=== PATIENT | female | born 1965 | race Caucasian/White ===

== ENCOUNTER 2023-09-15 13:25 | Emergency (ER) | payer OTHER, SELFPAY ==
--- NOTE | ~2023-09-15 | CT_ITS ---
EXAMINATION: CT cervical spine wo con DATE: 09/15/2023 14:00 INDICATION: Fall. Neck injury. Posterior neck pain. TECHNIQUE: Computed tomography (CT) of the cervical spine was performed without intravenous contrast. Automated exposure control and iterative reconstruction technique were employed. Exam dose: 477.81 mGy-cm total exam DLP. COMPARISON: None FINDINGS: There is straightening of the cervical spine which may be due to positioning and/or muscle spasm. C1 and C2 are normally aligned and the odontoid process is intact. No fracture or dislocation or lock ed facet of the cervical spine. There is mild degenerative disc disease at C5-C6 and moderately severe degenerative disc disease at C 6-7.. Incidentally noted is prominent opacification of the maxillary sinuses and mild mucoperiosteal thicke maribell of the sphenoid sinuses. IMPRESSION: Straightening of the cervical spine which may be due to muscle spasm No fracture or dislocation or locked facet Degenerative disc disease in the lower cervical spine, most prominent at C6-7 Reviewed, dictated and finalized at [facility] Reviewed, dictated and finalized at [facility]. 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
--- NOTE | ~2023-09-15 | CT_ITS ---
EXAMINATION: CT brain wo con DATE: 09/15/2023 14:00 INDICATION: Head injury from fall today. Dizziness, headache, nausea. TECHNIQUE: Computed tomography (CT) of the head was performed without intravenous contrast. The mA wa s adjusted according to patient size. Iterative reconstruction technique was employed. Exam dose: 60 5.33 mGy-cm total exam DLP. COMPARISON: None FINDINGS: No intracranial mass lesion or hemorrhage or cerebrovascular accident is detected. No midli ne shift or mass effect. Bilateral carotid siphon internal carotid artery calcifications. No subdural or epidural hematoma. There is extensive soft tissue opacification of both maxillary sinuses and mild echograms thickening of the sphenoid sinuses and left frontal sinus. The mastoid air cells are normally developed and aerated. No skull fracture or bone destruction. IMPRESSION: Cerebral atherosclerosis No acute intracranial finding Paranasal sinus disease, involving particularly the maxillary sinuses Reviewed, dictated and finalized at [facility] Reviewed, dictated and finalized at [facility]. 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
[2023-09-15 14:00] VITALS: BP 122/82; PULSE 86; RESP 18; TEMP 36.8; O2SAT 98
[2023-09-15] MEDS: ONDANSETRON HCL ODT 4 MG TABLET PO (15:08)
[2023-09-15] MEDS: MORPHINE SULFATE (*CRX) 2 MG/ML INJ (15:09)
--- NOTE | 2023-09-15 15:13 | ED.FALL ---
HPI - Fall General Chief Complaint: Fall Stated Complaint: Fall/head injury Time Seen by Provider: 09/15/23 13:27 Source: patient and EMS Mode of arrival: EMS History of Present Illness HPI Narrative: This is 58-year-old female with history of diabetes had a and head having headache some nausea patient denied any dizziness prior no chest pain shortness no lacerations noted the posterior scalp patient is neurologically intact with no numbness or tingling in her arms or legs no weakness. complaint: fall Onset (ago): hour(s) Fall from: standing Place fall occurred: home Related Data Allergies Allergy/AdvReac Type Severity Reaction Status Date / Time adhesive Allergy Unknown Verified 09/15/23 14:22 ibuprofen [From Motrin] Allergy Unknown Verified 09/15/23 14:22 latex Allergy Unknown Verified 09/15/23 14:22 Penicillins Allergy Unknown Verified 09/15/23 14:22 Sulfa (Sulfonamide Allergy Unknown Verified 09/15/23 14:22 Antibiotics) tramadol Allergy Unknown Verified 09/15/23 14:22 IVP DYE Allergy Unknown Uncoded 09/15/23 14:22 Review of Systems Review of Systems: All systems reviewed & are unremarkable except as noted in HPI and below PMFSH Past Medical History Medical History Diabetes mellitus Exam Const: General: healthy appearing, no acute distress and alert Nutritional Appearance: well nourished Orientation/consciousness: patient oriented x3 Limitations: no limitations HENMT: Head: normal to inspection Ears: external ears normal Face and sinus: normal facial exam Eyes: Conjunctivae: conjunctivae normal Pupils: Equal, round and reactive pupils present EOM: EOMs intact bilaterally Chest: Chest palpation & inspection: normal inspection of the chest Resp: Effort & Inspection: normal respiratory effort Auscultation: clear to auscultation bilaterally Cardio: Rate: regular rate Rhythm: regular rhythm Skin: General skin exam: normal color Wounds: wounds noted Other: contusion the back of the occipital area of her scalp with no lacerations Neuro: General: patient oriented x3, moves all extremities, no meningeal signs and no focal motor deficits Extrem: General: normal to inspection and no clubbing, cyanosis or edema Course Course Emergency Course: patient was brought in by EMS with a cervical collar, had scans of her cervical spine and CT scan of brain which showed no acute abnormalities, patient received 2mg IM morphine and Zofran for nausea Critical Care Time Critical Care Time Critical Care Time: No Discharge Plan Discharge Clinical Impression: Neck strain Qualifiers: Encounter type: initial encounter Qualified Code(s): S16.1XXA - Strain of muscle, fascia and tendon at neck level, initial encounter Patient Disposition: Home, Self-Care Condition: Stable Instructions: Antibiotic Form, Muscle Strain (ED), Contusion in Adults (ED) Additional Instructions: advised to take medicine as prescribed and follow-up primary care physician if symptoms persist or worsen. Prescriptions: New oxycodone-acetaminophen [Percocet] 5-325 mg tablet 1 tablet PO Q6H PRN (Reason: pain) Qty: 14 0RF cyclobenzaprine 5 mg tablet 5 mg PO TID PRN (Reason: muscle spasm) Qty: 20 0RF Follow-up/Referrals: UNKNOWN,DOCTOR [Primary Care Provider] - Time of Disposition: 15:19
[2023-09-15 16:08] VITALS: BP 127/75; PULSE 82; RESP 20; TEMP 36.7; O2SAT 97
== END 2023-09-15 15:52 | disposition home or self-care (01) ==
PROVIDERS: Emergency Provider Emergency Medicine
DX: S16.1XXA Strain of muscle, fascia and tendon at neck level, initial encounter (principal); E11.9 Type 2 diabetes mellitus without complications; W19.XXXA Unspecified fall, initial encounter
CPT/HCPCS: 70450; 72125; 96372; 99284; A9270; J2270

== ENCOUNTER 2025-08-22 21:20 | Emergency (ER) | payer MEDICAID, SELFPAY ==
[2025-08-22] VITALS (17 sets, daily range): BP systolic 68–116; BP diastolic 48–93; PULSE 75–91; RESP 13–20; TEMP 35.9; O2SAT 93–100
--- NOTE | ~2025-08-22 | CT_ITS ---
CT HEAD NON-CONTRAST Clinical History: LETHARGIC Comparison: 09/15/2023 Technique: Unenhanced axial images skull base to vertex Coronal, sagittal reformats CT images acquired with automatic exposure control for dose reduction DLP: 605 mGy-cm Findings: Mild white matter changes, typically chronic microvascular ischemic disease. Sulci, ventricles: Unremarkable. No intracerebral hemorrhage. No evidence acute territorial infarct. No mass effect, midline shift. Partially empty sella. Bony calvarium intact. Visualized paranasal sinuses: Clear. Mastoid air cells: Clear. IMPRESSION: 1. No acute intracranial findings. Reviewed, dictated and finalized at location R. YSIS ENGINEER
--- NOTE | ~2025-08-22 | XR_ITS ---
Examination: XR chest 1V portable Clinical History: LETHARGIC Comparison: None Technique: Portable AP Findings: Heart size normal. Lungs clear. No acute bony abnormality. IMPRESSION: 1. No acute cardiopulmonary findings given portable technique. Reviewed, dictated and finalized at location R. ATIONS ADMINISTRATIVE ASSISTANT
--- NOTE | 2025-08-22 21:29 | ED.GENADULT ---
HPI - General Adult General Chief complaint: Altered Mental Status Stated complaint: NOT WELL Time Seen by Provider: 08/22/25 21:28 Source: patient and EMS Mode of arrival: EMS History of Present Illness HPI narrative: 60 years old white female came to the ED by ambulance from home because of less responsive of unknown duration. Patient usually get a phone call from her son every night, tonight patient did not answer, he call 911 for wellness check. Patient found to be lethargic, less responsive and sleepy. Patient usually takes Ambien and marijuana every night to help her to sleep. Patient currently responsive to painful stimulation, awake, alert and oriented x3. Denying any symptoms. Her daughter armando telling me that she had redness/possible cat scratch on the right knee few days ago, was seen at [facility] in hospital 3 days ago and was started on Z-Eduard. History of diabetes, hypertension, hyperlipidemia, supposed to be on CPAP could not tolerated, sleep apnea, she vapes and uses marijuana daily. Patient lives alone. Related Data Allergies Allergy/AdvReac Type Severity Reaction Status Date / Time adhesive Allergy Mild Unknown Verified 08/22/25 21:37 ibuprofen (From Motrin) Allergy Unknown Verified 08/22/25 21:37 latex Allergy Unknown Verified 08/22/25 21:37 Penicillins Allergy Unknown Verified 08/22/25 21:37 Sulfa (Sulfonamide Allergy Unknown Verified 08/22/25 21:37 Antibiotics) tramadol Allergy Unknown Verified 08/22/25 21:37 IVP DYE Allergy Unknown Uncoded 09/15/23 14:22 Review of Systems Review of Systems: All systems reviewed & are unremarkable except as noted in HPI and below PMFSH Past Medical History Medical History Diabetes mellitus Exam Narrative: General appearance: Well-developed, well-nourished, lethargic, responsive to painful stimulation Skin: Normal color, erythematous changes, warm to touch, tender at the right knee anteriorly Head: Normocephalic, nontraumatic Eyes: Clear conjunctiva ENT: Oropharynx normal, ears normal, nose normal Neck: Supple, nontender Chest and respiratory: Airway patent, no respiratory distress, no accessory muscle use Heart: Regular rate/rhythm Abdomen: Soft, nontender, no organomegaly, quiet bowel sounds Vascular: Normal peripheral pulses, normal capillary refill. Musculoskeletal: Normal range of motion, nontender back Neurologic: Lethargic, less responsive and oriented ?3, Course Consultations Consultation #1: DR SERRANO [facility] AT [facility] ACCEPTED PATIENT TRANSFER Date: 08/23/25 Vital Signs Vital signs: Vital Signs Temperature 35.9 C L 08/22/25 21:20 Pulse Rate 81 08/22/25 21:20 Respiratory Rate 18 08/22/25 21:20 Blood Pressure 94/58 L 08/22/25 21:20 Pulse Oximetry 94 08/22/25 21:20 Oxygen Delivery Room Air 08/22/25 21:20 Temperature 35.9 C L 08/22/25 21:20 Pulse Rate 85 08/23/25 01:33 Respiratory Rate 14 08/23/25 01:31 Blood Pressure 143/73 H 08/23/25 01:33 Pulse Oximetry 96 08/23/25 01:31 Oxygen Delivery Room Air 08/23/25 01:31 Procedures Central Line Placement Right Femoral: Central Line Date: 08/22/25 Central Line Time: 23:45 Discussed w/ the patient/family/POA,the placement of a central venous catheter, including its clinical necessity/indication & associated potential risks, benifits and alternatives.: Yes The patient/family/POA understand(s) and acknowledge(s) the need to proceed with central venous catheter insertion as an important element of the patient's clinical management.: Yes Time Out Performed: Yes (20) Patient Placed on Monitor/Pulse Ox: Yes Max. Sterile Barrier Technique: large sterile sheet and hand hygiene Central Line Prep: sterile drapes applied Local Anesthetic: none Ultrasound Used for Placement: No Central Line Lumen Inserted: triple Post Procedure: sutured in place, good blood return, all ports aspirated, flushed, capped and sterile dressing applied Patient Tolerated Procedure: well and no complications Complications: none Medical Decision Making MDM Narrative Medical decision making narrative: Patient came to the ED you with less responsiveness for unknown duration Vital sign showing blood pressure 94/58 otherwise within normal limit Physical examination showing lethargic, sleepy, less responsive patient, responsive to painful stimulation but oriented to her name and age and name of the present and the year. Differential diagnosis less responsive probably secondary to marijuana and Ambien intake which she does take daily prior to sleep, sepsis, electrolyte imbalance, dehydration, intracranial pathology, urinary tract infection, cellulitis Blood workup today includes CBC, CMP, blood culture, coags, magnesium level, lactic acid, troponin, CRP showed 12.5 hemoglobin 9.3 sodium 132, creatinine 2.6, BUN 25, lactic acid 4.6, calcium 7.5, magnesium 1.3, C-reactive protein more than 9 lipase 690 Vital Signs Vital Signs: Vital Signs Temperature 35.9 C L 08/22/25 21:20 Pulse Rate 81 08/22/25 21:20 Respiratory Rate 18 08/22/25 21:20 Blood Pressure 94/58 L 08/22/25 21:20 Pulse Oximetry 94 08/22/25 21:20 Oxygen Delivery Room Air 08/22/25 21:20 Temperature 35.9 C L 08/22/25 21:20 Pulse Rate 85 08/23/25 01:33 Respiratory Rate 14 08/23/25 01:31 Blood Pressure 143/73 H 08/23/25 01:33 Pulse Oximetry 96 08/23/25 01:31 Oxygen Delivery Room Air 08/23/25 01:31 Lab Data 08/22/25 22:45 08/22/25 22:45 Labs: Lab Results 08/22/25 08/22/25 08/22/25 Range/Units 21:31 21:55 22:45 WBC 12.5 H (4.8-10.8) K/mm3 RBC 3.02 L (4.20-5.40) M/mm3 Hgb 9.3 L (12.0-15.0) g/dL Hct 27.8 L (35.0-49.0) % MCV 92.1 (78.0-102.0) fL MCH 30.8 (27.0-31.0) pg MCHC 33.5 (32-36) g/dL RDW 13.4 (11.6-14.4) % Plt Count 142 L (150-420) K/mm3 MPV 10.0 (9.2-11.8) fl Immature Gran % (Auto) 0.6 H (0.0-0.0) % Neut % (Auto) 76.1 H (50.0-70.0) % Lymph % (Auto) 12.6 L (18.0-42.0) % [place] % (Auto) 9.5 (2.0-11.0) % Eos % (Auto) 0.9 L (1.0-6.0) % Baso % (Auto) 0.3 (0.0-1.0) % Lymph # (Auto) 1.58 (1.10-4.50) K/mm3 [place] # (Auto) 1.19 H (0.10-0.90) K/mm3 Eos # (Auto) 0.11 (0.02-0.50) K/mm3 Baso # (Auto) 0.04 (0.00-0.10) K/mm3 Abs Immat Gran (auto) 0.08 H (0.00-0.00) K/mm3 Absolute Neuts (auto) 9.50 H (1.70-7.20) K/mm3 Absolute Nucleated RBC 0.00 (0.00-0.00) K/mm3 Nucleated RBC % 0.0 (0-0.0) % % Immature Plt Fraction 3.0 (1.0-7.0) % PT 11.4 (9.50-12.1) Seconds INR 1.0 APTT 25.9 (23.9-30.70) Sec Sodium 132 L (137-145) mmol/L Potassium 3.9 (3.4-5.0) mmol/L Chloride 100 (98-107) mmol/L Carbon Dioxide 18 L (22-30) mmol/L Anion Gap 14 H (4-12) mmol/L BUN 25 H (7-17) mg/dL Creatinine 2.60 H (0.7-1.0) mg/dL Estim Creat Clear Calc 21 ml/min Estimated GFR 19 L (59 - ) Glucose 112 H (65-110) mg/dL POC Capillary Glucose 98 (65-105) mg/dl Calculated Osmolality 279 L (285-295) mOsm/kg Lactic Acid 4.6 H* (0.7-2.0) mmol/L Calcium 7.5 L (8.4-10.2) mg/dL Magnesium 1.3 L (1.6-2.3) mg/dL Total Bilirubin 0.2 (0.2-1.3) mg/dL AST 34 (14-36) U/L ALT 30 (6-35) U/L Alkaline Phosphatase 73 (38-126) U/L Troponin I < 0.012 (0.000-0.034) ng/mL C-Reactive Protein > 9.0 H (<1.0) mg/dL Total Protein 5.7 L (6.3-8.2) g/dL Albumin 3.3 L (3.5-5.1) g/dL Lipase 690 H (23-300) U/L Urine Color Light yellow (Yellow) Urine Appearance Sl cloudy A (Clear) Urine pH 5.5 (5.0-8.0) Ur Specific [place] 1.020 (1.010-1.020) Urine Protein 1+ H (Negative) Urine Glucose (UA) Negative (Negative) Urine Ketones Trace H (Negative) Ur Blood (Man) Negative (Negative) Urine Nitrate Negative (Negative) Urine Bilirubin Negative (Negative) Urine Urobilinogen 0.2 (0.2-1.0) mg/dL Leukocyte Esterase Rfl Negative (Negative) TIMOTEO/UL Amorphous Sediment Heavy H (None) Hyaline Casts 5-9 H (None) /lpf Granular Casts 3-4 H (None) /lpf Urine Mucus Heavy H /lpf Nasal MRSA (PCR) Urine Opiates Screen Positive A (Negative) Urine Methadone Screen Negative (Negative) Ur Barbiturates Screen Negative (Negative) Ur Phencyclidine Scrn Negative (Negative) Ur Amphetamine Screen Negative (Negative) U Benzodiazepines Scrn Negative (Negative) Urine Cocaine Screen Negative (Negative) U Cannabinoids Screen Positive A (Negative) Ethyl Alcohol < 10 (<10) mg/dL 08/23/25 08/23/25 08/23/25 Range/Units 00:18 01:08 01:40 WBC (4.8-10.8) K/mm3 RBC (4.20-5.40) M/mm3 Hgb (12.0-15.0) g/dL Hct (35.0-49.0) % MCV (78.0-102.0) fL MCH (27.0-31.0) pg MCHC (32-36) g/dL RDW (11.6-14.4) % Plt Count (150-420) K/mm3 MPV (9.2-11.8) fl Immature Gran % (Auto) (0.0-0.0) % Neut % (Auto) (50.0-70.0) % Lymph % (Auto) (18.0-42.0) % [place] % (Auto) (2.0-11.0) % Eos % (Auto) (1.0-6.0) % Baso % (Auto) (0.0-1.0) % Lymph # (Auto) (1.10-4.50) K/mm3 [place] # (Auto) (0.10-0.90) K/mm3 Eos # (Auto) (0.02-0.50) K/mm3 Baso # (Auto) (0.00-0.10) K/mm3 Abs Immat Gran (auto) (0.00-0.00) K/mm3 Absolute Neuts (auto) (1.70-7.20) K/mm3 Absolute Nucleated RBC (0.00-0.00) K/mm3 Nucleated RBC % (0-0.0) % % Immature Plt Fraction (1.0-7.0) % PT (9.50-12.1) Seconds INR APTT (23.9-30.70) Sec Sodium (137-145) mmol/L Potassium (3.4-5.0) mmol/L Chloride (98-107) mmol/L Carbon Dioxide (22-30) mmol/L Anion Gap (4-12) mmol/L BUN (7-17) mg/dL Creatinine (0.7-1.0) mg/dL Estim Creat Clear Calc ml/min Estimated GFR (59 - ) Glucose (65-110) mg/dL POC Capillary Glucose (65-105) mg/dl Calculated Osmolality (285-295) mOsm/kg Lactic Acid Pending (0.7-2.0) mmol/L Calcium (8.4-10.2) mg/dL Magnesium 1.1 L (1.6-2.3) mg/dL Total Bilirubin (0.2-1.3) mg/dL AST (14-36) U/L ALT (6-35) U/L Alkaline Phosphatase (38-126) U/L Troponin I (0.000-0.034) ng/mL C-Reactive Protein (<1.0) mg/dL Total Protein (6.3-8.2) g/dL Albumin (3.5-5.1) g/dL Lipase (23-300) U/L Urine Color (Yellow) Urine Appearance (Clear) Urine pH (5.0-8.0) Ur Specific [place] (1.010-1.020) Urine Protein (Negative) Urine Glucose (UA) (Negative) Urine Ketones (Negative) Ur Blood (Man) (Negative) Urine Nitrate (Negative) Urine Bilirubin (Negative) Urine Urobilinogen (0.2-1.0) mg/dL Leukocyte Esterase Rfl (Negative) TIMOTEO/UL Amorphous Sediment (None) Hyaline Casts (None) /lpf Granular Casts (None) /lpf Urine Mucus /lpf Nasal MRSA (PCR) Pending Urine Opiates Screen (Negative) Urine Methadone Screen (Negative) Ur Barbiturates Screen (Negative) Ur Phencyclidine Scrn (Negative) Ur Amphetamine Screen (Negative) U Benzodiazepines Scrn (Negative) Urine Cocaine Screen (Negative) U Cannabinoids Screen (Negative) Ethyl Alcohol (<10) mg/dL Imaging Data My impression: Chest x-ray showed no consolidation no pleural effusion no pneumothorax Radiologist's impression: CT head without contrast showed no acute abnormality Discharge Plan Discharge Clinical Impression: Sepsis associated hypotension, Cellulitis, History of diabetes mellitus, type II, Hypomagnesemia, Hypocalcemia, Renal failure, Anemia, Cannabis abuse, Opiate use Patient Disposition: Acute Care [facility] Condition: Guarded Prognosis Additional Instructions: Return if symptoms are worsening , call your family physician for appointment, take Tylenol, ibuprofen as as needed for aches and pain, continue home medications. Patient Language: Hungarian Prescriptions: No Action oxycodone-acetaminophen [Percocet] 5-325 mg tablet 1 tablet PO Q6H PRN (Reason: pain) Qty: 14 0RF cyclobenzaprine 5 mg tablet 5 mg PO TID PRN (Reason: muscle spasm) Qty: 20 0RF Follow-up/Referrals: UNKNOWN,DOCTOR [Non-Staff]
--- NOTE | 2025-08-22 21:30 | ECG_ITS ---
Test Date: 2025-08-22 21:37:57 Measurements Intervals [place] Rate: 76 P: -17 IA: 217 QRS: -20 QRSD: 92 T: 15 QT: 392 QTc: 442 Interpretive Statements SINUS RHYTHM WITH FIRST DEGREE AV BLOCK INFERIOR MYOCARDIAL INFARCTION , PROBABLY OLD [40+ ms Q WAVE AND/OR ST/T ABNORMALITY IN II/aVF] ABNORMAL ECG No previous ECG available for comparison Electronically Signed On 08-23-2025 09:21:06 FOUNDRY TECHNICIAN by Eric Silveira M.D.
[2025-08-22] MEDS: SODIUM CHLORIDE 0.9% IV 1,000 ML 999 ML IV CONT ×3 (21:40→22:48)
--- OUTSIDE RECORDS SUMMARY | 2025-08-22 21:42 | XMS_ITS | Continuity of Care Document ---
Author Organization [facility], [facility] [place] ([place]) Address [address] [place] [address] Care Team Providers Care Mold Construction Supervisor Name Role Phone AMY SWANN Primary Care Provider [phone] NORIS WALKER Hall Supervisor Assessment Encounter Date Assessment Date Assessment LastModified by Organization Details LastModified Time 08/04/2025 08/04/2025 SUBJECTIVE: Ms. Charlotte Soto, 60-year-old female, comes in for followup visit. PREVIOUS CARDIAC WORKUP: 1. History of hypertension. She has difficult to control hypertension despite being on 4 antihypertensive medications. Secondary workup for hypertension has been negative. There is issue of poor compliance. 2. Transthoracic, March 03, 2023, showed normal LVEF 65% with left ventricular hypertrophy and mild aortic sclerosis without stenosis. 3. CT coronary angiogram, March 13, 2023. Mild nonobstructive coronary artery disease with minimal plaque in proximal LAD. 4. Cardiac MRI, 11/22/2021, showed diffuse LVH without delayed enhancement or evidence of asymmetrical septal hypertrophy. 5. Carotid Dopplers in the past showed less than 50% bilateral carotid stenosis. IMPRESSION: 60-year-old female, comes in for followup visit. PLAN: 1. Hypertension. Blood pressure is reasonably well controlled with current medications, including chlorthalidone, amlodipine and lisinopril. Her renal artery ultrasound is negative for any renal artery stenosis. She has not been using her CPAP due to issues with claustrophobia. Recommend continuation of current medications, daily exercise, low salt diet and weight loss. She is going to bring her blood pressure cuff for calibration in a month. I will not make any changes to her antihypertensive medications given mild postural dizziness. 2. Shortness of breath, mild. Likely from deconditioning and obesity. Recent echo showed normal LV and RV function. She has mild aortic sclerosis. Previous ischemic evaluation was negative. 3. Chest pain. She denies any recurrence of chest pain. previous ischemic evaluation was negative. No further workup is indicated. She has mild plaque of proximal LAD. Recommend continuation of aspirin and statin. Target LDL is less than 70 4. Recurrent nighttime falls; unclear syncope versus falls from bed - Strongly advised to go to the emergency department for evaluation given frequency and amnestic episodes - Discussed potential contributors including hypoglycemia related to diabetes and effects of sedating/centrally acting medications (clonazepam, gabapentin, escitalopram, trazodone, venlafaxine) - Last events occurred during sleep with no recall; uncertain if true syncope Follow-up visit in a month Not available 08/04/2025 15:47:01 Plan of Treatment Reminders Order Date Submit Date Provider Last Modified By Organization Details Last Modified Time Details Appointments None record ed. Lab None record ed. Referral None record ed. Procedures None record ed. Surgeries None record ed. Imaging None record ed. Medication Orders None record ed. Patient TargetsNo targets recorded. Patient InstructionsNo instructions recorded. Reason for Referral None Reported. Problems Name Problem SNOMED Code Status Onset Date Resolution Date Notes Provider Name and Address Organization Details Recorded Time Essential hypertension 52537072 Active 2024 [facility] 5 11:22:52 Chest pain 40688160 Active 2024 [facility] 5 11:23:31 Hyperlipidemia 96463532 Active 2024 [facility] 5 11:23:36 Syncope 569565598 Active 2024 [facility] 5 11:23:46 Dyspnea 014679899 Active 2024 [facility] 5 10:55:55 Hypertensive disorder 36001292 Active 2024 Kike Powell [facility] 5 19:54:16 Cyst 115778956 Active 2024 Hannah Back PA-C [address] [facility], [place], [address] [place] [address] 5 10:11:31 Problem Notes None recorded. Medical Equipment None Reported. Allergies Allergen ID Allergen Name Allergen Category Reaction Reaction Severity Criticality Documentation Date Start Date Code Code System Note Provider Name and Address Organization Details Recorded Time 520623 Product containin g penicilli n (product) medicatio n Not available Not available Not available 10/22/20232009 70797 8001 SNOMED Not Available [facility] 4 22:52:54 707018 Motrin medicatio n Not available Not available Not available 10/22/20232009 79518 8 RxNorm Not Available [facility] 4 22:52:55 757726 metronida zole medicatio n Not available Not available Not available 10/22/20232009 6922 RxNorm Not Available [facility] 4 22:52:55 420082 latex gloves medicatio n Not available Not available Not available 10/22/20232009 Not Available [facility] 4 22:52:55 110462 Iodinated contrast media (substanc e) medicatio n Not available Not available Not available 10/22/20232009 06554 2004 SNOMED Comme nt: Annot ation s: MARCELLO WEN, RUTHANN CARDONA 2009 3:53P M IVP DYE; ; Not Available [facility] 4 22:52:55 342373 Toradol medicatio n Not available Not available Not available 10/22/20232009 26479 RxNorm Not Available [facility] 4 22:52:55 140277 adhesive tape environme nt,medica tion Not available Not available Not available 10/22/20232014 Comme nt: Adhes elan Tape React ion Date: 07 Oct 2013 ; Not Available [facility] 4 20:42:11 583708 tramadol hydrochlo ride medicatio n Not available Not available Not available 10/22/20232009 22814 RxNorm Not Available [facility] 4 22:52:56 875003 Substance with sulfonami de structure and antibacte rial mechanism of action (substanc e) medicatio n Not available Not available Not available 10/22/20232009 23217 8003 SNOMED Not Available [facility] 4 22:52:56 121745 Keflex medicatio n Not available Not available Not available 10/22/20232009 40937 7 RxNorm Not Available [facility] 4 22:52:56 388075 Tape 1/2X10YD medicatio n Not available Not available Not available 10/22/20232014 Not Available [facility] 4 22:52:56 483802 tea tree oil medicatio n Not available Not available Not available 10/22/20232014 60208 RxNorm Not Available [facility] 4 22:52:56 Medications Name Sig Start Date Stop Date Status Note LastModified by Organization Details LastModified Time ropinirole 1 mg tablet Take 1.25 mg every day by oral route. active Not Available Not Available No t Available venlafaxine 75 mg tablet Take 2 tablets every day by oral route. active Not Available Not Available No t Available meloxicam 15 mg tablet Take 1 tablet every day by oral route. active Not Available Not Available No t Available clonazepam 1 mg tablet Take 1 tablet 3 times a day by oral route. active Not Available Not Available No t Available hydroxyzine HCl 50 mg tablet Take 1 tablet 4 times a day by oral route. active Not Available Not Available No t Available chlorthalido ne 25 mg tablet Take 1 tablet every day by oral route. active Not Available Not Available No t Available pravastatin 80 mg tablet Take 1 tablet every day by oral route. active Not Available Not Available No t Available gabapentin 800 mg tablet Take 1 tablet 3 times a day by oral route. active Not Available Not Available No t Available meclizine 25 mg tablet Take 1 tablet 3 times a day by oral route. active Not Available Not Available No t Available amlodipine 10 mg tablet Take 1 tablet every day by oral route. active Not Available Not Available No t Available trazodone 150 mg tablet Take 1 tablet every day by oral route. active Not Available Not Available No t Available metformin 1,000 mg tablet Take 1 tablet twice a day by oral route. active Not Available Not Available No t Available lisinopril 40 mg tablet Take 1 tablet every day by oral route. active Not Available Not Available No t Available escitalopram 20 mg tablet Take 1 tablet every day by oral route. active Not Available Not Available No t Available insulin lispro 12 units TID active Not Available Not Available No t Available Trulicity 1.5 mg/0.5 mL subcutaneous pen injector Inject 1.5 mg twice a week by subcutaneou s route. active Not Available Not Available No t Available Dexcom G6 Sensor active Not Available Not Available Not Available Vitals Date Recorded Body height Heart rate Oxygen saturation Body mass index (BMI) Body weight Systolic And Diastolic Provider Name and Address Organization Details Last Updated DateTime 5 157.48 cm 71 /min 99 % 34.9 kg/m2 88314.1 4 g 154/94 mm[Hg] [facility] 5 15:26:50 Social History None recorded. Functional Status None recorded. Mental Status None recorded. Family History Nothing Reported. Medical History No medical history recorded. Gynecological HistoryNo gynecological history recorded. Obstetrics History GPAL:G 0 P 0 0 0 0 Past Encounters Encounter ID Performer Location Encounter Start Date Encounter Closed Date Diagnosis/Indication Diagnosis SNOMED-CT Code Diagnosis ICD10 Code Diagnosis IMO Codes Diagnosis Note [id number] Noris Walker MD [facility] Specialty Cardiolog y ([place]) [address] [place] [address] 08/04/2025 15:03:11 08/04/2025 15:50:23 Hypertensive disorder 49672361 I10 56704958 Dyspnea 666216601 R06.02 71024 History of chest pain 16 71292677 4436450 Z87.643 6709397 Health Concerns Section Related Observation LastModified by Organization Detai ls LastModified Time None Recorded Concern Status LastModified by Organization Details LastModified Time None Recorded Payers Encounter Date Sequence Insurance Name Policy Number Policy Lai Covered Member ID Lai Member ID Guarantor Name 08/04/2025 1 [place] [employer] Charlotte Soto [id number] Charlotte Soto Notes Date Note Type Note Provider Name and Address Organization Details Recorded Time 08/04/2025 text/html 60-year-old woman presents for evaluation of recurrent falls. Patient reports falling all the time and initially stated she may be passing out; however, episodes appear to occur primarily during sleep with the patient waking up on the floor and not recalling the event. Most recent event occurred last night; prior event on Sunday. She is unsure if these represent syncope, as she may have slipped or fallen from bed during sleep and is amnestic to the events. She sometimes experiences dizziness upon standing. Home blood pressure has been running high (typically 140-150 systolic) measured with a wrist cuff of uncertain accuracy. Provider noted patient is diabetic and discussed potential for hypoglycemia contributing to events, and that multiple sedating/centrally acting medications (e.g., clonazepam, gabapentin, escitalopram, trazodone, venlafaxine) could also contribute. Pain management advised ED evaluation; patient has been considering going today.Twelve-lead EKG today shows sinus rhythm left axis deviation and poor R wave progression Noris Walker MD [address] [facility], [place], [address], [facility] 08/04/2025 15:47:07 OBGyn Episode No OBEpisode recorded.
--- OUTSIDE RECORDS SUMMARY | 2025-08-22 21:42 | XMS_ITS | Encounter Summary ---
Author Organization [facility] - [facility] Address [address] [place] [address] Care Team Providers Care Hospital Corpsman Name Role Phone Fritz Denis MD Primary Care Provider Encounter Details Date Type Department Care Team (Late st Contact Info) Description 03/01/2019 Abstract SFL CONVERSION [address] [place] [address] , Generic Conversion, Social History Tobacco Use Types Packs/Day Years Used Date Smoking Tobacco: Never Assessed Comments Unknown Sex and Gender Information Value Date Recorded Sex Assigned at Not on file Legal Sex Female 9:16 PM CDT Gender Identity Not on file Sexual Orientation Straight 08/01/2019 8: 18 PM HAND SAMPLE MAKER documented as of this encounter Plan of Treatment Not on file documented as of this encounter Visit Diagnoses Not on filedocumented in this encounter Care Teams Hospital Corpsman Relationship Specialty Start Date End Date Fritz Denis MD [address] [facility] [place] [address] PCP - General FAMILY PRACTICE 02/21/19 documented as of this encounter
--- OUTSIDE RECORDS SUMMARY | 2025-08-22 21:43 | XMS_ITS | Patient Health Record ---
Author Organization [facility] Address [address] [place] [address] Care Team Providers Care Golf Manager Name Role Phone LADARIUS LAUREN Primary Care Provider Unavailtiffany e RUBEN PELLETIER Unavailable [phone] Allergies Allergen (clinical drug ingredient) Drug/Non Drug Allergy documented on EMR Reaction Allergy Type Onset Date Status Information temporarily unavailable contrast dye (uncoded) Unknown Allergy Activ e Information temporarily unavailable toradol (uncoded) Unknown Allergy Active Information temporarily unavailable Latex Unknown Allergy Active Information temporarily unavailable Penicillin Unknown Drug Allergy Active Information temporarily unavailable Sulfa Antibiotics Unknown Drug Allergy Active Reason For Referral No Information Social History Tobacco Use: Social History Observation Description Date Details (start date - stop date) Unknown AUDIT-C (Standard) Question Answer Notes Did you have a drink containing alcohol in the p ast year? No Points 0 Interpretation Negative Tobacco Control (Standard) Question Answer Notes Tobacco use: Uses tobacco in other forms Additional Findings: Tobacco user e-cigarette Problems Problem Type SNOMED Code ICD Code Onset Dates Problem Status W/U Status Risk Notes Problem Information temporarily unavailable Diabetic peripheral neuropathy (E11.42) Active confirmed Vital Signs Heart Rate 97 /min 01/05/2025 Respiratory Rate 16 /min 01/05/2025 Height-cm 157.48 cm 01/05/2025 Blood pressure diastolic 106 mm Hg 01/05/2025 Weight-kg 92.53 kg 01/05/2025 Height 62 in 01/05/2025 Blood pressure systolic 187 mm Hg 01/05/2025 Weight 204 lbs 01/05/2025 BMI 37.31 kg/m2 01/05/2025 Encounters Encounter Location Date Provider Diagnosis [facility] [address] [place] [address] 01/05/2025 RUBEN PELLETIER Right Achilles tendinitis M76.61 ; Calcaneal spur of right foot M77.31 and Diabetic peripheral neuropathy E11.42 [facility] [address] [place] [address] 01/12/2025 RUBEN PELLETIER Assessments Encounter Date Diagnosis (ICD Code) Assessment Notes Treatment Notes Treatment Clinical Notes Section Notes 01/05/2025 Right Achilles tendinitis (ICD-10 - M76.61) We discussed tendinitis and treatment options. We discussed tendon tears and ruptures. We discussed conservative and surgical treatment options. We discussed MRI, SPECT CT and CT scans. We discussed NSAID use and steroid use. Pt seen and evaluated. Discussed condition and treatment options. Ordered X-rays, which showed a large heel spur. Discussed conservative vs surgical treatment options, including perioperative and recovery time for surgery. Discussed conservative treatment options. Recommended she use a heel lift, and slowly remove part of the heel lift for a month. If no improvement, may consider immobilization vs surgery. 01/05/2025 Calcaneal spur of right foot (ICD-10 - M77.31) 01/05/2025 Diabetic peripheral neuropathy (ICD-10 - E11.42) We discussed preventative foot care. We discussed preventative foot hygiene. We instructed the patient on how to care for their feet, and to contact the office if any wounds develop, or signs of infection arise. Peripheral neuropathy covered: Examination of the patient's sensation shows that there is advanced neuropathy to the extent that care by a non-professional person would put the patient at risk for ulceration, infection and/or amputation. The patient was educated on the importance of daily foot checks. The patient was instructed to call the office if any signs of infection arise. Plan Of Treatment No Information Insurance Providers Payer Name Payer Address Payer Phone Subscriber Number Group Number Insured Name Patient Relationship to Insured Coverage Start Date Coverage End Date [place] [employer] [place] [employer] [address] [address] [place] [address] [phone] [id number] RUSSELL GAYTAN Self - patient is the insured Medical (General) History Medical History History ICD Code Hypertension Diabetes Anxiety / Depression
--- OUTSIDE RECORDS SUMMARY | 2025-08-22 21:43 | XMS_ITS | Data Portability ---
Author Organization [facility], [address] Neurology (MD) Address [address] 4th [place] [address] Care Team Providers Care Advertising Consultant Name Role Phone AMY SWANN Primary Care Provider APRIL WALKER Brake Press Operator Assessment Encounter Date Assessment Date Assessment LastModified by Organization Details LastModified Time 02/03/2025 02/03/2025 SUBJECTIVE: Ms. Charlotte Soto, 59-year-old female, comes in to establish cardiovascular care. She is a patient of [facility] Cardiology who wants to switch care due to personal reasons. She has history of diabetes mellitus, hypertension, sleep apnea, obesity, schizoaffective disorder, anxiety and depression. She is active, but does not do regular exercise. She has mild dyspnea with daily activities, which is stable. She has been having intermittent episodes of chest pain for the past 2 or 3 months. The pain usually occurs while at rest. It is located over her left breast and lasts for a few seconds. She denies any exertional, musculoskeletal or pleuritic component to it. She denies orthopnea or PND. She has intermittent lower extremity edema. She denies dizziness or lightheadedness. Previously she had an episode of passing out in 2020 when her cardiac workup was negative. She has longstanding history of hypertension. She is taking multiple antihypertensive medications, including chlorthalidone, amlodipine, lisinopril and metoprolol tartrate. Her cardiac workup includes an echo on March 03, 2023, which showed normal LVEF of 65% with left ventricular hypertrophy and mild aortic sclerosis without stenosis. CT coronary angiogram, March 13, 2023, showed minimal nonobstructive coronary artery disease with minimal plaque in proximal LAD. Carotid Dopplers showed less than 50% bilaterally. She also had a cardiac MRI on 11/22/2021, which showed diffuse LVH without any delayed myocardial enhancement or evidence of asymmetric septal hypertrophy. There was stenosis of noncoronary cusp of the aortic valve. Her stress test previously was negative on January 31, 2022. She is an active smoker. She does not use her CPAP as she is claustrophobic. Recent blood work shows normal hemoglobin and hematocrit. Last lipid panel was near favorable. Last renal function and electrolytes were normal. Her 12 lead EKG today shows sinus rhythm with left ventricular hypertrophy and poor R wave progression. IMPRESSION: 59-year-old female, comes in to establish cardiovascular care. PLAN: 1. Hypertension. Blood pressure is near normal in clinic today. I suggested her to check her blood pressure at home and keep a log and bring it in during the next visit. Recommend continuation of current cardiac medications. Stressed the importance of lifestyle modification, especially daily exercise, weight loss, low salt diet and compliance with CPAP. She is claustrophobic and asked if there is any other way to treat sleep apnea. We discussed about Inspire. I told her to talk to her primary care physician to make an ENT referral to see if she is a good candidate for Inspire implantation. I do not see any workup for secondary causes for hypertension. We will recommend at least getting renal artery ultrasound given her risk factors for atherosclerosis. 2. Shortness of breath. Likely from deconditioning and obesity. Probably has underlying lung disease due to longstanding history of smoking. She is euvolemic on exam. We will recommend getting an echo to reevaluate her aortic valve given murmur on exam and history of mild aortic sclerosis. 3. Chest pain. Description of chest pain is atypical for ischemic pain. She has mild nonobstructive CAD on her CT coronary angiogram. Last stress test was negative. Given that she does not have ischemic symptoms, I will not repeat a stress test at this point. Recommend continuation of aspirin and pravastatin. Patient was counseled regarding lifestyle modification healthy diet, daily exercise and weight loss. Patient understood the care plan and voiced no concerns. Followup visit in a month after above-mentioned testing. [email or web address] Not available 02/04/2025 21:29:41 03/18/2025 03/18/2025 SUBJECTIVE: Ms. Charlotte Soto, 59-year-old female, comes in for followup visit. She has history of hypertension, diabetes, sleep apnea, obesity, anxiety, depression and schizoaffective disorder. She is active and has been able to perform her daily activities. She denies any chest pain, chest tightness or chest pressure now. Previously she had some episodes of atypical chest pain, which has not recurred. She has mild dyspnea with moderate exertion, which is stable. She denies orthopnea, PND or resting shortness of breath. She has mild intermittent lower extremity edema, which is unchanged from before. She denies dizziness, lightheadedness or palpitations. She has been compliant with her medications and denies any issues. She recently had further cardiac workup with renal artery ultrasound on 03/12/2025. It did not show any evidence of renal artery stenosis. She had a transthoracic echo on 03/12/2025. It showed normal LV and RV function with mild tricuspid regurgitation. Last 12 lead EKG from 02/03/2025, showed sinus rhythm with left ventricular hypertrophy and poor R wave progression. PREVIOUS CARDIAC WORKUP: 1. History of hypertension. [...] less than 50% bilateral carotid stenosis. IMPRESSION: 59-year-old female, comes in for followup visit. PLAN: 1. Hypertension. Blood pressure is reasonably well controlled with current medications, including chlorthalidone, amlodipine and lisinopril. Her renal artery ultrasound is negative for any renal artery stenosis. She has not been using her CPAP due to issues with claustrophobia. Recommend continuation of current medications, daily exercise, low salt diet and weight loss. We will also recommend her to see ENT to see if she is a good candidate for Inspire implantation. 2. Shortness of breath, mild. Likely from deconditioning and obesity. Recent echo showed normal LV and RV function. She has mild aortic sclerosis. Previous ischemic evaluation was negative. 3. Chest pain. She denies any recurrence of chest pain. previous ischemic evaluation was negative. No further workup is indicated. She has mild plaque of proximal LAD. Recommend continuation of aspirin and statin. The patient was counseled regarding lifestyle modifications of healthy diet, daily exercise, and weight loss. The patient understood the care plan and voiced no concerns. Followup visit in a year. [email or web address] Not available 03/22/2025 15:03:57 06/19/2025 06/19/2025 1. 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 - Symptomatic measures as needed: ice when it enlarges; consider use of a knee brace if helpful. - No MRI indicated currently; lesion not visualized on X-ray (likely non-calcified). - Return visit in 1 month to reassess size, symptoms, and any changes. - Monitor for signs of infection (redness, warmth, drainage, fever); call if these occur. - Discussed that surgical excision could be considered in the future if it becomes problematic; pathology evaluation if removed. 2. Mild knee osteoarthritis (radiographic), currently asymptomatic - No treatment needed today. - If knee pain develops in the future, can consider steroid injection as discussed. Additional notes: Patient uses Tylenol occasionally for discomfort; no NSAIDs used currently. Patient intermittently uses a crutch as needed; otherwise independent with ADLs. Total time spent: 10 minutes (Tracked by [employer]) [email or web address] Not available 06/19/2025 10:07:14 08/04/2025 08/04/2025 SUBJECTIVE: Ms. Charlotte Soto, 60-year-old [...] true syncope Follow-up visit in a month [email or web address] Not available 08/04/2025 15:47:01 Plan of Treatment Reminders Order Date Submit Date Provider Last Modified By Organization Details Last Modified Time Details Appointments None recorded. Lab None recorded. Referral None recorded. Procedures None recorded. Surgeries None recorded. Imaging US, echocardiog galo 2024 025 [facility] (Radiology), [address] [place], [address], 00:27:55 US, renal artery - renal artery us 2024 025 [email or web address] [facility] (Radiology), [address] [place], [address], 09:46:35 Medication Orders None recorded. Patient TargetsNo targets recorded. Patient InstructionsNo instructions recorded. Reason for Referral None Reported. Results Created Date Observation Date Name Description Value Unit Range Abnormal Flag Note LastModifiedBy Organization Detail LastModifiedTime 01/20/20 25 12/09/2021 imagi ng/di agnos tic resul t No observ ation record ed. [email or web address] Not Available 02:08:01 01/20/20 25 01/31/2022 imagi ng/di agnos tic resul t No observ ation record ed. [email or web address] Not Available 02:08:09 01/20/20 25 07/13/2022 imagi ng/di agnos tic resul t No observ ation record ed. [email or web address] Not Available 02:08:23 01/20/20 25 08/07/2021 imagi ng/di agnos tic resul t No observ ation record ed. [email or web address] Not Available 02:08:29 01/20/20 25 08/24/2022 imagi ng/di agnos tic resul t No observ ation record ed. [email or web address] Not Available 02:08:31 03/15/20 25 03/12/2025 , echoc ardio gram [facility] [address] [facility] [address] Adult Echoca rdiogr am Report Name: Charlotte SNEED Study Date: 2024 : 1964 [id number] Gender : Female Age: 59 yrs Height : 62 in Weight : 200 lb BSA: 1.9 m2 Orderi ng Physic mylene: Henny Walker MD Perfor med By: PC Reason For Study: Chest Pain R07.9 Patien t Locati on: [facility] BP: 167/93 mmHg Interp retati on Summar y There is no compar agus study availa ble. There is mild-t o-mode rate valvul ar aortic stenos is. Left Ventri cular Ejecti on Fracti on by Simpso n's Biplan e method is = 70-75 %. Left ventri cular systol ic functi on is normal . The right ventri heron is normal in size and functi on. There is mild tricus pid regurg itatio n. PROCED URE DETAIL S: A comple te transt horaci c echoca rdiogr am was perfor med (2D; M-mode ; spectr al and color flow Dopple r). LEFT VENTRI HERON: The left ventri heron size and wall thickn ess are normal . Left Ventri cular Ejecti on Fracti on by Simpso n's Biplan e method is = 70-75 %. Left ventri cular systol ic functi on is normal . The left ventri cular diasto lic fillin g patter n is normal . No region al wall motion abnorm alitie s noted. LEFT ATRIUM /ATRIA L SEPTUM : The left atrial volume index is normal by BSA and gender . RIGHT ATRIUM : The right atrial volume index is normal when correc fred for BSA and gender . RIGHT VENTRI HERON: The right ventri heron is normal size. TAPSE is normal at 2.7cm (> or =1.7cm is normal ). The right ventri heron is normal in size and functi on. AORTIC VALVE: The aortic valve is trilea flet. There is mild-t o- modera te valvul ar aortic stenos is. There is trace aortic regurg itatio n. MITRAL VALVE: The mitral valve leafle ts appear normal . There is trace mitral regurg itatio n. TRICUS PID VALVE: The tricus pid valve appear s normal with no obviou s struct ural abnorm alitie s. There is mild tricus pid regurg itatio n. PULMON IC VALVE: The pulmon ic valve is not well visual ized. There is trace pulmon ic valvul ar regurg itatio n. ARTERI ES: The ascend ing aorta measur es normal at 3.2 cm. VENOUS : The inferi or vena cava is normal in size, with normal respir atory variat ion. MMode/ 2D Measur ements IVSd: 1.0 cm LVIDd: 4.7 cm LVIDs: 2.5 cm LVPWd: 1.1 cm LV mass(C )d: 179.0 grams LV mass Index: 93.6 grams/ m2 Ao sinus of Valsal va diam: 3.1 cm LA dimens ion: 4.9 cm Asc Ao: 3.2 cm LVOT diam: 1.8 cm LVOT area: 2.5 cm2 LVAd ap4: 24.9 cm2 LVLd ap4: 7.3 cm EDV(MO D-sp4) : 67.6 ml LVAs ap4: 8.8 cm2 LVLs ap4: 6.0 cm ESV(MO D-sp4) : 11.0 ml EF(MOD -sp4): 83.7 % LVAd ap2: 20.4 cm2 LVLd ap2: 6.6 cm EDV(MO D-sp2) : 52.5 ml LVAs ap2: 13.6 cm2 LVLs ap2: 6.1 cm ESV(MO D-sp2) : 25.9 ml EF(MOD -sp2): 50.7 % LAV(MO D-sp2) : 40.0 ml LAV(MO D-sp4) : 51.9 ml TAPSE_ phl: 2.8 cm EF (MOD-b p): 73.4 % LA ESV (MOD-b p): 46.0 ml LA vol: 44.0 ml LA vol index: 23.0 ml/m2 Time Measur ements MM R-R int: 0.90 sec Dopple r Measur ements MV E max sergio: 99.9 cm/sec MV A max sergio: 119.3 cm/sec MV E/A: 0.84 MV dec time: 0.24 sec MV V2 max: 133.9 cm/sec MV max P.0 mmHg MV V2 mean: 68.6 cm/sec MV mean P.5 mmHg MV V2 VTI: 39.4 cm MVA(VT I): 1.6 cm2 MV P1/2t max sergio: 124.3 cm/sec MV P1/2t: 70.7 msec MVA(P1 /2t): 3.1 cm2 MV dec slope: 514.6 cm/sec 2 AV max: 245.5 cm/sec Ao max P.0 mmHg AV mean v: 155.5 cm/sec Ao mean P.8 mmHg AV VTI: 51.5 cm ANTONIO(I, D): 1.2 cm2 ANTONIO(V, D): 1.2 cm2 LVOT max P.0 mmHg LVOT mean P.3 mmHg LVOT max: 120.5 cm/sec LVOT mean: 66.9 cm/sec LVOT VTI: 25.2 cm SV(LVO T): 62.1 ml TV E max sergio: 66.9 cm/sec TV A max sergio: 33.5 cm/sec TV E/A: 2.0 PV max: 96.0 cm/sec PV max P.0 mmHg PI end-d sergio: 80.1 cm/sec PI max P.0 mmHg TR max sergio: 212.4 cm/sec TR max P.0 mmHg RVSP(T R): 23.0 mmHg RAP systol e: 5.0 mmHg Pulm Vein Sys Sergio: 55.2 cm/sec Pulm Vein [place] Sergio: 47.6 cm/sec Pulm Vein A Revs Sergio: 25.7 cm/sec Pulm Vein S/D: 1.2 AV Dimens ionles s Index: 0.49 AV VTI Ratio: 0.49 ANTONIO (I,D) index (cm 2/m 2): 0.63 MV E' avg (septa l MV E/E' avg ratio: 14.3 SV(LVO T) Index: 32.5 Electr onical ly signed by:Blane Walker MD 2024 11:26 PM cc: Charlotte Sneed 2024 US CARDIO ECHO INTERFACE [facility] [address] [place] [address], [address], 03/15/2025 00:27:55 03/28/20 25 08/24/2020 imagi ng/di agnos tic resul t No observ ation record ed. [email or web address] Not Available 0 03/28/2025 08:15:57 06/19/2006/16/2025 XR, knee, 4 or more view No observ ation record ed. [facility] (Radiology) [address] [place], [address], 06/19/2025 10:34:40 Result Notes Documentation Provider Name and Address Organization Details Recorded Time Xr, Knee, 4 Or More View : This document (1 of 1) was received from [email or web address] on 06/19/2025 through Direct Message along with the following message body content: You have received a 2 page fax at 06/19/2025 1:55:16 PM. * The Caller-ID for this fax is [phone]. If you have any questions regarding this message or your service contact [employer] Support: [place] Email: [email or web address] Phone: or Email: Phones: [phone] Thank you for using the Pay[employer]ir[employer] service! Not Available [facility] 06/21/2025 02:41:56 Problems Name Problem SNOMED Code Status Onset Date Resolution Date Notes Provider Name and Address Organization Details Recorded Time Essential hypertension 42911069 Active 2024 [facility] 11:22:52 Chest pain 10531616 Active [address] [place] [address] [facility] 5 11:23:31 Hyperlipidemia 61282137 Active [address] [place] [address] [facility] 11:23:36 Syncope 273942326 Active [address] [place] [address] [facility] 5 11:23:46 Dyspnea 668591365 Active 2024 [place] [facility] 10:55:55 Hypertensive disorder 78306380 Active [address] [facility] 5 19:54:16 Cyst 395171376 Active 2024 Hannah Back PA-C [address] [place] [address], [address] 5 10:11:31 Problem Notes None recorded. Medical Equipment None Reported. Allergies Allergen ID Allergen Name Allergen Category Reaction Reaction Severity Criticality Documentation Date Start Date Code Code System Note Provider Name and Address Organization Details Recorded Time 431679 Product containin g penicilli n (product) medicatio n Not available Not available Not available 10/22/20232009 24131 8001 SNOMED Not Available [facility] 4 22:52:54 942746 Motrin medicatio n Not available Not available Not available 10/22/2023200948 8 RxNorm Not Available [facility] 4 22:52:55 819363 metronida zole medicatio n Not available Not available Not available 10/22/20232009 6922 RxNorm Not Available [facility] 4 22:52:55 595649 latex gloves medicatio n Not available Not available Not available 10/22/20232009 Not Available [facility] 4 22:52:55 779608 Iodinated contrast media (substanc e) medicatio n Not available Not available Not available 10/22/20232009 58059 2004 SNOMED Comme nt: Annot ation s: MARCELLO SH, RUTHANN CARDONA 2009 3:53P M IVP DYE; ; Not Available [facility] 4 22:52:55 588601 Toradol medicatio n Not available Not available Not available 10/22/20232009 65561 RxNorm Not Available [facility] 4 22:52:55 953017 adhesive tape environme nt,medica tion Not available Not available Not available 10/22/20232014 Comme nt: Adhes elan Tape React ion Date: 07 Oct 2013 ; Not Available [facility] 4 20:42:11 592455 tramadol hydrochlo ride medicatio n Not available Not available Not available 10/22/20232009 15498 RxNorm Not Available [facility] 4 22:52:56 324330 Substance with sulfonami de structure and antibacte rial mechanism of action (substanc e) medicatio n Not available Not available Not available 10/22/20232009 24606 8003 SNOMED Not Available [facility] 4 22:52:56 308823 Keflex medicatio n Not available Not available Not available 10/22/20232009 02659 7 RxNorm Not Available [facility] 4 22:52:56 573279 Tape 1/2X10YD medicatio n Not available Not available Not available 10/22/20232014 Not Available [facility] 4 22:52:56 050276 tea tree oil medicatio n Not available Not available Not available 10/22/20232014 36697 RxNorm Not Available [facility] 4 22:52:56 Medications Name Sig Start Date [...] Details Last Updated DateTime 5 157.48 cm 97 /min 98 % 37.1 kg/m2 12734.2 5 g 136/84 mm[Hg] [facility] 5 15:10:28 Date Recorded Body height Heart rate Oxygen saturation Body mass index (BMI) Body weight Systolic And Diastolic Provider Name and Address Organization Details Last Updated DateTime 5 157.48 cm 96 /min 99 % 36.6 kg/m2 66691.4 7 g 124/92 mm[Hg] [facility] 5 15:26:34 Date Recorded Body height Body mass index (BMI) Body weight Heart rate Oxygen saturation Systolic And Diastolic Provider Name and Address Organization Details Last Updated DateTime 5 157.48 cm 34.8 kg/m2 30481.5 5 g 75 /min 99 % 144/82 mm[Hg] Yoselin [facility] 5 09:57:43 Date Recorded Body height Heart rate Oxygen saturation Body mass index (BMI) Body weight Systolic And Diastolic Provider Name and Address Organization Details Last Updated DateTime 5 157.48 cm 71 /min 99 % 34.9 kg/m2 54015.1 4 g 154/94 mm[Hg] [facility] 5 15:26:50 Social History None recorded. Functional Status None recorded. Mental Status None recorded. Family History Nothing Reported. Medical History No medical history recorded. Gynecological HistoryNo gynecological history recorded. Obstetrics History GPAL:G 0 P 0 0 0 0 Past Encounters Encounter ID Performer Location Encounter Start Date Encounter Closed Date Diagnosis/Indication Diagnosis SNOMED-CT Code Diagnosis ICD10 Code Diagnosis IMO Codes Diagnosis Note [id number] April Walker MD [facility] Specialty Cardiolog y (MD) [place] [address] 02/03/2025 14:46:36 02/05/2025 08:07:20 Chest pain 92094367 R07.9 24152486 Essential hypertension 43038390 I10 42104 Dyspnea 580980129 R06.02 75580 [id number] April Walker MD [facility] Specialty Cardiolog y (MD) [place] [address] 03/18/2025 15:14:30 03/18/2025 16:21:20 Hypertensive disorder 82358305 I10 89914012 Dyspnea 589827820 R06.02 29758 History of chest pain 16 51155035 4419369 Z87.509 [id number] Hannah Back PA-C [facility] (MD) [place] [address] 06/19/2025 09:32:42 06/20/2025 07:14:13 Cyst 685084735 M79.89 45536462 [id number] April Walker MD [facility] Specialty Cardiolog y (MD) [place] [address] 08/04/2025 15:03:11 08/04/2025 15:50:23 Hypertensive disorder 15944477 I10 80884265 Dyspnea 688510250 R06.02 52402 History of chest pain 16 73255963 0073067 Z87.181 9675430 Health Concerns Section Related Observation LastModified by Organization Detai ls LastModified Time None Recorded Concern Status LastModified by Organization Details LastModified Time None Recorded Advance Directives Directive None Recorded Payers Insurance Date Sequence Insurance Name Policy Number Policy Lai Covered Member ID Lai Member ID Guarantor Name 02/03/2025 1 [facility] - DOS ON OR AFTER 21 (MEDICAID REPLACEMENT - HMO) Charlotte Soto [id number] Charlotte Soto 07/30/2025 1 [place] [employer] Charlotte Soto [id number] Charlotte Soto Notes Date Note Type Note Provider Name and Address Organization Details Recorded Time 06/19/2025 text/html Charlotte Soto is a 60-year-old woman presenting for evaluation of a focal knee pain and a palpable bump near the medial aspect of the patella. She reports a cyst-like area that was aspirated by pain management approximately 1-2 months ago, yielding mostly clear fluid with some blood; it reaccumulated shortly after. She denies prior knee pain before the bump appeared. The area intermittently enlarges and has at times made her leg feel swollen. She denies redness, warmth, drainage, fevers, or chills. She uses a crutch as needed but is otherwise independent with activities of daily living; she has supervision during showers due to dizziness. No current use of NSAIDs; takes Tylenol occasionally for discomfort. Hannah Back PA-C [facility], [address], [facility] 06/19/2025 10:13:24 08/04/2025 text/html 60-year-old woman presents for evaluation [...] axis deviation and poor R wave progression April Walker MD [address] [facility], [place], [address], [facility] 08/04/2025 15:47:07 OBGyn Episode No OBEpisode recorded.
--- OUTSIDE RECORDS SUMMARY | 2025-08-22 21:43 | XMS_ITS ---
Author Organization Unknown Address [address] [place] [phone] Phone Care Team Providers Care Lead Web Developer Name Role Phone LADARIUS LAUREN Attending Unavailable PHOENIX MCCLAIN Primary Unavailable Immunization Immunization Date Status Additional Notes Code Code System influenza, unspecified formulation 07/04/2019 Completed 88 CVX Tdap 08/05/2021 Completed 115 CVX Influenza, MDCK, trivalent, PF 05/14/2024 Completed 153 CVX Pneumococcal conjugate PCV20 , polysaccharide WON499 conjugate, adjuvant, PF 05/14/2024 Completed 216 CVX Results CBC W/ DIFF - Collect Date/T reid: 11/19/2024 13:57 [facility] [id number] [place] [address], [phone] LOINC: 92437-2 Test Value Unit Reference Range Code Code System Flag WBC 6.1 10^3uL L=4.8 H=10.8 RBC 4.44 10^6uL L=4.20 H=5.40 HEMOGLOBIN 12.8 g/dL L=12.0 H=16.0 718-7 LOINC HEMATOCRIT 38.3 VOL% L=37.0 H=47.0 4544-3 LOINC MCV 86.3 fL L=81.0 H=99.0 MCH 28.8 pg L=27.0 H=32.0 MCHC 33.4 g/dL L=32.0 H=36.0 PLATELETS 202 10^3uL L=100 H=400 34165-9 LOINC RDW 14.3 % L=11.7 H=15.5 %GRAN 61.6 % L=40.0 H=70.0 99919-2 LOINC %LYMPH 27.3 % L=20.0 H=45.0 736-9 LOINC %MONO 8.9 % L=2.0 H=10.0 42303-6 LOINC %EOS 1.0 % L=0.0 H=6.0 713-8 LOINC %BASO 0.7 % L=0.0 H=3.0 706-2 LOINC #NEUT 3.8 10^3uL L=1.9 H=7.6 22943-7 LOINC #LYMPH 1.7 10^3uL L=0.9 H=4.9 27557-6 LOINC #MONO 0.5 10^3uL L=0.1 H=0.9 01534-9 LOINC #EOS 0.1 10^3uL L=0.0 H=0.6 712-0 LOINC #BASO 0.04 10^3uL L=0.00 H=0.10 78430-5 LOINC #IM GRANS 0.0 10^3uL L=0.0 H=7.0 25446-3 LOINC %IM GRANS 0.5 % L=0.0 H=5.0 61533-7 LOINC %NRB 0.0 L=0.0 H=0.2 45174-3 LOINC #NRB 0.000 L=0.000 H=0.012 23257-6 LOINC MANUAL DIFF NOT INDICATED RBC MORPH NOT INDICATED COMPREHENSIVE METABOLIC PANE L - Collect Date/Time: 11/19/2024 13:57 [facility] [id number] [place], [place], [phone] LOINC: 95716-3 Test Value Unit Reference Range Code Code System Flag FASTING NO BUN 14 mg/dL L=7 H=20 3094-0 LOINC CREATININE 1.00 mg/dL L=0.52 H=1.04 2160-0 LOINC GLUCOSE 195 mg/dL L=74 H=106 2345-7 LOINC H SODIUM 131 mmol/L L=132 H=144 2951-2 LOINC L POTASSIUM 4.3 mmol/L L=3.5 H=5.1 2823-3 LOINC CHLORIDE 93 mmol/L L=98 H=107 2075-0 LOINC L CO2 25.0 mmol/L L=22.0 H=30.0 2027-9 LOINC ANION GAP 17 L=10 H=20 82761-0 LOINC OSMOLALITY 278 mOs/kG L=280 H=296 18494-0 LOINC L BUN/CREAT 14.0 3097-3 LOINC CALCIUM 9.4 mg/dL L=8.3 H=10.5 81941-7 LOINC AST 42 U/L L=15 H=46 1920-8 LOINC ALT 33 U/L L=9 H=72 1742-6 LOINC ALKALINE PHOS 111 U/L L=38 H=126 6768-6 LOINC TOTAL BILI 0.2 mg/dL L=0.2 H=1.3 1975-2 LOINC ALBUMIN 4.4 G/dL L=3.5 H=5.0 1751-7 LOINC TOTAL PROTEIN 7.3 g/L L=6.3 H=8.2 2885-2 LOINC A/G RATIO 1.5 06273-7 LOINC AGE 59 68609-3 LOINC eGFR NON-AFR 60 ml/min eGFR AFR AMER 73 ml/min LIPID PANEL - Collect Date/T reid: 11/19/2024 13:57 [facility] [id number] [place], [place], [id number] LOINC: 63547-2 Test Value Unit Reference Range Code Code System Flag FASTING NO CHOLESTEROL 174 mg/dL L=0 H=200 2092-3 LOINC TRIGLYCERIDE 198 mg/dL L=0 H=150 2570-8 LOINC H HDL 54 mg/dL L=40 H=60 9 LOINC LDL 82 mg/dL 2088-09 LOINC TSH / REFLEX FT4 - Collect D ate/Time: 11/19/2024 13:57 [facility] [id number] [place], [place], [phone] LOINC: Test Value Unit Reference Range Code Code System Flag TSH 1.720 uIU/L L=0.470 H=4.680 81131-6 LOINC Social History Type Status Start Date End Date Code Code Syst em Smoking History Current every day smoker 916285446 SNOMED CT Sex Female Medications Medication Start Date End Date Route Frequency Dose Code Code System Medication Instructions Home Meds Cyclobenzaprine HCl 10MG Oral Tablet 08/11/2024 03/11/2025 BY MOUTH 1 TABLET 748567 RxNorm TAKE 1 TABLET BY MOUTH FOR FOR MUSCLE SPASM. Chlorthalidone 25MG Oral Tablet 09/22/2024 Unknown ORAL ONCE A DAY 25 MILLIGRAMS 070162 RxNorm TAKE 25 MILLIGRAM S ORAL ONCE A DAY Escitalopram 20MG Oral Tablet 09/22/2024 Unknown ORAL ONCE A DAY 20 MILLIGRAMS 548790 RxNorm TAKE 20 MILLIGRAM S ORAL ONCE A DAY Gabapentin 800MG Oral Tablet 09/22/2024 Unknown ORAL THRE E TIME S A DAY 800 MILLIGRAMS 471774 RxNorm TAKE 800 MILLIGRAM S ORAL THREE TIMES A DAY HumaLOG Mix 75/25 KwikPen 75U/1ML-25U/1ML Subcutaneous Suspension 09/22/2024 03/11/2025 SUBCUTANE OUS DIRE CTED 1 unit(s) 334599 RxNorm INJECT INTO 1 EACH SUBCUTANE OUS DIRECTED Lantus SoloStar 100U/1ML Subcutaneous Solution 09/22/2024 03/11/2025 SUBCUTANE OUS AT BEDT REID 1 unit(s) 742736 RxNorm INJECT INTO 1 EACH SUBCUTANE OUS AT BEDTIME Levothyroxine Sodium 88MCG Oral Tablet 09/22/2024 Unknown ORAL ONCE A DAY 88 MCG 428675 RxNorm TAKE 88 MCG ORAL ONCE A DAY Lisinopril 40MG Oral Tablet 09/22/2024 Unknown ORAL ONCE A DAY 40 MILLIGRAMS 886488 RxNorm TAKE 40 MILLIGRAM S ORAL ONCE A DAY Metoprolol Tartrate 100MG Oral Tablet 09/22/2024 Unknown ORAL TWIC E A DAY 100 MILLIGRAMS 904124 RxNorm TAKE 100 MILLIGRAM S ORAL TWICE A DAY Nortriptyline 50MG Oral Capsule 09/22/2024 Unknown ORAL AT BEDT REID 50 MILLIGRAMS RxNorm TAKE 50 MILLIGRAM S ORAL AT BEDTIME Pravastatin Sodium 80MG Oral Tablet 09/22/2024 Unknown ORAL AT BEDT REID 80 MILLIGRAMS 353944 RxNorm TAKE 80 MILLIGRAM S ORAL AT BEDTIME QUEtiapine 100MG Oral Tablet 09/22/2024 Unknown ORAL AT BEDT ERID 100 MILLIGRAMS 675450 RxNorm TAKE 100 MILLIGRAM S ORAL AT BEDTIME Trulicity 0.75MG/0.5ML Subcutaneous Solution 09/22/2024 03/11/2025 SUBCUTANE OUS ONCE A WEEK 1 unit(s) 9121490 RxNorm INJECT INTO 1 EACH SUBCUTANE OUS ONCE A WEEK Venlafaxine HCl 75MG Oral Tablet 09/22/2024 Unknown ORAL ONCE A DAY 150 MILLIGRAMS 091027 RxNorm TAKE 150 MILLIGRAM S ORAL ONCE A DAY Vitamin D3 10 MCG Oral Tablet 09/22/2024 12/29/2024 ORAL ONCE A DAY 10 MCG 500802 RxNorm TAKE 10 MCG ORAL ONCE A DAY amLODIPine Besylate 10MG Oral Tablet 09/22/2024 Unknown ORAL ONCE A DAY 10 MILLIGRAMS 385753 RxNorm TAKE 10 MILLIGRAM S ORAL ONCE A DAY carBAMazepine 200MG Oral Capsule, Extended Release 09/22/2024 Unknown ORAL TWIC E A DAY 200 MILLIGRAMS 20001124 RxNorm TAKE 200 MILLIGRAM S ORAL TWICE A DAY clonazePAM 1MG Oral Tablet 09/22/2024 03/11/2025 ORAL THRE E TIME S A DAY 1 MILLIGRAMS 19741101 RxNorm TAKE 1 MILLIGRAM S ORAL THREE TIMES A DAY metFORMIN HCl 1000MG Oral Tablet 09/22/2024 Unknown ORAL TWIC E A DAY 1000 MILLIGRAMS 046632 RxNorm TAKE 1000 MILLIGRAM S ORAL TWICE A DAY rOPINIRole HCl 0.25MG Oral Tablet 09/22/2024 Unknown ORAL AT BEDT REID 0.25 MILLIGRAMS 201403 RxNorm TAKE 0.25 MILLIGRAM S ORAL AT BEDTIME traZODone hydrochloride 150MG Oral Tablet 09/22/2024 Unknown ORAL AT BEDT REID 150 MILLIGRAMS 616261 RxNorm TAKE 150 MILLIGRAM S ORAL AT BEDTIME hydrOXYzine HCl 50MG Oral Tablet 09/22/2024 Unknown ORAL ONCE A DAY 50 MILLIGRAMS 181074 RxNorm TAKE 50 MILLIGRAM S ORAL ONCE A DAY Multivitamin Oral Tablet 10/13/2024 Unknown ORAL ONCE A DAY 1 unit(s) RxNorm TAKE 1 EACH ORAL ONCE A DAY Meloxicam 15MG Oral Tablet 10/24/2024 01/26/2025 BY MOUTH ONCE A DAY 1 TABLET 513537 RxNorm TAKE 1 TABLET BY MOUTH ONCE A DAY Methocarbamol 500MG Oral Tablet 11/27/2024 12/22/2024 BY MOUTH NEED ED 3 TIME S A DAY 1 TABLET 19781225 RxNorm TAKE 1 TABLET BY MOUTH NEEDED 3 TIMES A DAY Diclofenac Sodium 75MG Oral Tablet, Enteric Coated 11/27/2024 07/02/2025 BY MOUTH NEED ED 3 TIME S A DAY 1 TABLET 089622 RxNorm TAKE 1 TABLET BY MOUTH NEEDED 3 TIMES A DAY Methocarbamol 500MG Oral Tablet 12/22/2024 01/26/2025 BY MOUTH NEED ED 3 TIME S A DAY 1 TABLET 516449 RxNorm TAKE 1 TABLET BY MOUTH THREE TIMES DAILY NEEDED oxyCODONE HCl-acetaminophe n 5MG-325MG Oral Tablet 01/26/2025 03/11/2025 BY MOUTH NEED ED TWIC E A DAY 1 TABLET 6155888 RxNorm TAKE 1 TABLET BY MOUTH NEEDED TWICE A DAY Meloxicam 15MG Oral Tablet 01/26/2025 02/23/2025 BY MOUTH ONCE A DAY 1 TABLET 192415 RxNorm TAKE 1 TABLET BY MOUTH DAILY Methocarbamol 500MG Oral Tablet 01/26/2025 02/23/2025 BY MOUTH NEED ED 3 TIME S A DAY 1 TABLET 410284 RxNorm TAKE 1 TABLET BY MOUTH THREE TIMES DAILY NEEDED Meloxicam 15MG Oral Tablet 02/23/2025 03/11/2025 BY MOUTH ONCE A DAY 1 TABLET 481324 RxNorm TAKE 1 TABLET BY MOUTH DAILY Methocarbamol 500MG Oral Tablet 02/23/2025 03/26/2025 BY MOUTH NEED ED 3 TIME S A DAY 1 TABLET 998861 RxNorm TAKE 1 TABLET BY MOUTH NEEDED 3 TIMES A DAY HumaLOG Mix 75/25 KwikPen 75U/1ML-25U/1ML Subcutaneous Suspension 03/16/2025 Unknown SUBCUTANE OUS THRE E TIME S A DAY 1 unit(s) 025443 RxNorm INJECT INTO 1 EACH SUBCUTANE OUS THREE TIMES A DAY Trulicity 1.5MG/0.5ML Subcutaneous Solution 03/16/2025 Unknown SUBCUTANE OUS ONCE A WEEK 1 unit(s) 0179727 RxNorm INJECT INTO 1 EACH SUBCUTANE OUS ONCE A WEEK clonazePAM 1MG Oral Tablet 03/16/2025 Unknown ORAL ONCE A DAY 1 MILLIGRAMS 647918 RxNorm TAKE 1 MILLIGRAM S ORAL ONCE A DAY Meloxicam 15MG Oral Tablet 03/26/2025 06/29/2025 BY MOUTH ONCE A DAY 1 TABLET 570757 RxNorm TAKE 1 TABLET BY MOUTH ONCE A DAY Meloxicam 15MG Oral Tablet 06/29/2025 Unknown BY MOUTH ONCE A DAY 1 TABLET 308074 RxNorm TAKE 1 TABLET BY MOUTH DAILY Assessment You had the following problems:ENCOUNTER FOR SCREENING FOR OTHER VIRAL DISEASESABDOMINAL PAINPAIN IN BACKANXIETY DISORDER, UNSPECIFIEDDEPRESSION, UNSPECIFIEDSCHIZOPHRENIA, UNSPECIFIEDHYPERLIPIDEMIA, UNSPECIFIEDPERSONAL HISTORY OF OTHER MALIGNANT NEOPLASM OF SKINBIPOLAR DISORDER, UNSPECIFIEDENCOUNTER FOR SCREENING EXAMINATION FOR OTHER MENTAL HEALTH AND BEHAVIORAL DISORENCOUNTER FOR SCREENING, UNSPECIFIEDENCOUNTER FOR GENERAL ADULT MEDICAL EXAMINATION WITHOUT ABNORMAL FINDINGSENCOUNTER FOR OTHER SCREENING FOR MALIGNANT NEOPLASM OF BREASTTYPE 2 DIABETES MELLITUS WITHOUT COMPLICATIONSDORSALGIA, UNSPECIFIEDESSENTIAL (PRIMARY) HYPERTENSIONTHYROTOXICOSIS, 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 STORMGASTRO-ESOPHAGEAL REFLUX DISEASE WITHOUT ESOPHAGITISUNSPECIFIED INFLAMMATORY SPONDYLOPATHY, LUMBAR REGIONOTHER INSPECTOR EXHAUST EMISSIONS (CURRENT) DRUG THERAPY Hospital Discharge Instructions Should you have any questions prior to discharge, please contact a member of your healthcare team. If you have left the hospital and have any questions, please contact your primary care physician. Reason For Referral No Data Found Problems Problem Start Date Resolved Date Status Code Code System ENCOUNTER FOR SCREENING FOR OTHER VIRAL DISEASES active 413277221 SNOMED- CT ABDOMINAL PAIN active 74055669 SNOME D-CT PAIN IN BACK active 840438615 SNOMED- CT ANXIETY DISORDER, UNSPECIFIED active 905045490 SNOMED-CT DEPRESSION, UNSPECIFIED active 786622 07 SNOMED-CT SCHIZOPHRENIA, UNSPECIFIED active 582 84317 SNOMED-CT HYPERLIPIDEMIA, UNSPECIFIED active 55 340530 SNOMED-CT PERSONAL HISTORY OF OTHER MALIGNANT NEOPLASM OF SKIN active 239560719 S NOMED-CT BIPOLAR DISORDER, UNSPECIFIED active 06691654 SNOMED-CT ENCOUNTER FOR SCREENING EXAMINATION FOR OTHER MENTAL HEALTH AND BEHAVIORAL DISOR active 821161303 SNOMED-CT ENCOUNTER FOR SCREENING, UNSPECIFIED active 980117443 SNOMED-CT ENCOUNTER FOR GENERAL ADULT MEDICAL EXAMINATION WITHOUT ABNORMAL FINDINGS active 990221247 SNOMED-CT ENCOUNTER FOR OTHER SCREENIN G FOR MALIGNANT NEOPLASM OF BREAST active 507056129 SNOMED-CT TYPE 2 DIABETES MELLITUS WITHOUT COMPLICATIONS active 110619812 SNOMED -CT DORSALGIA, UNSPECIFIED active 8183591 05 SNOMED-CT ESSENTIAL (PRIMARY) HYPERTENSION active 38463479 SNOMED-CT THYROTOXICOSIS, 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 00508511 SNOMED-CT GASTRO-ESOPHAGEAL REFLUX DISEASE WITHOUT ESOPHAGITIS active 637602528 SNOMED-CT UNSPECIFIED INFLAMMATORY SPONDYLOPATHY, LUMBAR REGION active 309237490 SNOMED-CT OTHER DETENTION (CURRENT) DR UG THERAPY active 401900230 SNOMED-CT Allergies and Adverse Reactions Allergy Substance Reaction Severity Start Date Concern Status Code Code System SULFA (sulfonamide) Hives (SNOMED-CT: 756059591) Moderate Active 41796051 SNOMED-CT CEPHALOSPORIN Itching (SNOMED-CT: 825888770) Moderate Active 830161449 SNOMED-CT KETOROLAC NAUSEA (SNOMED-CT: null) Moderate Active 63705 RxNorm IODINE Hives (SNOMED-CT: 469773259) Moderate Active 5933 RxNorm ADHESIVE Rash (SNOMED-CT: 369658028) Moderate Active LATEX BLISTERS (SNOMED-CT: null) Moderate Active 9153622 RxNorm TEA TREE OIL BLISTERS (SNOMED-CT: null) Moderate Active 26280 RxNorm FLAGYL 375 TONGUE SWELLING (SNOMED-CT: null) Moderate Active 730341 RxNorm MOTRIN NAUSEA (SNOMED-CT: null) Moderate Active 401557 RxNorm PENICILLIN Hives (SNOMED-CT: 328632282) Moderate Active Plan of Treatment SI Joint Injection Bilateral 03/16/2025 OR SI Joint Injection 03/16/2025 SI Joint Injection Bilateral 03/16/2025 OR SI Joint Injection 03/16/2025 Diag Medial Branch Block Lumbar #2 04/0 03/2025 OR Diagnostic Medial Branch Block 12/29 Radiofrequency Ablation Lumbar-Bilat 05 /01/2025 OR Radiofrequency Ablation LumbThorCerv 01/26/2025 Radiofrequency Ablation Lumbar-Bilat OR Radiofrequency Ablation LumbThorCerv 01/26/2025 Follow Up 08/24/2025 Follow Up 06/01/2025 Office Injection 06/01/2025 Follow Up 06/01/2025 Office Injection 06/01/2025 Encounters Encounter Diagnosis Start Date Code Code Sys tem Type 2 diabetes mellitus without complications 025 SNOMED-CT Personal Care Team Section Performer Name Performer Role Active Date Inactive Maxi Green PCP - Primary care physician 2024-07-11
--- OUTSIDE RECORDS SUMMARY | 2025-08-22 21:43 | XMS_ITS ---
Author Organization Unknown Address [address] [place] [phone] Phone Care Team Providers Care Pin Machine Tender Name Role Phone GENEVIEVE RADER Attending Unavailable SHREE Haynes Primary Unavailable Immunization Immunization Date Status Additional Notes Code Code System influenza, unspecified formulation 07/04/2019 Completed 88 CVX Tdap 08/05/2021 Completed 115 CVX Influenza, MDCK, trivalent, PF 05/14/2024 Completed 153 CVX Pneumococcal conjugate PCV20 , polysaccharide BQV896 conjugate, adjuvant, PF 05/14/2024 Completed 216 CVX Results CBC W/O DIFF - Collect Date/ Time: 12/08/2023 12:35 [facility] ID: [id number] [place], [id number] LOINC: 91459-7 Test Value Unit Reference Range Code Code System Flag WBC 7.8 10^3uL L=4.8 H=10.8 RBC 4.48 10^6uL L=4.20 H=5.40 HEMOGLOBIN 13.6 g/dL L=12.0 H=16.0 718-7 LOINC HEMATOCRIT 40.6 VOL% L=37.0 H=47.0 4544-3 LOINC MCV 90.6 fL L=81.0 H=99.0 MCH 30.4 pg L=27.0 H=32.0 MCHC 33.5 g/dL L=32.0 H=36.0 PLATELETS 183 10^3uL L=100 H=400 61332-1 LOINC RDW 12.7 % L=11.7 H=15.5 COMPREHENSIVE METABOLIC PANE L - Collect Date/Time: 12/08/2023 12:35 [facility] ID: [id number] [place], [id number] LOINC: 28854-3 Test Value Unit Reference Range Code Code System Flag FASTING NO BUN 17 mg/dL L=7 H=20 3094-0 LOINC CREATININE 0.90 mg/dL L=0.52 H=1.04 2160-0 LOINC GLUCOSE 173 mg/dL L=74 H=106 2345-7 LOINC H SODIUM 133 mmol/L L=132 H=144 2951-2 LOINC POTASSIUM 5.1 mmol/L L=3.5 H=5.1 2823-3 LOINC CHLORIDE 99 mmol/L L=98 H=107 2075-0 LOINC CO2 23.0 mmol/L L=22.0 H=30.0 2028-9 LOINC ANION GAP 16 L=10 H=20 04018-9 LOINC OSMOLALITY 282 mOs/kG L=280 H=296 57889-6 LOINC BUN/CREAT 18.9 3097-3 LOINC CALCIUM 10.2 mg/dL L=8.3 H=10.5 88858-8 LOINC AST 33 U/L L=15 H=46 1920-8 LOINC ALT 33 U/L L=9 H=72 1742-6 LOINC ALKALINE PHOS 94 U/L L=38 H=126 6768-6 LOINC TOTAL BILI 0.4 mg/dL L=0.2 H=1.3 1975-2 LOINC ALBUMIN 4.6 G/dL L=3.5 H=5.0 1751-7 LOINC TOTAL PROTEIN 7.8 g/L L=6.3 H=8.2 2885-2 LOINC A/G RATIO 1.4 77633-1 LOINC AGE 58 21553-4 LOINC eGFR NON-AFR 68 ml/min eGFR AFR AMER 82 ml/min LIPID PANEL - Collect Date/T reid: 12/08/2023 12:35 [facility] ID: [id number] [place], [id number] LOINC: 17069-9 Test Value Unit Reference Range Code Code System Flag FASTING NO CHOLESTEROL 202 mg/dL L=0 H=200 2093-3 LOINC H TRIGLYCERIDE 225 mg/dL L=0 H=150 2571-8 LOINC H HDL 55 mg/dL L=40 H=60 5-9 LOINC LDL 108 mg/dL 9-1 LOINC KNEE 3V RIGHT - Completed: 0 12/08/2023 14:20 LOINC: EXAM DESCRIPTION: KNEE 3V RIGHT REASON FOR STUDY: Right knee pain since fall 1 month ago. TECHNIQUE: 3 radiographic views acquired of the right knee. COMPARISON: No prior imaging of the right knee available at time of interpretation. FINDINGS: BONES/JOINTS: No acute fracture. No subluxation. No suspicious osseous lesions. Joint spaces maintained. SOFT TISSUES: No acute abnormality. IMPRESSION: No acute osseous abnormality. THIS IS AN ELECTRONICALLY VERIFIED FINAL REPORT 12/08/2023 2:46 PM - Electronically signed by Sadiq Corbett M.D. AGAPITO: AGAPITO Report ID: [id number] Reading Location: [place] [address] Social History Type Status Start Date End Date Code Code Syst em Smoking History Current every day smoker 811698112 SNOMED CT Sex Female Medications Medication Start Date End Date Route Frequency Dose Code Code System Medication Instructions Home Meds Meloxicam 15MG Oral Tablet 08/11/2024 10/24/2024 BY MOUTH ONCE A DAY 1 TABLET 424473 RxNorm TAKE 1 TABLET BY MOUTH ONCE A DAY Cyclobenzapri ne HCl 10MG Oral Tablet 08/11/2024 03/11/2025 BY MOUTH 1 TABLET 539579 RxNorm TAKE 1 TABLET BY MOUTH FOR FOR MUSCLE SPASM. Escitalopram 20MG Oral Tablet 09/22/2024 Unknown ORAL ONCE A DAY 20 MILLIGRAM S 651010 RxNorm TAKE 20 MILLIGRAM S ORAL ONCE A DAY Gabapentin 800MG Oral Tablet 09/22/2024 Unknown ORAL THREE TIMES A DAY 800 MILLIGRAM S 633804 RxNorm TAKE 800 MILLIGRAM S ORAL THREE TIMES A DAY HumaLOG Mix 75/25 KwikPen 75U/1ML-25U/1 ML Subcutaneous Suspension 09/22/2024 03/11/2025 SUBCUTANE OUS DIRECTED 1 unit(s) 347893 RxNorm INJECT INTO 1 EACH SUBCUTANE OUS DIRECTED Lantus SoloStar 100U/1ML Subcutaneous Solution 09/22/2024 03/11/2025 SUBCUTANE OUS AT BEDTIME 1 unit(s) 465204 RxNorm INJECT INTO 1 EACH SUBCUTANE OUS AT BEDTIME Levothyroxine Sodium 88MCG Oral Tablet 09/22/2024 Unknown ORAL ONCE A DAY 88 MCG 297623 RxNorm TAKE 88 MCG ORAL ONCE A DAY Lisinopril 40MG Oral Tablet 09/22/2024 Unknown ORAL ONCE A DAY 40 MILLIGRAM S 386881 RxNorm TAKE 40 MILLIGRAM S ORAL ONCE A DAY Metoprolol Tartrate 100MG Oral Tablet 09/22/2024 Unknown ORAL TWICE A DAY 100 MILLIGRAM S 906296 RxNorm TAKE 100 MILLIGRAM S ORAL TWICE A DAY Nortriptyline 50MG Oral Capsule 09/22/2024 Unknown ORAL AT BEDTIME 50 MILLIGRAM S RxNorm TAKE 50 MILLIGRAM S ORAL AT BEDTIME Pravastatin Sodium 80MG Oral Tablet 09/22/2024 Unknown ORAL AT BEDTIME 80 MILLIGRAM S 559429 RxNorm TAKE 80 MILLIGRAM S ORAL AT BEDTIME QUEtiapine 100MG Oral Tablet 09/22/2024 Unknown ORAL AT BEDTIME 100 MILLIGRAM S 482186 RxNorm TAKE 100 MILLIGRAM S ORAL AT BEDTIME Trulicity 0.75MG/0.5ML Subcutaneous Solution 09/22/2024 03/11/2025 SUBCUTANE OUS ONCE A WEEK 1 unit(s) 0214461 RxNorm INJECT INTO 1 EACH SUBCUTANE OUS ONCE A WEEK Venlafaxine HCl 75MG Oral Tablet 09/22/2024 Unknown ORAL ONCE A DAY 150 MILLIGRAM S 588207 RxNorm TAKE 150 MILLIGRAM S ORAL ONCE A DAY Vitamin D3 10 MCG Oral Tablet 09/22/2024 12/29/2024 ORAL ONCE A DAY 10 MCG 247638 RxNorm TAKE 10 MCG ORAL ONCE A DAY amLODIPine Besylate 10MG Oral Tablet 09/22/2024 Unknown ORAL ONCE A DAY 10 MILLIGRAM S 364919 RxNorm TAKE 10 MILLIGRAM S ORAL ONCE A DAY carBAMazepine 200MG Oral Capsule, Extended Release 09/22/2024 Unknown ORAL TWICE A DAY 200 MILLIGRAM S 404593 RxNorm TAKE 200 MILLIGRAM S ORAL TWICE A DAY clonazePAM 1MG Oral Tablet 09/22/2024 03/11/2025 ORAL THREE TIMES A DAY 1 MILLIGRAM S 902976 RxNorm TAKE 1 MILLIGRAM S ORAL THREE TIMES A DAY metFORMIN HCl 1000MG Oral Tablet 09/22/2024 Unknown ORAL TWICE A DAY 1000 MILLIGRAM S 551651 RxNorm TAKE 1000 MILLIGRAM S ORAL TWICE A DAY rOPINIRole HCl 0.25MG Oral Tablet 09/22/2024 Unknown ORAL AT BEDTIME 0.25 MILLIGRAM S 844319 RxNorm TAKE 0.25 MILLIGRAM S ORAL AT BEDTIME traZODone hydrochloride 150MG Oral Tablet 09/22/2024 Unknown ORAL AT BEDTIME 150 MILLIGRAM S 253442 RxNorm TAKE 150 MILLIGRAM S ORAL AT BEDTIME hydrOXYzine HCl 50MG Oral Tablet 09/22/2024 Unknown ORAL ONCE A DAY 50 MILLIGRAM S 598639 RxNorm TAKE 50 MILLIGRAM S ORAL ONCE A DAY Chlorthalidon e 25MG Oral Tablet 09/22/2024 Unknown ORAL ONCE A DAY 25 MILLIGRAM S 756990 RxNorm TAKE 25 MILLIGRAM S ORAL ONCE A DAY Multivitamin Oral Tablet 10/13/2024 Unknown ORAL ONCE A DAY 1 unit(s) RxNorm TAKE 1 EACH ORAL ONCE A DAY Meloxicam 15MG Oral Tablet 10/24/2024 01/26/2025 BY MOUTH ONCE A DAY 1 TABLET 096675 RxNorm TAKE 1 TABLET BY MOUTH ONCE A DAY Methocarbamol 500MG Oral Tablet 11/27/2024 12/22/2024 BY MOUTH NEEDED 3 TIMES A DAY 1 TABLET 371978 RxNorm TAKE 1 TABLET BY MOUTH NEEDED 3 TIMES A DAY Diclofenac Sodium 75MG Oral Tablet, Enteric Coated 11/27/2024 07/02/2025 BY MOUTH NEEDED 3 TIMES A DAY 1 TABLET 938817 RxNorm TAKE 1 TABLET BY MOUTH NEEDED 3 TIMES A DAY Methocarbamol 500MG Oral Tablet 12/22/2024 01/26/2025 BY MOUTH NEEDED 3 TIMES A DAY 1 TABLET 492705 RxNorm TAKE 1 TABLET BY MOUTH THREE TIMES DAILY NEEDED oxyCODONE HCl-acetamino phen 5MG-325MG Oral Tablet 01/26/2025 03/11/2025 BY MOUTH NEEDED TWICE A DAY 1 TABLET 3162226 RxNorm TAKE 1 TABLET BY MOUTH NEEDED TWICE A DAY Meloxicam 15MG Oral Tablet 01/26/2025 02/23/2025 BY MOUTH ONCE A DAY 1 TABLET 556661 RxNorm TAKE 1 TABLET BY MOUTH DAILY Methocarbamol 500MG Oral Tablet 01/26/2025 02/23/2025 BY MOUTH NEEDED 3 TIMES A DAY 1 TABLET 891692 RxNorm TAKE 1 TABLET BY MOUTH THREE TIMES DAILY NEEDED Meloxicam 15MG Oral Tablet 02/23/2025 03/11/2025 BY MOUTH ONCE A DAY 1 TABLET 397616 RxNorm TAKE 1 TABLET BY MOUTH DAILY Methocarbamol 500MG Oral Tablet 02/23/2025 03/26/2025 BY MOUTH NEEDED 3 TIMES A DAY 1 TABLET 775234 RxNorm TAKE 1 TABLET BY MOUTH NEEDED 3 TIMES A DAY HumaLOG Mix 75/25 KwikPen 75U/1ML-25U/1 ML Subcutaneous Suspension 03/16/2025 Unknown SUBCUTANE OUS THREE TIMES A DAY 1 unit(s) 117886 RxNorm INJECT INTO 1 EACH SUBCUTANE OUS THREE TIMES A DAY Trulicity 1.5MG/0.5ML Subcutaneous Solution 03/16/2025 Unknown SUBCUTANE OUS ONCE A WEEK 1 unit(s) 7498432 RxNorm INJECT INTO 1 EACH SUBCUTANE OUS ONCE A WEEK clonazePAM 1MG Oral Tablet 03/16/2025 Unknown ORAL ONCE A DAY 1 MILLIGRAM S 387370 RxNorm TAKE 1 MILLIGRAM S ORAL ONCE A DAY Meloxicam 15MG Oral Tablet 03/26/2025 06/29/2025 BY MOUTH ONCE A DAY 1 TABLET 138969 RxNorm TAKE 1 TABLET BY MOUTH ONCE A DAY Meloxicam 15MG Oral Tablet 06/29/2025 Unknown BY MOUTH ONCE A DAY 1 TABLET 213852 RxNorm TAKE 1 TABLET BY MOUTH DAILY [...] DISEASE WITHOUT ESOPHAGITISUNSPECIFIED INFLAMMATORY SPONDYLOPATHY, LUMBAR REGIONOTHER HR MANAGER (CURRENT) DRUG THERAPY Hospital Discharge Instructions Should you have any questions prior to discharge, please contact a member of your healthcare team. If you have left the hospital and have any questions, please contact your primary care physician. Reason For Referral No Data Found Problems Problem Start Date Resolved Date Status Code Code System ENCOUNTER FOR SCREENING FOR OTHER VIRAL DISEASES active 463336044 SNOMED- CT ABDOMINAL PAIN active 76220151 SNOME D-CT PAIN IN BACK active 636664169 SNOMED- CT ANXIETY DISORDER, UNSPECIFIED active 534789188 SNOMED-CT DEPRESSION, UNSPECIFIED active 406788 07 SNOMED-CT SCHIZOPHRENIA, UNSPECIFIED active 582 48078 SNOMED-CT HYPERLIPIDEMIA, UNSPECIFIED active 55 000108 SNOMED-CT PERSONAL HISTORY OF OTHER MALIGNANT NEOPLASM OF SKIN active 267175744 S NOMED-CT BIPOLAR DISORDER, UNSPECIFIED active 39719653 SNOMED-CT ENCOUNTER FOR SCREENING EXAMINATION FOR OTHER MENTAL HEALTH AND BEHAVIORAL DISOR active 601748023 SNOMED-CT ENCOUNTER FOR SCREENING, UNSPECIFIED active 567041041 SNOMED-CT ENCOUNTER FOR GENERAL ADULT MEDICAL EXAMINATION WITHOUT ABNORMAL FINDINGS active 734473940 SNOMED-CT ENCOUNTER FOR OTHER SCREENIN G FOR MALIGNANT NEOPLASM OF BREAST active 293574936 SNOMED-CT TYPE 2 DIABETES MELLITUS WITHOUT COMPLICATIONS active 249613817 SNOMED -CT DORSALGIA, UNSPECIFIED active 3680711 05 SNOMED-CT ESSENTIAL (PRIMARY) HYPERTENSION active 90400546 SNOMED-CT THYROTOXICOSIS, 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 39421451 SNOMED-CT GASTRO-ESOPHAGEAL REFLUX DISEASE WITHOUT ESOPHAGITIS active 716573276 SNOMED-CT UNSPECIFIED INFLAMMATORY SPONDYLOPATHY, LUMBAR REGION active 083600455 SNOMED-CT 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 active 249203902 SNOMED-CT Allergies and Adverse Reactions Allergy Substance Reaction Severity Start Date Concern Status Code Code System SULFA (sulfonamide) Hives (SNOMED-CT: 237078353) Moderate Active 33957476 SNOMED-CT CEPHALOSPORIN Itching (SNOMED-CT: 061566871) Moderate Active 219087557 SNOMED-CT KETOROLAC NAUSEA (SNOMED-CT: null) Moderate Active 66953 RxNorm IODINE Hives (SNOMED-CT: 334464238) Moderate Active 5933 RxNorm ADHESIVE Rash (SNOMED-CT: 846913401) Moderate Active LATEX BLISTERS (SNOMED-CT: null) Moderate Active 3592932 RxNorm TEA TREE OIL BLISTERS (SNOMED-CT: null) Moderate Active 12351 RxNorm FLAGYL 375 TONGUE SWELLING (SNOMED-CT: null) Moderate Active 20280228 RxNorm MOTRIN NAUSEA (SNOMED-CT: null) Moderate Active 20240501 RxNorm PENICILLIN Hives (SNOMED-CT: 368282749) Moderate Active Plan of Treatment SI Joint Injection Bilateral 03/16/2025 OR SI Joint Injection 03/16/2025 SI Joint Injection Bilateral 03/16/2025 OR SI Joint Injection 03/16/2025 Diag Medial Branch Block Lumbar #2 04/0 03/2025 OR Diagnostic Medial Branch Block 12/29 Radiofrequency Ablation Lumbar-Bilat OR Radiofrequency Ablation LumbThorCerv 01/26/2025 Radiofrequency Ablation Lumbar-Bilat OR Radiofrequency Ablation LumbThorCerv 01/26/2025 Follow Up 08/24/2025 Follow Up 06/01/2025 Office Injection 06/01/2025 Follow Up 06/01/2025 Office Injection 06/01/2025 Encounters Encounter Diagnosis Start Date Code Code Sys tem Strain of unspecified muscle (s) and tendon(s) at lower leg level, right leg, initial encounter 12/08/2023 SNOMED-CT Personal Care Team Section Performer Name Performer Role Active Date Inactive Maxi Green PCP - Primary care physician 2024-07-11 Imaging Narrative Notes
--- OUTSIDE RECORDS SUMMARY | 2025-08-22 21:43 | XMS_ITS | Continuity of Care Document ---
Author Organization [facility], [facility] ([place]) Address [address] [place] [address] Care Team Providers Care Press Operator Heavy Duty Name Role Phone AMY SWANN Primary Care Provider [phone] NORIS [place] Blood Bank Worker Assessment Encounter Date Assessment Date Assessment LastModified by Organization Details LastModified Time 06/19/2025 06/19/2025 1. 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 [facility] (Radiology) [address] [facility], [place], [address], 06/19/2025 10:34:40 Result Notes Documentation Provider Name and Address Organization Details Recorded Time Xr, Knee, 4 Or More View : This document (1 of 1) was received from [email or web address] on 06/19/2025 through Direct Message along with the following message body content: You have received a 2 page fax at 06/19/2025 1:55:16 PM. * The Caller-ID for this fax is [phone]. If you have any questions regarding this message or your service contact [employer] Support: [place] Email: Similar [email or web address] Phone: or Email: Similar [email or web address] Phones: [phone] Thank you for using the [employer] service! Not Available [facility] 06/21/2025 02:41:56 Problems Name Problem SNOMED Code Status Onset Date Resolution Date Notes Provider Name and Address Organization Details Recorded Time Essential hypertension 90895162 Active 2024 [facility] 5 11:22:52 Chest pain 83943248 Active 2024 [facility] 11:23:31 Hyperlipidemia 39890892 [facility] 11:23:36 Syncope 425165681 Active 2024 [place] [facility] 5 11:23:46 Dyspnea 194171749 Active 2024 Dai Reyna [facility] 5 10:55:55 Hypertensive disorder 36244950 Active 2024 Kike Powell [facility] 5 19:54:16 Cyst 187312426 Active 2024 Hannah Back PA-C [address] , [place], [address] 5 10:11:31 Problem Notes None recorded. Medical Equipment None Reported. Allergies Allergen ID Allergen Name Allergen Category Reaction Reaction Severity Criticality Documentation Date Start Date Code Code System Note Provider Name and Address Organization Details Recorded Time 032619 Product containin g penicilli n (product) medicatio n Not available Not available Not available 10/22/20232009 70934 8001 SNOMED Not Available [facility] 4 22:52:54 754615 Motrin medicatio n Not available Not available Not available 10/22/20232009 95763 8 RxNorm Not Available [facility] 4 22:52:55 033165 metronida zole medicatio n Not available Not available Not available 10/22/20232009 6922 RxNorm Not Available [facility] 4 22:52:55 822303 latex gloves medicatio n Not available Not available Not available 10/22/20232009 Not Available [facility] 4 22:52:55 573630 Iodinated contrast media (substanc e) medicatio n Not available Not available Not available 10/22/20232009 82002 2003 SNOMED Comme nt: Annot ation s: MARCELLO SH, RUTHANN CARDONA 2009 3:53P M IVP DYE; ; Not Available [facility] 4 22:52:55 947239 Toradol medicatio n Not available Not available Not available 10/22/20232009 29826 RxNorm Not Available [facility] 4 22:52:55 411675 adhesive tape environme nt,medica tion Not available Not available Not available 10/22/20232014 Comme nt: Adhes elan Tape React ion Date: 07 Oct 2013 ; Not Available [facility] 4 20:42:11 600572 tramadol hydrochlo ride medicatio n Not available Not available Not available 10/22/20232009 83375 RxNorm Not Available [facility] 4 22:52:56 969253 Substance with sulfonami de structure and antibacte rial mechanism of action (substanc e) medicatio n Not available Not available Not available 10/22/20232009 28933 8003 SNOMED Not Available [facility] 4 22:52:56 524290 Keflex medicatio n Not available Not available Not available 10/22/20232009 30317 7 RxNorm Not Available [facility] 4 22:52:56 909822 Tape 1/2X10YD medicatio n Not available Not available Not available 10/22/20232014 Not Available [facility] 4 22:52:56 453751 tea tree oil medicatio n Not available Not available Not available 10/22/20232014 33159 RxNorm Not Available [facility] 4 22:52:56 Medications Name Sig Start Date [...] Not Available Vitals Date Recorded Body height Body mass index (BMI) Body weight Heart rate Oxygen saturation Systolic And Diastolic Provider Name and Address Organization Details Last Updated DateTime 5 157.48 cm 34.8 kg/m2 46003.5 5 g 75 /min 99 % 144/82 mm[Hg] [facility] 5 09:57:43 Social History None recorded. Functional Status None recorded. Mental Status None recorded. Family History Nothing Reported. Medical History No medical history recorded. Gynecological HistoryNo gynecological history recorded. Obstetrics History GPAL:G 0 P 0 0 0 0 Past Encounters Encounter ID Performer Location Encounter Start Date Encounter Closed Date Diagnosis/Indication Diagnosis SNOMED-CT Code Diagnosis ICD10 Code Diagnosis IMO Codes Diagnosis Note [id number] [facility] [address] [facility] [place] [address] 06/19/2025 09:32:42 06/20/2025 07:14:13 Cyst 618416108 M79.89 [id number] Health Concerns Section Related Observation LastModified by Organization Detai ls LastModified Time None Recorded Concern Status LastModified by Organization Details LastModified Time None Recorded Payers Encounter Date Sequence Insurance Name Policy Number Policy Lai Covered Member ID Lai Member ID Guarantor Name 06/19/2025 1 [place] [employer] Charlotte Soto [id number] Charlotte Soto Notes Date Note Type Note [...] Tylenol occasionally for discomfort. Hannah Back PA-C [address] [facility], [place], [address], [facility] 06/19/2025 10:13:24 OBGyn Episode No OBEpisode recorded.
--- OUTSIDE RECORDS SUMMARY | 2025-08-22 21:43 | XMS_ITS ---
Author Organization Unknown Address [address] [place] [phone] Phone Care Team Providers Care Clinical Research Scientist Name Role Phone LADARIUS AGUILAR Attending Unavailable SHREE Haynes Primary Unavailable Immunization Immunization Date Status Additional Notes Code Code System influenza, unspecified formulation 07/04/2019 Completed 88 CVX Tdap 08/05/2021 Completed 115 CVX Influenza, MDCK, trivalent, PF 05/14/2024 Completed 153 CVX Pneumococcal conjugate PCV20 , polysaccharide [id number] conjugate, adjuvant, PF 05/14/2024 Completed 216 CVX Results COMPREHENSIVE METABOLIC PANE L - Collect Date/Time: 2024 12:19 [facility] ID: [id number] [place] [address], [phone] LOINC: 84702-3 Test Value Unit Reference Range Code Code System Flag FASTING NO BUN 12 mg/dL L=7 H=20 3094-0 LOINC CREATININE 0.80 mg/dL L=0.52 H=1.04 2160-0 LOINC GLUCOSE 108 mg/dL L=74 H=106 2345-7 LOINC H SODIUM 131 mmol/L L=132 H=144 2951-2 LOINC L POTASSIUM 4.5 mmol/L L=3.5 H=5.1 2823-3 LOINC CHLORIDE 93 mmol/L L=98 H=107 2075-0 LOINC L CO2 25.0 mmol/L L=22.0 H=30.0 2028-9 LOINC ANION GAP 18 L=10 H=20 63927-4 LOINC OSMOLALITY 272 mOs/kG L=280 H=296 94822-3 LOINC L BUN/CREAT 15.0 3097-3 LOINC CALCIUM 9.2 mg/dL L=8.3 H=10.5 03122-2 LOINC AST 33 U/L L=15 H=46 1920-8 LOINC ALT 33 U/L L=9 H=72 1742-6 LOINC ALKALINE PHOS 115 U/L L=38 H=126 6768-6 LOINC TOTAL BILI 0.3 mg/dL L=0.2 H=1.3 1975-2 LOINC ALBUMIN 4.3 G/dL L=3.5 H=5.0 1751-7 LOINC TOTAL PROTEIN 6.9 g/L L=6.3 H=8.2 2885-2 LOINC A/G RATIO 1.7 81592-6 LOINC AGE 59 72985-3 LOINC eGFR NON-AFR 78 ml/min eGFR AFR AMER 94 ml/min CBC W/ DIFF - Collect Date/T reid: 2024 12:19 [facility] ID: [id number] [address] [place], [place], [phone] LOINC: 43220-0 Test Value Unit Reference Range Code Code System Flag WBC 6.2 10^3uL L=4.8 H=10.8 RBC 3.95 10^6uL L=4.20 H=5.40 L HEMOGLOBIN 11.8 g/dL L=12.0 H=16.0 718-7 LOINC L HEMATOCRIT 34.7 VOL% L=37.0 H=47.0 4544-3 LOINC L MCV 87.8 fL L=81.0 H=99.0 MCH 29.9 pg L=27.0 H=32.0 MCHC 34.0 g/dL L=32.0 H=36.0 PLATELETS 177 10^3uL L=100 H=400 62814-5 LOINC RDW 13.0 % L=11.7 H=15.5 %GRAN 61.4 % L=40.0 H=70.0 12039-6 LOINC %LYMPH 26.1 % L=20.0 H=45.0 736-9 LOINC %MONO 9.3 % L=2.0 H=10.0 82214-0 LOINC %EOS 2.1 % L=0.0 H=6.0 713-8 LOINC %BASO 0.8 % L=0.0 H=3.0 706-2 LOINC #NEUT 3.8 10^3uL L=1.9 H=7.6 26058-1 LOINC #LYMPH 1.6 10^3uL L=0.9 H=4.9 37365-7 LOINC #MONO 0.6 10^3uL L=0.1 H=0.9 33568-0 LOINC #EOS 0.1 10^3uL L=0.0 H=0.6 712-0 LOINC #BASO 0.05 10^3uL L=0.00 H=0.10 27405-0 LOINC #IM GRANS 0.0 10^3uL L=0.0 H=7.0 87202-7 LOINC %IM GRANS 0.3 % L=0.0 H=5.0 98228-9 LOINC %NRB 0.0 L=0.0 H=0.2 30618-4 LOINC #NRB 0.000 L=0.000 H=0.012 46983-6 LOINC MANUAL DIFF NOT INDICATED RBC MORPH NOT INDICATED TSH / REFLEX FT4 - Collect D ate/Time: 2024 12:19 [facility] ID: [id number] [address] [place] [address], [phone] LOINC: Test Value Unit Reference Range Code Code System Flag TSH 1.580 uIU/L L=0.470 H=4.680 19107-5 LOINC HEMOGLOBIN A1C WITH eAG - Co llect Date/Time: 2024 12:19 [facility] ID: [id number] [address] [place] [address], [id number] LOINC: 4548-4 Test Value Unit Reference Range Code Code System Flag HGBA1C 6.5 % 4548-4 LOINC eAG 139.9 mg/dL 4548-4 LOINC Social History Type Status Start Date End Date Code Code Syst em Smoking History Current every day smoker 178139207 SNOMED CT Sex Female Medications Medication Start Date End Date Route Frequency Dose Code Code System Medication Instructions Home Meds Meloxicam 15MG Oral Tablet 08/11/2024 10/24/2024 BY MOUTH ONCE A DAY 1 TABLET 227375 RxNorm TAKE 1 TABLET BY MOUTH ONCE A DAY Cyclobenzapri ne HCl 10MG Oral Tablet 08/11/2024 03/11/2025 BY MOUTH 1 TABLET 537536 RxNorm TAKE 1 TABLET BY MOUTH FOR FOR MUSCLE SPASM. Escitalopram 20MG Oral Tablet 09/22/2024 Unknown ORAL ONCE A DAY 20 MILLIGRAM S 581961 RxNorm TAKE 20 MILLIGRAM S ORAL ONCE A DAY Gabapentin 800MG Oral Tablet 09/22/2024 Unknown ORAL THREE TIMES A DAY 800 MILLIGRAM S 793869 RxNorm TAKE 800 MILLIGRAM S ORAL THREE TIMES A DAY HumaLOG Mix 75/25 KwikPen 75U/1ML-25U/1 ML Subcutaneous Suspension 09/22/2024 03/11/2025 SUBCUTANE OUS DIRECTED 1 unit(s) 884127 RxNorm INJECT INTO 1 EACH SUBCUTANE OUS DIRECTED Lantus SoloStar 100U/1ML Subcutaneous Solution 09/22/2024 03/11/2025 SUBCUTANE OUS AT BEDTIME 1 unit(s) 419116 RxNorm INJECT INTO 1 EACH SUBCUTANE OUS AT BEDTIME Levothyroxine Sodium 88MCG Oral Tablet 09/22/2024 Unknown ORAL ONCE A DAY 88 MCG 661756 RxNorm TAKE 88 MCG ORAL ONCE A DAY Lisinopril 40MG Oral Tablet 09/22/2024 Unknown ORAL ONCE A DAY 40 MILLIGRAM S 918973 RxNorm TAKE 40 MILLIGRAM S ORAL ONCE A DAY Metoprolol Tartrate 100MG Oral Tablet 09/22/2024 Unknown ORAL TWICE A DAY 100 MILLIGRAM S 135365 RxNorm TAKE 100 MILLIGRAM S ORAL TWICE A DAY Nortriptyline 50MG Oral Capsule 09/22/2024 Unknown ORAL AT BEDTIME 50 MILLIGRAM S RxNorm TAKE 50 MILLIGRAM S ORAL AT BEDTIME Pravastatin Sodium 80MG Oral Tablet 09/22/2024 Unknown ORAL AT BEDTIME 80 MILLIGRAM S 234666 RxNorm TAKE 80 MILLIGRAM S ORAL AT BEDTIME QUEtiapine 100MG Oral Tablet 09/22/2024 Unknown ORAL AT BEDTIME 100 MILLIGRAM S 834304 RxNorm TAKE 100 MILLIGRAM S ORAL AT BEDTIME Trulicity 0.75MG/0.5ML Subcutaneous Solution 09/22/2024 03/11/2025 SUBCUTANE OUS ONCE A WEEK 1 unit(s) 6274376 RxNorm INJECT INTO 1 EACH SUBCUTANE OUS ONCE A WEEK Venlafaxine HCl 75MG Oral Tablet 09/22/2024 Unknown ORAL ONCE A DAY 150 MILLIGRAM S 092332 RxNorm TAKE 150 MILLIGRAM S ORAL ONCE A DAY Vitamin D3 10 MCG Oral Tablet 09/22/2024 12/29/2024 ORAL ONCE A DAY 10 MCG 794514 RxNorm TAKE 10 MCG ORAL ONCE A DAY amLODIPine Besylate 10MG Oral Tablet 09/22/2024 Unknown ORAL ONCE A DAY 10 MILLIGRAM S 661814 RxNorm TAKE 10 MILLIGRAM S ORAL ONCE A DAY carBAMazepine 200MG Oral Capsule, Extended Release 09/22/2024 Unknown ORAL TWICE A DAY 200 MILLIGRAM S 767255 RxNorm TAKE 200 MILLIGRAM S ORAL TWICE A DAY clonazePAM 1MG Oral Tablet 09/22/2024 03/11/2025 ORAL THREE TIMES A DAY 1 MILLIGRAM S 434585 RxNorm TAKE 1 MILLIGRAM S ORAL THREE TIMES A DAY metFORMIN HCl 1000MG Oral Tablet 09/22/2024 Unknown ORAL TWICE A DAY 1000 MILLIGRAM S 270034 RxNorm TAKE 1000 MILLIGRAM S ORAL TWICE A DAY rOPINIRole HCl 0.25MG Oral Tablet 09/22/2024 Unknown ORAL AT BEDTIME 0.25 MILLIGRAM S 585552 RxNorm TAKE 0.25 MILLIGRAM S ORAL AT BEDTIME traZODone hydrochloride 150MG Oral Tablet 09/22/2024 Unknown ORAL AT BEDTIME 150 MILLIGRAM S 842739 RxNorm TAKE 150 MILLIGRAM S ORAL AT BEDTIME hydrOXYzine HCl 50MG Oral Tablet 09/22/2024 Unknown ORAL ONCE A DAY 50 MILLIGRAM S 923006 RxNorm TAKE 50 MILLIGRAM S ORAL ONCE A DAY Chlorthalidon e 25MG Oral Tablet 09/22/2024 Unknown ORAL ONCE A DAY 25 MILLIGRAM S 750937 RxNorm TAKE 25 MILLIGRAM S ORAL ONCE A DAY Multivitamin Oral Tablet 10/13/2024 Unknown ORAL ONCE A DAY 1 unit(s) RxNorm TAKE 1 EACH ORAL ONCE A DAY Meloxicam 15MG Oral Tablet 10/24/2024 01/26/2025 BY MOUTH ONCE A DAY 1 TABLET 917831 RxNorm TAKE 1 TABLET BY MOUTH ONCE A DAY Methocarbamol 500MG Oral Tablet 11/27/2024 12/22/2024 BY MOUTH NEEDED 3 TIMES A DAY 1 TABLET 659073 RxNorm TAKE 1 TABLET BY MOUTH NEEDED 3 TIMES A DAY Diclofenac Sodium 75MG Oral Tablet, Enteric Coated 11/27/2024 07/02/2025 BY MOUTH NEEDED 3 TIMES A DAY 1 TABLET 063894 RxNorm TAKE 1 TABLET BY MOUTH NEEDED 3 TIMES A DAY Methocarbamol 500MG Oral Tablet 12/22/2024 01/26/2025 BY MOUTH NEEDED 3 TIMES A DAY 1 TABLET 044341 RxNorm TAKE 1 TABLET BY MOUTH THREE TIMES DAILY NEEDED oxyCODONE HCl-acetamino phen 5MG-325MG Oral Tablet 01/26/2025 03/11/2025 BY MOUTH NEEDED TWICE A DAY 1 TABLET 7953808 RxNorm TAKE 1 TABLET BY MOUTH NEEDED TWICE A DAY Meloxicam 15MG Oral Tablet 01/26/2025 02/23/2025 BY MOUTH ONCE A DAY 1 TABLET 402245 RxNorm TAKE 1 TABLET BY MOUTH DAILY Methocarbamol 500MG Oral Tablet 01/26/2025 02/23/2025 BY MOUTH NEEDED 3 TIMES A DAY 1 TABLET 567640 RxNorm TAKE 1 TABLET BY MOUTH THREE TIMES DAILY NEEDED Meloxicam 15MG Oral Tablet 02/23/2025 03/11/2025 BY MOUTH ONCE A DAY 1 TABLET 382268 RxNorm TAKE 1 TABLET BY MOUTH DAILY Methocarbamol 500MG Oral Tablet 02/23/2025 03/26/2025 BY MOUTH NEEDED 3 TIMES A DAY 1 TABLET 346353 RxNorm TAKE 1 TABLET BY MOUTH NEEDED 3 TIMES A DAY HumaLOG Mix 75/25 KwikPen 75U/1ML-25U/1 ML Subcutaneous Suspension 03/16/2025 Unknown SUBCUTANE OUS THREE TIMES A DAY 1 unit(s) 880164 RxNorm INJECT INTO 1 EACH SUBCUTANE OUS THREE TIMES A DAY Trulicity 1.5MG/0.5ML Subcutaneous Solution 03/16/2025 Unknown SUBCUTANE OUS ONCE A WEEK 1 unit(s) 2563628 RxNorm INJECT INTO 1 EACH SUBCUTANE OUS ONCE A WEEK clonazePAM 1MG Oral Tablet 03/16/2025 Unknown ORAL ONCE A DAY 1 MILLIGRAM S 538641 RxNorm TAKE 1 MILLIGRAM S ORAL ONCE A DAY Meloxicam 15MG Oral Tablet 03/26/2025 06/29/2025 BY MOUTH ONCE A DAY 1 TABLET 134950 RxNorm TAKE 1 TABLET BY MOUTH ONCE A DAY Meloxicam 15MG Oral Tablet 06/29/2025 Unknown BY MOUTH ONCE A DAY 1 TABLET 144291 RxNorm TAKE 1 TABLET BY MOUTH DAILY [...] DISEASE WITHOUT ESOPHAGITISUNSPECIFIED INFLAMMATORY SPONDYLOPATHY, LUMBAR REGIONOTHER PHOTO LAB MANAGER (CURRENT) DRUG THERAPY Hospital Discharge Instructions Should you have any questions prior to discharge, please contact a member of your healthcare team. If you have left the hospital and have any questions, please contact your primary care physician. Reason For Referral No Data Found Problems Problem Start Date Resolved Date Status Code Code System ENCOUNTER FOR SCREENING FOR OTHER VIRAL DISEASES active 548603608 SNOMED- CT ABDOMINAL PAIN active 32084666 SNOME D-CT PAIN IN BACK active 569909187 SNOMED- CT ANXIETY DISORDER, UNSPECIFIED active 949071338 SNOMED-CT DEPRESSION, UNSPECIFIED active 922524 07 SNOMED-CT SCHIZOPHRENIA, UNSPECIFIED active 584 57255 SNOMED-CT HYPERLIPIDEMIA, UNSPECIFIED active 55 843502 SNOMED-CT PERSONAL HISTORY OF OTHER MALIGNANT NEOPLASM OF SKIN active 663989247 S NOMED-CT BIPOLAR DISORDER, UNSPECIFIED active 30323530 SNOMED-CT ENCOUNTER FOR SCREENING EXAMINATION FOR OTHER MENTAL HEALTH AND BEHAVIORAL DISOR active 551063460 SNOMED-CT ENCOUNTER FOR SCREENING, UNSPECIFIED active 743865925 SNOMED-CT ENCOUNTER FOR GENERAL ADULT MEDICAL EXAMINATION WITHOUT ABNORMAL FINDINGS active 693035357 SNOMED-CT ENCOUNTER FOR OTHER SCREENIN G FOR MALIGNANT NEOPLASM OF BREAST active 359904705 SNOMED-CT TYPE 2 DIABETES MELLITUS WITHOUT COMPLICATIONS active 163590862 SNOMED -CT DORSALGIA, UNSPECIFIED active 0306472 05 SNOMED-CT ESSENTIAL (PRIMARY) HYPERTENSION active 00214738 SNOMED-CT THYROTOXICOSIS, 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 66808870 SNOMED-CT GASTRO-ESOPHAGEAL REFLUX DISEASE WITHOUT ESOPHAGITIS active 384223842 SNOMED-CT UNSPECIFIED INFLAMMATORY SPONDYLOPATHY, LUMBAR REGION active 163858916 SNOMED-CT 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 PHOTO LAB MANAGER (CURRENT) DR UG THERAPY active 818558128 SNOMED-CT Allergies and Adverse Reactions Allergy Substance Reaction Severity Start Date Concern Status Code Code System SULFA (sulfonamide) Hives (SNOMED-CT: 899890488) Moderate Active 83853599 SNOMED-CT CEPHALOSPORIN Itching (SNOMED-CT: 654617911) Moderate Active 430120225 SNOMED-CT KETOROLAC NAUSEA (SNOMED-CT: null) Moderate Active 08606 RxNorm IODINE Hives (SNOMED-CT: 547047317) Moderate Active 5933 RxNorm ADHESIVE Rash (SNOMED-CT: 284540553) Moderate Active LATEX BLISTERS (SNOMED-CT: null) Moderate Active 7909084 RxNorm TEA TREE OIL BLISTERS (SNOMED-CT: null) Moderate Active 05154 RxNorm FLAGYL 375 TONGUE SWELLING (SNOMED-CT: null) Moderate Active 834468 RxNorm MOTRIN NAUSEA (SNOMED-CT: null) Moderate Active 843748 RxNorm PENICILLIN Hives (SNOMED-CT: 526294870) Moderate Active Plan of Treatment SI Joint [...] tem Type 2 diabetes mellitus without complications 024 SNOMED-CT Personal Care Team Section Performer Name Performer Role Active Date Inactive Maxi Green PCP - Primary care physician 2024-07-11
--- OUTSIDE RECORDS SUMMARY | 2025-08-22 21:44 | XMS_ITS ---
Author Organization Unknown Address [address] [place] [phone] Phone Care Team Providers Care Retail Equipment Associate Name Role Phone LADARIUS AGUILAR Attending Unavailable PHOENIX MCCLAIN Primary Unavailable Immunization Immunization Date Status Additional Notes Code Code System influenza, unspecified formulation 07/04/2019 Completed 88 CVX Tdap 08/05/2021 Completed 115 CVX Influenza, MDCK, trivalent, PF 05/14/2024 Completed 153 CVX Pneumococcal conjugate PCV20 , polysaccharide [id number] conjugate, adjuvant, PF 05/14/2024 Completed 216 CVX Results DIG 3D JACOBO DIAG R UNILATERA - Completed: 12/24/2024 17:43 LOINC: \TM00\\12PI\\DRAo\\BM09\ \MRHo\ [address] [address] ---------NAME--------- NUMBER SEX AGE ADMIT DISC. XRAY# F/C TYPE LUCILA GONSALEZ [id number] F 59 12/24/24 12/24/24 28200 XB1 O/P DATE OF : 1965 M/R# [id number] PH#: [phone] RM \MRHx\ LOCATION: TRANSCRIBED: 12/24/24 14:56 DIG 3D JACOBO DIAG R UNILATERA 04955 COMPLETED: [id number] (REASONS-DIG 3D JACOBO DIAG R UNILATERAL: ABNORMAL JACOBO PHYSICIAN: LADARIUS DOWNING R A D I O L O G Y R E P O R T PROCEDURE: DIG 3D JACOBO DIAG R UNILATERA, US BREAST RIGHT LTD REASON FOR EXAM: ABNORMAL JACOBO COMPARISON: 12/03/2027 TECHNIQUE:ML, spot compression craniocaudal and modified mediolateral oblique views of the RIGHT breast are obtained utilizing digital mammographic images obtained using a mammographic system. 3-D imaging with tomosynthesis combined with 2-D imaging were acquired. Targeted right breast ultrasound was performed. FINDINGS: BREAST COMPOSITION: B - There are scattered areas of fibroglandular density. Spot compression views demonstrate No asymmetrical parenchymal pattern, architectural distortion, pleomorphic microcalcifications or masses. Targeted ultrasound images of the breast demonstrate no suspicious abnormality. There are benign-appearing lymph nodes in the axilla. IMPRESSION: No findings of malignancy. RECOMMENDATION: Recommend annual mammogram. ASSESSMENT: BIRADS: 1 - Negative LY PROTECTION SPECIALIST \ITLo\ \UNDo\ \UNDx\ \ITLx\ Reviewed and Electronically Signed by: CASTILLO RADCRED Signed Date: SIGNDATE 12/24/24.1458.MG .ranulfo WHITMOJGAN ORANTES via modem US BREAST RIGHT LTD - Comple fred: 12/24/2024 14:35 LOINC: \TM00\\12PI\\DRAo\\BM09\ \MRHo\ [address] [address] ---------NAME--------- NUMBER SEX AGE ADMIT DISC. XRAY# F/C TYPE LUCILA GONSALEZ [id number] F 59 12/24/24 12/24/24 73413 XB1 O/P DATE OF : 1965 M/R# [id number] #: [phone] RM \MRHx\ LOCATION: TRANSCRIBED: 12/24/24 14:56 US BREAST RIGHT [facility] [id number] COMPLETED:12/24/24 14:35 [facility] [address] (REASON-US BREAST RIGHT LTD: ABNORMAL [facility] PHYSICIAN: LADARIUS DOWNING R A D I O L O G Y R E P O R T PROCEDURE: DIG 3D JACOBO DIAG R UNILATER, BREAST RIGHT [facility] REASON FOR EXAM: ABNORMAL [facility] COMPARISON: 12/03/2027 TECHNIQUE:ML, spot compression craniocaudal and modified mediolateral oblique views of the RIGHT breast are obtained utilizing digital mammographic images obtained using a mammographic system. 3-D imaging with tomosynthesis combined with 2-D imaging were acquired. Targeted right breast ultrasound was performed. FINDINGS: BREAST COMPOSITION: B - There are scattered areas of fibroglandular density. Spot compression views demonstrate No asymmetrical parenchymal pattern, architectural distortion, pleomorphic microcalcifications or masses. Targeted ultrasound images of the breast demonstrate no suspicious abnormality. There are benign-appearing lymph nodes in the axilla. IMPRESSION: No findings of malignancy. RECOMMENDATION: Recommend annual mammogram. ASSESSMENT: BIRADS: 1 - Negative LY PROTECTION SPECIALIST \ITLo\ \UNDo\ \UNDx\ \ITLx\ Reviewed and Electronically Signed by: CASTILLO ELISE Signed Date: SIGNDATE 12/24/24.1458.AJH.ranulfo ORANTES via modem Social History Type Status Start Date End Date Code Code Syst em Smoking History Current every day smoker [id number] SNOMED CT Sex Female Medications Medication Start Date End Date Route Frequency Dose Code Code System Medication Instructions Home Meds Cyclobenzaprine HCl 10MG Oral Tablet 08/11/2024 03/11/2025 BY MOUTH 1 TABLET 302439 RxNorm TAKE 1 TABLET BY MOUTH FOR FOR MUSCLE SPASM. Chlorthalidone 25MG Oral Tablet 09/22/2024 Unknown ORAL ONCE A DAY 25 MILLIGRAMS 430586 RxNorm TAKE 25 MILLIGRAM S ORAL ONCE A DAY Escitalopram 20MG Oral Tablet 09/22/2024 Unknown ORAL ONCE A DAY 20 MILLIGRAMS 530515 RxNorm TAKE 20 MILLIGRAM S ORAL ONCE A DAY Gabapentin 800MG Oral Tablet 09/22/2024 Unknown ORAL THRE E TIME S A DAY 800 MILLIGRAMS 514913 RxNorm TAKE 800 MILLIGRAM S ORAL THREE TIMES A DAY HumaLOG Mix 75/25 KwikPen 75U/1ML-25U/1ML Subcutaneous Suspension 09/22/2024 03/11/2025 SUBCUTANE OUS DIRE CTED 1 unit(s) 842059 RxNorm INJECT INTO 1 EACH SUBCUTANE OUS DIRECTED Lantus SoloStar 100U/1ML Subcutaneous Solution 09/22/2024 03/11/2025 SUBCUTANE OUS AT BEDT CARO 1 unit(s) 801140 RxNorm INJECT INTO 1 EACH SUBCUTANE OUS AT BEDTIME Levothyroxine Sodium 88MCG Oral Tablet 09/22/2024 Unknown ORAL ONCE A DAY 88 MCG 128274 RxNorm TAKE 88 MCG ORAL ONCE A DAY Lisinopril 40MG Oral Tablet 09/22/2024 Unknown ORAL ONCE A DAY 40 MILLIGRAMS 291801 RxNorm TAKE 40 MILLIGRAM S ORAL ONCE A DAY Metoprolol Tartrate 100MG Oral Tablet 09/22/2024 Unknown ORAL TWIC E A DAY 100 MILLIGRAMS 279494 RxNorm TAKE 100 MILLIGRAM S ORAL TWICE A DAY Nortriptyline 50MG Oral Capsule 09/22/2024 Unknown ORAL AT BEDT CARO 50 MILLIGRAMS RxNorm TAKE 50 MILLIGRAM S ORAL AT BEDTIME Pravastatin Sodium 80MG Oral Tablet 09/22/2024 Unknown ORAL AT BEDT CARO 80 MILLIGRAMS 731517 RxNorm TAKE 80 MILLIGRAM S ORAL AT BEDTIME QUEtiapine 100MG Oral Tablet 09/22/2024 Unknown ORAL AT BEDT CARO 100 MILLIGRAMS 640283 RxNorm TAKE 100 MILLIGRAM S ORAL AT BEDTIME Trulicity 0.75MG/0.5ML Subcutaneous Solution 09/22/2024 03/11/2025 SUBCUTANE OUS ONCE A WEEK 1 unit(s) 8707427 RxNorm INJECT INTO 1 EACH SUBCUTANE OUS ONCE A WEEK Venlafaxine HCl 75MG Oral Tablet 09/22/2024 Unknown ORAL ONCE A DAY 150 MILLIGRAMS 713953 RxNorm TAKE 150 MILLIGRAM S ORAL ONCE A DAY Vitamin D3 10 MCG Oral Tablet 09/22/2024 12/29/2024 ORAL ONCE A DAY 10 MCG 016792 RxNorm TAKE 10 MCG ORAL ONCE A DAY amLODIPine Besylate 10MG Oral Tablet 09/22/2024 Unknown ORAL ONCE A DAY 10 MILLIGRAMS 831446 RxNorm TAKE 10 MILLIGRAM S ORAL ONCE [...] ORAL TWIC E A DAY 1000 MILLIGRAMS 597376 RxNorm TAKE 1000 MILLIGRAM S ORAL TWICE A DAY rOPINIRole HCl 0.25MG Oral Tablet 09/22/2024 Unknown ORAL AT BEDT CARO 0.25 MILLIGRAMS 960051 RxNorm TAKE 0.25 MILLIGRAM S ORAL AT BEDTIME traZODone hydrochloride 150MG Oral Tablet 09/22/2024 Unknown ORAL AT BEDT CARO 150 MILLIGRAMS 348244 RxNorm TAKE 150 MILLIGRAM S ORAL AT BEDTIME hydrOXYzine HCl 50MG Oral Tablet 09/22/2024 Unknown ORAL ONCE A DAY 50 MILLIGRAMS 621936 RxNorm TAKE 50 MILLIGRAM S ORAL ONCE A DAY Multivitamin Oral Tablet 10/13/2024 Unknown ORAL ONCE A DAY 1 unit(s) RxNorm TAKE 1 EACH ORAL ONCE A DAY Meloxicam 15MG Oral Tablet 10/24/2024 01/26/2025 BY MOUTH ONCE A DAY 1 TABLET 932423 RxNorm TAKE 1 TABLET BY MOUTH ONCE A DAY Diclofenac Sodium 75MG Oral Tablet, Enteric Coated 11/27/2024 07/02/2025 BY MOUTH NEED ED 3 TIME S A DAY 1 TABLET 444111 RxNorm TAKE 1 TABLET BY MOUTH NEEDED 3 TIMES A DAY Methocarbamol 500MG Oral Tablet 12/22/2024 01/26/2025 BY MOUTH NEED ED 3 TIME S A DAY 1 TABLET 068050 RxNorm TAKE 1 TABLET BY MOUTH THREE TIMES DAILY NEEDED Meloxicam 15MG Oral Tablet 01/26/2025 02/23/2025 BY MOUTH ONCE A DAY 1 TABLET 995987 RxNorm TAKE 1 TABLET BY MOUTH DAILY Methocarbamol 500MG Oral Tablet 01/26/2025 02/23/2025 BY MOUTH NEED ED 3 TIME S A DAY 1 TABLET 587434 RxNorm TAKE 1 TABLET BY MOUTH THREE TIMES DAILY NEEDED oxyCODONE HCl-acetaminophe n 5MG-325MG Oral Tablet 01/26/2025 03/11/2025 BY MOUTH NEED ED TWIC E A DAY 1 TABLET 4348452 RxNorm TAKE 1 TABLET BY MOUTH NEEDED TWICE A DAY Meloxicam 15MG Oral Tablet 02/23/2025 03/11/2025 BY MOUTH ONCE A DAY 1 TABLET 011141 RxNorm TAKE 1 TABLET BY MOUTH DAILY Methocarbamol 500MG Oral Tablet 02/23/2025 03/26/2025 BY MOUTH NEED ED 3 TIME S A DAY 1 TABLET 716234 RxNorm TAKE 1 TABLET BY MOUTH NEEDED 3 TIMES A DAY HumaLOG Mix 75/25 KwikPen 75U/1ML-25U/1ML Subcutaneous Suspension 03/16/2025 Unknown SUBCUTANE OUS THRE E TIME S A DAY 1 unit(s) 826890 RxNorm INJECT INTO 1 EACH SUBCUTANE OUS THREE TIMES A DAY Trulicity 1.5MG/0.5ML Subcutaneous Solution 03/16/2025 Unknown SUBCUTANE OUS ONCE A WEEK 1 unit(s) 2787641 RxNorm INJECT INTO 1 EACH SUBCUTANE OUS ONCE A WEEK clonazePAM 1MG Oral Tablet 03/16/2025 Unknown ORAL ONCE A DAY 1 MILLIGRAMS 178874 RxNorm TAKE 1 MILLIGRAM S ORAL ONCE A DAY Meloxicam 15MG Oral Tablet 03/26/2025 06/29/2025 BY MOUTH ONCE A DAY 1 TABLET 449381 RxNorm TAKE 1 TABLET BY MOUTH ONCE A DAY Meloxicam 15MG Oral Tablet 06/29/2025 Unknown BY MOUTH ONCE A DAY 1 TABLET 197371 RxNorm TAKE 1 TABLET BY MOUTH DAILY [...] DISEASE WITHOUT ESOPHAGITISUNSPECIFIED INFLAMMATORY SPONDYLOPATHY, LUMBAR REGIONOTHER ALF (CURRENT) DRUG THERAPY Hospital Discharge Instructions Should you have any questions prior to discharge, please contact a member of your healthcare team. If you have left the hospital and have any questions, please contact your primary care physician. Reason For Referral No Data Found Problems Problem Start Date Resolved Date Status Code Code System ENCOUNTER FOR SCREENING FOR OTHER VIRAL DISEASES active 054425190 SNOMED- CT ABDOMINAL PAIN active 02855533 SNOME D-CT PAIN IN BACK active 555237028 SNOMED- CT ANXIETY DISORDER, UNSPECIFIED active 898206123 SNOMED-CT DEPRESSION, UNSPECIFIED active 262564 07 SNOMED-CT SCHIZOPHRENIA, UNSPECIFIED active 582 53350 SNOMED-CT HYPERLIPIDEMIA, UNSPECIFIED active 55 497040 SNOMED-CT PERSONAL HISTORY OF OTHER MALIGNANT NEOPLASM OF SKIN active 591244671 S NOMED-CT BIPOLAR DISORDER, UNSPECIFIED active 85242736 SNOMED-CT ENCOUNTER FOR SCREENING EXAMINATION FOR OTHER MENTAL HEALTH AND BEHAVIORAL DISOR active 277431809 SNOMED-CT ENCOUNTER FOR SCREENING, UNSPECIFIED active 110629152 SNOMED-CT ENCOUNTER FOR GENERAL ADULT MEDICAL EXAMINATION WITHOUT ABNORMAL FINDINGS active 149982050 SNOMED-CT ENCOUNTER FOR OTHER SCREENIN G FOR MALIGNANT NEOPLASM OF BREAST active 577885923 SNOMED-CT TYPE 2 DIABETES MELLITUS WITHOUT COMPLICATIONS active 527487667 SNOMED -CT DORSALGIA, UNSPECIFIED active 1713574 05 SNOMED-CT ESSENTIAL (PRIMARY) HYPERTENSION active 69228667 SNOMED-CT THYROTOXICOSIS, 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 52088707 SNOMED-CT GASTRO-ESOPHAGEAL REFLUX DISEASE WITHOUT ESOPHAGITIS active 675065888 SNOMED-CT UNSPECIFIED INFLAMMATORY SPONDYLOPATHY, LUMBAR REGION active 114840990 SNOMED-CT OTHER ALF (CURRENT) DR UG THERAPY active 354394967 SNOMED-CT Allergies and Adverse Reactions Allergy Substance Reaction Severity Start Date Concern Status Code Code System SULFA (sulfonamide) Hives (SNOMED-CT: 325752689) Moderate Active 77511764 SNOMED-CT CEPHALOSPORIN Itching (SNOMED-CT: 956360959) Moderate Active 177705026 SNOMED-CT KETOROLAC NAUSEA (SNOMED-CT: null) Moderate Active 33958 RxNorm IODINE Hives (SNOMED-CT: 339052643) Moderate Active 5933 RxNorm ADHESIVE Rash (SNOMED-CT: 421619395) Moderate Active LATEX BLISTERS (SNOMED-CT: null) Moderate Active 4780289 RxNorm TEA TREE OIL BLISTERS (SNOMED-CT: null) Moderate Active 90105 RxNorm FLAGYL 375 TONGUE SWELLING (SNOMED-CT: null) Moderate Active 880821 RxNorm MOTRIN NAUSEA (SNOMED-CT: null) Moderate Active 20240501 RxNorm PENICILLIN Hives (SNOMED-CT: 683489140) Moderate Active Plan of Treatment SI Joint [...] Diagnosis Start Date Code Code Sys tem Other abnormal and inconclus elan findings on diagnostic imaging of breast 12/24/2024 SNOMED-CT Personal Care Team Section Performer Name Performer Role Active Date Inactive Maxi Green PCP - Primary care physician 2024-07-11 Imaging Narrative Notes [facility] 12/24/2024 14:[address] [address] ---------NAME--------- NUMBER SEX AGE ADMIT DISC. XRAY# F/C TYPE LUCILA GONSALEZ [id number] F 59 12/24/24 12/24/24 24573 XB1 O/P DATE OF : 1965 M/R# [id number] #: [id number] LOCATION: TRANSCRIBED: 12/24/24 14:56 US BREAST RIGHT LTD [id number] COMPLETED:12/24/24 14:35 [facility] [address] (REASON-US BREAST RIGHT LTD: ABNORMAL JACOBO PHYSICIAN: LADARIUS DOWNING RADIOLOGY REPORT PROCEDURE: DIG 3D JACOBO DIAG R UNILATERA, US BREAST RIGHT LTD REASON FOR EXAM: ABNORMAL JACOBO COMPARISON: 12/03/2027 TECHNIQUE:ML, spot compression craniocaudal and modified mediolateral oblique views of the RIGHT breast are obtained utilizing digital mammographic images obtained using a mammographic system. 3-D imaging with tomosynthesis combined with 2-D imaging were acquired. Targeted right breast ultrasound was performed. FINDINGS: BREAST COMPOSITION: B - There are scattered areas of fibroglandular density. Spot compression views demonstrate No asymmetrical parenchymal pattern, architectural distortion, pleomorphic microcalcifications or masses. Targeted ultrasound images of the breast demonstrate no suspicious abnormality. There are benign-appearing lymph nodes in the axilla. IMPRESSION: No findings of malignancy. RECOMMENDATION: Recommend annual mammogram. ASSESSMENT: BIRADS: 1 - Negative LY PROTECTION SPECIALIST Reviewed and Electronically Signed by: CASTILLO ELISE Signed Date: SIGNDATE 12/24/24.1458.AJH.to [facility]ENIX LAMBERTO via [facility] 12/24/2024 14:[address] [address] ---------NAME--------- NUMBER SEX AGE ADMIT DISC. XRAY# F/C TYPE LUCILA GONSALEZ [id number] F 59 12/24/24 12/24/24 46308 XB1 O/P DATE OF : 1965 M/R# [id number] #: [id number] LOCATION: TRANSCRIBED: 12/24/24 14:56 DIG 3D JACOBO DIAG R UNILATERA 87737 COMPLETED: [id number] (REASONS-DIG 3D JACOBO DIAG R UNILATERAL: ABNORMAL JACOBO PHYSICIAN: LADARIUS CHANG RADIOLOGY REPORT PROCEDURE: DIG 3D JACOBO DIAG R UNILATERA, US BREAST RIGHT LTD REASON FOR EXAM: ABNORMAL JACOBO COMPARISON: 12/03/2027 TECHNIQUE:ML, spot compression craniocaudal and modified mediolateral oblique views of the RIGHT breast are obtained utilizing digital mammographic images obtained using a mammographic system. 3-D imaging with tomosynthesis combined with 2-D imaging were acquired. Targeted right breast ultrasound was performed. FINDINGS: BREAST COMPOSITION: B - There are scattered areas of fibroglandular density. Spot compression views demonstrate No asymmetrical parenchymal pattern, architectural distortion, pleomorphic microcalcifications or masses. Targeted ultrasound images of the breast demonstrate no suspicious abnormality. There are benign-appearing lymph nodes in the axilla. IMPRESSION: No findings of malignancy. RECOMMENDATION: Recommend annual mammogram. ASSESSMENT: BIRADS: 1 - Negative LY PROTECTION SPECIALIST Reviewed and Electronically Signed by: CASTILLO ELISE Signed Date: SIGNDATE 12/24/24.1458.MG .to [facility]OENIX ORANTES via modem
--- OUTSIDE RECORDS SUMMARY | 2025-08-22 21:44 | XMS_ITS ---
Author Organization Unknown Address [address] [place] [address] [phone] Phone Care Team Providers Care Merchandise Pickup/Receiving Associate Name Role Phone LADARIUS AGUILAR Attending Unavailable PHOENIX MCCLAIN Primary Unavailable Immunization Immunization Date Status Additional Notes Code Code System influenza, unspecified formulation 07/04/2019 Completed 88 CVX Tdap 08/05/2021 Completed 115 CVX Influenza, MDCK, trivalent, PF 05/14/2024 Completed 153 CVX Pneumococcal conjugate PCV20 , polysaccharide PUL709 conjugate, adjuvant, PF 05/14/2024 Completed 216 CVX Results CERVICAL SPINE 2 OR 3 VIEWS - Completed: 07/11/2024 11:02 LOINC: EXAM DESCRIPTION: ? ? LUMBAR SPINE; ? ? THORACIC SPINE three-view; ? ? CERVICAL SPINE 2 OR 3 VIEWS REASON FOR STUDY: Fall twice in the last week, pain in the entire spine. Duration: 1 week FINDINGS: Three views lumbar spine, three views thoracic spine and three views cervical spine submitted with comparison 02/05/2024. Cervical spine: There are no fractures. There is no prevertebral soft tissue swelling. There is mild C5-C6 and moderate C6-C7 degenerative disc disease. The lateral masses of C1 properly articulate on C2. Carotid atherosclerosis is present. Thoracic spine: No acute fractures are identified. There is minimal levocurvature of the upper thoracic spine and dextrocurvature of the midthoracic spine. There is mild multilevel thoracic degenerative disc disease. Lumbar spine: No acute fractures are identified. There is mild L1-L3, moderate L3-L4 and mild L4-L5 degenerative disc disease with inferior lumbar facet osteoarthritis. Arterial atherosclerosis is present. IMPRESSION: ? ? No acute fracture. If persistent clinical concern for an occult fracture, further evaluation with cross-sectional imaging may be considered. ? ? Mild C5-C6 and moderate C6-C7 degenerative disc disease. ? ? Mild multilevel thoracic degenerative disc disease. ? ? Mild L1-L3, moderate L3-L4 and mild L4-L5 degenerative disc disease with inferior lumbar facet osteoarthritis. THIS IS AN ELECTRONICALLY VERIFIED FINAL REPORT 07/12/2024 3:03 PM - Electronically signed by Eric Combs M.D. MF: ALEX Report ID: [id number] Reading Location: [id number] LUMBAR SPINE - Completed: 11:02 LOINC: EXAM DESCRIPTION: ? ? LUMBAR SPINE; ? ? THORACIC SPINE three-view; ? ? CERVICAL SPINE 2 OR 3 VIEWS REASON FOR STUDY: Fall twice in the last week, pain in the entire spine. Duration: 1 week FINDINGS: Three views lumbar spine, three views thoracic spine and three views cervical spine submitted with comparison 02/05/2024. Cervical spine: There are no fractures. There is no prevertebral soft tissue swelling. There is mild C5-C6 and moderate C6-C7 degenerative disc disease. The lateral masses of C1 properly articulate on C2. Carotid atherosclerosis is present. Thoracic spine: No acute fractures are identified. There is minimal levocurvature of the upper thoracic spine and dextrocurvature of the midthoracic spine. There is mild multilevel thoracic degenerative disc disease. Lumbar spine: No acute fractures are identified. There is mild L1-L3, moderate L3-L4 and mild L4-L5 degenerative disc disease with inferior lumbar facet osteoarthritis. Arterial atherosclerosis is present. IMPRESSION: ? ? No acute fracture. If persistent clinical concern for an occult fracture, further evaluation with cross-sectional imaging may be considered. ? ? Mild C5-C6 and moderate C6-C7 degenerative disc disease. ? ? Mild multilevel thoracic degenerative disc disease. ? ? Mild L1-L3, moderate L3-L4 and mild L4-L5 degenerative disc disease with inferior lumbar facet osteoarthritis. THIS IS AN ELECTRONICALLY VERIFIED FINAL REPORT 07/12/2024 3:03 PM - Electronically signed by Eric Combs M.D. MF: ALEX Report ID: [id number] Reading Location: [id number] THORACIC SPINE 2V - Complete d: 07/11/2024 11:02 LOINC: EXAM DESCRIPTION: ? ? LUMBAR SPINE; ? ? THORACIC SPINE three-view; ? ? CERVICAL SPINE 2 OR 3 VIEWS REASON FOR STUDY: Fall twice in the last week, pain in the entire spine. Duration: 1 week FINDINGS: Three views lumbar spine, three views thoracic spine and three views cervical spine submitted with comparison 02/05/2024. Cervical spine: There are no fractures. There is no prevertebral soft tissue swelling. There is mild C5-C6 and moderate C6-C7 degenerative disc disease. The lateral masses of C1 properly articulate on C2. Carotid atherosclerosis is present. Thoracic spine: No acute fractures are identified. There is minimal levocurvature of the upper thoracic spine and dextrocurvature of the midthoracic spine. There is mild multilevel thoracic degenerative disc disease. Lumbar spine: No acute fractures are identified. There is mild L1-L3, moderate L3-L4 and mild L4-L5 degenerative disc disease with inferior lumbar facet osteoarthritis. Arterial atherosclerosis is present. IMPRESSION: ? ? No acute fracture. If persistent clinical concern for an occult fracture, further evaluation with cross-sectional imaging may be considered. ? ? Mild C5-C6 and moderate C6-C7 degenerative disc disease. ? ? Mild multilevel thoracic degenerative disc disease. ? ? Mild L1-L3, moderate L3-L4 and mild L4-L5 degenerative disc disease with inferior lumbar facet osteoarthritis. THIS IS AN ELECTRONICALLY VERIFIED FINAL REPORT 07/12/2024 3:03 PM - Electronically signed by Eric Combs M.D. MF: ALEX Report ID: [id number] Reading Location: [id number] Social History Type Status Start Date End Date Code Code Syst em Smoking History Current every day smoker [id number] SNOMED CT Sex Female Medications Medication Start Date End Date Route Frequency Dose Code Code System Medication Instructions Home Meds Meloxicam 15MG Oral Tablet 08/11/2024 10/24/2024 BY MOUTH ONCE A DAY 1 TABLET 290912 RxNorm TAKE 1 TABLET BY MOUTH ONCE A DAY Cyclobenzapri ne HCl 10MG Oral Tablet 08/11/2024 03/11/2025 BY MOUTH 1 TABLET 720910 RxNorm TAKE 1 TABLET BY MOUTH FOR FOR MUSCLE SPASM. Escitalopram 20MG Oral Tablet 09/22/2024 Unknown ORAL ONCE A DAY 20 MILLIGRAM S 156214 RxNorm TAKE 20 MILLIGRAM S ORAL ONCE A DAY Gabapentin 800MG Oral Tablet 09/22/2024 Unknown ORAL THREE TIMES A DAY 800 MILLIGRAM S 774932 RxNorm TAKE 800 MILLIGRAM S ORAL THREE TIMES A DAY HumaLOG Mix 75/25 KwikPen 75U/1ML-25U/1 ML Subcutaneous Suspension 09/22/2024 03/11/2025 SUBCUTANE OUS DIRECTED 1 unit(s) 928895 RxNorm INJECT INTO 1 EACH SUBCUTANE OUS DIRECTED Lantus SoloStar 100U/1ML Subcutaneous Solution 09/22/2024 03/11/2025 SUBCUTANE OUS AT BEDTIME 1 unit(s) 729533 RxNorm INJECT INTO 1 EACH SUBCUTANE OUS AT BEDTIME Levothyroxine Sodium 88MCG Oral Tablet 09/22/2024 Unknown ORAL ONCE A DAY 88 MCG 821456 RxNorm TAKE 88 MCG ORAL ONCE A DAY Lisinopril 40MG Oral Tablet 09/22/2024 Unknown ORAL ONCE A DAY 40 MILLIGRAM S 371435 RxNorm TAKE 40 MILLIGRAM S ORAL ONCE A DAY Metoprolol Tartrate 100MG Oral Tablet 09/22/2024 Unknown ORAL TWICE A DAY 100 MILLIGRAM S 874802 RxNorm TAKE 100 MILLIGRAM S ORAL TWICE A DAY Nortriptyline 50MG Oral Capsule 09/22/2024 Unknown ORAL AT BEDTIME 50 MILLIGRAM S RxNorm TAKE 50 MILLIGRAM S ORAL AT BEDTIME Pravastatin Sodium 80MG Oral Tablet 09/22/2024 Unknown ORAL AT BEDTIME 80 MILLIGRAM S 081670 RxNorm TAKE 80 MILLIGRAM S ORAL AT BEDTIME QUEtiapine 100MG Oral Tablet 09/22/2024 Unknown ORAL AT BEDTIME 100 MILLIGRAM S 558364 RxNorm TAKE 100 MILLIGRAM S ORAL AT BEDTIME Trulicity 0.75MG/0.5ML Subcutaneous Solution 09/22/2024 03/11/2025 SUBCUTANE OUS ONCE A WEEK 1 unit(s) 2167015 RxNorm INJECT INTO 1 EACH SUBCUTANE OUS ONCE A WEEK Venlafaxine HCl 75MG Oral Tablet 09/22/2024 Unknown ORAL ONCE A DAY 150 MILLIGRAM S 189339 RxNorm TAKE 150 MILLIGRAM S ORAL ONCE A DAY Vitamin D3 10 MCG Oral Tablet 09/22/2024 12/29/2024 ORAL ONCE A DAY 10 MCG 794037 RxNorm TAKE 10 MCG ORAL ONCE A DAY amLODIPine Besylate 10MG Oral Tablet 09/22/2024 Unknown ORAL ONCE A DAY 10 MILLIGRAM S 996828 RxNorm TAKE 10 MILLIGRAM S ORAL ONCE A DAY carBAMazepine 200MG Oral Capsule, Extended Release 09/22/2024 Unknown ORAL TWICE A DAY 200 MILLIGRAM S 196737 RxNorm TAKE 200 MILLIGRAM S ORAL TWICE A DAY clonazePAM 1MG Oral Tablet 09/22/2024 03/11/2025 ORAL THREE TIMES A DAY 1 MILLIGRAM S 001067 RxNorm TAKE 1 MILLIGRAM S ORAL THREE TIMES A DAY metFORMIN HCl 1000MG Oral Tablet 09/22/2024 Unknown ORAL TWICE A DAY 1000 MILLIGRAM S 761888 RxNorm TAKE 1000 MILLIGRAM S ORAL TWICE A DAY rOPINIRole HCl 0.25MG Oral Tablet 09/22/2024 Unknown ORAL AT BEDTIME 0.25 MILLIGRAM S 523924 RxNorm TAKE 0.25 MILLIGRAM S ORAL AT BEDTIME traZODone hydrochloride 150MG Oral Tablet 09/22/2024 Unknown ORAL AT BEDTIME 150 MILLIGRAM S 336326 RxNorm TAKE 150 MILLIGRAM S ORAL AT BEDTIME hydrOXYzine HCl 50MG Oral Tablet 09/22/2024 Unknown ORAL ONCE A DAY 50 MILLIGRAM S 581360 RxNorm TAKE 50 MILLIGRAM S ORAL ONCE A DAY Chlorthalidon e 25MG Oral Tablet 09/22/2024 Unknown ORAL ONCE A DAY 25 MILLIGRAM S 636441 RxNorm TAKE 25 MILLIGRAM S ORAL ONCE A DAY Multivitamin Oral Tablet 10/13/2024 Unknown ORAL ONCE A DAY 1 unit(s) RxNorm TAKE 1 EACH ORAL ONCE A DAY Meloxicam 15MG Oral Tablet 10/24/2024 01/26/2025 BY MOUTH ONCE A DAY 1 TABLET 036609 RxNorm TAKE 1 TABLET BY MOUTH ONCE A DAY Methocarbamol 500MG Oral Tablet 11/27/2024 12/22/2024 BY MOUTH NEEDED 3 TIMES A DAY 1 TABLET 456338 RxNorm TAKE 1 TABLET BY MOUTH NEEDED 3 TIMES A DAY Diclofenac Sodium 75MG Oral Tablet, Enteric Coated 11/27/2024 07/02/2025 BY MOUTH NEEDED 3 TIMES A DAY 1 TABLET 777606 RxNorm TAKE 1 TABLET BY MOUTH NEEDED 3 TIMES A DAY Methocarbamol 500MG Oral Tablet 12/22/2024 01/26/2025 BY MOUTH NEEDED 3 TIMES A DAY 1 TABLET 119895 RxNorm TAKE 1 TABLET BY MOUTH THREE TIMES DAILY NEEDED oxyCODONE HCl-acetamino phen 5MG-325MG Oral Tablet 01/26/2025 03/11/2025 BY MOUTH NEEDED TWICE A DAY 1 TABLET 4143539 RxNorm TAKE 1 TABLET BY MOUTH NEEDED TWICE A DAY Meloxicam 15MG Oral Tablet 01/26/2025 02/23/2025 BY MOUTH ONCE A DAY 1 TABLET 986364 RxNorm TAKE 1 TABLET BY MOUTH DAILY Methocarbamol 500MG Oral Tablet 01/26/2025 02/23/2025 BY MOUTH NEEDED 3 TIMES A DAY 1 TABLET 127933 RxNorm TAKE 1 TABLET BY MOUTH THREE TIMES DAILY NEEDED Meloxicam 15MG Oral Tablet 02/23/2025 03/11/2025 BY MOUTH ONCE A DAY 1 TABLET 253890 RxNorm TAKE 1 TABLET BY MOUTH DAILY Methocarbamol 500MG Oral Tablet 02/23/2025 03/26/2025 BY MOUTH NEEDED 3 TIMES A DAY 1 TABLET 657572 RxNorm TAKE 1 TABLET BY MOUTH NEEDED 3 TIMES A DAY HumaLOG Mix 75/25 KwikPen 75U/1ML-25U/1 ML Subcutaneous Suspension 03/16/2025 Unknown SUBCUTANE OUS THREE TIMES A DAY 1 unit(s) 523216 RxNorm INJECT INTO 1 EACH SUBCUTANE OUS THREE TIMES A DAY Trulicity 1.5MG/0.5ML Subcutaneous Solution 03/16/2025 Unknown SUBCUTANE OUS ONCE A WEEK 1 unit(s) 7596480 RxNorm INJECT INTO 1 EACH SUBCUTANE OUS ONCE A WEEK clonazePAM 1MG Oral Tablet 03/16/2025 Unknown ORAL ONCE A DAY 1 MILLIGRAM S 961700 RxNorm TAKE 1 MILLIGRAM S ORAL ONCE A DAY Meloxicam 15MG Oral Tablet 03/26/2025 06/29/2025 BY MOUTH ONCE A DAY 1 TABLET 548448 RxNorm TAKE 1 TABLET BY MOUTH ONCE A DAY Meloxicam 15MG Oral Tablet 06/29/2025 Unknown BY MOUTH ONCE A DAY 1 TABLET 344232 RxNorm TAKE 1 TABLET BY MOUTH DAILY [...] DISEASE WITHOUT ESOPHAGITISUNSPECIFIED INFLAMMATORY SPONDYLOPATHY, LUMBAR REGIONOTHER INSTRUCTOR BUSINESS EDUCATION (CURRENT) DRUG THERAPY Hospital Discharge Instructions Should you have any questions prior to discharge, please contact a member of your healthcare team. If you have left the hospital and have any questions, please contact your primary care physician. Reason For Referral No Data Found Problems Problem Start Date Resolved Date Status Code Code System ENCOUNTER FOR SCREENING FOR OTHER VIRAL DISEASES active [id number] SNOMED- CT ABDOMINAL PAIN active 27633180 SNOME D-CT PAIN IN BACK active 704565343 SNOMED- CT ANXIETY DISORDER, UNSPECIFIED active 100159765 SNOMED-CT DEPRESSION, UNSPECIFIED active 424208 07 SNOMED-CT SCHIZOPHRENIA, UNSPECIFIED active 582 96733 SNOMED-CT HYPERLIPIDEMIA, UNSPECIFIED active 55 901566 SNOMED-CT PERSONAL HISTORY OF OTHER MALIGNANT NEOPLASM OF SKIN active 224478181 S NOMED-CT BIPOLAR DISORDER, UNSPECIFIED active 79980915 SNOMED-CT ENCOUNTER FOR SCREENING EXAMINATION FOR OTHER MENTAL HEALTH AND BEHAVIORAL DISOR active 584191972 SNOMED-CT ENCOUNTER FOR SCREENING, UNSPECIFIED active 273339516 SNOMED-CT ENCOUNTER FOR GENERAL ADULT MEDICAL EXAMINATION WITHOUT ABNORMAL FINDINGS active 879559995 SNOMED-CT ENCOUNTER FOR OTHER SCREENIN G FOR MALIGNANT NEOPLASM OF BREAST active 554236941 SNOMED-CT TYPE 2 DIABETES MELLITUS WITHOUT COMPLICATIONS active 149544974 SNOMED -CT DORSALGIA, UNSPECIFIED active 2762282 05 SNOMED-CT ESSENTIAL (PRIMARY) HYPERTENSION active 50669275 SNOMED-CT THYROTOXICOSIS, 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 32497372 SNOMED-CT GASTRO-ESOPHAGEAL REFLUX DISEASE WITHOUT ESOPHAGITIS active 140528656 SNOMED-CT UNSPECIFIED INFLAMMATORY SPONDYLOPATHY, LUMBAR REGION active 300704169 SNOMED-CT OTHER [facility] (CURRENT) [facility] THERAPY active 175822711 SNOMED-CT Allergies and Adverse Reactions Allergy Substance Reaction Severity Start Date Concern Status Code Code System SULFA (sulfonamide) Hives (SNOMED-CT: 455868999) Moderate Active 07610863 SNOMED-CT CEPHALOSPORIN Itching (SNOMED-CT: 806051184) Moderate Active 671281625 SNOMED-CT KETOROLAC NAUSEA (SNOMED-CT: null) Moderate Active 15651 RxNorm IODINE Hives (SNOMED-CT: 366294929) Moderate Active 5933 RxNorm ADHESIVE Rash (SNOMED-CT: 967306761) Moderate Active LATEX BLISTERS (SNOMED-CT: null) Moderate Active 3925398 RxNorm TEA TREE OIL BLISTERS (SNOMED-CT: null) Moderate Active 56270 RxNorm FLAGYL 375 TONGUE SWELLING (SNOMED-CT: null) Moderate Active 438135 RxNorm MOTRIN NAUSEA (SNOMED-CT: null) Moderate Active 788859 RxNorm PENICILLIN Hives (SNOMED-CT: 428567756) Moderate Active Plan of Treatment SI Joint [...] Start Date Code Code Sys tem Other cervical disc degeneration at C5-C6 level 2023 SNOMED-CT Personal Care Team Section Performer Name Performer Role Active Date Inactive Maxi Green PCP - Primary care physician 2024-07-11 Imaging Narrative Notes
--- OUTSIDE RECORDS SUMMARY | 2025-08-22 21:44 | XMS_ITS ---
Author Organization Unknown Address [address] [place] [phone] Phone Care Team Providers Care [facility] Supervisor Name Role Phone LADARIUS AGUILAR Attending Unavailable PHOENIX MCCLAIN Primary Unavailable Immunization Immunization Date Status Additional Notes Code Code System influenza, unspecified formulation 07/04/2019 Completed 88 CVX Tdap 08/05/2021 Completed 115 CVX Influenza, MDCK, trivalent, PF 05/14/2024 Completed 153 CVX Pneumococcal conjugate PCV20 , polysaccharide JCG197 conjugate, adjuvant, PF 05/14/2024 Completed 216 CVX Results DIG 3D JACOBO SCREENING BILATER AL - Completed: 12/02/2024 14:01 LOINC: \TM00\\12PI\\DRAo\\BM09\ \MRHo\ [address] [address] ---------NAME--------- NUMBER SEX AGE ADMIT DISC. XRAY# F/C TYPE LUCILA GONSALEZ [id number] F 59 12/02/24 12/02/24 33534 XB1 O/P DATE OF : 1965 M/R# [id number] PH#: [id number] RM \MRHx\ LOCATION: TRANSCRIBED: 12/02/24 14:25 DIG 3D JACOBO SCREENING [id number] COMPLETED:12/02/24 14:01 [id number] (REASONS-DIG 3D JACOBO SCREENING BILATERAL: SCREENING MAMMOGRAM PHYSICIAN: LADARIUS DOWNING R A D I O L O G Y R E P O R T PROCEDURE: SCREENING MAMMOGRAM WITH TOMOSYNTHESIS REASON FOR EXAM: SCREENING MAMMOGRAM COMPARISON: MG DIAG W COY LT DIGI on DOS: 03/03/20, MG DIAG W COY BILAT DIGI on DOS: 09/02/19, MG DIAG W COY LT DIGI on DOS: 03/12/19, MG SCREENING MAMMOGRAM BI+ on DOS: 09/03/18 TECHNIQUE: Bilateral CC and MLO views obtained. Images were obtained using a Digital Tomosynthesis Unit. Standard 2D and 3D Tomosynthesis images were reviewed. This examination was analyzed using [facility] DBT/MMG in addition to a radiologist review, an AI software developed to enhance the effectiveness of breast cancer screening with mammography. FINDINGS: BREAST COMPOSITION: B - There are scattered areas of fibroglandular density. In the right breast, there is an asymmetry in the right retroareolar breast possible architectural distortion seen on MLO view only. In the left breast, no asymmetrical parenchymal pattern, architectural distortion, pleomorphic microcalcifications or masses. IMPRESSION: An asymmetry in the right retroareolar breast possible architectural distortion seen on MLO view only requires additional imaging evaluation. RECOMMENDATION: Recommend right breast diagnostic mammogram ( right spot compression MLO, right ML) and right breast ultrasound. ASSESSMENT: BIRADS: 0 - Incomplete - Need additional imaging evaluation ER ELEMENT WINDER MACHINE \ITLo\ \UNDo\ \UNDx\ \ITLx\ Reviewed and Electronically Signed by: DCTCARL ELISE Signed Date: SIGNDATE 12/02/24.1425.CH .to [place] ORANTES via modem Social History Type Status Start Date End Date Code Code Syst em Smoking History Current every day smoker [id number] SNOMED CT Sex Female Medications Medication Start Date End Date Route Frequency Dose Code Code System Medication Instructions Home Meds Cyclobenzaprine HCl 10MG Oral Tablet 08/11/2024 03/11/2025 BY MOUTH 1 TABLET [id number] RxNorm TAKE 1 TABLET BY MOUTH FOR FOR MUSCLE SPASM. Chlorthalidone 25MG Oral Tablet 09/22/2024 Unknown ORAL ONCE A DAY 25 MILLIGRAMS 252301 RxNorm TAKE 25 MILLIGRAM S ORAL ONCE A DAY Escitalopram 20MG Oral Tablet 09/22/2024 Unknown ORAL ONCE A DAY 20 MILLIGRAMS 302187 RxNorm TAKE 20 MILLIGRAM S ORAL ONCE A DAY Gabapentin 800MG Oral Tablet 09/22/2024 Unknown ORAL THRE E TIME S A DAY 800 MILLIGRAMS 700992 RxNorm TAKE 800 MILLIGRAM S ORAL THREE TIMES A DAY HumaLOG Mix 75/25 KwikPen 75U/1ML-25U/1ML Subcutaneous Suspension 09/22/2024 03/11/2025 SUBCUTANE OUS DIRE CTED 1 unit(s) 422713 RxNorm INJECT INTO 1 EACH SUBCUTANE OUS DIRECTED Lantus SoloStar 100U/1ML Subcutaneous Solution 09/22/2024 03/11/2025 SUBCUTANE OUS AT BEDT CARO 1 unit(s) 481945 RxNorm INJECT INTO 1 EACH SUBCUTANE OUS AT BEDTIME Levothyroxine Sodium 88MCG Oral Tablet 09/22/2024 Unknown ORAL ONCE A DAY 88 MCG 278112 RxNorm TAKE 88 MCG ORAL ONCE A DAY Lisinopril 40MG Oral Tablet 09/22/2024 Unknown ORAL ONCE A DAY 40 MILLIGRAMS 698688 RxNorm TAKE 40 MILLIGRAM S ORAL ONCE A DAY Metoprolol Tartrate 100MG Oral Tablet 09/22/2024 Unknown ORAL TWIC E A DAY 100 MILLIGRAMS 519228 RxNorm TAKE 100 MILLIGRAM S ORAL TWICE A DAY Nortriptyline 50MG Oral Capsule 09/22/2024 Unknown ORAL AT BEDT CARO 50 MILLIGRAMS RxNorm TAKE 50 MILLIGRAM S ORAL AT BEDTIME Pravastatin Sodium 80MG Oral Tablet 09/22/2024 Unknown ORAL AT BEDT CARO 80 MILLIGRAMS 107006 RxNorm TAKE 80 MILLIGRAM S ORAL AT BEDTIME QUEtiapine 100MG Oral Tablet 09/22/2024 Unknown ORAL AT BEDT CARO 100 MILLIGRAMS 809548 RxNorm TAKE 100 MILLIGRAM S ORAL AT BEDTIME Trulicity 0.75MG/0.5ML Subcutaneous Solution 09/22/2024 03/11/2025 SUBCUTANE OUS ONCE A WEEK 1 unit(s) 8979267 RxNorm INJECT INTO 1 EACH SUBCUTANE OUS ONCE A WEEK Venlafaxine HCl 75MG Oral Tablet 09/22/2024 Unknown ORAL ONCE A DAY 150 MILLIGRAMS 253006 RxNorm TAKE 150 MILLIGRAM S ORAL ONCE A DAY Vitamin D3 10 MCG Oral Tablet 09/22/2024 12/29/2024 ORAL ONCE A DAY 10 MCG 913763 RxNorm TAKE 10 MCG ORAL ONCE A DAY amLODIPine Besylate 10MG Oral Tablet 09/22/2024 Unknown ORAL ONCE A DAY 10 MILLIGRAMS 802059 RxNorm TAKE 10 MILLIGRAM S ORAL ONCE [...] ORAL TWIC E A DAY 1000 MILLIGRAMS 985249 RxNorm TAKE 1000 MILLIGRAM S ORAL TWICE A DAY rOPINIRole HCl 0.25MG Oral Tablet 09/22/2024 Unknown ORAL AT BEDT CARO 0.25 MILLIGRAMS 950370 RxNorm TAKE 0.25 MILLIGRAM S ORAL AT BEDTIME traZODone hydrochloride 150MG Oral Tablet 09/22/2024 Unknown ORAL AT BEDT CARO 150 MILLIGRAMS 147840 RxNorm TAKE 150 MILLIGRAM S ORAL AT BEDTIME hydrOXYzine HCl 50MG Oral Tablet 09/22/2024 Unknown ORAL ONCE A DAY 50 MILLIGRAMS 405366 RxNorm TAKE 50 MILLIGRAM S ORAL ONCE A DAY Multivitamin Oral Tablet 10/13/2024 Unknown ORAL ONCE A DAY 1 unit(s) RxNorm TAKE 1 EACH ORAL ONCE A DAY Meloxicam 15MG Oral Tablet 10/24/2024 01/26/2025 BY MOUTH ONCE A DAY 1 TABLET 882995 RxNorm TAKE 1 TABLET BY MOUTH ONCE A DAY Methocarbamol 500MG Oral Tablet 11/27/2024 12/22/2024 BY MOUTH NEED ED 3 TIME S A DAY 1 TABLET 539660 RxNorm TAKE 1 TABLET BY MOUTH NEEDED 3 TIMES A DAY Diclofenac Sodium 75MG Oral Tablet, Enteric Coated 11/27/2024 07/02/2025 BY MOUTH NEED ED 3 TIME S A DAY 1 TABLET 850717 RxNorm TAKE 1 TABLET BY MOUTH NEEDED 3 TIMES A DAY Methocarbamol 500MG Oral Tablet 12/22/2024 01/26/2025 BY MOUTH NEED ED 3 TIME S A DAY 1 TABLET 092479 RxNorm TAKE 1 TABLET BY MOUTH THREE TIMES DAILY NEEDED oxyCODONE HCl-acetaminophe n 5MG-325MG Oral Tablet 01/26/2025 03/11/2025 BY MOUTH NEED ED TWIC E A DAY 1 TABLET 1766660 RxNorm TAKE 1 TABLET BY MOUTH NEEDED TWICE A DAY Meloxicam 15MG Oral Tablet 01/26/2025 02/23/2025 BY MOUTH ONCE A DAY 1 TABLET 486400 RxNorm TAKE 1 TABLET BY MOUTH DAILY Methocarbamol 500MG Oral Tablet 01/26/2025 02/23/2025 BY MOUTH NEED ED 3 TIME S A DAY 1 TABLET 005773 RxNorm TAKE 1 TABLET BY MOUTH THREE TIMES DAILY NEEDED Meloxicam 15MG Oral Tablet 02/23/2025 03/11/2025 BY MOUTH ONCE A DAY 1 TABLET 846949 RxNorm TAKE 1 TABLET BY MOUTH DAILY Methocarbamol 500MG Oral Tablet 02/23/2025 03/26/2025 BY MOUTH NEED ED 3 TIME S A DAY 1 TABLET 220874 RxNorm TAKE 1 TABLET BY MOUTH NEEDED 3 TIMES A DAY HumaLOG Mix 75/25 KwikPen 75U/1ML-25U/1ML Subcutaneous Suspension 03/16/2025 Unknown SUBCUTANE OUS THRE E TIME S A DAY 1 unit(s) 428475 RxNorm INJECT INTO 1 EACH SUBCUTANE OUS THREE TIMES A DAY Trulicity 1.5MG/0.5ML Subcutaneous Solution 03/16/2025 Unknown SUBCUTANE OUS ONCE A WEEK 1 unit(s) 0536236 RxNorm INJECT INTO 1 EACH SUBCUTANE OUS ONCE A WEEK clonazePAM 1MG Oral Tablet 03/16/2025 Unknown ORAL ONCE A DAY 1 MILLIGRAMS 095103 RxNorm TAKE 1 MILLIGRAM S ORAL ONCE A DAY Meloxicam 15MG Oral Tablet 03/26/2025 06/29/2025 BY MOUTH ONCE A DAY 1 TABLET 849204 RxNorm TAKE 1 TABLET BY MOUTH ONCE A DAY Meloxicam 15MG Oral Tablet 06/29/2025 Unknown BY MOUTH ONCE A DAY 1 TABLET 547343 RxNorm TAKE 1 TABLET BY MOUTH DAILY [...] DISEASE WITHOUT ESOPHAGITISUNSPECIFIED INFLAMMATORY SPONDYLOPATHY, LUMBAR REGIONOTHER FPC (CURRENT) DRUG THERAPY Hospital Discharge Instructions Should you have any questions prior to discharge, please contact a member of your healthcare team. If you have left the hospital and have any questions, please contact your primary care physician. Reason For Referral No Data Found Problems Problem Start Date Resolved Date Status Code Code System ENCOUNTER FOR SCREENING FOR OTHER VIRAL DISEASES active 906483059 SNOMED- CT ABDOMINAL PAIN active 19613832 SNOME D-CT PAIN IN BACK active 516899752 SNOMED- CT ANXIETY DISORDER, UNSPECIFIED active 200089578 SNOMED-CT DEPRESSION, UNSPECIFIED active 271246 07 SNOMED-CT SCHIZOPHRENIA, UNSPECIFIED active 587 14853 SNOMED-CT HYPERLIPIDEMIA, UNSPECIFIED active 55 765257 SNOMED-CT PERSONAL HISTORY OF OTHER MALIGNANT NEOPLASM OF SKIN active 191103677 S NOMED-CT BIPOLAR DISORDER, UNSPECIFIED active 52669700 SNOMED-CT ENCOUNTER FOR SCREENING EXAMINATION FOR OTHER MENTAL HEALTH AND BEHAVIORAL DISOR active 026341487 SNOMED-CT ENCOUNTER FOR SCREENING, UNSPECIFIED active 692990826 SNOMED-CT ENCOUNTER FOR GENERAL ADULT MEDICAL EXAMINATION WITHOUT ABNORMAL FINDINGS active 716079338 SNOMED-CT ENCOUNTER FOR OTHER SCREENIN G FOR MALIGNANT NEOPLASM OF BREAST active 618039520 SNOMED-CT TYPE 2 DIABETES MELLITUS WITHOUT COMPLICATIONS active 601346880 SNOMED -CT DORSALGIA, UNSPECIFIED active 4939746 05 SNOMED-CT ESSENTIAL (PRIMARY) HYPERTENSION active 82584926 SNOMED-CT THYROTOXICOSIS, 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 12643920 SNOMED-CT GASTRO-ESOPHAGEAL REFLUX DISEASE WITHOUT ESOPHAGITIS active 497476228 SNOMED-CT UNSPECIFIED INFLAMMATORY SPONDYLOPATHY, LUMBAR REGION active 826141944 SNOMED-CT 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 [employer] 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 UG THERAPY active 051426325 SNOMED-CT Allergies and Adverse Reactions Allergy Substance Reaction Severity Start Date Concern Status Code Code System SULFA (sulfonamide) Hives (SNOMED-CT: 255740538) Moderate Active 93302944 SNOMED-CT CEPHALOSPORIN Itching (SNOMED-CT: 982008577) Moderate Active 986500314 SNOMED-CT KETOROLAC NAUSEA (SNOMED-CT: null) Moderate Active 72269 RxNorm IODINE Hives (SNOMED-CT: 455643199) Moderate Active 5933 RxNorm ADHESIVE Rash (SNOMED-CT: 486177616) Moderate Active LATEX BLISTERS (SNOMED-CT: null) Moderate Active 2595870 RxNorm TEA TREE OIL BLISTERS (SNOMED-CT: null) Moderate Active 67557 RxNorm FLAGYL 375 TONGUE SWELLING (SNOMED-CT: null) Moderate Active 188269 RxNorm MOTRIN NAUSEA (SNOMED-CT: null) Moderate Active 995436 RxNorm PENICILLIN Hives (SNOMED-CT: 727458280) Moderate Active Plan of Treatment SI Joint Injection Bilateral 03/16/2025 OR SI Joint Injection 03/16/2025 SI Joint Injection Bilateral 03/16/2025 OR SI Joint Injection 03/16/2025 Diag Medial Branch Block Lumbar #2 03/2025 OR Diagnostic Medial Branch Block 12/29 Radiofrequency Ablation Lumbar-Bilat OR Radiofrequency Ablation LumbThorCerv 01/26/2025 Radiofrequency Ablation Lumbar-Bilat OR Radiofrequency Ablation LumbThorCerv 01/26/2025 Follow Up 08/24/2025 Follow Up 06/01/2025 Office Injection 06/01/2025 Follow Up 06/01/2025 Office Injection 06/01/2025 Encounters Encounter Diagnosis Start Date Code Code Sys tem Encounter for screening mamm ogram for malignant neoplasm of breast 12/02/2024 SNOMED-CT Personal Care Team Section Performer Name Performer Role Active Date Inactive Maxi Green PCP - Primary care physician 2024-07-11 Imaging Narrative Notes [facility] 12/02/2024 14:[address] [address] ---------NAME--------- NUMBER SEX AGE ADMIT DISC. XRAY# F/C TYPE LUCILA GONSALEZ [id number] F 59 12/02/24 12/02/24 39250 XB1 O/P DATE OF : 1965 M/R# [id number] #: [phone] LOCATION: TRANSCRIBED: 12/02/24 14:25 DIG 3D JACOBO SCREENING [id number] COMPLETED:12/02/24 14:01 [id number] (REASONS-DIG 3D JACOBO SCREENING BILATERAL: SCREENING MAMMOGRAM PHYSICIAN: LADARIUS DOWNING RADIOLOGY REPORT PROCEDURE: SCREENING MAMMOGRAM WITH TOMOSYNTHESIS REASON FOR EXAM: SCREENING MAMMOGRAM COMPARISON: MG DIAG W COY LT DIGI on DOS: 03/03/20, MG DIAG W COY BILAT DIGI on DOS: 09/02/19, MG DIAG W COY LT DIGI on DOS: 03/12/19, MG SCREENING MAMMOGRAM BI+ on DOS: 09/03/18 TECHNIQUE: Bilateral CC and MLO views obtained. Images were obtained using a Digital Tomosynthesis Unit. Standard 2D and 3D Tomosynthesis images were reviewed. This examination was analyzed using [facility] DBT/MMG in addition to a radiologist review, an AI software developed to enhance the effectiveness of breast cancer screening with mammography. FINDINGS: BREAST COMPOSITION: B - There are scattered areas of fibroglandular density. In the right breast, there is an asymmetry in the right retroareolar breast possible architectural distortion seen on MLO view only. In the left breast, no asymmetrical parenchymal pattern, architectural distortion, pleomorphic microcalcifications or masses. IMPRESSION: An asymmetry in the right retroareolar breast possible architectural distortion seen on MLO view only requires additional imaging evaluation. RECOMMENDATION: Recommend right breast diagnostic mammogram ( right spot compression MLO, right ML) and right breast ultrasound. ASSESSMENT: BIRADS: 0 - Incomplete - Need additional imaging evaluation ER ELEMENT WINDER MACHINE Reviewed and Electronically Signed by: CASTILLO ELISE Signed Date: SIGNDATE 12/02/24.1425. .ranulfo ORANTES via modem
--- OUTSIDE RECORDS SUMMARY | 2025-08-22 21:44 | XMS_ITS ---
Author Organization Unknown Address [address] [place] [address] [phone] Phone Care Team Providers Care Disability Representative Name Role Phone MILES DAVIS Attending Unavailable PHOENIX MCCLAIN Primary Unavailable Immunization Immunization Date Status Additional Notes Code Code System influenza, unspecified formulation 07/04/2019 Completed 88 CVX Tdap 08/05/2021 Completed 115 CVX Influenza, MDCK, trivalent, PF 05/14/2024 Completed 153 CVX Pneumococcal conjugate PCV20 , polysaccharide LFF502 conjugate, adjuvant, PF 05/14/2024 Completed 216 CVX Social History Type Status Start Date End Date Code Code Syst em Smoking History Current every day smoker 008960680 SNOMED CT Sex Female Vital Signs Vital Sign Value Unit [place] Value [place] Unit Date/Time Recent/Initial? Code Code System Body Mass Index 36.58 kg/m2 10/13/2024 11:59 Most Recent 88545 -5 LOINC Body Mass Index 37.31 kg/m2 09/23/2024 13:30 Initial 23651 -5 LOINC Systolic Blood Pressure 165 mm[Hg] 10/13/2024 11:59 Initial 8480- 6 LOINC Diastolic Blood Pressure 76 mm[Hg] 10/13/2024 11:59 Initial 8462- 4 LOINC Body Surface Area 1.99 m2 10/13/2024 11:59 Most Recent 3140- 1 LOINC Body Surface Area 2.01 m2 09/23/2024 13:30 Initial 3140- 1 LOINC Height 157.480 0 cm 62.00 in 10/13/2024 11:59 Most Recent 8302- 2 LOINC Height 157.480 0 cm 62.00 in 09/23/2024 13:30 Initial 8302- 2 LOINC O2 Saturation 99 % 2024 11:59 Initial 09392 -5 LOINC Pulse 79.0 /min 10/13/2024 11:59 Initial 8867- 4 LOINC Respiration 16 /min 10/13/19 11:59 Initial 9279- 1 INC Temperature 36.2 Gloria 97.1 F 10/13/19 11:59 Initial 8310- 5 INC Weight 90.72 kg 200.00 lbs 10/13/2024 11:59 Most Recent 60817 -7 LOINC Weight 92.53 kg 204.00 lbs 09/23/2024 13:30 Initial 45086 -7 [facility] Medications Medication Start Date End Date Route Frequency Dose Code Code System Medication Instructions Home Meds Meloxicam 15MG Oral Tablet 08/11/2024 10/24/2024 BY MOUTH ONCE A DAY 1 TABLET 912862 RxNorm TAKE 1 TABLET BY MOUTH ONCE A DAY Cyclobenzapri ne HCl 10MG Oral Tablet 08/11/2024 03/11/2025 BY MOUTH 1 TABLET 085219 RxNorm TAKE 1 TABLET BY MOUTH FOR FOR MUSCLE SPASM. Escitalopram 20MG Oral Tablet 09/22/2024 Unknown ORAL ONCE A DAY 20 MILLIGRAM S 704788 RxNorm TAKE 20 MILLIGRAM S ORAL ONCE A DAY Gabapentin 800MG Oral Tablet 09/22/2024 Unknown ORAL THREE TIMES A DAY 800 MILLIGRAM S 343025 RxNorm TAKE 800 MILLIGRAM S ORAL THREE TIMES A DAY HumaLOG Mix 75/25 KwikPen 75U/1ML-25U/1 ML Subcutaneous Suspension 09/22/2024 03/11/2025 SUBCUTANE OUS DIRECTED 1 unit(s) 888571 RxNorm INJECT INTO 1 EACH SUBCUTANE OUS DIRECTED Lantus SoloStar 100U/1ML Subcutaneous Solution 09/22/2024 03/11/2025 SUBCUTANE OUS AT BEDTIME 1 unit(s) 271713 RxNorm INJECT INTO 1 EACH SUBCUTANE OUS AT BEDTIME Levothyroxine Sodium 88MCG Oral Tablet 09/22/2024 Unknown ORAL ONCE A DAY 88 MCG 401172 RxNorm TAKE 88 MCG ORAL ONCE A DAY Lisinopril 40MG Oral Tablet 09/22/2024 Unknown ORAL ONCE A DAY 40 MILLIGRAM S 266460 RxNorm TAKE 40 MILLIGRAM S ORAL ONCE A DAY Metoprolol Tartrate 100MG Oral Tablet 09/22/2024 Unknown ORAL TWICE A DAY 100 MILLIGRAM S 119184 RxNorm TAKE 100 MILLIGRAM S ORAL TWICE A DAY Nortriptyline 50MG Oral Capsule 09/22/2024 Unknown ORAL AT BEDTIME 50 MILLIGRAM S RxNorm TAKE 50 MILLIGRAM S ORAL AT BEDTIME Pravastatin Sodium 80MG Oral Tablet 09/22/2024 Unknown ORAL AT BEDTIME 80 MILLIGRAM S 395811 RxNorm TAKE 80 MILLIGRAM S ORAL AT BEDTIME QUEtiapine 100MG Oral Tablet 09/22/2024 Unknown ORAL AT BEDTIME 100 MILLIGRAM S 898482 RxNorm TAKE 100 MILLIGRAM S ORAL AT BEDTIME Trulicity 0.75MG/0.5ML Subcutaneous Solution 09/22/2024 03/11/2025 SUBCUTANE OUS ONCE A WEEK 1 unit(s) 1833819 RxNorm INJECT INTO 1 EACH SUBCUTANE OUS ONCE A WEEK Venlafaxine HCl 75MG Oral Tablet 09/22/2024 Unknown ORAL ONCE A DAY 150 MILLIGRAM S 875431 RxNorm TAKE 150 MILLIGRAM S ORAL ONCE A DAY Vitamin D3 10 MCG Oral Tablet 09/22/2024 12/29/2024 ORAL ONCE A DAY 10 MCG 410146 RxNorm TAKE 10 MCG ORAL ONCE A DAY amLODIPine Besylate 10MG Oral Tablet 09/22/2024 Unknown ORAL ONCE A DAY 10 MILLIGRAM S 174832 RxNorm TAKE 10 MILLIGRAM S ORAL ONCE A DAY carBAMazepine 200MG Oral Capsule, Extended Release 09/22/2024 Unknown ORAL TWICE A DAY 200 MILLIGRAM S 526166 RxNorm TAKE 200 MILLIGRAM S ORAL TWICE A DAY clonazePAM 1MG Oral Tablet 09/22/2024 03/11/2025 ORAL THREE TIMES A DAY 1 MILLIGRAM S 538289 RxNorm TAKE 1 MILLIGRAM S ORAL THREE TIMES A DAY metFORMIN HCl 1000MG Oral Tablet 09/22/2024 Unknown ORAL TWICE A DAY 1000 MILLIGRAM S 084342 RxNorm TAKE 1000 MILLIGRAM S ORAL TWICE A DAY rOPINIRole HCl 0.25MG Oral Tablet 09/22/2024 Unknown ORAL AT BEDTIME 0.25 MILLIGRAM S 623197 RxNorm TAKE 0.25 MILLIGRAM S ORAL AT BEDTIME traZODone hydrochloride 150MG Oral Tablet 09/22/2024 Unknown ORAL AT BEDTIME 150 MILLIGRAM S 158098 RxNorm TAKE 150 MILLIGRAM S ORAL AT BEDTIME hydrOXYzine HCl 50MG Oral Tablet 09/22/2024 Unknown ORAL ONCE A DAY 50 MILLIGRAM S 814339 RxNorm TAKE 50 MILLIGRAM S ORAL ONCE A DAY Chlorthalidon e 25MG Oral Tablet 09/22/2024 Unknown ORAL ONCE A DAY 25 MILLIGRAM S 633879 RxNorm TAKE 25 MILLIGRAM S ORAL ONCE A DAY Multivitamin Oral Tablet 10/13/2024 Unknown ORAL ONCE A DAY 1 unit(s) RxNorm TAKE 1 EACH ORAL ONCE A DAY Meloxicam 15MG Oral Tablet 10/24/2024 01/26/2025 BY MOUTH ONCE A DAY 1 TABLET 745624 RxNorm TAKE 1 TABLET BY MOUTH ONCE A DAY Methocarbamol 500MG Oral Tablet 11/27/2024 12/22/2024 BY MOUTH NEEDED 3 TIMES A DAY 1 TABLET 532365 RxNorm TAKE 1 TABLET BY MOUTH NEEDED 3 TIMES A DAY Diclofenac Sodium 75MG Oral Tablet, Enteric Coated 11/27/2024 07/02/2025 BY MOUTH NEEDED 3 TIMES A DAY 1 TABLET 090502 RxNorm TAKE 1 TABLET BY MOUTH NEEDED 3 TIMES A DAY Methocarbamol 500MG Oral Tablet 12/22/2024 01/26/2025 BY MOUTH NEEDED 3 TIMES A DAY 1 TABLET 245517 RxNorm TAKE 1 TABLET BY MOUTH THREE TIMES DAILY NEEDED oxyCODONE HCl-acetamino phen 5MG-325MG Oral Tablet 01/26/2025 03/11/2025 BY MOUTH NEEDED TWICE A DAY 1 TABLET 7897858 RxNorm TAKE 1 TABLET BY MOUTH NEEDED TWICE A DAY Meloxicam 15MG Oral Tablet 01/26/2025 02/23/2025 BY MOUTH ONCE A DAY 1 TABLET 512463 RxNorm TAKE 1 TABLET BY MOUTH DAILY Methocarbamol 500MG Oral Tablet 01/26/2025 02/23/2025 BY MOUTH NEEDED 3 TIMES A DAY 1 TABLET 899632 RxNorm TAKE 1 TABLET BY MOUTH THREE TIMES DAILY NEEDED Meloxicam 15MG Oral Tablet 02/23/2025 03/11/2025 BY MOUTH ONCE A DAY 1 TABLET 056704 RxNorm TAKE 1 TABLET BY MOUTH DAILY Methocarbamol 500MG Oral Tablet 02/23/2025 03/26/2025 BY MOUTH NEEDED 3 TIMES A DAY 1 TABLET 397926 RxNorm TAKE 1 TABLET BY MOUTH NEEDED 3 TIMES A DAY HumaLOG Mix 75/25 KwikPen 75U/1ML-25U/1 ML Subcutaneous Suspension 03/16/2025 Unknown SUBCUTANE OUS THREE TIMES A DAY 1 unit(s) 903275 RxNorm INJECT INTO 1 EACH SUBCUTANE OUS THREE TIMES A DAY Trulicity 1.5MG/0.5ML Subcutaneous Solution 03/16/2025 Unknown SUBCUTANE OUS ONCE A WEEK 1 unit(s) 7575930 RxNorm INJECT INTO 1 EACH SUBCUTANE OUS ONCE A WEEK clonazePAM 1MG Oral Tablet 03/16/2025 Unknown ORAL ONCE A DAY 1 MILLIGRAM S 19741101 RxNorm TAKE 1 MILLIGRAM S ORAL ONCE A DAY Meloxicam 15MG Oral Tablet 03/26/2025 06/29/2025 BY MOUTH ONCE A DAY 1 TABLET 197508 RxNorm TAKE 1 TABLET BY MOUTH ONCE A DAY Meloxicam 15MG Oral Tablet 06/29/2025 Unknown BY MOUTH ONCE A DAY 1 TABLET 093638 RxNorm TAKE 1 TABLET BY MOUTH DAILY [...] DISEASE WITHOUT ESOPHAGITISUNSPECIFIED INFLAMMATORY SPONDYLOPATHY, LUMBAR REGIONOTHER [facility] (CURRENT) DRUG THERAPY Hospital Discharge Instructions Should you have any questions prior to discharge, please contact a member of your healthcare team. If you have left the hospital and have any questions, please contact your primary care physician. Reason For Referral No Data Found Procedures Procedure Name Date Status Code Code Syste m INJECT SI JOINT ARTHRGRPHY&/ ANES/STEROID W/ALIYAH; (-LT Left side of body) 10/13/2024 completed 33952 C PT INJECT SI JOINT ARTHRGRPHY&/ ANES/STEROID W/ALIYAH; (-RT Right side of body) 10/13/2024 completed 62795 CPT Problems Problem Start Date Resolved Date Status Code Code System ENCOUNTER FOR SCREENING FOR OTHER VIRAL DISEASES active 049746156 SNOMED- CT ABDOMINAL PAIN active 99572714 SNOME D-CT PAIN IN BACK active 712493481 SNOMED- CT ANXIETY DISORDER, UNSPECIFIED active 276902260 SNOMED-CT DEPRESSION, UNSPECIFIED active 296073 07 SNOMED-CT SCHIZOPHRENIA, UNSPECIFIED active 582 83222 SNOMED-CT HYPERLIPIDEMIA, UNSPECIFIED active 26 552095 SNOMED-CT PERSONAL HISTORY OF OTHER MALIGNANT NEOPLASM OF SKIN active 558454395 S NOMED-CT BIPOLAR DISORDER, UNSPECIFIED active 72170338 SNOMED-CT ENCOUNTER FOR SCREENING EXAMINATION FOR OTHER MENTAL HEALTH AND BEHAVIORAL DISOR active 719060720 SNOMED-CT ENCOUNTER FOR SCREENING, UNSPECIFIED active 370740469 SNOMED-CT ENCOUNTER FOR GENERAL ADULT MEDICAL EXAMINATION WITHOUT ABNORMAL FINDINGS active 170521235 SNOMED-CT ENCOUNTER FOR OTHER SCREENIN G FOR MALIGNANT NEOPLASM OF BREAST active 061625779 SNOMED-CT TYPE 2 DIABETES MELLITUS WITHOUT COMPLICATIONS active 568261687 SNOMED -CT DORSALGIA, UNSPECIFIED active 7630084 05 SNOMED-CT ESSENTIAL (PRIMARY) HYPERTENSION active 60975402 SNOMED-CT THYROTOXICOSIS, 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 27411810 SNOMED-CT GASTRO-ESOPHAGEAL REFLUX DISEASE WITHOUT ESOPHAGITIS active 306765612 SNOMED-CT UNSPECIFIED INFLAMMATORY SPONDYLOPATHY, LUMBAR REGION active 355573945 SNOMED-CT 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) DR [facility] THERAPY active 749340997 SNOMED-CT Allergies and Adverse Reactions Allergy Substance Reaction Severity Start Date Concern Status Code Code System SULFA (sulfonamide) Hives (SNOMED-CT: 978600979) Moderate Active 17468457 SNOMED-CT CEPHALOSPORIN Itching (SNOMED-CT: 931663295) Moderate Active 266960706 SNOMED-CT KETOROLAC NAUSEA (SNOMED-CT: null) Moderate Active 86125 RxNorm IODINE Hives (SNOMED-CT: 696761781) Moderate Active 5933 RxNorm ADHESIVE Rash (SNOMED-CT: 739509226) Moderate Active LATEX BLISTERS (SNOMED-CT: null) Moderate Active 9821180 RxNorm TEA TREE OIL BLISTERS (SNOMED-CT: null) Moderate Active 54732 RxNorm FLAGYL 375 TONGUE SWELLING (SNOMED-CT: null) Moderate Active 20280228 RxNorm MOTRIN NAUSEA (SNOMED-CT: null) Moderate Active 20240501 RxNorm PENICILLIN Hives (SNOMED-CT: 523472325) Moderate Active Plan of Treatment SI Joint [...] Diagnosis Start Date Code Code Sys tem Sacrococcygeal disorders, not elsewhere classified SNOMED-CT Personal Care Team Section Performer Name Performer Role Active Date Inactive Maxi Green PCP - Primary care physician 2024-07-11 Procedures Notes [facility] 11/27/2024 21:21 DOS 10/13/24 Sacroiliac Joint Steroid Injection Pre-procedure Diagnosis: Bilateral SIJ Dysfunction Post- procedure Diagnosis: same The patient presents for Bilateral sacroiliac joint steroid injection. Risk, benefits, side effects, and alternatives to this procedure were discussed and consent was obtained. The patient was placed in the prone position. The skin was prepped in the usual sterile fashion with chlorhexidine and maximum barrier technique. A 27-gauge needle was used to anesthetize the skin with 2ml 2% Lidocaine. A 22-gauge 3.5-inch spinal needle was advanced into the posteroinferior aspect of the right SI joint under direct fluoroscopic visualization. After confirmation of the intra-articular position of the needle tip with injection pf 0.5ml of Omnipaque 240 contrast medium, a mixture of 0.5ml of Kenalog (40mg/ml) and 2.5ml of Naropin (0.5%) was injected. The same steps were repeated on the left side. The patient tolerated the procedure well. Follow-up will be within 2 weeks. EBL: minimal Complications: none
--- OUTSIDE RECORDS SUMMARY | 2025-08-22 21:44 | XMS_ITS ---
Author Organization Unknown Address [address] [place] [address] [phone] Phone Care Team Providers Care Hat Ironer Name Role Phone MILES DAVIS Attending Unavailable PHOENIX MCCLAIN Primary Unavailable Immunization Immunization Date Status Additional Notes Code Code System influenza, unspecified formulation 07/04/2019 Completed 88 CVX Tdap 08/05/2021 Completed 115 CVX Influenza, MDCK, trivalent, PF 05/14/2024 Completed 153 CVX Pneumococcal conjugate PCV20 , polysaccharide [id number] conjugate, adjuvant, PF 05/14/2024 Completed 216 CVX Social History Type Status Start Date End Date Code Code Syst em Smoking History Current every day smoker [id number] SNOMED CT Sex Female Vital Signs Vital Sign Value Unit Clayhole Value Clayhole Unit Date/Time Recent/Initial? Code Code System Body Mass Index 36.40 kg/m2 01/12/2025 08:44 Initial 04250 -5 [facility] Systolic Blood Pressure 144 mm[Hg] 01/12/2025 08:44 Initial 8480- 6 [facility] Diastolic Blood Pressure 80 mm[Hg] 01/12/2025 08:44 Initial 8462- 4 [facility] Body Surface Area 1.99 m2 01/12/2025 08:44 Initial 3140- 1 [facility] Height 157.480 0 cm 62.00 in 01/12/2025 08:44 Initial 8302- 2 [facility] O2 Saturation 999 % 2024 08:44 Initial 13855 -5 [facility] Pulse 75.0 /min 01/12/2025 08:44 Initial 8867- 4 [facility] Temperature 36.1 Gloria 96.9 F 01/13/20 08:44 Initial 8310- 5 [facility] Weight 90.26 kg 199.00 lbs 01/12/2025 08:44 Initial 96095 -7 [facility] Medications Medication Start Date End Date Route Frequency Dose Code Code System Medication Instructions Home Meds Cyclobenzaprine HCl 10MG Oral Tablet 08/11/2024 03/11/2025 BY MOUTH 1 TABLET 477096 RxNorm TAKE 1 TABLET BY MOUTH FOR FOR MUSCLE SPASM. Chlorthalidone 25MG Oral Tablet 09/22/2024 Unknown ORAL ONCE A DAY 25 MILLIGRAMS [id number] RxNorm TAKE 25 MILLIGRAM S ORAL ONCE A DAY Escitalopram 20MG Oral Tablet 09/22/2024 Unknown ORAL ONCE A DAY 20 MILLIGRAMS 488663 RxNorm TAKE 20 MILLIGRAM S ORAL ONCE A DAY Gabapentin 800MG Oral Tablet 09/22/2024 Unknown ORAL THRE E TIME S A DAY 800 MILLIGRAMS 011185 RxNorm TAKE 800 MILLIGRAM S ORAL THREE TIMES A DAY HumaLOG Mix 75/25 KwikPen 75U/1ML-25U/1ML Subcutaneous Suspension 09/22/2024 03/11/2025 SUBCUTANE OUS DIRE CTED 1 unit(s) 745115 RxNorm INJECT INTO 1 EACH SUBCUTANE OUS DIRECTED Lantus SoloStar 100U/1ML Subcutaneous Solution 09/22/2024 03/11/2025 SUBCUTANE OUS AT BEDT CARO 1 unit(s) 245577 RxNorm INJECT INTO 1 EACH SUBCUTANE OUS AT BEDTIME Levothyroxine Sodium 88MCG Oral Tablet 09/22/2024 Unknown ORAL ONCE A DAY 88 MCG 210210 RxNorm TAKE 88 MCG ORAL ONCE A DAY Lisinopril 40MG Oral Tablet 09/22/2024 Unknown ORAL ONCE A DAY 40 MILLIGRAMS 812250 RxNorm TAKE 40 MILLIGRAM S ORAL ONCE A DAY Metoprolol Tartrate 100MG Oral Tablet 09/22/2024 Unknown ORAL TWIC E A DAY 100 MILLIGRAMS 737261 RxNorm TAKE 100 MILLIGRAM S ORAL TWICE A DAY Nortriptyline 50MG Oral Capsule 09/22/2024 Unknown ORAL AT BEDT CARO 50 MILLIGRAMS RxNorm TAKE 50 MILLIGRAM S ORAL AT BEDTIME Pravastatin Sodium 80MG Oral Tablet 09/22/2024 Unknown ORAL AT BEDT CARO 80 MILLIGRAMS 928931 RxNorm TAKE 80 MILLIGRAM S ORAL AT BEDTIME QUEtiapine 100MG Oral Tablet 09/22/2024 Unknown ORAL AT BEDT CARO 100 MILLIGRAMS 480763 RxNorm TAKE 100 MILLIGRAM S ORAL AT BEDTIME Trulicity 0.75MG/0.5ML Subcutaneous Solution 09/22/2024 03/11/2025 SUBCUTANE OUS ONCE A WEEK 1 unit(s) 8272118 RxNorm INJECT INTO 1 EACH SUBCUTANE OUS ONCE A WEEK Venlafaxine HCl 75MG Oral Tablet 09/22/2024 Unknown ORAL ONCE A DAY 150 MILLIGRAMS 839015 RxNorm TAKE 150 MILLIGRAM S ORAL ONCE A DAY amLODIPine Besylate 10MG Oral Tablet 09/22/2024 Unknown ORAL ONCE A DAY 10 MILLIGRAMS 226783 RxNorm TAKE 10 MILLIGRAM S ORAL ONCE A DAY carBAMazepine 200MG Oral Capsule, Extended Release 09/22/2024 Unknown ORAL TWIC E A DAY 200 MILLIGRAMS 20001124 RxNorm TAKE 200 MILLIGRAM S ORAL TWICE A DAY clonazePAM 1MG Oral Tablet 09/22/2024 03/11/2025 ORAL THRE E TIME S A DAY 1 MILLIGRAMS 676994 RxNorm TAKE 1 MILLIGRAM S ORAL THREE TIMES A DAY metFORMIN HCl 1000MG Oral Tablet 09/22/2024 Unknown ORAL TWIC E A DAY 1000 MILLIGRAMS 930894 RxNorm TAKE 1000 MILLIGRAM S ORAL TWICE A DAY rOPINIRole HCl 0.25MG Oral Tablet 09/22/2024 Unknown ORAL AT BEDT CARO 0.25 MILLIGRAMS 918125 RxNorm TAKE 0.25 MILLIGRAM S ORAL AT BEDTIME traZODone hydrochloride 150MG Oral Tablet 09/22/2024 Unknown ORAL AT BEDT CARO 150 MILLIGRAMS 876112 RxNorm TAKE 150 MILLIGRAM S ORAL AT BEDTIME hydrOXYzine HCl 50MG Oral Tablet 09/22/2024 Unknown ORAL ONCE A DAY 50 MILLIGRAMS 517666 RxNorm TAKE 50 MILLIGRAM S ORAL ONCE A DAY Multivitamin Oral Tablet 10/13/2024 Unknown ORAL ONCE A DAY 1 unit(s) RxNorm TAKE 1 EACH ORAL ONCE A DAY Meloxicam 15MG Oral Tablet 10/24/2024 01/26/2025 BY MOUTH ONCE A DAY 1 TABLET 238509 RxNorm TAKE 1 TABLET BY MOUTH ONCE A DAY Diclofenac Sodium 75MG Oral Tablet, Enteric Coated 11/27/2024 07/02/2025 BY MOUTH NEED ED 3 TIME S A DAY 1 TABLET 350944 RxNorm TAKE 1 TABLET BY MOUTH NEEDED 3 TIMES A DAY Methocarbamol 500MG Oral Tablet 12/22/2024 01/26/2025 BY MOUTH NEED ED 3 TIME S A DAY 1 TABLET [id number] RxNorm TAKE 1 TABLET BY MOUTH THREE TIMES DAILY NEEDED Meloxicam 15MG Oral Tablet 01/26/2025 02/23/2025 BY MOUTH ONCE A DAY 1 TABLET 312773 RxNorm TAKE 1 TABLET BY MOUTH DAILY Methocarbamol 500MG Oral Tablet 01/26/2025 02/23/2025 BY MOUTH NEED ED 3 TIME S A DAY 1 TABLET 771159 RxNorm TAKE 1 TABLET BY MOUTH THREE TIMES DAILY NEEDED oxyCODONE HCl-acetaminophe n 5MG-325MG Oral Tablet 01/26/2025 03/11/2025 BY MOUTH NEED ED TWIC E A DAY 1 TABLET [id number] RxNorm TAKE 1 TABLET BY MOUTH NEEDED TWICE A DAY Meloxicam 15MG Oral Tablet 02/23/2025 03/11/2025 BY MOUTH ONCE A DAY 1 TABLET [id number] RxNorm TAKE 1 TABLET BY MOUTH DAILY Methocarbamol 500MG Oral Tablet 02/23/2025 03/26/2025 BY MOUTH NEED ED 3 TIME S A DAY 1 TABLET 529161 RxNorm TAKE 1 TABLET BY MOUTH NEEDED 3 TIMES A DAY HumaLOG Mix 75/25 KwikPen 75U/1ML-25U/1ML Subcutaneous Suspension 03/16/2025 Unknown SUBCUTANE OUS THRE E TIME S A DAY 1 unit(s) 929468 RxNorm INJECT INTO 1 EACH SUBCUTANE OUS THREE TIMES A DAY Trulicity 1.5MG/0.5ML Subcutaneous Solution 03/16/2025 Unknown SUBCUTANE OUS ONCE A WEEK 1 unit(s) 7177978 RxNorm INJECT INTO 1 EACH SUBCUTANE OUS ONCE A WEEK clonazePAM 1MG Oral Tablet 03/16/2025 Unknown ORAL ONCE A DAY 1 MILLIGRAMS 540864 RxNorm TAKE 1 MILLIGRAM S ORAL ONCE A DAY Meloxicam 15MG Oral Tablet 03/26/2025 06/29/2025 BY MOUTH ONCE A DAY 1 TABLET 895146 RxNorm TAKE 1 TABLET BY MOUTH ONCE A DAY Meloxicam 15MG Oral Tablet 06/29/2025 Unknown BY MOUTH ONCE A DAY 1 TABLET 225823 RxNorm TAKE 1 TABLET BY MOUTH DAILY [...] DISEASE WITHOUT ESOPHAGITISUNSPECIFIED INFLAMMATORY SPONDYLOPATHY, LUMBAR REGIONOTHER DISTRICT GAUGER (CURRENT) DRUG THERAPY Hospital Discharge Instructions Should you have any questions prior to discharge, please contact a member of your healthcare team. If you have left the hospital and have any questions, please contact your primary care physician. Reason For Referral No Data Found Problems Problem Start Date Resolved Date Status Code Code System ENCOUNTER FOR SCREENING FOR OTHER VIRAL DISEASES active 450773692 SNOMED- CT ABDOMINAL PAIN active 75411280 SNOME D-CT PAIN IN BACK active 767700682 SNOMED- CT ANXIETY DISORDER, UNSPECIFIED active 943621801 SNOMED-CT DEPRESSION, UNSPECIFIED active 190543 07 SNOMED-CT SCHIZOPHRENIA, UNSPECIFIED active 582 56332 SNOMED-CT HYPERLIPIDEMIA, UNSPECIFIED active 55 051398 SNOMED-CT PERSONAL HISTORY OF OTHER MALIGNANT NEOPLASM OF SKIN active 550168092 S NOMED-CT BIPOLAR DISORDER, UNSPECIFIED active 69765903 SNOMED-CT ENCOUNTER FOR SCREENING EXAMINATION FOR OTHER MENTAL HEALTH AND BEHAVIORAL DISOR active 271862498 SNOMED-CT ENCOUNTER FOR SCREENING, UNSPECIFIED active 662101265 SNOMED-CT ENCOUNTER FOR GENERAL ADULT MEDICAL EXAMINATION WITHOUT ABNORMAL FINDINGS active 616261105 SNOMED-CT ENCOUNTER FOR OTHER SCREENIN G FOR MALIGNANT NEOPLASM OF BREAST active 813278560 SNOMED-CT TYPE 2 DIABETES MELLITUS WITHOUT COMPLICATIONS active 486546557 SNOMED -CT DORSALGIA, UNSPECIFIED active 4491959 05 SNOMED-CT ESSENTIAL (PRIMARY) HYPERTENSION active 04494007 SNOMED-CT THYROTOXICOSIS, 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 61255911 SNOMED-CT GASTRO-ESOPHAGEAL REFLUX DISEASE WITHOUT ESOPHAGITIS active 200829293 SNOMED-CT UNSPECIFIED INFLAMMATORY SPONDYLOPATHY, LUMBAR REGION active 214240743 SNOMED-CT OTHER CUSTODIAL (CURRENT) DR UG THERAPY active 918504697 SNOMED-CT Allergies and Adverse Reactions Allergy Substance Reaction Severity Start Date Concern Status Code Code System SULFA (sulfonamide) Hives (SNOMED-CT: 208472597) Moderate Active 26859187 SNOMED-CT CEPHALOSPORIN Itching (SNOMED-CT: 005065354) Moderate Active 947745118 SNOMED-CT KETOROLAC NAUSEA (SNOMED-CT: null) Moderate Active 35933 RxNorm IODINE Hives (SNOMED-CT: 818815936) Moderate Active 5933 RxNorm ADHESIVE Rash (SNOMED-CT: 206342027) Moderate Active LATEX BLISTERS (SNOMED-CT: null) Moderate Active 3831566 RxNorm TEA TREE OIL BLISTERS (SNOMED-CT: null) Moderate Active 92658 RxNorm FLAGYL 375 TONGUE SWELLING (SNOMED-CT: null) Moderate Active 770923 RxNorm MOTRIN NAUSEA (SNOMED-CT: null) Moderate Active 007393 RxNorm PENICILLIN Hives (SNOMED-CT: 375638015) Moderate Active Plan of Treatment SI Joint [...] Green PCP - Primary care physician 2024-07-11 Progress Notes [facility] 01/12/2025 09:03 All Demographics Patient Name Age Sex Visit Number Admission Date/Time Attending Physician Date of Service Room and Bed Emergency Contact RUSSELL GAYTAN 1965 59 years Female [id number] 01/12/2025 08:37 Shahab Romano 01/12/2025 03-OP CORRINA GAYTAN - [id number] Pain Management Follow Up Vital Signs: Today Date/Time BP (mm/Hg) BP Position/Site MAP (mm/Hg) Heart Rate Pulse Site Resp Temp (C) Temp (F) SPO2% O2 L/min FiO2 EtCO2 (mm/Hg) O2 Device Blood Sugar Pain Score Height (cm) Height (in) Weight (kg) Weight (lbs/ozs) Scale BMI BSA Head Cir (cm) 01/12/2025 08:44 144/80 Sitting/Left Arm 101 75 Pulse Ox 36.1 Tympanic 96.9 Tympanic 999 % Room Air 21% 10 157.5 cm 62 in 90.26 kg 199.0 Stated 36.4 1.99 Chief Complaint: Unspecified inflammatory spondylopathy, lumbar region History of Present Illness: Patient here today, for pain management follow up for DMBB #2 lumbar procedure gave 50-75% relief. Location: The pain is located in the lower back and bilateral knees. Patient had relief from the procedure, at 60%. The pain does radiate from lower back and into the bilateral knees. Quality: Patient rates the pain today, as 10/10 at this time, and at times the pain may be as severe as a 10+/10. The pain may be described as extreme stabbing and sharp. Duration: Constant Timing: Patient reports this pain has been present for many years. Alleviating Factors: Pain is relieved by THC balm, and medications. Associated Symptoms: Pain is worsened by movement and exertion. Pain History: Patient with a history of chronic pain in lower back. Patient reports that they have had recent falls. She fell out of bed. She states she is sore all over from it and her PCP is aware. PCP lowered on of her medications. PHQ-9 Depression Screening Patient condition has declined since last screening X Patient condition has improved since last screening No previous Screening Patient Declined Screening Score has not changed significantly since last visit PHQ-9 Score Assessment: N/A: PHQ-9 not performed/Patient declined 0-4: Not an indicator of depression 9 5-9: Indicates mild depression 10-14: Indicates moderate depression 15-19: Indicates moderately severe depression 20-27: Indicates severe depression Depression Remission Indicated: X Yes, previous PHQ-9 score >9 in the past 12 months with current score <5 Previous PHQ-9 score or date is unknown Previous PHQ-9 score is 5 or higher SARBJIT-7 Score Assessment: N/A: SARBJIT-7 not performed/Patient declined 0-4: Minimal Anxiety 8 5-9: Mild Anxiety 10-14: Moderate Anxiety 15-21: Severe Anxiety Review of Systems Constitutional: denies changes in speech, night sweats or chills HEENT: denies facial swelling or nasal deformity Cardiovascular: denies chest pain or chest pressure Respiratory: denies cough, sputum or chest congestion Gastrointestinal: denies excessive belching or abdominal mass Endocrine: denies excessive thirst or fruity breath Musculoskeletal: denies muscle atrophy or muscle spasms Neurologic: denies altered mental status or speech - left lower extremity radiculopathy Integumentary: denies blistering or hives Hematologic/Lymphatic: denies abnormal bleeding or lymph node tenderness Psychiatric: denies agitation or delusions Physical Exam Appearance: well groomed, healthy appearance, well nourished, NAD HEENT: PERRLA, neurological systems grossly intact Neck: supple, nontender Chest/Lungs: clear to auscultation, no dyspnea, breath sounds normal, no rales/crackles/rhonchi or wheezing Cardiovascular: regular rate and rhythm S1-S2 present, no carotid bruit, femoral/pedal pulses normal throughout Abdomen: round, soft, nontender, active bowel sounds, no tenderness with palpation Rectal: normal per patient Pelvic: normal per patient Extremities: no signs of significant edema, good pulses Problem Focused Physical Exam: Patient states that her lower back is hurt for multiple years. She states that she has pain that shoots down her left leg causing numbness and tingling and weakness. She states that this gives her pain in her knee as well and that she falls frequently. She states is very hard to get out of bed in the morning. She states that it hurts when she sits. She states that hurts when coughing and sneezing as well as bending forward and rising from a seated position. Patient has been on gabapentin longstanding that she states is no longer helping. Patient also states she has been on hydrocodone for approximately 20 years and that was recently discontinued. Patient has not has extreme difficulty walking and standing and she is unable to do physical therapy due to pain at this time. Patient also complains of a constant pain in her low back that is worse than her radicular symptoms. Lumbar Facet Assessment Patient has pain with extension of the spine and rotation. Patient has referred pain to the anterior and lateral aspects of the thighs as well. The patient has pain in their low back while riding in a car and washing dishes. The patient feels they must bend forward and stretch their back to relieve pain. Patient is positive for facet joint mediated pain for a diagnosis of lumbar facet joint arthropathy. This is confirmed on MRI from 09/08/24 showing lumbar facet arthropathy. We will confirm this with diagnostic medial branch blocks at L4-5, L5-S1 bilaterally. Educated on procedure, benefits, and risks and patient wishes to move forward with RFA following two successful diagnostic blocks. Axial Low Back Pain Assessment Patient ambulates into office with difficulty. Patient has decreased range of motion. Patient's physical exam exhibits axial low back pain with anterior column pain with forward flexion. Pain with prolonged standing as well. Patient states that she has numbness and weakness down her left lower extremity. Patient has a positive straight leg raise. Patient states that hurts when she coughs and sneezes. Patient states that it hurts to rise from a seated position. Patient states that her pain is worse in the morning when she goes to get out of bed. Patient has been on gabapentin for a long time and this has not provided her any relief. She is unable to do physical therapy at this time due to her extreme pain. Patients MRI shows spinal canal stenosis and facet arthropathy at multiple levels. We discussed treatment options for these. Patient verbalizes fear of needles in her spine. We again reviewed her MRI from 09/08/24 showing spinal canal stenosis and lumbar facet arthropathy. We discussed treating her radicular pain after RFA of medial branches as her facet pain is worse at this time. Sacroiliac Joint Assessment Patient is positive for SI joint pain. Patient has pain with femoral sheer test and also gapping tests. FABERS is positive. Positive Aminah Finger test. Patient has pain with prolonged standing and sitting. Pain is worse in the AM when they wake. Pain is significant enough that is causing difficulty with activities of daily living. Recommend trial of SIJ injection. Patient reports pain in this area is about 50% better. Patient reports her lumbar facet pain is her worst pain. Patient states that she has been on hydrocodone for 20+ years. She was recently discontinued off of this medicine. She states that has been approximately 1 month that she has not been able to take this medicine. She is tearful and asking for refill of this medicine. We had a discussion advising that this pain will actually get better over the next few months as her bodies recalibrating from the years and years of chronic opiate use. Patient verbalizes understanding. Patient once again asking for pain medications. We discussed remaining off opiates and trialing injections to try to help control her pain. Patient has been off opiates for at least 3 months at this time (10/23/24). Date of appointment: 01/12/25 Discussion: Patient received >80% relief for >4 hours with second bilateral DMBB. We discussed risks and benefits of proceeding with RFA. Patient wishes to proceed. Patient states he pain is currently worse following a recent fall. We discussed risks benefits and expected outcomes of RFA. We discussed this will treat the pain in her lower back but not radicular symptoms. Patient verbalizes understanding. Radiology imaging reviewed at appointment: yes Radiology: Imaging reviewed with patient Pain Treatment History: Conservative Measures Tried and Failed: Heat/Ice, Home exercises, rest Medications Trialed: gabapentin, hydrocodone, muscle relaxers, anti inflammatories Previous Interventional Pain Procedures: SI - 50% relief (10/13/24) Plan RFA Bilateral L4-5, L5-S1 F/U 4 weeks after Problem List Encounter for screening for other viral diseases Abdominal pain Pain in back Anxiety disorder, unspecified Depression, unspecified Schizophrenia, unspecified Hyperlipidemia, unspecified Personal history of other malignant neoplasm of skin Bipolar disorder, unspecified Encounter for screening examination for other mental health and behavioral disorders Encounter for screening, unspecified Encounter for general adult medical examination without abnormal findings Encounter for other screening for malignant neoplasm of breast Type 2 diabetes mellitus without complications Dorsalgia, unspecified Essential (primary) hypertension Thyrotoxicosis, unspecified without thyrotoxic crisis or storm Gastro-esophageal reflux disease without esophagitis Unspecified inflammatory spondylopathy, lumbar region Surgery List Release of trigger finger, section, Tonsillectomy, Release of trigger finger, Knee surgery, CARPAL TUNNEL SURGERY, Cholecystectomy, Tonsillectomy, Cholecystectomy, section, Smoking Status: Current every day smoker, Cessation Education: Allergy List SULFA (sulfonamide), Medication CEPHALOSPORIN, Medication KETOROLAC, Medication IODINE, Medication ADHESIVE, Environment LATEX, Environment TEA TREE OIL, Medication FLAGYL 375, Medication MOTRIN, Medication PENICILLIN, Medication Home Meds: Dose and Freq Medication Dosage Frequency Venlafaxine HCl 75MG Oral Tablet 150 MILLIGRAMS ONCE A DAY carBAMazepine 200MG Oral Capsule, Extended Release 200 MILLIGRAMS TWICE A DAY clonazePAM 1MG Oral Tablet 1 MILLIGRAMS THREE TIMES A DAY hydrOXYzine HCl 50MG Oral Tablet 50 MILLIGRAMS ONCE A DAY metFORMIN HCl 1000MG Oral Tablet 1000 MILLIGRAMS TWICE A DAY rOPINIRole HCl 0.25MG Oral Tablet 0.25 MILLIGRAMS AT BEDTIME traZODone hydrochloride 150MG Oral Tablet 150 MILLIGRAMS AT BEDTIME Multivitamin Oral Tablet 1 EACH ONCE A DAY Meloxicam 15MG Oral Tablet 1 TABLET ONCE A DAY Diclofenac Sodium 75MG Oral Tablet, Enteric Coated 1 TABLET NEEDED 3 TIMES A DAY Methocarbamol 500MG Oral Tablet 1 TABLET NEEDED 3 TIMES A DAY amLODIPine Besylate 10MG Oral Tablet 10 MILLIGRAMS ONCE A DAY QUEtiapine 100MG Oral Tablet 100 MILLIGRAMS AT BEDTIME Trulicity 0.75MG/0.5ML Subcutaneous Solution 1 EACH ONCE A WEEK Nortriptyline 50MG Oral Capsule 50 MILLIGRAMS AT BEDTIME Pravastatin Sodium 80MG Oral Tablet 80 MILLIGRAMS AT BEDTIME Lisinopril 40MG Oral Tablet 40 MILLIGRAMS ONCE A DAY Metoprolol Tartrate 100MG Oral Tablet 100 MILLIGRAMS TWICE A DAY Lantus SoloStar 100U/1ML Subcutaneous Solution 1 EACH AT BEDTIME Levothyroxine Sodium 88MCG Oral Tablet 88 MCG ONCE A DAY Gabapentin 800MG Oral Tablet 800 MILLIGRAMS THREE TIMES A DAY HumaLOG Mix 75/25 KwikPen 75U/1ML-25U/1ML Subcutaneous Suspension 1 EACH DIRECTED Chlorthalidone 25MG Oral Tablet 25 MILLIGRAMS ONCE A DAY Escitalopram 20MG Oral Tablet 20 MILLIGRAMS ONCE A DAY Cyclobenzaprine HCl 10MG Oral Tablet 1 TABLET
--- OUTSIDE RECORDS SUMMARY | 2025-08-22 21:45 | XMS_ITS ---
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 Name Role Phone MILES DAVIS Attending Unavailable RAGHU MCCLAIN Primary Unavailable Immunization Immunization Date Status Additional Notes Code Code System influenza, unspecified formulation 07/04/2019 Completed 88 CVX Tdap 08/05/2021 Completed 115 CVX Influenza, MDCK, trivalent, PF 05/14/2024 Completed 153 CVX Pneumococcal conjugate PCV20 , polysaccharide SAK808 conjugate, adjuvant, PF 05/14/2024 Completed 216 CVX Social History Type Status Start Date End Date Code Code Syst em Smoking History Current every day smoker 620554396 SNOMED CT Sex Female Vital Signs Vital Sign Value Unit [place] Unit Date/Time Recent/Initial? Code Code System Body Mass Index 36.40 kg/m2 11/27/2024 09:50 Initial 11336 -5 [facility] Systolic Blood Pressure 192 mm[Hg] 11/27/2024 09:50 Initial 8480- 6 [facility] Diastolic Blood Pressure 108 mm[Hg] 11/27/2024 09:50 Initial 8462- 4 [facility] Body Surface Area 1.99 m2 11/27/2024 09:50 Initial 3140- 1 [facility] Height 157.480 0 cm 62.00 in 11/27/2024 09:50 Initial 8302- 2 [facility] O2 Saturation 99 % 2024 09:50 Initial 90278 -5 [facility] Pulse 76.0 /min 11/27/2024 09:50 Initial 8867- 4 [facility] Temperature 36.3 Gloria 97.3 F 11/28/19 09:50 Initial 8310- 5 [facility] Weight 90.26 kg 199.00 lbs 11/27/2024 09:50 Initial 02977 -7 [facility] Medications Medication Start Date End Date Route Frequency Dose Code Code System Medication Instructions Home Meds Cyclobenzaprine HCl 10MG Oral Tablet 08/11/2024 03/11/2025 BY MOUTH 1 TABLET 665536 RxNorm TAKE 1 TABLET BY MOUTH FOR FOR MUSCLE SPASM. Chlorthalidone 25MG Oral Tablet 09/22/2024 Unknown ORAL ONCE A DAY 25 MILLIGRAMS 648304 RxNorm TAKE 25 MILLIGRAM S ORAL ONCE A DAY Escitalopram 20MG Oral Tablet 09/22/2024 Unknown ORAL ONCE A DAY 20 MILLIGRAMS 785463 RxNorm TAKE 20 MILLIGRAM S ORAL ONCE A DAY Gabapentin 800MG Oral Tablet 09/22/2024 Unknown ORAL THRE E TIME S A DAY 800 MILLIGRAMS 906206 RxNorm TAKE 800 MILLIGRAM S ORAL THREE TIMES A DAY HumaLOG Mix 75/25 KwikPen 75U/1ML-25U/1ML Subcutaneous Suspension 09/22/2024 03/11/2025 SUBCUTANE OUS DIRE CTED 1 unit(s) 596287 RxNorm INJECT INTO 1 EACH SUBCUTANE OUS DIRECTED Lantus SoloStar 100U/1ML Subcutaneous Solution 09/22/2024 03/11/2025 SUBCUTANE OUS AT BEDT CARO 1 unit(s) 372501 RxNorm INJECT INTO 1 EACH SUBCUTANE OUS AT BEDTIME Levothyroxine Sodium 88MCG Oral Tablet 09/22/2024 Unknown ORAL ONCE A DAY 88 MCG 440956 RxNorm TAKE 88 MCG ORAL ONCE A DAY Lisinopril 40MG Oral Tablet 09/22/2024 Unknown ORAL ONCE A DAY 40 MILLIGRAMS 815703 RxNorm TAKE 40 MILLIGRAM S ORAL ONCE A DAY Metoprolol Tartrate 100MG Oral Tablet 09/22/2024 Unknown ORAL TWIC E A DAY 100 MILLIGRAMS 527148 RxNorm TAKE 100 MILLIGRAM S ORAL TWICE A DAY Nortriptyline 50MG Oral Capsule 09/22/2024 Unknown ORAL AT BEDT CARO 50 MILLIGRAMS RxNorm TAKE 50 MILLIGRAM S ORAL AT BEDTIME Pravastatin Sodium 80MG Oral Tablet 09/22/2024 Unknown ORAL AT BEDT CARO 80 MILLIGRAMS 528695 RxNorm TAKE 80 MILLIGRAM S ORAL AT BEDTIME QUEtiapine 100MG Oral Tablet 09/22/2024 Unknown ORAL AT BEDT CARO 100 MILLIGRAMS 512161 RxNorm TAKE 100 MILLIGRAM S ORAL AT BEDTIME Trulicity 0.75MG/0.5ML Subcutaneous Solution 09/22/2024 03/11/2025 SUBCUTANE OUS ONCE A WEEK 1 unit(s) 0000548 RxNorm INJECT INTO 1 EACH SUBCUTANE OUS ONCE A WEEK Venlafaxine HCl 75MG Oral Tablet 09/22/2024 Unknown ORAL ONCE A DAY 150 MILLIGRAMS 280315 RxNorm TAKE 150 MILLIGRAM S ORAL ONCE A DAY Vitamin D3 10 MCG Oral Tablet 09/22/2024 12/29/2024 ORAL ONCE A DAY 10 MCG 108738 RxNorm TAKE 10 MCG ORAL ONCE A DAY amLODIPine Besylate 10MG Oral Tablet 09/22/2024 Unknown ORAL ONCE A DAY 10 MILLIGRAMS 330181 RxNorm TAKE 10 MILLIGRAM S ORAL ONCE A DAY carBAMazepine 200MG Oral Capsule, Extended Release 09/22/2024 Unknown ORAL TWIC E A DAY 200 MILLIGRAMS 302968 RxNorm TAKE 200 MILLIGRAM S ORAL TWICE A DAY clonazePAM 1MG Oral Tablet 09/22/2024 03/11/2025 ORAL THRE E TIME S A DAY 1 MILLIGRAMS 132475 RxNorm TAKE 1 MILLIGRAM S ORAL THREE TIMES A DAY metFORMIN HCl 1000MG Oral Tablet 09/22/2024 Unknown ORAL TWIC E A DAY 1000 MILLIGRAMS 057032 RxNorm TAKE 1000 MILLIGRAM S ORAL TWICE A DAY rOPINIRole HCl 0.25MG Oral Tablet 09/22/2024 Unknown ORAL AT BEDT CARO 0.25 MILLIGRAMS 562962 RxNorm TAKE 0.25 MILLIGRAM S ORAL AT BEDTIME traZODone hydrochloride 150MG Oral Tablet 09/22/2024 Unknown ORAL AT BEDT CARO 150 MILLIGRAMS 639328 RxNorm TAKE 150 MILLIGRAM S ORAL AT BEDTIME hydrOXYzine HCl 50MG Oral Tablet 09/22/2024 Unknown ORAL ONCE A DAY 50 MILLIGRAMS 106898 RxNorm TAKE 50 MILLIGRAM S ORAL ONCE A DAY Multivitamin Oral Tablet 10/13/2024 Unknown ORAL ONCE A DAY 1 unit(s) RxNorm TAKE 1 EACH ORAL ONCE A DAY Meloxicam 15MG Oral Tablet 10/24/2024 01/26/2025 BY MOUTH ONCE A DAY 1 TABLET 805936 RxNorm TAKE 1 TABLET BY MOUTH ONCE A DAY Methocarbamol 500MG Oral Tablet 11/27/2024 12/22/2024 BY MOUTH NEED ED 3 TIME S A DAY 1 TABLET 785566 RxNorm TAKE 1 TABLET BY MOUTH NEEDED 3 TIMES A DAY Diclofenac Sodium 75MG Oral Tablet, Enteric Coated 11/27/2024 07/02/2025 BY MOUTH NEED ED 3 TIME S A DAY 1 TABLET 136595 RxNorm TAKE 1 TABLET BY MOUTH NEEDED 3 TIMES A DAY Methocarbamol 500MG Oral Tablet 12/22/2024 01/26/2025 BY MOUTH NEED ED 3 TIME S A DAY 1 TABLET 166075 RxNorm TAKE 1 TABLET BY MOUTH THREE TIMES DAILY NEEDED oxyCODONE HCl-acetaminophe n 5MG-325MG Oral Tablet 01/26/2025 03/11/2025 BY MOUTH NEED ED TWIC E A DAY 1 TABLET 9349595 RxNorm TAKE 1 TABLET BY MOUTH NEEDED TWICE A DAY Meloxicam 15MG Oral Tablet 01/26/2025 02/23/2025 BY MOUTH ONCE A DAY 1 TABLET 028528 RxNorm TAKE 1 TABLET BY MOUTH DAILY Methocarbamol 500MG Oral Tablet 01/26/2025 02/23/2025 BY MOUTH NEED ED 3 TIME S A DAY 1 TABLET 993272 RxNorm TAKE 1 TABLET BY MOUTH THREE TIMES DAILY NEEDED Meloxicam 15MG Oral Tablet 02/23/2025 03/11/2025 BY MOUTH ONCE A DAY 1 TABLET 116323 RxNorm TAKE 1 TABLET BY MOUTH DAILY Methocarbamol 500MG Oral Tablet 02/23/2025 03/26/2025 BY MOUTH NEED ED 3 TIME S A DAY 1 TABLET 010125 RxNorm TAKE 1 TABLET BY MOUTH NEEDED 3 TIMES A DAY HumaLOG Mix 75/25 KwikPen 75U/1ML-25U/1ML Subcutaneous Suspension 03/16/2025 Unknown SUBCUTANE OUS THRE E TIME S A DAY 1 unit(s) 359707 RxNorm INJECT INTO 1 EACH SUBCUTANE OUS THREE TIMES A DAY Trulicity 1.5MG/0.5ML Subcutaneous Solution 03/16/2025 Unknown SUBCUTANE OUS ONCE A WEEK 1 unit(s) 4401617 RxNorm INJECT INTO 1 EACH SUBCUTANE OUS ONCE A WEEK clonazePAM 1MG Oral Tablet 03/16/2025 Unknown ORAL ONCE A DAY 1 MILLIGRAMS 483573 RxNorm TAKE 1 MILLIGRAM S ORAL ONCE A DAY Meloxicam 15MG Oral Tablet 03/26/2025 06/29/2025 BY MOUTH ONCE A DAY 1 TABLET 086274 RxNorm TAKE 1 TABLET BY MOUTH ONCE A DAY Meloxicam 15MG Oral Tablet 06/29/2025 Unknown BY MOUTH ONCE A DAY 1 TABLET 283417 RxNorm TAKE 1 TABLET BY MOUTH DAILY [...] DISEASE WITHOUT ESOPHAGITISUNSPECIFIED INFLAMMATORY SPONDYLOPATHY, LUMBAR REGIONOTHER NURSING HOME (CURRENT) DRUG THERAPY Hospital Discharge Instructions Should you have any questions prior to discharge, please contact a member of your healthcare team. If you have left the hospital and have any questions, please contact your primary care physician. Reason For Referral No Data Found Problems Problem Start Date Resolved Date Status Code Code System ENCOUNTER FOR SCREENING FOR OTHER VIRAL DISEASES active 939264901 SNOMED- CT ABDOMINAL PAIN active 27004267 SNOME D-CT PAIN IN BACK active 163419814 SNOMED- CT ANXIETY DISORDER, UNSPECIFIED active 432122067 SNOMED-CT DEPRESSION, UNSPECIFIED active 391116 07 SNOMED-CT SCHIZOPHRENIA, UNSPECIFIED active 582 66211 SNOMED-CT HYPERLIPIDEMIA, UNSPECIFIED active 55 355039 SNOMED-CT PERSONAL HISTORY OF OTHER MALIGNANT NEOPLASM OF SKIN active 860661189 S NOMED-CT BIPOLAR DISORDER, UNSPECIFIED active 59392659 SNOMED-CT ENCOUNTER FOR SCREENING EXAMINATION FOR OTHER MENTAL HEALTH AND BEHAVIORAL DISOR active 963480108 SNOMED-CT ENCOUNTER FOR SCREENING, UNSPECIFIED active 783428957 SNOMED-CT ENCOUNTER FOR GENERAL ADULT MEDICAL EXAMINATION WITHOUT ABNORMAL FINDINGS active 380374974 SNOMED-CT ENCOUNTER FOR OTHER SCREENIN G FOR MALIGNANT NEOPLASM OF BREAST active 313240261 SNOMED-CT TYPE 2 DIABETES MELLITUS WITHOUT COMPLICATIONS active 851671934 SNOMED -CT DORSALGIA, UNSPECIFIED active 0935391 05 SNOMED-CT ESSENTIAL (PRIMARY) HYPERTENSION active 55897702 SNOMED-CT THYROTOXICOSIS, 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 54473940 SNOMED-CT GASTRO-ESOPHAGEAL REFLUX DISEASE WITHOUT ESOPHAGITIS active 333615586 SNOMED-CT UNSPECIFIED INFLAMMATORY SPONDYLOPATHY, LUMBAR REGION active 328101223 SNOMED-CT 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 active 949290140 SNOMED-CT Allergies and Adverse Reactions Allergy Substance Reaction Severity Start Date Concern Status Code Code System SULFA (sulfonamide) Hives (SNOMED-CT: 726793251) Moderate Active 43968623 SNOMED-CT CEPHALOSPORIN Itching (SNOMED-CT: 854172116) Moderate Active 070993106 SNOMED-CT KETOROLAC NAUSEA (SNOMED-CT: null) Moderate Active 03382 RxNorm IODINE Hives (SNOMED-CT: 680553006) Moderate Active 5933 RxNorm ADHESIVE Rash (SNOMED-CT: 925622564) Moderate Active LATEX BLISTERS (SNOMED-CT: null) Moderate Active 7143790 RxNorm TEA TREE OIL BLISTERS (SNOMED-CT: null) Moderate Active 12583 RxNorm FLAGYL 375 TONGUE SWELLING (SNOMED-CT: null) Moderate Active 056685 RxNorm MOTRIN NAUSEA (SNOMED-CT: null) Moderate Active 873210 RxNorm PENICILLIN Hives (SNOMED-CT: 178642934) Moderate Active Plan of Treatment SI Joint [...] Sys tem Sacrococcygeal disorders, not elsewhere classified 02/2025 SNOMED-CT Personal Care Team Section Performer Name Performer Role Active Date Inactive Maxi Davila Raghu PCP - Primary care physician 2024-07-11 Progress Notes [facility] 11/27/2024 10:21 All Demographics Patient Name Age Sex Visit Number Admission Date/Time Attending Physician Date of Service Room and Bed Emergency Contact RUSSELL GAYTAN 1965 59 years Female [id number] 11/27/2024 09:38 Shahab Romano 11/27/2024 04-OP LUCILA CORRINA PADMA - [id number] Pain Management Follow Up Vital Signs: Today Date/Time BP (mm/Hg) BP Position/Site MAP (mm/Hg) Heart Rate Pulse Site Resp Temp (C) Temp (F) SPO2% O2 L/min FiO2 EtCO2 (mm/Hg) O2 Device Blood Sugar Pain Score Height (cm) Height (in) Weight (kg) Weight (lbs/ozs) Scale BMI BSA Head Cir (cm) 11/27/2024 09:50 192/108 Sitting/Left Arm 136 76 Pulse Ox 36.3 Tympanic 97.3 Tympanic 99 % Room Air 21% 10 157.5 cm 62 in 90.26 kg 199.0 Stated 36.4 1.99 Chief Complaint: Arthropathy of lumbar facet History of Present Illness: Patient here today, for pain management follow up for follow up appointment. Location: The pain is located in the [...] back. Patient reports that they have had no recent falls. PHQ-9 Depression Screening X Patient condition has declined since last screening Patient condition has improved since last screening No previous Screening Patient Declined Screening Score has not changed significantly since last visit PHQ-9 Score Assessment: N/A: PHQ-9 not performed/Patient declined 0-4: Not an indicator of depression 5-9: Indicates mild depression 10-14: Indicates moderate depression 18 15-19: Indicates moderately severe depression 20-27: Indicates severe depression Depression Remission Indicated: Yes, previous PHQ-9 score >9 in the past 12 months with current score <5 Previous PHQ-9 score or date is unknown Previous PHQ-9 score is 5 or higher SARBJIT-7 Score Assessment: N/A: SARBJIT-7 not performed/Patient declined 0-4: Minimal Anxiety 5-9: Mild Anxiety 10 10-14: Moderate Anxiety 15-21: Severe Anxiety Review [...] and patient wishes to move forward with first diagnostic block. Axial Low Back Pain Assessment Patient ambulates [...] at this time (10/23/24). Date of appointment: 11/27/24 Discussion: Patient received >80% relief for >4 hours with first bilateral DMBB. We discussed risks and benefits of proceeding with #2 DMBB. Patient wishes to proceed. Patient's mother recently . She is having a hard time with this. Patient states he pain is currently worse and is requesting pain medication. We will order a 2 week dose of diclofenac. Patient states flexeril makes her sleepy. We will trial methocarbimol. Radiology imaging reviewed at appointment: yes Radiology: Imaging reviewed with patient Pain Treatment History: Conservative Measures Tried and Failed: Heat/Ice, Home exercises, rest Medications Trialed: gabapentin, hydrocodone, muscle relaxers, anti inflammatories Previous Interventional Pain Procedures: SI - 50% relief (10/13/24) Plan DMBB #2 Bilateral L4-5, L5-S1 F/U from [facility] consider ALLYSSA Problem List Encounter for screening for other [...] or storm Gastro-esophageal reflux disease without esophagitis Surgery List Release of trigger finger, section, Tonsillectomy, Release of trigger finger, Knee surgery, CARPAL TUNNEL SURGERY, Cholecystectomy, Tonsillectomy, Cholecystectomy, section, Smoking Status: Current every day smoker, Cessation Education: Allergy List SULFA (sulfonamide), Medication CEPHALOSPORIN, Medication KETOROLAC, Medication IODINE, Medication ADHESIVE, Environment LATEX, Environment TEA TREE OIL, Medication FLAGYL 375, Medication MOTRIN, Medication PENICILLIN, Medication Home Meds: Dose and Freq Medication Dosage Frequency Gabapentin 800MG Oral Tablet 800 MILLIGRAMS THREE TIMES A DAY Lantus SoloStar 100U/1ML Subcutaneous Solution 1 EACH AT BEDTIME Levothyroxine Sodium 88MCG Oral Tablet 88 MCG ONCE A DAY Chlorthalidone 25MG Oral Tablet 25 MILLIGRAMS ONCE A DAY HumaLOG Mix 75/25 KwikPen 75U/1ML-25U/1ML Subcutaneous Suspension 1 EACH DIRECTED Escitalopram 20MG Oral Tablet 20 MILLIGRAMS ONCE A DAY Cyclobenzaprine HCl 10MG Oral Tablet 1 TABLET Meloxicam 15MG Oral Tablet 1 TABLET ONCE A DAY traZODone hydrochloride 150MG Oral Tablet 150 MILLIGRAMS AT BEDTIME Multivitamin Oral Tablet 1 EACH ONCE A DAY metFORMIN HCl 1000MG Oral Tablet 1000 MILLIGRAMS TWICE A DAY rOPINIRole HCl 0.25MG Oral Tablet 0.25 MILLIGRAMS AT BEDTIME clonazePAM 1MG Oral Tablet 1 MILLIGRAMS THREE TIMES A DAY hydrOXYzine HCl 50MG Oral Tablet 50 MILLIGRAMS ONCE A DAY amLODIPine Besylate 10MG Oral Tablet 10 MILLIGRAMS ONCE A DAY carBAMazepine 200MG Oral Capsule, Extended Release 200 MILLIGRAMS TWICE A DAY Venlafaxine HCl 75MG Oral Tablet 150 MILLIGRAMS ONCE A DAY Vitamin D3 10 MCG Oral Tablet 10 MCG ONCE A DAY QUEtiapine 100MG Oral Tablet 100 MILLIGRAMS AT BEDTIME Trulicity 0.75MG/0.5ML Subcutaneous Solution 1 EACH ONCE A WEEK Nortriptyline 50MG Oral Capsule 50 MILLIGRAMS AT BEDTIME Pravastatin Sodium 80MG Oral Tablet 80 MILLIGRAMS AT BEDTIME Lisinopril 40MG Oral Tablet 40 MILLIGRAMS ONCE A DAY Metoprolol Tartrate 100MG Oral Tablet 100 MILLIGRAMS TWICE A DAY
--- OUTSIDE RECORDS SUMMARY | 2025-08-22 21:45 | XMS_ITS ---
Author Organization Unknown Address [address] [place] [phone] Phone Care Team Providers Care Core Assembly Supervisor Name Role Phone PRABHU Voss Attending Unavailable PHOENIX MCCLAIN Primary Unavailable Immunization Immunization Date Status Additional Notes Code Code System influenza, unspecified formulation 07/04/2019 Completed 88 CVX Tdap 08/05/2021 Completed 115 CVX Influenza, MDCK, trivalent, PF 05/14/2024 Completed 153 CVX Pneumococcal conjugate PCV20 , polysaccharide ONO263 conjugate, adjuvant, PF 05/14/2024 Completed 216 CVX Results HEEL RIGHT - Completed: 12/23 14:45 LOINC: \TM00\\12PI\\DRAo\\BM09\ \MRHo\ [address] [address] ---------NAME--------- NUMBER SEX AGE ADMIT DISC. XRAY# F/C TYPE LUCILA GONSALEZ [id number] F 59 01/05/25 01/05/25 60790 XB1 O/P DATE OF : 1965 M/R# [id number] PH#: [phone] RM \MRHx\ LOCATION: TRANSCRIBED: 01/05/25 15:14 HEEL RIGHT [id number] COMPLETED:01/05/25 14:45 KEW 11332 {REASON-FT/TOE/HEEL: HEEL SPUR PHYSICIAN: PRABHU R A D I O L O G Y R E P O R T CLINICAL INDICATION: HEEL SPUR TECHNIQUE: Axial and lateral views of the right calcaneus were performed. HEEL RIGHT Comparison: None FINDINGS/IMPRESSION: : 1. No acute fracture of the right calcaneus. 2. Fragmented Achilles insertion enthesophyte measures up to 20 mm longitudinal. There is also soft tissue thickening of the distal achilles tendon. 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 Consider follow-up noncontrast MRI of the ankle for better characterization if clinically desired. 3. Plantar calcaneal bone spur measures 10 mm length. There is also a prominent os trigonum. [facility] CO[facility] \ITLo\ \UNDo\ \UNDx\ \ITLx\ Reviewed and Electronically Signed by: Dom Pathak MD Signed Date: 01/05/25 15:14 01/05/25.1517.ZEE.to WHITMOJGAN ORANTES via [employer] Social History Type Status Start Date End Date Code Code Syst em Smoking History Current every day smoker [id number] SNOMED CT Sex Female Medications Medication Start Date End Date Route Frequency Dose Code Code System Medication Instructions Home Meds Cyclobenzaprine HCl 10MG Oral Tablet 08/11/2024 03/11/2025 BY MOUTH 1 TABLET [id number] RxNorm TAKE 1 TABLET BY MOUTH FOR FOR MUSCLE SPASM. Chlorthalidone 25MG Oral Tablet 09/22/2024 Unknown ORAL ONCE A DAY 25 MILLIGRAMS 700061 RxNorm TAKE 25 MILLIGRAM S ORAL ONCE A DAY Escitalopram 20MG Oral Tablet 09/22/2024 Unknown ORAL ONCE A DAY 20 MILLIGRAMS 390689 RxNorm TAKE 20 MILLIGRAM S ORAL ONCE A DAY Gabapentin 800MG Oral Tablet 09/22/2024 Unknown ORAL THRE E TIME S A DAY 800 MILLIGRAMS 224426 RxNorm TAKE 800 MILLIGRAM S ORAL THREE TIMES A DAY HumaLOG Mix 75/25 KwikPen 75U/1ML-25U/1ML Subcutaneous Suspension 09/22/2024 03/11/2025 SUBCUTANE OUS DIRE CTED 1 unit(s) 274823 RxNorm INJECT INTO 1 EACH SUBCUTANE OUS DIRECTED Lantus SoloStar 100U/1ML Subcutaneous Solution 09/22/2024 03/11/2025 SUBCUTANE OUS AT BEDT CARO 1 unit(s) 627053 RxNorm INJECT INTO 1 EACH SUBCUTANE OUS AT BEDTIME Levothyroxine Sodium 88MCG Oral Tablet 09/22/2024 Unknown ORAL ONCE A DAY 88 MCG 454885 RxNorm TAKE 88 MCG ORAL ONCE A DAY Lisinopril 40MG Oral Tablet 09/22/2024 Unknown ORAL ONCE A DAY 40 MILLIGRAMS 527433 RxNorm TAKE 40 MILLIGRAM S ORAL ONCE A DAY Metoprolol Tartrate 100MG Oral Tablet 09/22/2024 Unknown ORAL TWIC E A DAY 100 MILLIGRAMS 438545 RxNorm TAKE 100 MILLIGRAM S ORAL TWICE A DAY Nortriptyline 50MG Oral Capsule 09/22/2024 Unknown ORAL AT BEDT CARO 50 MILLIGRAMS RxNorm TAKE 50 MILLIGRAM S ORAL AT BEDTIME Pravastatin Sodium 80MG Oral Tablet 09/22/2024 Unknown ORAL AT BEDT CARO 80 MILLIGRAMS 414057 RxNorm TAKE 80 MILLIGRAM S ORAL AT BEDTIME QUEtiapine 100MG Oral Tablet 09/22/2024 Unknown ORAL AT BEDT CARO 100 MILLIGRAMS 878370 RxNorm TAKE 100 MILLIGRAM S ORAL AT BEDTIME Trulicity 0.75MG/0.5ML Subcutaneous Solution 09/22/2024 03/11/2025 SUBCUTANE OUS ONCE A WEEK 1 unit(s) 1298914 RxNorm INJECT INTO 1 EACH SUBCUTANE OUS ONCE A WEEK Venlafaxine HCl 75MG Oral Tablet 09/22/2024 Unknown ORAL ONCE A DAY 150 MILLIGRAMS 888789 RxNorm TAKE 150 MILLIGRAM S ORAL ONCE A DAY amLODIPine Besylate 10MG Oral Tablet 09/22/2024 Unknown ORAL ONCE A DAY 10 MILLIGRAMS 258075 RxNorm TAKE 10 MILLIGRAM S ORAL ONCE [...] ORAL TWIC E A DAY 1000 MILLIGRAMS 823829 RxNorm TAKE 1000 MILLIGRAM S ORAL TWICE A DAY rOPINIRole HCl 0.25MG Oral Tablet 09/22/2024 Unknown ORAL AT BEDT CARO 0.25 MILLIGRAMS 029226 RxNorm TAKE 0.25 MILLIGRAM S ORAL AT BEDTIME traZODone hydrochloride 150MG Oral Tablet 09/22/2024 Unknown ORAL AT BEDT CARO 150 MILLIGRAMS 192976 RxNorm TAKE 150 MILLIGRAM S ORAL AT BEDTIME hydrOXYzine HCl 50MG Oral Tablet 09/22/2024 Unknown ORAL ONCE A DAY 50 MILLIGRAMS 041114 RxNorm TAKE 50 MILLIGRAM S ORAL ONCE A DAY Multivitamin Oral Tablet 10/13/2024 Unknown ORAL ONCE A DAY 1 unit(s) RxNorm TAKE 1 EACH ORAL ONCE A DAY Meloxicam 15MG Oral Tablet 10/24/2024 01/26/2025 BY MOUTH ONCE A DAY 1 TABLET 454374 RxNorm TAKE 1 TABLET BY MOUTH ONCE A DAY Diclofenac Sodium 75MG Oral Tablet, Enteric Coated 11/27/2024 07/02/2025 BY MOUTH NEED ED 3 TIME S A DAY 1 TABLET 084729 RxNorm TAKE 1 TABLET BY MOUTH NEEDED 3 TIMES A DAY Methocarbamol 500MG Oral Tablet 12/22/2024 01/26/2025 BY MOUTH NEED ED 3 TIME S A DAY 1 TABLET 701472 RxNorm TAKE 1 TABLET BY MOUTH THREE TIMES DAILY NEEDED Meloxicam 15MG Oral Tablet 01/26/2025 02/23/2025 BY MOUTH ONCE A DAY 1 TABLET 519329 RxNorm TAKE 1 TABLET BY MOUTH DAILY Methocarbamol 500MG Oral Tablet 01/26/2025 02/23/2025 BY MOUTH NEED ED 3 TIME S A DAY 1 TABLET 383521 RxNorm TAKE 1 TABLET BY MOUTH THREE TIMES DAILY NEEDED oxyCODONE HCl-acetaminophe n 5MG-325MG Oral Tablet 01/26/2025 03/11/2025 BY MOUTH NEED ED TWIC E A DAY 1 TABLET 6543706 RxNorm TAKE 1 TABLET BY MOUTH NEEDED TWICE A DAY Meloxicam 15MG Oral Tablet 02/23/2025 03/11/2025 BY MOUTH ONCE A DAY 1 TABLET 135271 RxNorm TAKE 1 TABLET BY MOUTH DAILY Methocarbamol 500MG Oral Tablet 02/23/2025 03/26/2025 BY MOUTH NEED ED 3 TIME S A DAY 1 TABLET 778622 RxNorm TAKE 1 TABLET BY MOUTH NEEDED 3 TIMES A DAY HumaLOG Mix 75/25 KwikPen 75U/1ML-25U/1ML Subcutaneous Suspension 03/16/2025 Unknown SUBCUTANE OUS THRE E TIME S A DAY 1 unit(s) 567549 RxNorm INJECT INTO 1 EACH SUBCUTANE OUS THREE TIMES A DAY Trulicity 1.5MG/0.5ML Subcutaneous Solution 03/16/2025 Unknown SUBCUTANE OUS ONCE A WEEK 1 unit(s) 7927549 RxNorm INJECT INTO 1 EACH SUBCUTANE OUS ONCE A WEEK clonazePAM 1MG Oral Tablet 03/16/2025 Unknown ORAL ONCE A DAY 1 MILLIGRAMS 19741101 RxNorm TAKE 1 MILLIGRAM S ORAL ONCE A DAY Meloxicam 15MG Oral Tablet 03/26/2025 06/29/2025 BY MOUTH ONCE A DAY 1 TABLET 844146 RxNorm TAKE 1 TABLET BY MOUTH ONCE A DAY Meloxicam 15MG Oral Tablet 06/29/2025 Unknown BY MOUTH ONCE A DAY 1 TABLET 953589 RxNorm TAKE 1 TABLET BY MOUTH DAILY [...] DISEASE WITHOUT ESOPHAGITISUNSPECIFIED INFLAMMATORY SPONDYLOPATHY, LUMBAR REGIONOTHER STRATEGIC ALLIANCES MANAGER (CURRENT) DRUG THERAPY Hospital Discharge Instructions Should you have any questions prior to discharge, please contact a member of your healthcare team. If you have left the hospital and have any questions, please contact your primary care physician. Reason For Referral No Data Found Problems Problem Start Date Resolved Date Status Code Code System ENCOUNTER FOR SCREENING FOR OTHER VIRAL DISEASES active 764387702 SNOMED- CT ABDOMINAL PAIN active 86092025 SNOME D-CT PAIN IN BACK active 216878778 SNOMED- CT ANXIETY DISORDER, UNSPECIFIED active 112969596 SNOMED-CT DEPRESSION, UNSPECIFIED active 621406 07 SNOMED-CT SCHIZOPHRENIA, UNSPECIFIED active 582 55149 SNOMED-CT HYPERLIPIDEMIA, UNSPECIFIED active 55 074734 SNOMED-CT PERSONAL HISTORY OF OTHER MALIGNANT NEOPLASM OF SKIN active 719646398 S NOMED-CT BIPOLAR DISORDER, UNSPECIFIED active 05888739 SNOMED-CT ENCOUNTER FOR SCREENING EXAMINATION FOR OTHER MENTAL HEALTH AND BEHAVIORAL DISOR active 429769592 SNOMED-CT ENCOUNTER FOR SCREENING, UNSPECIFIED active 839860715 SNOMED-CT ENCOUNTER FOR GENERAL ADULT MEDICAL EXAMINATION WITHOUT ABNORMAL FINDINGS active 135995552 SNOMED-CT ENCOUNTER FOR OTHER SCREENIN G FOR MALIGNANT NEOPLASM OF BREAST active 970559647 SNOMED-CT TYPE 2 DIABETES MELLITUS WITHOUT COMPLICATIONS active 102303354 SNOMED -CT DORSALGIA, UNSPECIFIED active 2470042 05 SNOMED-CT ESSENTIAL (PRIMARY) HYPERTENSION active 09060834 SNOMED-CT THYROTOXICOSIS, 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 06103938 SNOMED-CT GASTRO-ESOPHAGEAL REFLUX DISEASE WITHOUT ESOPHAGITIS active 867886547 SNOMED-CT UNSPECIFIED INFLAMMATORY SPONDYLOPATHY, LUMBAR REGION active 427935972 SNOMED-CT OTHER STRATEGIC ALLIANCES MANAGER (CURRENT) DR UG THERAPY active 889599032 SNOMED-CT Allergies and Adverse Reactions Allergy Substance Reaction Severity Start Date Concern Status Code Code System SULFA (sulfonamide) Hives (SNOMED-CT: 424725876) Moderate Active 55549865 SNOMED-CT CEPHALOSPORIN Itching (SNOMED-CT: 124422060) Moderate Active 769474315 SNOMED-CT KETOROLAC NAUSEA (SNOMED-CT: null) Moderate Active 97078 RxNorm IODINE Hives (SNOMED-CT: 254437714) Moderate Active 5933 RxNorm ADHESIVE Rash (SNOMED-CT: 240673519) Moderate Active LATEX BLISTERS (SNOMED-CT: null) Moderate Active 3400576 RxNorm TEA TREE OIL BLISTERS (SNOMED-CT: null) Moderate Active 11951 RxNorm FLAGYL 375 TONGUE SWELLING (SNOMED-CT: null) Moderate Active 20280228 RxNorm MOTRIN NAUSEA (SNOMED-CT: null) Moderate Active 20240501 RxNorm PENICILLIN Hives (SNOMED-CT: 056022404) Moderate Active Plan of Treatment SI Joint [...] Diagnosis Start Date Code Code Sys tem Calcaneal spur, right foot 01/05/2025 S NOMED-CT Personal Care Team Section Performer Name Performer Role Active Date Inactive Maxi Green PCP - Primary care physician 2024-07-11 Imaging Narrative Notes [facility] 01/05/2025 15:[address] [address] ---------NAME--------- NUMBER SEX AGE ADMIT DISC. XRAY# F/C TYPE LUCILA GONSALEZ [id number] F 59 01/05/25 01/05/25 67583 XB1 O/P DATE OF : 1965 M/R# [id number] #: [id number] LOCATION: TRANSCRIBED: 01/05/25 15:14 HEEL RIGHT [id number] COMPLETED:01/05/25 14:45 [place] [address] {REASON-FT/TOE/HEEL: HEEL SPUR PHYSICIAN: [facility] REPORT CLINICAL INDICATION: HEEL SPUR TECHNIQUE: Axial and lateral views of the right calcaneus were performed. HEEL RIGHT Comparison: None FINDINGS/IMPRESSION: : 1. No acute fracture of the right calcaneus. 2. Fragmented Achilles insertion enthesophyte measures up to 20 mm longitudinal. There is also soft tissue thickening of the distal achilles tendon. 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 Consider follow-up noncontrast MRI of the ankle for better characterization if clinically desired. 3. Plantar calcaneal bone spur measures 10 mm length. There is also a prominent os trigonum. [facility] Reviewed and Electronically Signed by: Dom Pathak MD Signed Date: 01/05/25 15:14 01/05/25.1517.ZEE.to PHOENIX ORANTES via [facility]
--- OUTSIDE RECORDS SUMMARY | 2025-08-22 21:45 | XMS_ITS ---
Author Organization Unknown Address [address] [place] [phone] Phone Care Team Providers Care Mamma Logist Name Role Phone MILES DAVIS Attending Unavailable PHOENIX MCCLAIN Primary Unavailable Immunization Immunization Date Status Additional Notes Code Code System influenza, unspecified formulation 07/04/2019 Completed 88 CVX Tdap 08/05/2021 Completed 115 CVX Influenza, MDCK, trivalent, PF 05/14/2024 Completed 153 CVX Pneumococcal conjugate PCV20 , polysaccharide COC808 conjugate, adjuvant, PF 05/14/2024 Completed 216 CVX Social History Type Status Start Date End Date Code Code Syst em Smoking History Current every day smoker [id number] SNOMED CT Sex Female Vital Signs Vital Sign Value Unit [place] [facility] [place] Unit Date/Time Recent/Initial? Code Code System Body Mass Index 37.13 kg/m2 11/10/2024 15:07 Most Recent 46746 -5 LOINC Body Mass Index 36.40 kg/m2 11/05/2024 12:57 Initial 74738 -5 LOINC Systolic Blood Pressure 164 mm[Hg] 11/10/2024 15:07 Initial 8480- 6 LOINC Diastolic Blood Pressure 81 mm[Hg] 11/10/2024 15:07 Initial 8462- 4 LOINC Body Surface Area 2.01 m2 11/10/2024 15:07 Most Recent 3140- 1 LOINC Body Surface Area 1.99 m2 11/05/2024 12:57 Initial 3140- 1 LOINC Height 157.480 0 cm 62.00 in 11/10/2024 15:07 Most Recent 8302- 2 LOINC Height 157.480 0 cm 62.00 in 11/05/2024 12:57 Initial 8302- 2 LOINC O2 Saturation 97 % 2024 15:07 Initial 27591 -5 LOINC Pulse 86.0 /min 11/10/2024 15:07 Initial 8867- 4 [facility] Respiration 16 /min 11/10/19 15:07 Initial 9279- 1 [facility] Temperature 36.4 Gloria 97.5 F 11/10/19 15:07 Initial 8310- 5 [facility] Weight 92.08 kg 203.00 lbs 11/10/2024 15:07 Most Recent 28800 -7 [facility] Weight 90.26 kg 199.00 lbs 11/05/2024 12:57 Initial 05710 -7 [facility] Medications Medication Start Date End Date Route Frequency Dose Code Code System Medication Instructions Home Meds Cyclobenzaprine HCl 10MG Oral Tablet 08/11/2024 03/11/2025 BY MOUTH 1 TABLET 749975 RxNorm TAKE 1 TABLET BY MOUTH FOR FOR MUSCLE SPASM. Chlorthalidone 25MG Oral Tablet 09/22/2024 Unknown ORAL ONCE A DAY 25 MILLIGRAMS 805809 RxNorm TAKE 25 MILLIGRAM S ORAL ONCE A DAY Escitalopram 20MG Oral Tablet 09/22/2024 Unknown ORAL ONCE A DAY 20 MILLIGRAMS 124572 RxNorm TAKE 20 MILLIGRAM S ORAL ONCE A DAY Gabapentin 800MG Oral Tablet 09/22/2024 Unknown ORAL THRE E TIME S A DAY 800 MILLIGRAMS 979181 RxNorm TAKE 800 MILLIGRAM S ORAL THREE TIMES A DAY HumaLOG Mix 75/25 KwikPen 75U/1ML-25U/1ML Subcutaneous Suspension 09/22/2024 03/11/2025 SUBCUTANE OUS DIRE CTED 1 unit(s) 316448 RxNorm INJECT INTO 1 EACH SUBCUTANE OUS DIRECTED Lantus SoloStar 100U/1ML Subcutaneous Solution 09/22/2024 03/11/2025 SUBCUTANE OUS AT BEDT CARO 1 unit(s) 514555 RxNorm INJECT INTO 1 EACH SUBCUTANE OUS AT BEDTIME Levothyroxine Sodium 88MCG Oral Tablet 09/22/2024 Unknown ORAL ONCE A DAY 88 MCG 024907 RxNorm TAKE 88 MCG ORAL ONCE A DAY Lisinopril 40MG Oral Tablet 09/22/2024 Unknown ORAL ONCE A DAY 40 MILLIGRAMS 190261 RxNorm TAKE 40 MILLIGRAM S ORAL ONCE A DAY Metoprolol Tartrate 100MG Oral Tablet 09/22/2024 Unknown ORAL TWIC E A DAY 100 MILLIGRAMS 568482 RxNorm TAKE 100 MILLIGRAM S ORAL TWICE A DAY Nortriptyline 50MG Oral Capsule 09/22/2024 Unknown ORAL AT BEDT CARO 50 MILLIGRAMS RxNorm TAKE 50 MILLIGRAM S ORAL AT BEDTIME Pravastatin Sodium 80MG Oral Tablet 09/22/2024 Unknown ORAL AT BEDT CARO 80 MILLIGRAMS 155931 RxNorm TAKE 80 MILLIGRAM S ORAL AT BEDTIME QUEtiapine 100MG Oral Tablet 09/22/2024 Unknown ORAL AT BEDT CARO 100 MILLIGRAMS 870414 RxNorm TAKE 100 MILLIGRAM S ORAL AT BEDTIME Trulicity 0.75MG/0.5ML Subcutaneous Solution 09/22/2024 03/11/2025 SUBCUTANE OUS ONCE A WEEK 1 unit(s) 8436233 RxNorm INJECT INTO 1 EACH SUBCUTANE OUS ONCE A WEEK Venlafaxine HCl 75MG Oral Tablet 09/22/2024 Unknown ORAL ONCE A DAY 150 MILLIGRAMS 614949 RxNorm TAKE 150 MILLIGRAM S ORAL ONCE A DAY Vitamin D3 10 MCG Oral Tablet 09/22/2024 12/29/2024 ORAL ONCE A DAY 10 MCG 689140 RxNorm TAKE 10 MCG ORAL ONCE A DAY amLODIPine Besylate 10MG Oral Tablet 09/22/2024 Unknown ORAL ONCE A DAY 10 MILLIGRAMS 048209 RxNorm TAKE 10 MILLIGRAM S ORAL ONCE [...] ORAL TWIC E A DAY 1000 MILLIGRAMS 558142 RxNorm TAKE 1000 MILLIGRAM S ORAL TWICE A DAY rOPINIRole HCl 0.25MG Oral Tablet 09/22/2024 Unknown ORAL AT BEDT CARO 0.25 MILLIGRAMS 272305 RxNorm TAKE 0.25 MILLIGRAM S ORAL AT BEDTIME traZODone hydrochloride 150MG Oral Tablet 09/22/2024 Unknown ORAL AT BEDT CARO 150 MILLIGRAMS 149013 RxNorm TAKE 150 MILLIGRAM S ORAL AT BEDTIME hydrOXYzine HCl 50MG Oral Tablet 09/22/2024 Unknown ORAL ONCE A DAY 50 MILLIGRAMS 221353 RxNorm TAKE 50 MILLIGRAM S ORAL ONCE A DAY Multivitamin Oral Tablet 10/13/2024 Unknown ORAL ONCE A DAY 1 unit(s) RxNorm TAKE 1 EACH ORAL ONCE A DAY Meloxicam 15MG Oral Tablet 10/24/2024 01/26/2025 BY MOUTH ONCE A DAY 1 TABLET 176412 RxNorm TAKE 1 TABLET BY MOUTH ONCE A DAY Methocarbamol 500MG Oral Tablet 11/27/2024 12/22/2024 BY MOUTH NEED ED 3 TIME S A DAY 1 TABLET 236286 RxNorm TAKE 1 TABLET BY MOUTH NEEDED 3 TIMES A DAY Diclofenac Sodium 75MG Oral Tablet, Enteric Coated 11/27/2024 07/02/2025 BY MOUTH NEED ED 3 TIME S A DAY 1 TABLET 269362 RxNorm TAKE 1 TABLET BY MOUTH NEEDED 3 TIMES A DAY Methocarbamol 500MG Oral Tablet 12/22/2024 01/26/2025 BY MOUTH NEED ED 3 TIME S A DAY 1 TABLET 543498 RxNorm TAKE 1 TABLET BY MOUTH THREE TIMES DAILY NEEDED oxyCODONE HCl-acetaminophe n 5MG-325MG Oral Tablet 01/26/2025 03/11/2025 BY MOUTH NEED ED TWIC E A DAY 1 TABLET 7826421 RxNorm TAKE 1 TABLET BY MOUTH NEEDED TWICE A DAY Meloxicam 15MG Oral Tablet 01/26/2025 02/23/2025 BY MOUTH ONCE A DAY 1 TABLET 950766 RxNorm TAKE 1 TABLET BY MOUTH DAILY Methocarbamol 500MG Oral Tablet 01/26/2025 02/23/2025 BY MOUTH NEED ED 3 TIME S A DAY 1 TABLET 220375 RxNorm TAKE 1 TABLET BY MOUTH THREE TIMES DAILY NEEDED Meloxicam 15MG Oral Tablet 02/23/2025 03/11/2025 BY MOUTH ONCE A DAY 1 TABLET 122585 RxNorm TAKE 1 TABLET BY MOUTH DAILY Methocarbamol 500MG Oral Tablet 02/23/2025 03/26/2025 BY MOUTH NEED ED 3 TIME S A DAY 1 TABLET 358238 RxNorm TAKE 1 TABLET BY MOUTH NEEDED 3 TIMES A DAY HumaLOG Mix 75/25 KwikPen 75U/1ML-25U/1ML Subcutaneous Suspension 03/16/2025 Unknown SUBCUTANE OUS THRE E TIME S A DAY 1 unit(s) 015258 RxNorm INJECT INTO 1 EACH SUBCUTANE OUS THREE TIMES A DAY Trulicity 1.5MG/0.5ML Subcutaneous Solution 03/16/2025 Unknown SUBCUTANE OUS ONCE A WEEK 1 unit(s) 6522660 RxNorm INJECT INTO 1 EACH SUBCUTANE OUS ONCE A WEEK clonazePAM 1MG Oral Tablet 03/16/2025 Unknown ORAL ONCE A DAY 1 MILLIGRAMS 19741101 RxNorm TAKE 1 MILLIGRAM S ORAL ONCE A DAY Meloxicam 15MG Oral Tablet 03/26/2025 06/29/2025 BY MOUTH ONCE A DAY 1 TABLET 766060 RxNorm TAKE 1 TABLET BY MOUTH ONCE A DAY Meloxicam 15MG Oral Tablet 06/29/2025 Unknown BY MOUTH ONCE A DAY 1 TABLET 320383 RxNorm TAKE 1 TABLET BY MOUTH DAILY [...] DISEASE WITHOUT ESOPHAGITISUNSPECIFIED INFLAMMATORY SPONDYLOPATHY, LUMBAR REGIONOTHER RETIREMENT (CURRENT) DRUG THERAPY Hospital Discharge Instructions Should you have any questions prior to discharge, please contact a member of your healthcare team. If you have left the hospital and have any questions, please contact your primary care physician. Reason For Referral No Data Found Procedures Procedure Name Date Status Code Code Syste m NJX DX/THER AGT PVRT FACET J T LMBR/SAC 2ND LEVEL; (-LT Left side of body) 11/10/2024 completed 17669 C PT NJX DX/THER AGT PVRT FACET J T LMBR/SAC 2ND LEVEL; (-RT Right side of body) 11/10/2024 completed 40515 CPT NJX DX/THER AGT PVRT FACET J T LMBR/SAC 1 LEVEL; (-LT Left side of body) 11/10/2024 completed 71518 C PT NJX DX/THER AGT PVRT FACET J T LMBR/SAC 1 LEVEL; (-RT Right side of body) 11/10/2024 completed 59241 CPT Problems Problem Start Date Resolved Date Status Code Code System ENCOUNTER FOR SCREENING FOR OTHER VIRAL DISEASES active 778969101 SNOMED- CT ABDOMINAL PAIN active 23472969 SNOME D-CT PAIN IN BACK active 388815624 SNOMED- CT ANXIETY DISORDER, UNSPECIFIED active 174306021 SNOMED-CT DEPRESSION, UNSPECIFIED active 151901 07 SNOMED-CT SCHIZOPHRENIA, UNSPECIFIED active 580 06163 SNOMED-CT HYPERLIPIDEMIA, UNSPECIFIED active 55 683184 SNOMED-CT PERSONAL HISTORY OF OTHER MALIGNANT NEOPLASM OF SKIN active 884201381 S NOMED-CT BIPOLAR DISORDER, UNSPECIFIED active 64620741 SNOMED-CT ENCOUNTER FOR SCREENING EXAMINATION FOR OTHER MENTAL HEALTH AND BEHAVIORAL DISOR active 855590340 SNOMED-CT ENCOUNTER FOR SCREENING, UNSPECIFIED active 509283441 SNOMED-CT ENCOUNTER FOR GENERAL ADULT MEDICAL EXAMINATION WITHOUT ABNORMAL FINDINGS active 979653508 SNOMED-CT ENCOUNTER FOR OTHER SCREENIN G FOR MALIGNANT NEOPLASM OF BREAST active 783311001 SNOMED-CT TYPE 2 DIABETES MELLITUS WITHOUT COMPLICATIONS active 781195324 SNOMED -CT DORSALGIA, UNSPECIFIED active 9300411 05 SNOMED-CT ESSENTIAL (PRIMARY) HYPERTENSION active 04830097 SNOMED-CT THYROTOXICOSIS, 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 06023688 SNOMED-CT GASTRO-ESOPHAGEAL REFLUX DISEASE WITHOUT ESOPHAGITIS active 566533213 SNOMED-CT UNSPECIFIED INFLAMMATORY SPONDYLOPATHY, LUMBAR REGION active 326838452 SNOMED-CT OTHER RETIREMENT (CURRENT) DR UG THERAPY active 095833187 SNOMED-CT Allergies and Adverse Reactions Allergy Substance Reaction Severity Start Date Concern Status Code Code System SULFA (sulfonamide) Hives (SNOMED-CT: 197517095) Moderate Active 49672289 SNOMED-CT CEPHALOSPORIN Itching (SNOMED-CT: 451088652) Moderate Active 668873483 SNOMED-CT KETOROLAC NAUSEA (SNOMED-CT: null) Moderate Active 98989 RxNorm IODINE Hives (SNOMED-CT: 682283902) Moderate Active 5933 RxNorm ADHESIVE Rash (SNOMED-CT: 972949540) Moderate Active LATEX BLISTERS (SNOMED-CT: null) Moderate Active 5990082 RxNorm TEA TREE OIL BLISTERS (SNOMED-CT: null) Moderate Active 36108 RxNorm FLAGYL 375 TONGUE SWELLING (SNOMED-CT: null) Moderate Active 758965 RxNorm MOTRIN NAUSEA (SNOMED-CT: null) Moderate Active 20240501 RxNorm PENICILLIN Hives (SNOMED-CT: 971639486) Moderate Active Plan of Treatment SI Joint [...] Diagnosis Start Date Code Code Sys tem Spondylosis without myelopat hy or radiculopathy, lumbar region 11/10/2024 SNOMED-CT Personal Care Team Section Performer Name Performer Role Active Date Inactive Maxi Green PCP - Primary care physician 2024-07-11 Procedures Notes [facility] 11/27/2024 08:38 All Demographics Patient Name Age Sex Visit Number Admission Date/Time Attending Physician Date of Service Room and Bed Emergency Contact RUSSELL GAYTAN 1965 59 years Female [id number] 11/10/2024 13:59 Shahab Romano 11/10/2024 SDS-7 ZOEY ZELAYA - [id number] Pain Management Procedural Note Date of Service: 11/10/2024 I had an extensive discussion with the patient. We once again discussed the risks, benefits and alternatives to this procedure. I discussed the operative and postoperative course in detail. I discussed potential complications that we may encounter. The patient is electing to undergo this procedure. No guarantees were given or implied. I reviewed the history and physical, examined the patient this morning, no changes. Home Meds: Dose and Freq Medication Dosage Frequency Cyclobenzaprine HCl 10MG Oral Tablet 1 TABLET Chlorthalidone 25MG Oral Tablet 25 MILLIGRAMS ONCE A DAY Escitalopram 20MG Oral Tablet 20 MILLIGRAMS ONCE A DAY Gabapentin 800MG Oral Tablet 800 MILLIGRAMS THREE TIMES A DAY HumaLOG Mix 75/25 KwikPen 75U/1ML-25U/1ML Subcutaneous Suspension 1 EACH DIRECTED Lantus SoloStar 100U/1ML Subcutaneous Solution 1 EACH AT BEDTIME Levothyroxine Sodium 88MCG Oral Tablet 88 MCG ONCE A DAY Lisinopril 40MG Oral Tablet 40 MILLIGRAMS ONCE A DAY Metoprolol Tartrate 100MG Oral Tablet 100 MILLIGRAMS TWICE A DAY Nortriptyline 50MG Oral Capsule 50 MILLIGRAMS AT BEDTIME Pravastatin Sodium 80MG Oral Tablet 80 MILLIGRAMS AT BEDTIME QUEtiapine 100MG Oral Tablet 100 MILLIGRAMS AT BEDTIME Trulicity 0.75MG/0.5ML Subcutaneous Solution 1 EACH ONCE A WEEK Venlafaxine HCl 75MG Oral Tablet 150 MILLIGRAMS ONCE A DAY Vitamin D3 10 MCG Oral Tablet 10 MCG ONCE A DAY amLODIPine Besylate 10MG Oral [...] Oral Tablet 1 TABLET ONCE A DAY Bilateral L4-5, L5-S1 Diagnostic Medial Branch Block Provider: [facility] Pre-Procedure Diagnosis: M46.96-Lumbar Facet Arthopathy Lumbar Medial Branch Block Diagnostic-6067, 77093 Post-Procedure Diagnosis: Same Location of Procedure: [X] Clinic Complications: None Description of Procedure in detail: The patient presents today for lumbar medial branch block. Risk, benefits, side effects, and alternatives to this procedure were previously discussed with the patient in the pain clinic and reviewed with the patient pre-operatively. The patient was brought to the procedure room and placed in the prone position on the procedure table. A sterile prep with Chloraprep was applied and allowed a 3-minute drying time. A full length fenestrated sterile drape was applied to the lumbar region. A time-out occurred with all members of the operative team, as well as the patient, agreeing to the location and type of procedure. The fluoroscopic beam was placed in the A/P projection angle and adjusted in oblique view to provide the best image for the approach. The junction of the L4-5 and L5-S1 superior articulating process and the associated pedicle were visualized. A skin entry point louis was made at this point which corresponds to the location of the medial branch nerves. A 27-gauge 1 inch needle was used to deposit 2ml of Lidocaine 2% into the skin wheal and subcutaneous tissue at the previously marked skin entry sites. The 22-gauge spinal needles were advanced to the pathways of the L4-5 and L5-S1 medial branch nerves. Approximately 0.5ml of Omnipaque dye was injected into each needled location to confirm no vascular uptake. Then a solution of 0.5ml of Lidocaine 2% was injected into each location. The needles were removed, band-aides applied to each site and the patient was transported back to the short stay unit. Procedural medications for sedation are documented in the intraoperative nurses note. Instructions were given to the patient to keep a pain diary. The patient is to note if they were to develop any severe back or leg pain, fever, or loss of sensation or motor movement in lower extremities; they are to go to the Emergency Room and the ER staff is to contact the Pain Provider or person enroute controller for Anesthesia. The patient was discharged home in the care of an adult, and the patient was advised not to drive a car or operate mechanical equipment until morning.
--- OUTSIDE RECORDS SUMMARY | 2025-08-22 21:45 | XMS_ITS ---
Author Organization Unknown Address [address] [place] [phone] Phone Care Team Providers Care Signing Agent Name Role Phone LADARIUS AGUILAR Attending Unavailable HELENRADHA AMY Haynes Primary Unavailable Immunization Immunization Date Status Additional Notes Code Code System influenza, unspecified formulation 07/04/2019 Completed 88 CVX Tdap 08/05/2021 Completed 115 CVX Influenza, MDCK, trivalent, PF 05/14/2024 Completed 153 CVX Pneumococcal conjugate PCV20 , polysaccharide [id number] conjugate, adjuvant, PF 05/14/2024 Completed 216 CVX Results MICROALBUMIN - Collect Date/ Time: 06/30/2024 14:12 [facility] ID: [id number] [place] [address], [phone] LOINC: 28721-2 Test Value Unit Reference Range Code Code System Flag MICROALBUMIN 11.4 mg/L L=0.0 H=16.7 69211-4 LOINC UR CREATININE 57.50 mg/dL L=30.00 H=125 1-8 LOINC MA/CR 19.8 mg/gCR MEDICAL PROFESSIONAL PROFILE (11) - Collect Date/Time: 06/30/2024 14:12 [facility] ID: [id number] [address] [place] [address], [phone] LOINC: Test Value Unit Reference Range Code Code System Flag Creatinine 46.5 20.0-300.0 2161-8 LOINC Amphetamines, Urine Negative Xbqmij=9821 13462-6 LOINC Barbiturate Negative Mnwzvo=998 3377-9 LOINC Benzodiazepines Negative Ccjruo=707 25351-5 LOINC Cannabinoids See Final Results Cutoff=20 46841-0 LOINC Cocaine (Metabolite) Negative Nvciju=670 3393-6 LOINC Ethanol, Urine Negative Cutoff=0.020 5645-7 LOINC Meperidine Negative Muerxd=779 3746-5 LOINC Methadone Negative Jzxwej=949 3773-9 LOINC Opiates Negative Iynijy=979 44353-1 LOINC Oxycodone/Oxymorphone, Urine Negative Nstsbu=857 18640-2 LOINC Phencyclidine Negative Cutoff=25 3936-2 LOINC Propoxyphene Negative Wtgdbi=923 35641-1 LOINC Cannabinoid WILL FOLLOW 77732-8 LOINC Carboxy THC Conf, MS, UR WILL FOLLOW 61881-9 LOINC Cannabinoid Positive Cutoff=20 02246-5 LOINC A Carboxy THC Conf, MS, UR 16 Cutoff=10 36995-7 LOINC Social History Type Status Start Date End Date Code Code Syst em Smoking History Current every day smoker [id number] SNOMED CT Sex Female Medications Medication Start Date End Date Route Frequency Dose Code Code System Medication Instructions Home Meds Meloxicam 15MG Oral Tablet 08/11/2024 10/24/2024 BY MOUTH ONCE A DAY 1 TABLET 483221 RxNorm TAKE 1 TABLET BY MOUTH ONCE A DAY Cyclobenzapri ne HCl 10MG Oral Tablet 08/11/2024 03/11/2025 BY MOUTH 1 TABLET 800613 RxNorm TAKE 1 TABLET BY MOUTH FOR FOR MUSCLE SPASM. Escitalopram 20MG Oral Tablet 09/22/2024 Unknown ORAL ONCE A DAY 20 MILLIGRAM S 109566 RxNorm TAKE 20 MILLIGRAM S ORAL ONCE A DAY Gabapentin 800MG Oral Tablet 09/22/2024 Unknown ORAL THREE TIMES A DAY 800 MILLIGRAM S 684906 RxNorm TAKE 800 MILLIGRAM S ORAL THREE TIMES A DAY HumaLOG Mix 75/25 KwikPen 75U/1ML-25U/1 ML Subcutaneous Suspension 09/22/2024 03/11/2025 SUBCUTANE OUS DIRECTED 1 unit(s) 092261 RxNorm INJECT INTO 1 EACH SUBCUTANE OUS DIRECTED Lantus SoloStar 100U/1ML Subcutaneous Solution 09/22/2024 03/11/2025 SUBCUTANE OUS AT BEDTIME 1 unit(s) 908395 RxNorm INJECT INTO 1 EACH SUBCUTANE OUS AT BEDTIME Levothyroxine Sodium 88MCG Oral Tablet 09/22/2024 Unknown ORAL ONCE A DAY 88 MCG 785635 RxNorm TAKE 88 MCG ORAL ONCE A DAY Lisinopril 40MG Oral Tablet 09/22/2024 Unknown ORAL ONCE A DAY 40 MILLIGRAM S 969554 RxNorm TAKE 40 MILLIGRAM S ORAL ONCE A DAY Metoprolol Tartrate 100MG Oral Tablet 09/22/2024 Unknown ORAL TWICE A DAY 100 MILLIGRAM S 854722 RxNorm TAKE 100 MILLIGRAM S ORAL TWICE A DAY Nortriptyline 50MG Oral Capsule 09/22/2024 Unknown ORAL AT BEDTIME 50 MILLIGRAM S RxNorm TAKE 50 MILLIGRAM S ORAL AT BEDTIME Pravastatin Sodium 80MG Oral Tablet 09/22/2024 Unknown ORAL AT BEDTIME 80 MILLIGRAM S 604348 RxNorm TAKE 80 MILLIGRAM S ORAL AT BEDTIME QUEtiapine 100MG Oral Tablet 09/22/2024 Unknown ORAL AT BEDTIME 100 MILLIGRAM S 609631 RxNorm TAKE 100 MILLIGRAM S ORAL AT BEDTIME Trulicity 0.75MG/0.5ML Subcutaneous Solution 09/22/2024 03/11/2025 SUBCUTANE OUS ONCE A WEEK 1 unit(s) 1611102 RxNorm INJECT INTO 1 EACH SUBCUTANE OUS ONCE A WEEK Venlafaxine HCl 75MG Oral Tablet 09/22/2024 Unknown ORAL ONCE A DAY 150 MILLIGRAM S 463933 RxNorm TAKE 150 MILLIGRAM S ORAL ONCE A DAY Vitamin D3 10 MCG Oral Tablet 09/22/2024 12/29/2024 ORAL ONCE A DAY 10 MCG 584609 RxNorm TAKE 10 MCG ORAL ONCE A DAY amLODIPine Besylate 10MG Oral Tablet 09/22/2024 Unknown ORAL ONCE A DAY 10 MILLIGRAM S 729618 RxNorm TAKE 10 MILLIGRAM S ORAL ONCE A DAY carBAMazepine 200MG Oral Capsule, Extended Release 09/22/2024 Unknown ORAL TWICE A DAY 200 MILLIGRAM S 20001124 RxNorm TAKE 200 MILLIGRAM S ORAL TWICE A DAY clonazePAM 1MG Oral Tablet 09/22/2024 03/11/2025 ORAL THREE TIMES A DAY 1 MILLIGRAM S 577669 RxNorm TAKE 1 MILLIGRAM S ORAL THREE TIMES A DAY metFORMIN HCl 1000MG Oral Tablet 09/22/2024 Unknown ORAL TWICE A DAY 1000 MILLIGRAM S 719908 RxNorm TAKE 1000 MILLIGRAM S ORAL TWICE A DAY rOPINIRole HCl 0.25MG Oral Tablet 09/22/2024 Unknown ORAL AT BEDTIME 0.25 MILLIGRAM S 704509 RxNorm TAKE 0.25 MILLIGRAM S ORAL AT BEDTIME traZODone hydrochloride 150MG Oral Tablet 09/22/2024 Unknown ORAL AT BEDTIME 150 MILLIGRAM S 209358 RxNorm TAKE 150 MILLIGRAM S ORAL AT BEDTIME hydrOXYzine HCl 50MG Oral Tablet 09/22/2024 Unknown ORAL ONCE A DAY 50 MILLIGRAM S 005100 RxNorm TAKE 50 MILLIGRAM S ORAL ONCE A DAY Chlorthalidon e 25MG Oral Tablet 09/22/2024 Unknown ORAL ONCE A DAY 25 MILLIGRAM S 458058 RxNorm TAKE 25 MILLIGRAM S ORAL ONCE A DAY Multivitamin Oral Tablet 10/13/2024 Unknown ORAL ONCE A DAY 1 unit(s) RxNorm TAKE 1 EACH ORAL ONCE A DAY Meloxicam 15MG Oral Tablet 10/24/2024 01/26/2025 BY MOUTH ONCE A DAY 1 TABLET 101760 RxNorm TAKE 1 TABLET BY MOUTH ONCE A DAY Methocarbamol 500MG Oral Tablet 11/27/2024 12/22/2024 BY MOUTH NEEDED 3 TIMES A DAY 1 TABLET 422425 RxNorm TAKE 1 TABLET BY MOUTH NEEDED 3 TIMES A DAY Diclofenac Sodium 75MG Oral Tablet, Enteric Coated 11/27/2024 07/02/2025 BY MOUTH NEEDED 3 TIMES A DAY 1 TABLET 434434 RxNorm TAKE 1 TABLET BY MOUTH NEEDED 3 TIMES A DAY Methocarbamol 500MG Oral Tablet 12/22/2024 01/26/2025 BY MOUTH NEEDED 3 TIMES A DAY 1 TABLET 887554 RxNorm TAKE 1 TABLET BY MOUTH THREE TIMES DAILY NEEDED oxyCODONE HCl-acetamino phen 5MG-325MG Oral Tablet 01/26/2025 03/11/2025 BY MOUTH NEEDED TWICE A DAY 1 TABLET 9581058 RxNorm TAKE 1 TABLET BY MOUTH NEEDED TWICE A DAY Meloxicam 15MG Oral Tablet 01/26/2025 02/23/2025 BY MOUTH ONCE A DAY 1 TABLET 895456 RxNorm TAKE 1 TABLET BY MOUTH DAILY Methocarbamol 500MG Oral Tablet 01/26/2025 02/23/2025 BY MOUTH NEEDED 3 TIMES A DAY 1 TABLET 544541 RxNorm TAKE 1 TABLET BY MOUTH THREE TIMES DAILY NEEDED Meloxicam 15MG Oral Tablet 02/23/2025 03/11/2025 BY MOUTH ONCE A DAY 1 TABLET 885998 RxNorm TAKE 1 TABLET BY MOUTH DAILY Methocarbamol 500MG Oral Tablet 02/23/2025 03/26/2025 BY MOUTH NEEDED 3 TIMES A DAY 1 TABLET 19781225 RxNorm TAKE 1 TABLET BY MOUTH NEEDED 3 TIMES A DAY HumaLOG Mix 75/25 KwikPen 75U/1ML-25U/1 ML Subcutaneous Suspension 03/16/2025 Unknown SUBCUTANE OUS THREE TIMES A DAY 1 unit(s) 519486 RxNorm INJECT INTO 1 EACH SUBCUTANE OUS THREE TIMES A DAY Trulicity 1.5MG/0.5ML Subcutaneous Solution 03/16/2025 Unknown SUBCUTANE OUS ONCE A WEEK 1 unit(s) 3479038 RxNorm INJECT INTO 1 EACH SUBCUTANE OUS ONCE A WEEK clonazePAM 1MG Oral Tablet 03/16/2025 Unknown ORAL ONCE A DAY 1 MILLIGRAM S 19741101 RxNorm TAKE 1 MILLIGRAM S ORAL ONCE A DAY Meloxicam 15MG Oral Tablet 03/26/2025 06/29/2025 BY MOUTH ONCE A DAY 1 TABLET 957019 RxNorm TAKE 1 TABLET BY MOUTH ONCE A DAY Meloxicam 15MG Oral Tablet 06/29/2025 Unknown BY MOUTH ONCE A DAY 1 TABLET 516427 RxNorm TAKE 1 TABLET BY MOUTH DAILY [...] DISEASE WITHOUT ESOPHAGITISUNSPECIFIED INFLAMMATORY SPONDYLOPATHY, LUMBAR REGIONOTHER SANITATION ENGINEER (CURRENT) DRUG THERAPY Hospital Discharge Instructions Should you have any questions prior to discharge, please contact a member of your healthcare team. If you have left the hospital and have any questions, please contact your primary care physician. Reason For Referral No Data Found Problems Problem Start Date Resolved Date Status Code Code System ENCOUNTER FOR SCREENING FOR OTHER VIRAL DISEASES active [id number] SNOMED- CT ABDOMINAL PAIN active 89223766 SNOME D-CT PAIN IN BACK active 777038911 SNOMED- CT ANXIETY DISORDER, UNSPECIFIED active 685969873 SNOMED-CT DEPRESSION, UNSPECIFIED active 247892 07 SNOMED-CT SCHIZOPHRENIA, UNSPECIFIED active 582 93001 SNOMED-CT HYPERLIPIDEMIA, UNSPECIFIED active 01 735662 SNOMED-CT PERSONAL HISTORY OF OTHER MALIGNANT NEOPLASM OF SKIN active 125583308 S NOMED-CT BIPOLAR DISORDER, UNSPECIFIED active 21919132 SNOMED-CT ENCOUNTER FOR SCREENING EXAMINATION FOR OTHER MENTAL HEALTH AND BEHAVIORAL DISOR active 321306133 SNOMED-CT ENCOUNTER FOR SCREENING, UNSPECIFIED active 350388119 SNOMED-CT ENCOUNTER FOR GENERAL ADULT MEDICAL EXAMINATION WITHOUT ABNORMAL FINDINGS active 355170378 SNOMED-CT ENCOUNTER FOR OTHER SCREENIN G FOR MALIGNANT NEOPLASM OF BREAST active 662048245 SNOMED-CT TYPE 2 DIABETES MELLITUS WITHOUT COMPLICATIONS active 401980739 SNOMED -CT DORSALGIA, UNSPECIFIED active 2961885 05 SNOMED-CT ESSENTIAL (PRIMARY) HYPERTENSION active 41956992 SNOMED-CT THYROTOXICOSIS, 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 04313597 SNOMED-CT GASTRO-ESOPHAGEAL REFLUX DISEASE WITHOUT ESOPHAGITIS active 006559219 SNOMED-CT UNSPECIFIED INFLAMMATORY SPONDYLOPATHY, LUMBAR REGION active 371089706 SNOMED-CT OTHER PRISON (CURRENT) DR UG THERAPY active 736816934 SNOMED-CT Allergies and Adverse Reactions Allergy Substance Reaction Severity Start Date Concern Status Code Code System SULFA (sulfonamide) Hives (SNOMED-CT: 005259645) Moderate Active 66894557 SNOMED-CT CEPHALOSPORIN Itching (SNOMED-CT: 243638840) Moderate Active 832298450 SNOMED-CT KETOROLAC NAUSEA (SNOMED-CT: null) Moderate Active 16009 RxNorm IODINE Hives (SNOMED-CT: 263754056) Moderate Active 5933 RxNorm ADHESIVE Rash (SNOMED-CT: 826463973) Moderate Active LATEX BLISTERS (SNOMED-CT: null) Moderate Active 7984511 RxNorm TEA TREE OIL BLISTERS (SNOMED-CT: null) Moderate Active 11980 RxNorm FLAGYL 375 TONGUE SWELLING (SNOMED-CT: null) Moderate Active 20280228 RxNorm MOTRIN NAUSEA (SNOMED-CT: null) Moderate Active 20240501 RxNorm PENICILLIN Hives (SNOMED-CT: 648134544) Moderate Active Plan of Treatment SI Joint Injection Bilateral 03/16/2025 OR SI Joint Injection 03/16/2025 SI Joint Injection Bilateral 03/16/2025 OR SI Joint Injection 03/16/2025 Diag Medial Branch Block Lumbar #2 /0 03/2025 OR Diagnostic Medial Branch Block 12/29 [...]
--- OUTSIDE RECORDS SUMMARY | 2025-08-22 21:45 | XMS_ITS ---
Author Organization Unknown Address [address] [place] [phone] Phone Care Team Providers Care Armhole Raiser Lockstitch Name Role Phone JANETHSAIMA VALENCIA Attending Unavailable PHOENIX MCCLAIN Primary Unavailable Immunization Immunization Date Status Additional Notes Code Code System influenza, unspecified formulation 07/04/2019 Completed 88 CVX Tdap 08/05/2021 Completed 115 CVX Influenza, MDCK, trivalent, PF 05/14/2024 Completed 153 CVX Pneumococcal conjugate PCV20 , polysaccharide IJQ011 conjugate, adjuvant, PF 05/14/2024 Completed 216 CVX Results MICROALBUMIN - Collect Date/ Time: 02/05/2025 10:00 [facility] ID: [id number] [address] [place] [address], [phone] LOINC: 17939-6 Test Value Unit Reference Range Code Code System Flag MICROALBUMIN 18.8 mg/L L=0.0 H=16.7 56914-7 LOINC H UR CREATININE 98.00 mg/dL L=30.00 H=125 2161-8 LOINC MA/CR 19.2 mg/gCR CBC W/ DIFF - Collect Date/T reid: 02/05/2025 10:00 [facility] ID: [id number] [address] [place] [address], [phone] LOINC: 49712-3 Test Value Unit Reference Range Code Code System Flag WBC 6.2 10^3uL L=4.8 H=10.8 RBC 4.32 10^6uL L=4.20 H=5.40 HEMOGLOBIN 12.2 g/dL L=12.0 H=16.0 718-7 LOINC HEMATOCRIT 37.7 VOL% L=37.0 H=47.0 4544-3 LOINC MCV 87.3 fL L=81.0 H=99.0 MCH 28.2 pg L=27.0 H=32.0 MCHC 32.4 g/dL L=32.0 H=36.0 PLATELETS 224 10^3uL L=100 H=400 54828-0 LOINC RDW 14.3 % L=11.7 H=15.5 %GRAN 60.1 % L=40.0 H=70.0 86610-2 LOINC %LYMPH 24.8 % L=20.0 H=45.0 736-9 LOINC %MONO 10.4 % L=2.0 H=10.0 91129-5 LOINC H %EOS 2.9 % L=0.0 H=6.0 713-8 LOINC %BASO 1.0 % L=0.0 H=3.0 706-2 LOINC #NEUT 3.7 10^3uL L=1.9 H=7.6 62667-2 LOINC #LYMPH 1.5 10^3uL L=0.9 H=4.9 97924-4 LOINC #MONO 0.6 10^3uL L=0.1 H=0.9 58664-5 LOINC #EOS 0.2 10^3uL L=0.0 H=0.6 712-0 LOINC #BASO 0.06 10^3uL L=0.00 H=0.10 53869-0 LOINC #IM GRANS 0.1 10^3uL L=0.0 H=7.0 88650-5 LOINC %IM GRANS 0.8 % L=0.0 H=5.0 01865-9 LOINC %NRB 0.0 L=0.0 H=0.2 87754-2 LOINC #NRB 0.000 L=0.000 H=0.012 23250-9 LOINC MANUAL DIFF NOT INDICATED RBC MORPH NOT INDICATED LIPID PANEL - Collect Date/T reid: 02/05/2025 10:00 [facility] ID: [id number] [place], [place], [phone] LOINC: 90121-6 Test Value Unit Reference Range Code Code System Flag FASTING NO CHOLESTEROL 222 mg/dL L=0 H=200 2092-3 LOINC H TRIGLYCERIDE 172 mg/dL L=0 H=150 2571-8 LOINC H HDL 53 mg/dL L=40 H=60 2084-9 LOINC LDL 116 mg/dL 2088-1 LOINC URINALYSIS w/Microscopy/C&S if indicated - Collect Date/Time: 02/05/2025 10:00 [facility] ID: [id number] [place], [place], [phone] LOINC: 24115-2 Test Value Unit Reference Range Code Code System Flag UR SOURCE VOIDED 58979-8 LOINC COLOR YELLOW YELLOW 5778-6 LOINC CLARITY SL CLOUDY CLEAR 70267-7 LOINC SPEC GRAVITY 1.020 1.000-1.030 5811-5 LOINC PH 6.5 5.0 - 6.5 5803-2 LOINC LEUK EST TRACE NEGATIVE 5799-2 LOINC A NITRATE NEGATIVE NEGATIVE PROTEIN NEGATIVE NEGATIVE 5804-0 LOINC GLUCOSE NEGATIVE NEGATIVE 17375-7 LOINC KETONES NEGATIVE NEGATIVE 79107-8 LOINC UROBILINOGEN 0.2 0.2 - 1.0 5818-0 LOINC BILIRUBIN NEGATIVE NEGATIVE 59018-0 LOINC BLOOD NEGATIVE NEGATIVE 85263-7 LOINC WBC 2-5 0 - 2 12767-0 LOINC RBC 0-2 0 - 2 41352-7 LOINC SQ EPITHELIAL RARE RARE-FEW BACTERIA NONE SEEN NONE SEEN 06104-0 LOINC MUCUS NONE SEEN NONE SEEN 8247-9 LOINC YEAST NOT PRESENT NOT PRESENT 40422-4 LOINC TRICHOMONAS NOT PRESENT NOT PRESENT 84696-0 LOINC SPERMATOZOA NOT PRESENT NOT PRESENT 29044-3 LOINC CASTS NOT PRESENT 23915-8 LOINC CRYSTALS NOT PRESENT 12571-2 LOINC CULTURE? NO 8251-1 LOINC DIAGNOSIS N/A MEDICAL PROFESSIONAL 15 - Co llect Date/Time: 02/05/2025 10:00 [facility] ID: [id number] [place], [place], [phone] LOINC: Test Value Unit Reference Range Code Code System Flag 6-Acetylmorphine, Urine Negative Cutoff=10 31012-2 LOINC Amphetamines Screen,Urine Negative Hzuwdh=838 16815-8 LOINC Barbiturates Negative Oagmei=046 62090-7 LOINC Benzodiazepines Negative Uwaijo=624 63213-8 LOINC Buprenorphine, Urine Negative Cutoff=10 08546-4 LOINC Cannabinoid See Final Results Cutoff=20 92348-4 LOINC Cocaine (Metab.), Urine Negative Hsvidp=098 20078-0 LOINC Ethyl GlucuronideScreen, Ur Negative Iqbsrv=735 33599-7 LOINC Fentanyl, Urine Negative Cutoff=2.0 93118-3 LOINC Methadone Screen, Urine Negative Siqqtg=620 72904-8 LOINC Opiates Negative Inuvsi=528 80382-6 LOINC Oxycodone/Oxymorphone, Urine Negative Bbvvuu=250 61916-5 LOINC PCP, Urine Negative Cutoff=25 20370-2 LOINC Propoxyphene, Urine Negative Lygcyf=028 91246-9 LOINC Tramadol Negative Zutgkp=857 97265-2 LOINC Creatinine, Urine 88.1 20.0-300.0 04269-1 LOINC pH, Urine 6.1 4.5-8.9 2756-5 LOINC Cannabinoid Positive Cutoff=20 94774-0 LOINC A Carboxy THC Conf, MS, UR 136 Cutoff=10 52094-7 LOINC TSH / REFLEX FT4 - Collect D ate/Time: 02/05/2025 10:00 [facility] ID: [id number] [place], [place], [phone] LOINC: Test Value Unit Reference Range Code Code System Flag TSH 2.720 uIU/L L=0.470 H=4.680 23902-4 LOINC COMPREHENSIVE METABOLIC PANE L - Collect Date/Time: 02/05/2025 10:00 [facility] ID: [id number] [place] [address], [phone] LOINC: 61364-0 Test Value Unit Reference Range Code Code System Flag FASTING NO BUN 15 mg/dL L=7 H=20 3094-0 LOINC CREATININE 0.90 mg/dL L=0.52 H=1.04 2160-0 LOINC GLUCOSE 109 mg/dL L=74 H=106 2345-7 LOINC H SODIUM 132 mmol/L L=132 H=144 2951-2 LOINC POTASSIUM 4.6 mmol/L L=3.5 H=5.1 2823-3 LOINC CHLORIDE 96 mmol/L L=98 H=107 2075-0 LOINC L CO2 26.0 mmol/L L=22.0 H=30.0 2028-9 LOINC ANION GAP 15 L=10 H=20 71840-3 LOINC OSMOLALITY 275 mOs/kG L=280 H=296 10924-3 LOINC L BUN/CREAT 16.7 3097-3 LOINC CALCIUM 9.3 mg/dL L=8.3 H=10.5 92064-9 LOINC AST 30 U/L L=15 H=46 1920-8 LOINC ALT 23 U/L L=9 H=72 1742-6 LOINC ALKALINE PHOS 94 U/L L=38 H=126 6768-6 LOINC TOTAL BILI 0.1 mg/dL L=0.2 H=1.3 1975-2 LOINC L ALBUMIN 4.3 G/dL L=3.5 H=5.0 1751-7 LOINC TOTAL PROTEIN 7.1 g/L L=6.3 H=8.2 2885-2 LOINC A/G RATIO 1.5 27945-8 LOINC AGE 59 37190-5 LOINC eGFR NON-AFR 68 ml/min eGFR AFR AMER 82 ml/min Social History Type Status Start Date End Date Code Code Syst em Smoking History Current every day smoker [id number] SNOMED CT Sex Female Medications Medication Start Date End Date Route Frequency Dose Code Code System Medication Instructions Home Meds Cyclobenzaprine HCl 10MG Oral Tablet 08/11/2024 03/11/2025 BY MOUTH 1 TABLET 580932 RxNorm TAKE 1 TABLET BY MOUTH FOR FOR MUSCLE SPASM. Chlorthalidone 25MG Oral Tablet 09/22/2024 Unknown ORAL ONCE A DAY 25 MILLIGRAMS 571154 RxNorm TAKE 25 MILLIGRAM S ORAL ONCE A DAY Escitalopram 20MG Oral Tablet 09/22/2024 Unknown ORAL ONCE A DAY 20 MILLIGRAMS 358483 RxNorm TAKE 20 MILLIGRAM S ORAL ONCE A DAY Gabapentin 800MG Oral Tablet 09/22/2024 Unknown ORAL THRE E TIME S A DAY 800 MILLIGRAMS 555310 RxNorm TAKE 800 MILLIGRAM S ORAL THREE TIMES A DAY HumaLOG Mix 75/25 KwikPen 75U/1ML-25U/1ML Subcutaneous Suspension 09/22/2024 03/11/2025 SUBCUTANE OUS DIRE CTED 1 unit(s) 861539 RxNorm INJECT INTO 1 EACH SUBCUTANE OUS DIRECTED Lantus SoloStar 100U/1ML Subcutaneous Solution 09/22/2024 03/11/2025 SUBCUTANE OUS AT BEDT REID 1 unit(s) 567295 RxNorm INJECT INTO 1 EACH SUBCUTANE OUS AT BEDTIME Levothyroxine Sodium 88MCG Oral Tablet 09/22/2024 Unknown ORAL ONCE A DAY 88 MCG 714358 RxNorm TAKE 88 MCG ORAL ONCE A DAY Lisinopril 40MG Oral Tablet 09/22/2024 Unknown ORAL ONCE A DAY 40 MILLIGRAMS 278737 RxNorm TAKE 40 MILLIGRAM S ORAL ONCE A DAY Metoprolol Tartrate 100MG Oral Tablet 09/22/2024 Unknown ORAL TWIC E A DAY 100 MILLIGRAMS 486025 RxNorm TAKE 100 MILLIGRAM S ORAL TWICE A DAY Nortriptyline 50MG Oral Capsule 09/22/2024 Unknown ORAL AT BEDT REID 50 MILLIGRAMS RxNorm TAKE 50 MILLIGRAM S ORAL AT BEDTIME Pravastatin Sodium 80MG Oral Tablet 09/22/2024 Unknown ORAL AT BEDT REID 80 MILLIGRAMS 847251 RxNorm TAKE 80 MILLIGRAM S ORAL AT BEDTIME QUEtiapine 100MG Oral Tablet 09/22/2024 Unknown ORAL AT BEDT REID 100 MILLIGRAMS 079637 RxNorm TAKE 100 MILLIGRAM S ORAL AT BEDTIME Trulicity 0.75MG/0.5ML Subcutaneous Solution 09/22/2024 03/11/2025 SUBCUTANE OUS ONCE A WEEK 1 unit(s) 8735211 RxNorm INJECT INTO 1 EACH SUBCUTANE OUS ONCE A WEEK Venlafaxine HCl 75MG Oral Tablet 09/22/2024 Unknown ORAL ONCE A DAY 150 MILLIGRAMS 820133 RxNorm TAKE 150 MILLIGRAM S ORAL ONCE A DAY amLODIPine Besylate 10MG Oral Tablet 09/22/2024 Unknown ORAL ONCE A DAY 10 MILLIGRAMS 871663 RxNorm TAKE 10 MILLIGRAM S ORAL ONCE A DAY carBAMazepine 200MG Oral Capsule, Extended Release 09/22/2024 Unknown ORAL TWIC E A DAY 200 MILLIGRAMS 088399 RxNorm TAKE 200 MILLIGRAM S ORAL TWICE A DAY hydrOXYzine HCl 50MG Oral Tablet 09/22/2024 Unknown ORAL ONCE A DAY 50 MILLIGRAMS 247712 RxNorm TAKE 50 MILLIGRAM S ORAL ONCE A DAY metFORMIN HCl 1000MG Oral Tablet 09/22/2024 Unknown ORAL TWIC E A DAY 1000 MILLIGRAMS 273646 RxNorm TAKE 1000 MILLIGRAM S ORAL TWICE A DAY rOPINIRole HCl 0.25MG Oral Tablet 09/22/2024 Unknown ORAL AT BEDT REID 0.25 MILLIGRAMS 568229 RxNorm TAKE 0.25 MILLIGRAM S ORAL AT BEDTIME traZODone hydrochloride 150MG Oral Tablet 09/22/2024 Unknown ORAL AT BEDT REID 150 MILLIGRAMS 864337 RxNorm TAKE 150 MILLIGRAM S ORAL AT BEDTIME clonazePAM 1MG Oral Tablet 09/22/2024 03/11/2025 ORAL THRE E TIME S A DAY 1 MILLIGRAMS 909097 RxNorm TAKE 1 MILLIGRAM S ORAL THREE TIMES A DAY Multivitamin Oral Tablet 10/13/2024 Unknown ORAL ONCE A DAY 1 unit(s) RxNorm TAKE 1 EACH ORAL ONCE A DAY Diclofenac Sodium 75MG Oral Tablet, Enteric Coated 11/27/2024 07/02/2025 BY MOUTH NEED ED 3 TIME S A DAY 1 TABLET 410075 RxNorm TAKE 1 TABLET BY MOUTH NEEDED 3 TIMES A DAY Meloxicam 15MG Oral Tablet 01/26/2025 02/23/2025 BY MOUTH ONCE A DAY 1 TABLET 850012 RxNorm TAKE 1 TABLET BY MOUTH DAILY Methocarbamol 500MG Oral Tablet 01/26/2025 02/23/2025 BY MOUTH NEED ED 3 TIME S A DAY 1 TABLET 19781225 RxNorm TAKE 1 TABLET BY MOUTH THREE TIMES DAILY NEEDED oxyCODONE HCl-acetaminophe n 5MG-325MG Oral Tablet 01/26/2025 03/11/2025 BY MOUTH NEED ED TWIC E A DAY 1 TABLET 0903204 RxNorm TAKE 1 TABLET BY MOUTH NEEDED TWICE A DAY Methocarbamol 500MG Oral Tablet 02/23/2025 03/26/2025 BY MOUTH NEED ED 3 TIME S A DAY 1 TABLET 132671 RxNorm TAKE 1 TABLET BY MOUTH NEEDED 3 TIMES A DAY Meloxicam 15MG Oral Tablet 02/23/2025 03/11/2025 BY MOUTH ONCE A DAY 1 TABLET 584101 RxNorm TAKE 1 TABLET BY MOUTH DAILY HumaLOG Mix 75/25 KwikPen 75U/1ML-25U/1ML Subcutaneous Suspension 03/16/2025 Unknown SUBCUTANE OUS THRE E TIME S A DAY 1 unit(s) 813461 RxNorm INJECT INTO 1 EACH SUBCUTANE OUS THREE TIMES A DAY Trulicity 1.5MG/0.5ML Subcutaneous Solution 03/16/2025 Unknown SUBCUTANE OUS ONCE A WEEK 1 unit(s) 6053315 RxNorm INJECT INTO 1 EACH SUBCUTANE OUS ONCE A WEEK clonazePAM 1MG Oral Tablet 03/16/2025 Unknown ORAL ONCE A DAY 1 MILLIGRAMS 19741101 RxNorm TAKE 1 MILLIGRAM S ORAL ONCE A DAY Meloxicam 15MG Oral Tablet 03/26/2025 06/29/2025 BY MOUTH ONCE A DAY 1 TABLET 754007 RxNorm TAKE 1 TABLET BY MOUTH ONCE A DAY Meloxicam 15MG Oral Tablet 06/29/2025 Unknown BY MOUTH ONCE A DAY 1 TABLET 995214 RxNorm TAKE 1 TABLET BY MOUTH DAILY [...] DISEASE WITHOUT ESOPHAGITISUNSPECIFIED INFLAMMATORY SPONDYLOPATHY, LUMBAR REGIONOTHER SENIOR CARE (CURRENT) DRUG THERAPY Hospital Discharge Instructions Should you have any questions prior to discharge, please contact a member of your healthcare team. If you have left the hospital and have any questions, please contact your primary care physician. Reason For Referral No Data Found Problems Problem Start Date Resolved Date Status Code Code System ENCOUNTER FOR SCREENING FOR OTHER VIRAL DISEASES active [id number] SNOMED- CT ABDOMINAL PAIN active 64774434 SNOME D-CT PAIN IN BACK active 287394495 SNOMED- CT ANXIETY DISORDER, UNSPECIFIED active 595941956 SNOMED-CT DEPRESSION, UNSPECIFIED active 575396 07 SNOMED-CT SCHIZOPHRENIA, UNSPECIFIED active 582 60352 SNOMED-CT HYPERLIPIDEMIA, UNSPECIFIED active 55 140106 SNOMED-CT PERSONAL HISTORY OF OTHER MALIGNANT NEOPLASM OF SKIN active 192646267 S NOMED-CT BIPOLAR DISORDER, UNSPECIFIED active 96493027 SNOMED-CT ENCOUNTER FOR SCREENING EXAMINATION FOR OTHER MENTAL HEALTH AND BEHAVIORAL DISOR active 782544447 SNOMED-CT ENCOUNTER FOR SCREENING, UNSPECIFIED active 499349632 SNOMED-CT ENCOUNTER FOR GENERAL ADULT MEDICAL EXAMINATION WITHOUT ABNORMAL FINDINGS active 402368147 SNOMED-CT ENCOUNTER FOR OTHER SCREENIN G FOR MALIGNANT NEOPLASM OF BREAST active 336753116 SNOMED-CT TYPE 2 DIABETES MELLITUS WITHOUT COMPLICATIONS active 993884092 SNOMED -CT DORSALGIA, UNSPECIFIED active 1848558 05 SNOMED-CT ESSENTIAL (PRIMARY) HYPERTENSION active 16952429 SNOMED-CT THYROTOXICOSIS, 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 19374487 SNOMED-CT GASTRO-ESOPHAGEAL REFLUX DISEASE WITHOUT ESOPHAGITIS active 532279464 SNOMED-CT UNSPECIFIED INFLAMMATORY SPONDYLOPATHY, LUMBAR REGION active 096542220 SNOMED-CT OTHER SENIOR CARE (CURRENT) DR UG THERAPY active 768530343 SNOMED-CT Allergies and Adverse Reactions Allergy Substance Reaction Severity Start Date Concern Status Code Code System SULFA (sulfonamide) Hives (SNOMED-CT: 225225157) Moderate Active 32352263 SNOMED-CT CEPHALOSPORIN Itching (SNOMED-CT: 368148545) Moderate Active 887304357 SNOMED-CT KETOROLAC NAUSEA (SNOMED-CT: null) Moderate Active 14881 RxNorm IODINE Hives (SNOMED-CT: 831807656) Moderate Active 5933 RxNorm ADHESIVE Rash (SNOMED-CT: 833364464) Moderate Active LATEX BLISTERS (SNOMED-CT: null) Moderate Active 4962974 RxNorm TEA TREE OIL BLISTERS (SNOMED-CT: null) Moderate Active 92515 RxNorm FLAGYL 375 TONGUE SWELLING (SNOMED-CT: null) Moderate Active 131492 RxNorm MOTRIN NAUSEA (SNOMED-CT: null) Moderate Active 720733 RxNorm PENICILLIN Hives (SNOMED-CT: 005403979) Moderate Active Plan of Treatment SI Joint [...]
--- OUTSIDE RECORDS SUMMARY | 2025-08-22 21:46 | XMS_ITS ---
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 Name Role Phone MILES DAVIS Attending Unavailable PHOENIX MCCLAIN Primary Unavailable Immunization Immunization Date Status Additional Notes Code Code System influenza, unspecified formulation 07/04/2019 Completed 88 CVX Tdap 08/05/2021 Completed 115 CVX Influenza, MDCK, trivalent, PF 05/14/2024 Completed 153 CVX Pneumococcal conjugate PCV20 , polysaccharide BEL641 conjugate, adjuvant, PF 05/14/2024 Completed 216 CVX Social History Type Status Start Date End Date Code Code Syst em Smoking History Current every day smoker 718336766 SNOMED CT Sex Female Vital Signs Vital Sign Value Unit Crewe Value Crewe Unit Date/Time Recent/Initial? Code Code System Body Mass Index 37.31 kg/m2 01/26/2025 13:34 Most Recent 94740 -5 LOINC Body Mass Index 37.31 kg/m2 01/21/2025 09:30 Initial 66550 -5 LOINC Systolic Blood Pressure 165 mm[Hg] 01/26/2025 13:33 Initial 8480- 6 LOINC Diastolic Blood Pressure 85 mm[Hg] 01/26/2025 13:33 Initial 8462- 4 LOINC Body Surface Area 2.01 m2 01/26/2025 13:34 Most Recent 3140- 1 LOINC Body Surface Area 2.01 m2 01/21/2025 09:30 Initial 3140- 1 LOINC Height 157.480 0 cm 62.00 in 01/26/2025 13:34 Most Recent 8302- 2 LOINC Height 157.480 0 cm 62.00 in 01/21/2025 09:30 Initial 8302- 2 LOINC O2 Saturation 99 % 2024 13:33 Initial 06355 -5 LOINC Pulse 77.0 /min 01/26/2025 13:33 Initial 8867- 4 LOINC Respiration 16 /min 01/27/20 13:33 Initial 9279- 1 INC Temperature 36.1 Gloria 97.0 F 01/27/20 13:33 Initial 8310- 5 INC Weight 92.53 kg 204.00 lbs 01/26/2025 13:34 Most Recent 76596 -7 LOINC Weight 92.53 kg 204.00 lbs 01/21/2025 09:30 Initial 58886 -7 [facility] Medications Medication Start Date End Date Route Frequency Dose Code Code System Medication Instructions Home Meds Cyclobenzaprine HCl 10MG Oral Tablet 08/11/2024 03/11/2025 BY MOUTH 1 TABLET 289747 RxNorm TAKE 1 TABLET BY MOUTH FOR FOR MUSCLE SPASM. Chlorthalidone 25MG Oral Tablet 09/22/2024 Unknown ORAL ONCE A DAY 25 MILLIGRAMS 927218 RxNorm TAKE 25 MILLIGRAM S ORAL ONCE A DAY Escitalopram 20MG Oral Tablet 09/22/2024 Unknown ORAL ONCE A DAY 20 MILLIGRAMS 925743 RxNorm TAKE 20 MILLIGRAM S ORAL ONCE A DAY Gabapentin 800MG Oral Tablet 09/22/2024 Unknown ORAL THRE E TIME S A DAY 800 MILLIGRAMS 791795 RxNorm TAKE 800 MILLIGRAM S ORAL THREE TIMES A DAY HumaLOG Mix 75/25 KwikPen 75U/1ML-25U/1ML Subcutaneous Suspension 09/22/2024 03/11/2025 SUBCUTANE OUS DIRE CTED 1 unit(s) 157738 RxNorm INJECT INTO 1 EACH SUBCUTANE OUS DIRECTED Lantus SoloStar 100U/1ML Subcutaneous Solution 09/22/2024 03/11/2025 SUBCUTANE OUS AT BEDT CARO 1 unit(s) 565657 RxNorm INJECT INTO 1 EACH SUBCUTANE OUS AT BEDTIME Levothyroxine Sodium 88MCG Oral Tablet 09/22/2024 Unknown ORAL ONCE A DAY 88 MCG 898974 RxNorm TAKE 88 MCG ORAL ONCE A DAY Lisinopril 40MG Oral Tablet 09/22/2024 Unknown ORAL ONCE A DAY 40 MILLIGRAMS 160875 RxNorm TAKE 40 MILLIGRAM S ORAL ONCE A DAY Metoprolol Tartrate 100MG Oral Tablet 09/22/2024 Unknown ORAL TWIC E A DAY 100 MILLIGRAMS 412942 RxNorm TAKE 100 MILLIGRAM S ORAL TWICE A DAY Nortriptyline 50MG Oral Capsule 09/22/2024 Unknown ORAL AT BEDT CARO 50 MILLIGRAMS RxNorm TAKE 50 MILLIGRAM S ORAL AT BEDTIME Pravastatin Sodium 80MG Oral Tablet 09/22/2024 Unknown ORAL AT BEDT CARO 80 MILLIGRAMS 300012 RxNorm TAKE 80 MILLIGRAM S ORAL AT BEDTIME QUEtiapine 100MG Oral Tablet 09/22/2024 Unknown ORAL AT BEDT CARO 100 MILLIGRAMS 164283 RxNorm TAKE 100 MILLIGRAM S ORAL AT BEDTIME Trulicity 0.75MG/0.5ML Subcutaneous Solution 09/22/2024 03/11/2025 SUBCUTANE OUS ONCE A WEEK 1 unit(s) 8203472 RxNorm INJECT INTO 1 EACH SUBCUTANE OUS ONCE A WEEK Venlafaxine HCl 75MG Oral Tablet 09/22/2024 Unknown ORAL ONCE A DAY 150 MILLIGRAMS 805941 RxNorm TAKE 150 MILLIGRAM S ORAL ONCE A DAY amLODIPine Besylate 10MG Oral Tablet 09/22/2024 Unknown ORAL ONCE A DAY 10 MILLIGRAMS 269547 RxNorm TAKE 10 MILLIGRAM S ORAL ONCE A DAY carBAMazepine 200MG Oral Capsule, Extended Release 09/22/2024 Unknown ORAL TWIC E A DAY 200 MILLIGRAMS 966149 RxNorm TAKE 200 MILLIGRAM S ORAL TWICE A DAY hydrOXYzine HCl 50MG Oral Tablet 09/22/2024 Unknown ORAL ONCE A DAY 50 MILLIGRAMS 747150 RxNorm TAKE 50 MILLIGRAM S ORAL ONCE A DAY metFORMIN HCl 1000MG Oral Tablet 09/22/2024 Unknown ORAL TWIC E A DAY 1000 MILLIGRAMS 205678 RxNorm TAKE 1000 MILLIGRAM S ORAL TWICE A DAY rOPINIRole HCl 0.25MG Oral Tablet 09/22/2024 Unknown ORAL AT BEDT CARO 0.25 MILLIGRAMS 682447 RxNorm TAKE 0.25 MILLIGRAM S ORAL AT BEDTIME traZODone hydrochloride 150MG Oral Tablet 09/22/2024 Unknown ORAL AT BEDT CARO 150 MILLIGRAMS 304951 RxNorm TAKE 150 MILLIGRAM S ORAL AT [...] 3 TIME S A DAY 1 TABLET 889080 RxNorm TAKE 1 TABLET BY MOUTH NEEDED 3 TIMES A DAY Meloxicam 15MG Oral Tablet 01/26/2025 02/23/2025 BY MOUTH ONCE A DAY 1 TABLET 812206 RxNorm TAKE 1 TABLET BY MOUTH DAILY Methocarbamol 500MG Oral Tablet 01/26/2025 02/23/2025 BY MOUTH NEED ED 3 TIME S A DAY 1 TABLET 270727 RxNorm TAKE 1 TABLET BY MOUTH THREE TIMES DAILY NEEDED oxyCODONE HCl-acetaminophe n 5MG-325MG Oral Tablet 01/26/2025 03/11/2025 BY MOUTH NEED ED TWIC E A DAY 1 TABLET 4048856 RxNorm TAKE 1 TABLET BY MOUTH NEEDED TWICE A DAY Methocarbamol 500MG Oral Tablet 02/23/2025 03/26/2025 BY MOUTH NEED ED 3 TIME S A DAY 1 TABLET 154538 RxNorm TAKE 1 TABLET BY MOUTH NEEDED 3 TIMES A DAY Meloxicam 15MG Oral Tablet 02/23/2025 03/11/2025 BY MOUTH ONCE A DAY 1 TABLET 929014 RxNorm TAKE 1 TABLET BY MOUTH DAILY HumaLOG Mix 75/25 KwikPen 75U/1ML-25U/1ML Subcutaneous Suspension 03/16/2025 Unknown SUBCUTANE OUS THRE E TIME S A DAY 1 unit(s) 415194 RxNorm INJECT INTO 1 EACH SUBCUTANE OUS THREE TIMES A DAY Trulicity 1.5MG/0.5ML Subcutaneous Solution 03/16/2025 Unknown SUBCUTANE OUS ONCE A WEEK 1 unit(s) 2145526 RxNorm INJECT INTO 1 EACH SUBCUTANE OUS ONCE A WEEK clonazePAM 1MG Oral Tablet 03/16/2025 Unknown ORAL ONCE A DAY 1 MILLIGRAMS 19741101 RxNorm TAKE 1 MILLIGRAM S ORAL ONCE A DAY Meloxicam 15MG Oral Tablet 03/26/2025 06/29/2025 BY MOUTH ONCE A DAY 1 TABLET 111611 RxNorm TAKE 1 TABLET BY MOUTH ONCE A DAY Meloxicam 15MG Oral Tablet 06/29/2025 Unknown BY MOUTH ONCE A DAY 1 TABLET 179465 RxNorm TAKE 1 TABLET BY MOUTH DAILY [...] DISEASE WITHOUT ESOPHAGITISUNSPECIFIED INFLAMMATORY SPONDYLOPATHY, LUMBAR REGIONOTHER GLASSIE (CURRENT) DRUG THERAPY Hospital Discharge Instructions Should you have any questions prior to discharge, please contact a member of your healthcare team. If you have left the hospital and have any questions, please contact your primary care physician. Reason For Referral No Data Found Procedures Procedure Name Date Status Code Code Syste m DSTR NROLYTC AGNT PARVERTEB FCT ADDL LMBR/SACRAL 01/26/2025 completed 01417 CPT DSTR NROLYTC AGNT PARVERTEB FCT SNGL LMBR/SACRAL 01/26/2025 completed 75020 CPT DSTR NROLYTC AGNT PARVERTEB FCT SNGL LMBR/SACRAL 01/26/2025 completed 70587 CPT DSTR NROLYTC AGNT PARVERTEB FCT ADDL LMBR/SACRAL 01/26/2025 completed 26986 CPT Problems Problem Start Date Resolved Date Status Code Code System ENCOUNTER FOR SCREENING FOR OTHER VIRAL DISEASES active 082669841 SNOMED- CT ABDOMINAL PAIN active 79078737 SNOME D-CT PAIN IN BACK active 235128466 SNOMED- CT ANXIETY DISORDER, UNSPECIFIED active 299390172 SNOMED-CT DEPRESSION, UNSPECIFIED active 901663 07 SNOMED-CT SCHIZOPHRENIA, UNSPECIFIED active 583 55855 SNOMED-CT HYPERLIPIDEMIA, UNSPECIFIED active 55 283933 SNOMED-CT PERSONAL HISTORY OF OTHER MALIGNANT NEOPLASM OF SKIN active 626622168 S NOMED-CT BIPOLAR DISORDER, UNSPECIFIED active 04961333 SNOMED-CT ENCOUNTER FOR SCREENING EXAMINATION FOR OTHER MENTAL HEALTH AND BEHAVIORAL DISOR active 825658546 SNOMED-CT ENCOUNTER FOR SCREENING, UNSPECIFIED active 018508671 SNOMED-CT ENCOUNTER FOR GENERAL ADULT MEDICAL EXAMINATION WITHOUT ABNORMAL FINDINGS active 035785647 SNOMED-CT ENCOUNTER FOR OTHER SCREENIN G FOR MALIGNANT NEOPLASM OF BREAST active 415365419 SNOMED-CT TYPE 2 DIABETES MELLITUS WITHOUT COMPLICATIONS active 347554299 SNOMED -CT DORSALGIA, UNSPECIFIED active 9160555 05 SNOMED-CT ESSENTIAL (PRIMARY) HYPERTENSION active 66057607 SNOMED-CT THYROTOXICOSIS, 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 42860565 SNOMED-CT GASTRO-ESOPHAGEAL REFLUX DISEASE WITHOUT ESOPHAGITIS active 170804750 SNOMED-CT UNSPECIFIED INFLAMMATORY SPONDYLOPATHY, LUMBAR REGION active 492858197 SNOMED-CT OTHER GLASSIE (CURRENT) DR UG THERAPY active 873796723 SNOMED-CT Allergies and Adverse Reactions Allergy Substance Reaction Severity Start Date Concern Status Code Code System SULFA (sulfonamide) Hives (SNOMED-CT: 996502450) Moderate Active 51914648 SNOMED-CT CEPHALOSPORIN Itching (SNOMED-CT: 766404708) Moderate Active 415330811 SNOMED-CT KETOROLAC NAUSEA (SNOMED-CT: null) Moderate Active 09936 RxNorm IODINE Hives (SNOMED-CT: 970690525) Moderate Active 5933 RxNorm ADHESIVE Rash (SNOMED-CT: 280526597) Moderate Active LATEX BLISTERS (SNOMED-CT: null) Moderate Active 1275224 RxNorm TEA TREE OIL BLISTERS (SNOMED-CT: null) Moderate Active 04878 RxNorm FLAGYL 375 TONGUE SWELLING (SNOMED-CT: null) Moderate Active 190154 RxNorm MOTRIN NAUSEA (SNOMED-CT: null) Moderate Active 20240501 RxNorm PENICILLIN Hives (SNOMED-CT: 214116762) Moderate Active Plan of Treatment SI Joint [...] without myelopat hy or radiculopathy, lumbar region 01/26/2025 SNOMED-CT Personal Care Team Section Performer Name Performer Role Active Date Inactive Maxi Green PCP - Primary care physician 2024-07-11 Procedures Notes [facility] 01/26/2025 14:13 All Demographics Patient Name Age Sex Visit Number Admission Date/Time Attending Physician Date of Service Room and Bed Emergency Contact RUSSELL GAYTAN 1965 59 years Female [id number] 01/26/2025 12:57 Shahab Romano 01/26/2025 SDS-7 LUCILA CORRINA PADMA - [id number] Pain Management Procedural Note I had an extensive discussion with the [...] Meds: Dose and Freq Medication Dosage Frequency Pravastatin Sodium 80MG Oral Tablet 80 MILLIGRAMS AT BEDTIME Trulicity 0.75MG/0.5ML Subcutaneous Solution 1 EACH ONCE A WEEK QUEtiapine 100MG Oral Tablet 100 MILLIGRAMS AT BEDTIME Venlafaxine HCl 75MG Oral Tablet 150 MILLIGRAMS ONCE A DAY amLODIPine Besylate 10MG [...] Oral Tablet 1 EACH ONCE A DAY Nortriptyline 50MG Oral Capsule 50 MILLIGRAMS AT BEDTIME Lisinopril 40MG Oral Tablet [...] Cyclobenzaprine HCl 10MG Oral Tablet 1 TABLET Diclofenac Sodium 75MG Oral Tablet, Enteric Coated 1 TABLET NEEDED 3 TIMES A DAY RFA of the Lumbar Medial Branch Nerves of the BILATERAL L4-L5, L5-S1 with Static Fluoroscopic Guidance Provider: Shahab Romano CRNA [facility] Pre-Operative Diagnosis: 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 A sterile prep with chlorhexidine was applied and allowed a 3- minute drying time. A full length fenestrated sterile drape was applied to the lumbar region. A time-out occurred with all members of the operative team, as well as the patient, agreeing to the location and type of procedure. The fluoroscopic beam was placed in the A/P projection angle. The Bilateral L4- 5, L5-S1 superior articulating process and the associated pedicle were visualized. A skin entry point louis was made at this point corresponding to the location of the Medial Branch Nerves. A 27-gauge needle was used to deposit 1ml of 2% Lidocaine with epi into the skin and subcutaneous tissue at the previously marked skin entry sites. An 18-gauge Radio-Frequency venom needle with a 10mm active tip(s) were advanced to paths of the lumbar medial branch of Bilateral L4-5, L5-S1. Needle stylet was removed, and 0.5mL of contrast 240mg dye was injected into each of these locations to confirm No vascular uptake. The 28-gauge, 10cm electrode TCD stylet was then inserted into the needles at each level and attached to the Radiofrequency Generator. Configuration of generator was as follows: Sensory Rate = 50Hz, Sensory Width = 1ms, Sensory Auto Ramp = 1.0 V, Sensory Ramp Speed = Fast Ramp. Motor rate = 2 Hz, motor with = 1 ms, motor auto ramp = 2.5 V, motor ramp speed = medium ramp. Max sensory = 3.0 V, Max motor = 3.0 V. Thermal Radiofrequency Ablation: Set Temp = 80C, Set Time = 1.30 minutes, Stagger Start = 10 seconds, Mode = Standard, Auto Ramp = On, Electrode Power = 18 W, Ramp Rate = Max. Initiation of the Sensory Test mode resulted in paresthesia in the lumbar or lower extremity region. Initiation of the Motor Test mode resulted in No motor activity of the upper or lower leg. Resistance in the ablation castillo were noted to be between 120 350 Ohms. The TCD electrodes were removed from the venom needles and 3ml of 1% MPF Lidocaine and 1.66mg PF Decadron was injected into each needle and the TCD electrode replaced. The Generator was activated, and sequential Radio-Frequency Ablation took place at each level with confirmed delivered temperature of 80 degrees Celsius for a period of 1 minute and 30 seconds. The needles and electrodes were removed, band-aides applied to each site and the patient was transported back to the short stay unit. Procedural medications for sedation are documented in the intraoperative nurses notes, if used. Instructions were that pain in the ablation area may increase over the next few days then subside. The patient is to note if they were to develop any severe back or leg pain, fever, or loss of sensation or motor movement in lower extremities; they are to go to the Emergency Room and the ER staff is to contact the Pain Provider or person head neck surgeon for Anesthesia. The patient was discharged home. Follow-up with Pain Management in 4-6 weeks. Provider Signature: LITO Lewis
--- OUTSIDE RECORDS SUMMARY | 2025-08-22 21:46 | XMS_ITS | Patient Health Record ---
Author Organization [facility] Address [address] [place] [address] Support Name Relationship Address Phone Nahid Sotoie Guarantor Unknown [phone] Reason For Referral No Information Medications Medication SIG (Take, Route, Frequency, Duration) Notes Start Date End Date Status HumaLOG KwikPen 100 UNIT/ML Syringe inject 20 units by subcutaneous route every morning 20units at lunch, 25units at bedtime Subcutaneous ([facility]) Active Amitriptyline HCl 50 MG Tablet take 1 tablet (50MG) by oral route every day at bedtime Oral ([facility]) 11/27/2013 Active Lantus 100 UNIT/ML Vial inject 70 units by subcutaneous route once as per insulin protocol Subcutaneous ([facility]) Active Simvastatin 40 MG Tablet take 1 tablet b y oral route every day in the evening Oral ([facility]) Active ProAir HFA 108 (90 Base) MCG/ACT Inhaler inhale 2 puff by inhalation route every 4 - 6 hours as needed Inhalation ([facility]) 09/25/2013 Active Tylenol with Codeine #3 300-30 MG Tablet take 1 tablet by oral route every 12 hours as needed Oral ([facility]) 10/30/2013 Active Vitamin D3 2000 UNIT Capsule take 1 by Oral route every day Oral ([facility]) 09/25/2013 Active Gabapentin 100 MG Capsule take 1 Capsule by oral route 3 times every day as needed Oral ([facility]) 09/25/2013 Active Famotidine 20 MG Tablet take 1 tablet (2 0MG) by oral route 2 times every day Oral ([facility]) 09/25/2013 Active metFORMIN HCl 500 MG Tablet take 1 tablet by oral route 2 times every day with morning and evening meals Oral ([facility]) Active Lasix 20 MG Tablet take 1 tablet by ora l route every day as needed for swelling Oral ([facility]) 09/25/2013 Active carBAMazepine 200 MG Tablet take 1.5 Tablet by Oral route 2 times every day Oral ([facility]) 11/27/2013 Active Atenolol 25 MG Tablet take 1 tablet (25M G) by oral route every day Oral ([facility]) 11/27/2013 Active Losartan Potassium-HCTZ 50-12.5 MG Tablet take 1 tablet by oral route every day Oral ([facility]) 05/31/2014 Active Problems Problem Type SNOMED Code ICD Code Onset Dates Problem Status W/U Status Risk Notes Problem Information temporarily unavailable Diabetes with neurological manifestations, type II or unspecified type, not stated as uncontrolled (250.60) 11/28/19 14 Active confirmed ([facility]) Added By: Eric Calderon Problem Information temporarily unavailable Diabetes mellitus without mention of complication, type II or unspecified type, uncontrolled (250.02) 06/08/20 11 Active confirmed ([facility]) Added By: Nettie Howell Problem Information temporarily unavailable Obesity, unspecified (278.00) 06/08/20 11 Active confirmed ([facility]) Added By: Nettie Howell Problem Information temporarily unavailable Bipolar disorder, unspecified (296.80) 11/28/19 14 Active confirmed ([facility]) Added By: Eric Calderon Problem Information temporarily unavailable Borderline personality disorder (301.83) 11/28/19 14 Active confirmed ([facility]) Added By: Eric Calderon Problem Information temporarily unavailable Unspecified essential hypertension (401.9) 11/28/19 14 Active confirmed ([facility]) Added By: Eric Calderon Problem Information temporarily unavailable Adhesive capsulitis of shoulder (726.0) 11/28/19 14 Active confirmed ([facility]) Added By: Eric Calderon Plan Of Treatment No Information Medical (General) History Surgical History Surgery Date(Month/Year) Tonsillectomy Hysterectomy section Cholecystectomy
--- OUTSIDE RECORDS SUMMARY | 2025-08-22 21:46 | XMS_ITS ---
Author Organization Unknown Address [address] [place] [address] [phone] Phone Care Team Providers Care Ultrasound Specialist Name Role Phone GENEVIEVE RADER Attending Unavailable PHOENIX MCCLAIN Primary Unavailable Immunization Immunization Date Status Additional Notes Code Code System influenza, unspecified formulation 07/04/2019 Completed 88 CVX Tdap 08/05/2021 Completed 115 CVX Influenza, MDCK, trivalent, PF 05/14/2024 Completed 153 CVX Pneumococcal conjugate PCV20 , polysaccharide [id number] conjugate, adjuvant, PF 05/14/2024 Completed 216 CVX Social History Type Status Start Date End Date Code Code Syst em Smoking History Current every day smoker 693954585 SNOMED CT Sex Female Medications Medication Start Date End Date Route Frequency Dose Code Code System Medication Instructions Home Meds Cyclobenzaprine HCl 10MG Oral Tablet 08/11/2024 03/11/2025 BY MOUTH 1 TABLET 243946 RxNorm TAKE 1 TABLET BY MOUTH FOR FOR MUSCLE SPASM. Chlorthalidone 25MG Oral Tablet 09/22/2024 Unknown ORAL ONCE A DAY 25 MILLIGRAMS 169395 RxNorm TAKE 25 MILLIGRAM S ORAL ONCE A DAY Escitalopram 20MG Oral Tablet 09/22/2024 Unknown ORAL ONCE A DAY 20 MILLIGRAMS 522955 RxNorm TAKE 20 MILLIGRAM S ORAL ONCE A DAY Gabapentin 800MG Oral Tablet 09/22/2024 Unknown ORAL THRE E TIME S A DAY 800 MILLIGRAMS 870494 RxNorm TAKE 800 MILLIGRAM S ORAL THREE TIMES A DAY HumaLOG Mix 75/25 KwikPen 75U/1ML-25U/1ML Subcutaneous Suspension 09/22/2024 03/11/2025 SUBCUTANE OUS DIRE CTED 1 unit(s) 581688 RxNorm INJECT INTO 1 EACH SUBCUTANE OUS DIRECTED Lantus SoloStar 100U/1ML Subcutaneous Solution 09/22/2024 03/11/2025 SUBCUTANE OUS AT BEDT CARO 1 unit(s) 495791 RxNorm INJECT INTO 1 EACH SUBCUTANE OUS AT BEDTIME Levothyroxine Sodium 88MCG Oral Tablet 09/22/2024 Unknown ORAL ONCE A DAY 88 MCG 779859 RxNorm TAKE 88 MCG ORAL ONCE A DAY Lisinopril 40MG Oral Tablet 09/22/2024 Unknown ORAL ONCE A DAY 40 MILLIGRAMS 075894 RxNorm TAKE 40 MILLIGRAM S ORAL ONCE A DAY Metoprolol Tartrate 100MG Oral Tablet 09/22/2024 Unknown ORAL TWIC E A DAY 100 MILLIGRAMS 731917 RxNorm TAKE 100 MILLIGRAM S ORAL TWICE A DAY Nortriptyline 50MG Oral Capsule 09/22/2024 Unknown ORAL AT BEDT CARO 50 MILLIGRAMS RxNorm TAKE 50 MILLIGRAM S ORAL AT BEDTIME Pravastatin Sodium 80MG Oral Tablet 09/22/2024 Unknown ORAL AT BEDT CARO 80 MILLIGRAMS 041712 RxNorm TAKE 80 MILLIGRAM S ORAL AT BEDTIME QUEtiapine 100MG Oral Tablet 09/22/2024 Unknown ORAL AT BEDT CARO 100 MILLIGRAMS 619952 RxNorm TAKE 100 MILLIGRAM S ORAL AT BEDTIME Trulicity 0.75MG/0.5ML Subcutaneous Solution 09/22/2024 03/11/2025 SUBCUTANE OUS ONCE A WEEK 1 unit(s) 4022551 RxNorm INJECT INTO 1 EACH SUBCUTANE OUS ONCE A WEEK Venlafaxine HCl 75MG Oral Tablet 09/22/2024 Unknown ORAL ONCE A DAY 150 MILLIGRAMS 301311 RxNorm TAKE 150 MILLIGRAM S ORAL ONCE A DAY amLODIPine Besylate 10MG Oral Tablet 09/22/2024 Unknown ORAL ONCE A DAY 10 MILLIGRAMS 149823 RxNorm TAKE 10 MILLIGRAM S ORAL ONCE [...] ORAL TWIC E A DAY 1000 MILLIGRAMS 259793 RxNorm TAKE 1000 MILLIGRAM S ORAL TWICE A DAY rOPINIRole HCl 0.25MG Oral Tablet 09/22/2024 Unknown ORAL AT BEDT CARO 0.25 MILLIGRAMS 892241 RxNorm TAKE 0.25 MILLIGRAM S ORAL AT BEDTIME traZODone hydrochloride 150MG Oral Tablet 09/22/2024 Unknown ORAL AT BEDT CARO 150 MILLIGRAMS 549722 RxNorm TAKE 150 MILLIGRAM S ORAL AT BEDTIME hydrOXYzine HCl 50MG Oral Tablet 09/22/2024 Unknown ORAL ONCE A DAY 50 MILLIGRAMS 676873 RxNorm TAKE 50 MILLIGRAM S ORAL ONCE A DAY Multivitamin Oral Tablet 10/13/2024 Unknown ORAL ONCE A DAY 1 unit(s) RxNorm TAKE 1 EACH ORAL ONCE A DAY Meloxicam 15MG Oral Tablet 10/24/2024 01/26/2025 BY MOUTH ONCE A DAY 1 TABLET 373988 RxNorm TAKE 1 TABLET BY MOUTH ONCE A DAY Diclofenac Sodium 75MG Oral Tablet, Enteric Coated 11/27/2024 07/02/2025 BY MOUTH NEED ED 3 TIME S A DAY 1 TABLET 182233 RxNorm TAKE 1 TABLET BY MOUTH NEEDED 3 TIMES A DAY Methocarbamol 500MG Oral Tablet 12/22/2024 01/26/2025 BY MOUTH NEED ED 3 TIME S A DAY 1 TABLET 816818 RxNorm TAKE 1 TABLET BY MOUTH THREE TIMES DAILY NEEDED Meloxicam 15MG Oral Tablet 01/26/2025 02/23/2025 BY MOUTH ONCE A DAY 1 TABLET 376223 RxNorm TAKE 1 TABLET BY MOUTH DAILY Methocarbamol 500MG Oral Tablet 01/26/2025 02/23/2025 BY MOUTH NEED ED 3 TIME S A DAY 1 TABLET 533196 RxNorm TAKE 1 TABLET BY MOUTH THREE TIMES DAILY NEEDED oxyCODONE HCl-acetaminophe n 5MG-325MG Oral Tablet 01/26/2025 03/11/2025 BY MOUTH NEED ED TWIC E A DAY 1 TABLET [id number] RxNorm TAKE 1 TABLET BY MOUTH NEEDED TWICE A DAY Meloxicam 15MG Oral Tablet 02/23/2025 03/11/2025 BY MOUTH ONCE A DAY 1 TABLET 711892 RxNorm TAKE 1 TABLET BY MOUTH DAILY Methocarbamol 500MG Oral Tablet 02/23/2025 03/26/2025 BY MOUTH NEED ED 3 TIME S A DAY 1 TABLET 053987 RxNorm TAKE 1 TABLET BY MOUTH NEEDED 3 TIMES A DAY HumaLOG Mix 75/25 KwikPen 75U/1ML-25U/1ML Subcutaneous Suspension 03/16/2025 Unknown SUBCUTANE OUS THRE E TIME S A DAY 1 unit(s) 150375 RxNorm INJECT INTO 1 EACH SUBCUTANE OUS THREE TIMES A DAY Trulicity 1.5MG/0.5ML Subcutaneous Solution 03/16/2025 Unknown SUBCUTANE OUS ONCE A WEEK 1 unit(s) 3231295 RxNorm INJECT INTO 1 EACH SUBCUTANE OUS ONCE A WEEK clonazePAM 1MG Oral Tablet 03/16/2025 Unknown ORAL ONCE A DAY 1 MILLIGRAMS 306395 RxNorm TAKE 1 MILLIGRAM S ORAL ONCE A DAY Meloxicam 15MG Oral Tablet 03/26/2025 06/29/2025 BY MOUTH ONCE A DAY 1 TABLET 895895 RxNorm TAKE 1 TABLET BY MOUTH ONCE A DAY Meloxicam 15MG Oral Tablet 06/29/2025 Unknown BY MOUTH ONCE A DAY 1 TABLET 548977 RxNorm TAKE 1 TABLET BY MOUTH DAILY [...] DISEASE WITHOUT ESOPHAGITISUNSPECIFIED INFLAMMATORY SPONDYLOPATHY, LUMBAR REGIONOTHER CORRECTION (CURRENT) DRUG THERAPY Hospital Discharge Instructions Should you have any questions prior to discharge, please contact a member of your healthcare team. If you have left the hospital and have any questions, please contact your primary care physician. Reason For Referral No Data Found Problems Problem Start Date Resolved Date Status Code Code System ENCOUNTER FOR SCREENING FOR OTHER VIRAL DISEASES active 312907486 SNOMED- CT ABDOMINAL PAIN active 08680746 SNOME D-CT PAIN IN BACK active 384233713 SNOMED- CT ANXIETY DISORDER, UNSPECIFIED active 396447079 SNOMED-CT DEPRESSION, UNSPECIFIED active 049642 07 SNOMED-CT SCHIZOPHRENIA, UNSPECIFIED active 582 59711 SNOMED-CT HYPERLIPIDEMIA, UNSPECIFIED active 67 720200 SNOMED-CT PERSONAL HISTORY OF OTHER MALIGNANT NEOPLASM OF SKIN active 586723073 S NOMED-CT BIPOLAR DISORDER, UNSPECIFIED active 15322693 SNOMED-CT ENCOUNTER FOR SCREENING EXAMINATION FOR OTHER MENTAL HEALTH AND BEHAVIORAL DISOR active 989940085 SNOMED-CT ENCOUNTER FOR SCREENING, UNSPECIFIED active 093654772 SNOMED-CT ENCOUNTER FOR GENERAL ADULT MEDICAL EXAMINATION WITHOUT ABNORMAL FINDINGS active 757825843 SNOMED-CT ENCOUNTER FOR OTHER SCREENIN G FOR MALIGNANT NEOPLASM OF BREAST active 315390237 SNOMED-CT TYPE 2 DIABETES MELLITUS WITHOUT COMPLICATIONS active 962857214 SNOMED -CT DORSALGIA, UNSPECIFIED active 3544013 05 SNOMED-CT ESSENTIAL (PRIMARY) HYPERTENSION active 58994558 SNOMED-CT THYROTOXICOSIS, 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 33902268 SNOMED-CT GASTRO-ESOPHAGEAL REFLUX DISEASE WITHOUT ESOPHAGITIS active 318614493 SNOMED-CT UNSPECIFIED INFLAMMATORY SPONDYLOPATHY, LUMBAR REGION active 051110903 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-CT 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 223766683 SNOMED-CT Allergies and Adverse Reactions Allergy Substance Reaction Severity Start Date Concern Status Code Code System SULFA (sulfonamide) Hives (SNOMED-CT: 233242620) Moderate Active 38583080 SNOMED-CT CEPHALOSPORIN Itching (SNOMED-CT: 780887996) Moderate Active 263409115 SNOMED-CT KETOROLAC NAUSEA (SNOMED-CT: null) Moderate Active 52692 RxNorm IODINE Hives (SNOMED-CT: 241781893) Moderate Active 5933 RxNorm ADHESIVE Rash (SNOMED-CT: 605196859) Moderate Active LATEX BLISTERS (SNOMED-CT: null) Moderate Active 4705837 RxNorm TEA TREE OIL BLISTERS (SNOMED-CT: null) Moderate Active 98732 RxNorm FLAGYL 375 TONGUE SWELLING (SNOMED-CT: null) Moderate Active 20280228 RxNorm MOTRIN NAUSEA (SNOMED-CT: null) Moderate Active 20240501 RxNorm PENICILLIN Hives (SNOMED-CT: 595409543) Moderate Active Plan of Treatment SI Joint [...] Diagnosis Start Date Code Code Sys tem Cellulitis of left lower limb 01/17/2025 SNOMED-CT Personal Care Team Section Performer Name Performer Role Active Date Inactive Maxi Green PCP - Primary care physician 2024-07-11
--- OUTSIDE RECORDS SUMMARY | 2025-08-22 21:46 | XMS_ITS ---
Author Organization Unknown Address [address] [place] [address] [phone] Phone Care Team Providers Care Direct Of Real [employer] Name Role Phone MILES DAVIS Attending Unavailable PHOENIX MCCLAIN Primary Unavailable Immunization Immunization Date Status Additional Notes Code Code System influenza, unspecified formulation 07/04/2019 Completed 88 CVX Tdap 08/05/2021 Completed 115 CVX Influenza, MDCK, trivalent, PF 05/14/2024 Completed 153 CVX Pneumococcal conjugate PCV20 , polysaccharide [id number] conjugate, adjuvant, PF 05/14/2024 Completed 216 CVX Social History Type Status Start Date End Date Code Code Syst em Smoking History Current every day smoker 570612379 SNOMED CT Sex Female Vital Signs Vital Sign Value Unit [facility] Value [facility] Unit Date/Time Recent/Initial? Code Code System Body Mass Index 36.58 kg/m2 03/16/2025 12:32 Most Recent 96691 -5 LOINC Body Mass Index 36.40 kg/m2 03/11/2025 09:39 Initial 38408 -5 LOINC Systolic Blood Pressure 162 mm[Hg] 03/16/2025 12:32 Initial 8480- 6 LOINC Diastolic Blood Pressure 81 mm[Hg] 03/16/2025 12:32 Initial 8462- 4 LOINC Body Surface Area 1.99 m2 03/16/2025 12:32 Most Recent 3140- 1 LOINC Body Surface Area 1.99 m2 03/11/2025 09:39 Initial 3140- 1 LOINC Height 157.480 0 cm 62.00 in 03/16/2025 12:32 Most Recent 8302- 2 LOINC Height 157.480 0 cm 62.00 in 03/11/2025 09:39 Initial 8302- 2 LOINC O2 Saturation 98 % 2024 12:32 Initial 46526 -5 LOINC Pulse 67.0 /min 03/16/2025 12:32 Initial 8867- 4 [facility] Temperature 36.3 Gloria 97.3 F 03/16/20 12:32 Initial 8310- 5 [facility] Weight 90.72 kg 200.00 lbs 03/16/2025 12:32 Most Recent 84840 -7 [facility] Weight 90.26 kg 199.00 lbs 03/11/2025 09:39 Initial 69582 -7 [facility] Medications Medication Start Date End Date Route Frequency Dose Code Code System Medication Instructions Home Meds Chlorthalidone 25MG Oral Tablet 09/22/2024 Unknown ORAL ONCE A DAY 25 MILLIGRAMS 394429 RxNorm TAKE 25 MILLIGRAMS ORAL ONCE A DAY Escitalopram 20MG Oral Tablet 09/22/2024 Unknown ORAL ONCE A DAY 20 MILLIGRAMS 148927 RxNorm TAKE 20 MILLIGRAMS ORAL ONCE A DAY Gabapentin 800MG Oral Tablet 09/22/2024 Unknown ORAL THREE TIMES A DAY 800 MILLIGRAMS 178844 RxNorm TAKE 800 MILLIGRAMS ORAL THREE TIMES A DAY Levothyroxine Sodium 88MCG Oral Tablet 09/22/2024 Unknown ORAL ONCE A DAY 88 MCG 519279 RxNorm TAKE 88 MCG ORAL ONCE A DAY Lisinopril 40MG Oral Tablet 09/22/2024 Unknown ORAL ONCE A DAY 40 MILLIGRAMS 590854 RxNorm TAKE 40 MILLIGRAMS ORAL ONCE A DAY Metoprolol Tartrate 100MG Oral Tablet 09/22/2024 Unknown ORAL TWICE A DAY 100 MILLIGRAMS 566427 RxNorm TAKE 100 MILLIGRAMS ORAL TWICE A DAY Nortriptyline 50MG Oral Capsule 09/22/2024 Unknown ORAL AT BEDTIM E 50 MILLIGRAMS RxNorm TAKE 50 MILLIGRAMS ORAL AT BEDTIME Pravastatin Sodium 80MG Oral Tablet 09/22/2024 Unknown ORAL AT BEDTIM E 80 MILLIGRAMS 044637 RxNorm TAKE 80 MILLIGRAMS ORAL AT BEDTIME QUEtiapine 100MG Oral Tablet 09/22/2024 Unknown ORAL AT BEDTIM E 100 MILLIGRAMS 653720 RxNorm TAKE 100 MILLIGRAMS ORAL AT BEDTIME Venlafaxine HCl 75MG Oral Tablet 09/22/2024 Unknown ORAL ONCE A DAY 150 MILLIGRAMS 226118 RxNorm TAKE 150 MILLIGRAMS ORAL ONCE A DAY amLODIPine Besylate 10MG Oral Tablet 09/22/2024 Unknown ORAL ONCE A DAY 10 MILLIGRAMS 729274 RxNorm TAKE 10 MILLIGRAMS ORAL ONCE A DAY carBAMazepine 200MG Oral Capsule, Extended Release 09/22/2024 Unknown ORAL TWICE A DAY 200 MILLIGRAMS 384853 RxNorm TAKE 200 MILLIGRAMS ORAL TWICE A DAY hydrOXYzine HCl 50MG Oral Tablet 09/22/2024 Unknown ORAL ONCE A DAY 50 MILLIGRAMS 473309 RxNorm TAKE 50 MILLIGRAMS ORAL ONCE A DAY metFORMIN HCl 1000MG Oral Tablet 09/22/2024 Unknown ORAL TWICE A DAY 1000 MILLIGRAMS 738995 RxNorm TAKE 1000 MILLIGRAMS ORAL TWICE A DAY rOPINIRole HCl 0.25MG Oral Tablet 09/22/2024 Unknown ORAL AT BEDTIM E 0.25 MILLIGRAMS 891511 RxNorm TAKE 0.25 MILLIGRAMS ORAL AT BEDTIME traZODone hydrochloride 150MG Oral Tablet 09/22/2024 Unknown ORAL AT BEDTIM E 150 MILLIGRAMS 477593 RxNorm TAKE 150 MILLIGRAMS ORAL AT BEDTIME Multivitamin Oral Tablet 10/13/2024 Unknown ORAL ONCE A DAY 1 unit(s) RxNorm TAKE 1 EACH ORAL ONCE A DAY Diclofenac Sodium 75MG Oral Tablet, Enteric Coated 11/27/2024 07/02/20 25 BY MOUTH NEEDED 3 TIMES A DAY 1 TABLET 359824 RxNorm TAKE 1 TABLET BY MOUTH NEEDED 3 TIMES A DAY Methocarbamol 500MG Oral Tablet 02/23/2025 03/26/20 25 BY MOUTH NEEDED 3 TIMES A DAY 1 TABLET 454624 RxNorm TAKE 1 TABLET BY MOUTH NEEDED 3 TIMES A DAY HumaLOG Mix 75/25 KwikPen 75U/1ML-25U/1ML Subcutaneous Suspension 03/16/2025 Unknown SUBCUTA NEOUS THREE TIMES A DAY 1 unit(s) 055564 RxNorm INJECT INTO 1 EACH SUBCUTANEOUS THREE TIMES A DAY Trulicity 1.5MG/0.5ML Subcutaneous Solution 03/16/2025 Unknown SUBCUTA NEOUS ONCE A WEEK 1 unit(s) 2186124 RxNorm INJECT INTO 1 EACH SUBCUTANEOUS ONCE A WEEK clonazePAM 1MG Oral Tablet 03/16/2025 Unknown ORAL ONCE A DAY 1 MILLIGRAMS 072639 RxNorm TAKE 1 MILLIGRAMS ORAL ONCE A DAY Meloxicam 15MG Oral Tablet 03/26/2025 06/29/20 25 BY MOUTH ONCE A DAY 1 TABLET 602284 RxNorm TAKE 1 TABLET BY MOUTH ONCE A DAY Meloxicam 15MG Oral Tablet 06/29/2025 Unknown BY MOUTH ONCE A DAY 1 TABLET 079440 RxNorm TAKE 1 TABLET BY MOUTH DAILY [...] DISEASE WITHOUT ESOPHAGITISUNSPECIFIED INFLAMMATORY SPONDYLOPATHY, LUMBAR REGIONOTHER LONG-TERM (CURRENT) DRUG THERAPY Hospital Discharge Instructions Should [...] ANES/STEROID W/ALIYAH; (-LT Left side of body) 03/16/2025 completed 72971 C PT INJECT SI JOINT ARTHRGRPHY&/ ANES/STEROID W/ALIYAH; (-RT Right side of body) 03/16/2025 completed 92835 CPT Problems Problem Start Date Resolved Date Status Code Code System ENCOUNTER FOR SCREENING FOR OTHER VIRAL DISEASES active 123723659 SNOMED- CT ABDOMINAL PAIN active 85930867 SNOME D-CT PAIN IN BACK active 320644115 SNOMED- CT ANXIETY DISORDER, UNSPECIFIED active 773867941 SNOMED-CT DEPRESSION, UNSPECIFIED active 012347 07 SNOMED-CT SCHIZOPHRENIA, UNSPECIFIED active 582 39296 SNOMED-CT HYPERLIPIDEMIA, UNSPECIFIED active 55 433983 SNOMED-CT PERSONAL HISTORY OF OTHER MALIGNANT NEOPLASM OF SKIN active 172634659 S NOMED-CT BIPOLAR DISORDER, UNSPECIFIED active 37773169 SNOMED-CT ENCOUNTER FOR SCREENING EXAMINATION FOR OTHER MENTAL HEALTH AND BEHAVIORAL DISOR active 901539142 SNOMED-CT ENCOUNTER FOR SCREENING, UNSPECIFIED active 189768847 SNOMED-CT ENCOUNTER FOR GENERAL ADULT MEDICAL EXAMINATION WITHOUT ABNORMAL FINDINGS active 449781838 SNOMED-CT ENCOUNTER FOR OTHER SCREENIN G FOR MALIGNANT NEOPLASM OF BREAST active 770318795 SNOMED-CT TYPE 2 DIABETES MELLITUS WITHOUT COMPLICATIONS active 294762915 SNOMED -CT DORSALGIA, UNSPECIFIED active 1517641 05 SNOMED-CT ESSENTIAL (PRIMARY) HYPERTENSION active 08982133 SNOMED-CT THYROTOXICOSIS, 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 19138541 SNOMED-CT GASTRO-ESOPHAGEAL REFLUX DISEASE WITHOUT ESOPHAGITIS active 514265369 SNOMED-CT UNSPECIFIED INFLAMMATORY SPONDYLOPATHY, LUMBAR REGION active 881350425 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 535876085 SNOMED-CT Allergies and Adverse Reactions Allergy Substance Reaction Severity Start Date Concern Status Code Code System SULFA (sulfonamide) Hives (SNOMED-CT: 004770198) Moderate Active 12086523 SNOMED-CT CEPHALOSPORIN Itching (SNOMED-CT: 985427837) Moderate Active 142583385 SNOMED-CT KETOROLAC NAUSEA (SNOMED-CT: null) Moderate Active 35423 RxNorm IODINE Hives (SNOMED-CT: 677370059) Moderate Active 5933 RxNorm ADHESIVE Rash (SNOMED-CT: 623648416) Moderate Active LATEX BLISTERS (SNOMED-CT: null) Moderate Active 2726816 RxNorm TEA TREE OIL BLISTERS (SNOMED-CT: null) Moderate Active 22357 RxNorm FLAGYL 375 TONGUE SWELLING (SNOMED-CT: null) Moderate Active 676605 RxNorm MOTRIN NAUSEA (SNOMED-CT: null) Moderate Active 382353 RxNorm PENICILLIN Hives (SNOMED-CT: 230437683) Moderate Active Plan of Treatment SI Joint Injection Bilateral 03/16/2025 OR SI Joint Injection 03/16/2025 SI Joint Injection Bilateral 03/16/2025 OR SI Joint Injection 03/16/2025 Diag Medial Branch Block Lumbar #2 040 03/2025 OR Diagnostic Medial Branch Block 12/29 [...] Performer Name Performer Role Active Date Inactive Da te Lalo Krishnamurthy PCP - Primary care physician 2024-07-11 Procedures Notes [facility] 03/16/2025 13:13 All Demographics Patient Name Age Sex Visit Number Admission Date/Time Attending Physician Date of Service Room and Bed Emergency Contact RUSSELL GAYTAN 1965 59 years Female [id number] 03/16/2025 12:07 Shahab Romano 03/16/2025 SDS-5 [facility] - [id number] Pain Management Procedural Note I had an [...] Meds: Dose and Freq Medication Dosage Frequency Chlorthalidone 25MG Oral Tablet 25 MILLIGRAMS ONCE A DAY Escitalopram 20MG Oral Tablet 20 MILLIGRAMS ONCE A DAY Gabapentin 800MG Oral Tablet 800 MILLIGRAMS THREE TIMES A DAY Levothyroxine Sodium 88MCG Oral Tablet 88 MCG [...] Extended Release 200 MILLIGRAMS TWICE A DAY hydrOXYzine HCl 50MG Oral Tablet 50 MILLIGRAMS ONCE A DAY metFORMIN HCl 1000MG Oral Tablet 1000 MILLIGRAMS TWICE A DAY rOPINIRole HCl 0.25MG Oral Tablet 0.25 MILLIGRAMS AT BEDTIME traZODone hydrochloride 150MG Oral Tablet 150 MILLIGRAMS AT BEDTIME Multivitamin Oral Tablet 1 EACH ONCE A DAY Diclofenac Sodium 75MG Oral Tablet, Enteric Coated 1 TABLET NEEDED 3 TIMES A DAY Methocarbamol 500MG Oral Tablet 1 TABLET NEEDED 3 TIMES A DAY Meloxicam 15MG Oral Tablet 1 TABLET ONCE A DAY Trulicity 1.5MG/0.5ML Subcutaneous Solution 1 EACH ONCE A WEEK clonazePAM 1MG Oral Tablet 1 MILLIGRAMS ONCE A DAY HumaLOG Mix 75/25 KwikPen 75U/1ML-25U/1ML Subcutaneous Suspension 1 EACH THREE TIMES A DAY Bilateral Sacroiliac Joint Steroid Injection Provider: Shahab Romano CRNA NSPM-C Pre-Operative Diagnosis: Sacroiliitis (Inflammation of SIJ) - M46.11 Sacroiliac Joint (SIJ) Pain - M53.3 Sacroiliac Joint Injection-BILATERAL - 22797-88 Post-Operative Diagnosis: Same Location of Procedure: [ x] OR [ ] Clinic Complications: None Moderate Sedation: Not Applicable to this Procedure Description of Procedure in Detail: The patient was placed in the prone position. The skin was prepped in the usual sterile fashion with chlorhexidine and maximum barrier technique. A 27-gauge needle was used to anesthetize the skin with 2ml 2% Lidocaine. A 22-gauge 3.5-inch spinal needle was advanced into the posteroinferior aspect of the left SI joint under direct fluoroscopic visualization. After confirmation of the intra-articular position of the needle tip with injection pf 0.5ml of Omnipaque 240 contrast medium, a mixture of 0.5ml of Kenalog (40mg/ml) and 2.5ml of Ropivicaine (0.5%) was injected. The patient tolerated the procedure well. The patient was placed in the prone [...] 0.5ml of Kenalog (40mg/ml) and 2.5ml of Ropivicaine (0.5%) was injected. The patient tolerated the procedure well. Follow-up will be within 2 weeks. EBL: Minimal Provider Signature: Shahab Romano CRNA NSPM-C
--- OUTSIDE RECORDS SUMMARY | 2025-08-22 21:46 | XMS_ITS ---
Author Organization Unknown Address [address] [place] [address] [phone] Phone Care Team Providers Care Retail Pharm[facility] Merchandiser Name Role Phone MILES DAVIS Attending Unavailable PHOENIX MCCLAIN Primary Unavailable Immunization Immunization Date Status Additional Notes Code Code System influenza, unspecified formulation 07/04/2019 Completed 88 CVX Tdap 08/05/2021 Completed 115 CVX Influenza, MDCK, trivalent, PF 05/14/2024 Completed 153 CVX Pneumococcal conjugate PCV20 , polysaccharide [id number] conjugate, adjuvant, PF 05/14/2024 Completed 216 CVX Social History Type Status Start Date End Date Code Code Syst em Smoking History Current every day smoker 564522316 SNOMED CT Sex Female Vital Signs Vital Sign Value Unit [place] Value [place] Unit Date/Time Recent/Initial? Code Code System Body Mass Index 36.40 kg/m2 08/11/2024 09:36 Initial 31839 -5 [facility] Systolic Blood Pressure 111 mm[Hg] 08/11/2024 09:36 Initial 8480- 6 [facility] Diastolic Blood Pressure 75 mm[Hg] 08/11/2024 09:36 Initial 8462- 4 [facility] Body Surface Area 1.99 m2 08/11/2024 09:36 Initial 3140- 1 [facility] Height 157.480 0 cm 62.00 in 08/11/2024 09:36 Initial 8302- 2 [facility] O2 Saturation 99 % 2023 09:36 Initial 06671 -5 [facility] Pulse 82.0 /min 08/11/2024 09:36 Initial 8867- 4 [facility] Temperature 37.0 Gloria 98.6 F 08/11/20 09:36 Initial 8310- 5 [facility] Weight 90.26 kg 199.00 lbs 08/11/2024 09:36 Initial 82281 -7 [facility] Medications Medication Start Date End Date Route Frequency Dose Code Code System Medication Instructions Home Meds Meloxicam 15MG Oral Tablet 08/11/2024 10/24/2024 BY MOUTH ONCE A DAY 1 TABLET 118447 RxNorm TAKE 1 TABLET BY MOUTH ONCE A DAY Cyclobenzapri ne HCl 10MG Oral Tablet 08/11/2024 03/11/2025 BY MOUTH 1 TABLET 229491 RxNorm TAKE 1 TABLET BY MOUTH FOR FOR MUSCLE SPASM. Escitalopram 20MG Oral Tablet 09/22/2024 Unknown ORAL ONCE A DAY 20 MILLIGRAM S 436258 RxNorm TAKE 20 MILLIGRAM S ORAL ONCE A DAY Gabapentin 800MG Oral Tablet 09/22/2024 Unknown ORAL THREE TIMES A DAY 800 MILLIGRAM S 197018 RxNorm TAKE 800 MILLIGRAM S ORAL THREE TIMES A DAY HumaLOG Mix 75/25 KwikPen 75U/1ML-25U/1 ML Subcutaneous Suspension 09/22/2024 03/11/2025 SUBCUTANE OUS DIRECTED 1 unit(s) 162110 RxNorm INJECT INTO 1 EACH SUBCUTANE OUS DIRECTED Lantus SoloStar 100U/1ML Subcutaneous Solution 09/22/2024 03/11/2025 SUBCUTANE OUS AT BEDTIME 1 unit(s) 902102 RxNorm INJECT INTO 1 EACH SUBCUTANE OUS AT BEDTIME Levothyroxine Sodium 88MCG Oral Tablet 09/22/2024 Unknown ORAL ONCE A DAY 88 MCG 495532 RxNorm TAKE 88 MCG ORAL ONCE A DAY Lisinopril 40MG Oral Tablet 09/22/2024 Unknown ORAL ONCE A DAY 40 MILLIGRAM S 194701 RxNorm TAKE 40 MILLIGRAM S ORAL ONCE A DAY Metoprolol Tartrate 100MG Oral Tablet 09/22/2024 Unknown ORAL TWICE A DAY 100 MILLIGRAM S 855492 RxNorm TAKE 100 MILLIGRAM S ORAL TWICE A DAY Nortriptyline 50MG Oral Capsule 09/22/2024 Unknown ORAL AT BEDTIME 50 MILLIGRAM S RxNorm TAKE 50 MILLIGRAM S ORAL AT BEDTIME Pravastatin Sodium 80MG Oral Tablet 09/22/2024 Unknown ORAL AT BEDTIME 80 MILLIGRAM S 871613 RxNorm TAKE 80 MILLIGRAM S ORAL AT BEDTIME QUEtiapine 100MG Oral Tablet 09/22/2024 Unknown ORAL AT BEDTIME 100 MILLIGRAM S 488275 RxNorm TAKE 100 MILLIGRAM S ORAL AT BEDTIME Trulicity 0.75MG/0.5ML Subcutaneous Solution 09/22/2024 03/11/2025 SUBCUTANE OUS ONCE A WEEK 1 unit(s) 9904797 RxNorm INJECT INTO 1 EACH SUBCUTANE OUS ONCE A WEEK Venlafaxine HCl 75MG Oral Tablet 09/22/2024 Unknown ORAL ONCE A DAY 150 MILLIGRAM S 816246 RxNorm TAKE 150 MILLIGRAM S ORAL ONCE A DAY Vitamin D3 10 MCG Oral Tablet 09/22/2024 12/29/2024 ORAL ONCE A DAY 10 MCG 864162 RxNorm TAKE 10 MCG ORAL ONCE A DAY amLODIPine Besylate 10MG Oral Tablet 09/22/2024 Unknown ORAL ONCE A DAY 10 MILLIGRAM S 029949 RxNorm TAKE 10 MILLIGRAM S ORAL ONCE A DAY carBAMazepine 200MG Oral Capsule, Extended Release 09/22/2024 Unknown ORAL TWICE A DAY 200 MILLIGRAM S 443758 RxNorm TAKE 200 MILLIGRAM S ORAL TWICE A DAY clonazePAM 1MG Oral Tablet 09/22/2024 03/11/2025 ORAL THREE TIMES A DAY 1 MILLIGRAM S 172193 RxNorm TAKE 1 MILLIGRAM S ORAL THREE TIMES A DAY metFORMIN HCl 1000MG Oral Tablet 09/22/2024 Unknown ORAL TWICE A DAY 1000 MILLIGRAM S 572479 RxNorm TAKE 1000 MILLIGRAM S ORAL TWICE A DAY rOPINIRole HCl 0.25MG Oral Tablet 09/22/2024 Unknown ORAL AT BEDTIME 0.25 MILLIGRAM S 707519 RxNorm TAKE 0.25 MILLIGRAM S ORAL AT BEDTIME traZODone hydrochloride 150MG Oral Tablet 09/22/2024 Unknown ORAL AT BEDTIME 150 MILLIGRAM S 549449 RxNorm TAKE 150 MILLIGRAM S ORAL AT BEDTIME hydrOXYzine HCl 50MG Oral Tablet 09/22/2024 Unknown ORAL ONCE A DAY 50 MILLIGRAM S 231753 RxNorm TAKE 50 MILLIGRAM S ORAL ONCE A DAY Chlorthalidon e 25MG Oral Tablet 09/22/2024 Unknown ORAL ONCE A DAY 25 MILLIGRAM S 921855 RxNorm TAKE 25 MILLIGRAM S ORAL ONCE A DAY Multivitamin Oral Tablet 10/13/2024 Unknown ORAL ONCE A DAY 1 unit(s) RxNorm TAKE 1 EACH ORAL ONCE A DAY Meloxicam 15MG Oral Tablet 10/24/2024 01/26/2025 BY MOUTH ONCE A DAY 1 TABLET 683411 RxNorm TAKE 1 TABLET BY MOUTH ONCE A DAY Methocarbamol 500MG Oral Tablet 11/27/2024 12/22/2024 BY MOUTH NEEDED 3 TIMES A DAY 1 TABLET 978092 RxNorm TAKE 1 TABLET BY MOUTH NEEDED 3 TIMES A DAY Diclofenac Sodium 75MG Oral Tablet, Enteric Coated 11/27/2024 07/02/2025 BY MOUTH NEEDED 3 TIMES A DAY 1 TABLET 859977 RxNorm TAKE 1 TABLET BY MOUTH NEEDED 3 TIMES A DAY Methocarbamol 500MG Oral Tablet 12/22/2024 01/26/2025 BY MOUTH NEEDED 3 TIMES A DAY 1 TABLET 508395 RxNorm TAKE 1 TABLET BY MOUTH THREE TIMES DAILY NEEDED oxyCODONE HCl-acetamino phen 5MG-325MG Oral Tablet 01/26/2025 03/11/2025 BY MOUTH NEEDED TWICE A DAY 1 TABLET 1435948 RxNorm TAKE 1 TABLET BY MOUTH NEEDED TWICE A DAY Meloxicam 15MG Oral Tablet 01/26/2025 02/23/2025 BY MOUTH ONCE A DAY 1 TABLET 035691 RxNorm TAKE 1 TABLET BY MOUTH DAILY Methocarbamol 500MG Oral Tablet 01/26/2025 02/23/2025 BY MOUTH NEEDED 3 TIMES A DAY 1 TABLET 693676 RxNorm TAKE 1 TABLET BY MOUTH THREE TIMES DAILY NEEDED Meloxicam 15MG Oral Tablet 02/23/2025 03/11/2025 BY MOUTH ONCE A DAY 1 TABLET 776301 RxNorm TAKE 1 TABLET BY MOUTH DAILY Methocarbamol 500MG Oral Tablet 02/23/2025 03/26/2025 BY MOUTH NEEDED 3 TIMES A DAY 1 TABLET 041076 RxNorm TAKE 1 TABLET BY MOUTH NEEDED 3 TIMES A DAY HumaLOG Mix 75/25 KwikPen 75U/1ML-25U/1 ML Subcutaneous Suspension 03/16/2025 Unknown SUBCUTANE OUS THREE TIMES A DAY 1 unit(s) 701249 RxNorm INJECT INTO 1 EACH SUBCUTANE OUS THREE TIMES A DAY Trulicity 1.5MG/0.5ML Subcutaneous Solution 03/16/2025 Unknown SUBCUTANE OUS ONCE A WEEK 1 unit(s) 7914634 RxNorm INJECT INTO 1 EACH SUBCUTANE OUS ONCE A WEEK clonazePAM 1MG Oral Tablet 03/16/2025 Unknown ORAL ONCE A DAY 1 MILLIGRAM S 689493 RxNorm TAKE 1 MILLIGRAM S ORAL ONCE A DAY Meloxicam 15MG Oral Tablet 03/26/2025 06/29/2025 BY MOUTH ONCE A DAY 1 TABLET 189205 RxNorm TAKE 1 TABLET BY MOUTH ONCE A DAY Meloxicam 15MG Oral Tablet 06/29/2025 Unknown BY MOUTH ONCE A DAY 1 TABLET 174807 RxNorm TAKE 1 TABLET BY MOUTH DAILY [...] DISEASE WITHOUT ESOPHAGITISUNSPECIFIED INFLAMMATORY SPONDYLOPATHY, LUMBAR REGIONOTHER ASSISTED (CURRENT) DRUG THERAPY Hospital Discharge Instructions Should you have any questions prior to discharge, please contact a member of your healthcare team. If you have left the hospital and have any questions, please contact your primary care physician. Reason For Referral No Data Found Procedures Procedure Name Date Status Code Code Syste m Release of trigger finger completed 736811403 SNOMEDCT Cholecystectomy completed 78825243 SNOMEDCT Tonsillectomy completed SNOMEDCT section completed 12712826 SNOMEDCT section completed 90916635 SNOMEDCT Cholecystectomy completed 39620300 SNOMEDCT CARPAL TUNNEL SURGERY completed 030455110 SNO MEDCT Tonsillectomy completed SNOMEDCT Knee surgery completed 7269696 SNOMEDCT Release of trigger finger completed 244648328 SNOMEDCT Problems Problem Start Date Resolved Date Status Code Code System ENCOUNTER FOR SCREENING FOR OTHER VIRAL DISEASES active 696385205 SNOMED- CT ABDOMINAL PAIN active 45481814 SNOME D-CT PAIN IN BACK active 759542190 SNOMED- CT ANXIETY DISORDER, UNSPECIFIED active 127066661 SNOMED-CT DEPRESSION, UNSPECIFIED active 229003 07 SNOMED-CT SCHIZOPHRENIA, UNSPECIFIED active 582 61147 SNOMED-CT HYPERLIPIDEMIA, UNSPECIFIED active 55 387428 SNOMED-CT PERSONAL HISTORY OF OTHER MALIGNANT NEOPLASM OF SKIN active 895493155 S NOMED-CT BIPOLAR DISORDER, UNSPECIFIED active 69194051 SNOMED-CT ENCOUNTER FOR SCREENING EXAMINATION FOR OTHER MENTAL HEALTH AND BEHAVIORAL DISOR active 855961531 SNOMED-CT ENCOUNTER FOR SCREENING, UNSPECIFIED active 780027665 SNOMED-CT ENCOUNTER FOR GENERAL ADULT MEDICAL EXAMINATION WITHOUT ABNORMAL FINDINGS active 208498253 SNOMED-CT ENCOUNTER FOR OTHER SCREENIN G FOR MALIGNANT NEOPLASM OF BREAST active 159740918 SNOMED-CT TYPE 2 DIABETES MELLITUS WITHOUT COMPLICATIONS active 449525468 SNOMED -CT DORSALGIA, UNSPECIFIED active 3048478 05 SNOMED-CT ESSENTIAL (PRIMARY) HYPERTENSION active 87714217 SNOMED-CT THYROTOXICOSIS, 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 27762979 SNOMED-CT GASTRO-ESOPHAGEAL REFLUX DISEASE WITHOUT ESOPHAGITIS active 436711512 SNOMED-CT UNSPECIFIED INFLAMMATORY SPONDYLOPATHY, LUMBAR REGION active 023017879 SNOMED-CT OTHER ASSISTED (CURRENT) DR UG THERAPY active 333840798 SNOMED-CT Allergies and Adverse Reactions Allergy Substance Reaction Severity Start Date Concern Status Code Code System SULFA (sulfonamide) Hives (SNOMED-CT: 582542266) Moderate Active 46038004 SNOMED-CT CEPHALOSPORIN Itching (SNOMED-CT: 746879918) Moderate Active 664950241 SNOMED-CT KETOROLAC NAUSEA (SNOMED-CT: null) Moderate Active 86785 RxNorm IODINE Hives (SNOMED-CT: 646498387) Moderate Active 5933 RxNorm ADHESIVE Rash (SNOMED-CT: 202231956) Moderate Active LATEX BLISTERS (SNOMED-CT: null) Moderate Active 7329119 RxNorm TEA TREE OIL BLISTERS (SNOMED-CT: null) Moderate Active 81243 RxNorm FLAGYL 375 TONGUE SWELLING (SNOMED-CT: null) Moderate Active 285240 RxNorm MOTRIN NAUSEA (SNOMED-CT: null) Moderate Active 413221 RxNorm PENICILLIN Hives (SNOMED-CT: 827563342) Moderate Active Plan of Treatment SI Joint [...] 06/01/2025 Follow Up 06/01/2025 Office Injection 06/01/2025 Plan Meloxicam 15 mg once a day Lumbar MRI on a day when patient changing Dexcom Bilateral SI joint injections Encounters Encounter Diagnosis Start Date Code Code Sys tem Radiculopathy, lumbar region 08/11/2024 SNOMED-CT Personal Care Team Section Performer Name Performer Role Active Date Inactive Maxi Green PCP - Primary care physician 2024-07-11 Progress Notes [facility] 08/11/2024 13:44 All Demographics Patient Name Age Sex Visit Number Admission Date/Time Attending Physician Date of Service Room and Bed Emergency Contact RUSSELL GAYTAN 1965 59 years Female [id number] 08/11/2024 09:14 Shahab Romano 08/11/2024 04-OP ZOEY ZELAYA - [id number] PAIN MANAGEMENT HISTORY & PHYSICAL Vital Signs: Most Recent Today Date/Time BP (mm/Hg) BP Position/Site Heart Rate Resp Temp (F) SPO2% O2 Device Pain Score Height (in) Weight (lbs/ozs) BMI Systolic Diastolic Pulse Site O2 L/min 08/11/2024 09:36 111/75 Sitting/Right Arm 82 98.6 Tympanic 99 % Room Air 21% 9 62 in 199.0 36.4 111 75 Pulse Ox Chief Complaint: Pain in back History of Present Illness: Patient reports excessive back pain Location: Lower back, bilateral knees Quality: Per patient excruciating stabbing back pain Duration: Pt states this has been ongoing for years Timing: From the time she wakes until she goes to bed, she experiences pain in her lower back. Alleviating Factors: Pt states physical therapy and injections do not help. She states only hydrocodone will help with pain relief. Also uses THC balm Associated Symptoms: Pain into bilateral legs Pain History: Ongoing for years. PHQ-9 Depression Screening Patient condition has declined since last screening Patient condition has improved since last screening x No previous screening Patient declined screening PHQ-9 Score Assessment: N/A: PHQ-9 not performed/Patient declined 0-4: Not an indicator of depression 5-9: Indicates mild depression 10-14: Indicates moderate depression x 15-19: Indicates moderately severe depression 20-27: Indicates severe depression Depression Remission Indicated: Yes, previous PHQ-9 score >9 in the past 12 months with current score <5 x Previous PHQ-9 score or date is unknown Previous PHQ-9 score is 5 or higher SARBJIT-7 Score Assessment: N/A: SARBJIT-7 not performed/Patient declined 0-4: Minimal Anxiety 5-9: Mild Anxiety x 10-14: Moderate Anxiety 15-19: Severe Anxiety Review of Systems Constitutional: denies [...] therapy due to pain at this time. Axial Low Back Pain Assessment Patient ambulates [...] this time due to her extreme pain. Patient has not had a lumbar MRI in the past. We will order a lumbar MRI and consider epidural steroid injection pending results. Sacroiliac Joint Assessment Patient is positive for SI joint pain. Patient has pain with femoral sheer test and also gapping tests. FABERS is positive. Positive Aminah Finger test. Patient has pain with prolonged standing and sitting. Pain is worse in the AM when they wake. Pain is significant enough that is causing difficulty with activities of daily living. Recommend trial of SIJ injection. Educated on procedure, benefits, and risks and patient wishes to move forward. Patient states that she has been on [...] of chronic opiate use. Patient verbalizes understanding. Radiology: Imaging reviewed with patient Pain Treatment History: Conservative Measures Tried and Failed: Heat/Ice, Home exercises, rest Medications Trialed: gabapentin, hydrocodone, muscle relaxers, anti inflammatories Previous Interventional Pain Procedures: none Plan Meloxicam 15 mg once a day Lumbar MRI on a day when patient changing Dexcom Bilateral SI joint injections Problem List Encounter for screening for other [...] Gastro-esophageal reflux disease without esophagitis Surgery List section, Cholecystectomy, Release of trigger finger, Tonsillectomy, section, Cholecystectomy, Release of trigger finger, CARPAL TUNNEL SURGERY, Knee surgery, Tonsillectomy, Smoking Status: Current every day smoker, Cessation Education: Allergy List SULFA (sulfonamide), Medication CEPHALOSPORIN, Medication KETOROLAC, Medication IODINE, Medication ADHESIVE, Environment LATEX, Environment TEA TREE OIL, Medication FLAGYL 375, Medication MOTRIN, Medication PENICILLIN, Medication Home Meds: Dose and Freq Medication Dosage Frequency clonazePAM 1MG Oral Tablet 1 MILLIGRAMS THREE TIMES A DAY Gabapentin 800MG Oral Tablet 800 MILLIGRAMS THREE TIMES A DAY hydrOXYzine HCl 50MG Oral Tablet 50 MILLIGRAMS ONCE A DAY traZODone hydrochloride 150MG Oral Tablet 150 MILLIGRAMS AT BEDTIME Venlafaxine HCl 75MG Oral Tablet 150 MILLIGRAMS ONCE A DAY QUEtiapine 100MG Oral Tablet 100 MILLIGRAMS AT BEDTIME Nortriptyline 50MG Oral Capsule 50 MILLIGRAMS AT BEDTIME Pravastatin Sodium 80MG Oral Tablet 80 MILLIGRAMS AT BEDTIME HumaLOG Mix 75/25 KwikPen 75U/1ML-25U/1ML Subcutaneous Suspension 1 EACH DIRECTED Levothyroxine Sodium 88MCG Oral Tablet 88 MCG ONCE A DAY Lantus SoloStar 100U/1ML Subcutaneous Solution 1 EACH AT BEDTIME Escitalopram 20MG Oral Tablet 20 MILLIGRAMS ONCE A DAY rOPINIRole HCl 0.25MG Oral Tablet 0.25 MILLIGRAMS AT BEDTIME amLODIPine Besylate 10MG Oral Tablet 10 MILLIGRAMS ONCE A DAY Metoprolol Tartrate 100MG Oral Tablet 100 MILLIGRAMS TWICE A DAY metFORMIN HCl 1000MG Oral Tablet 1000 MILLIGRAMS TWICE A DAY Chlorthalidone 25MG Oral Tablet 25 MILLIGRAMS ONCE A DAY carBAMazepine 200MG Oral Capsule, Extended Release 200 MILLIGRAMS TWICE A DAY Lisinopril 40MG Oral Tablet 40 MILLIGRAMS ONCE A DAY Vitamin D3 10 MCG Oral Tablet 10 MCG ONCE A DAY Trulicity 0.75MG/0.5ML Subcutaneous Solution 1 EACH ONCE A WEEK
--- OUTSIDE RECORDS SUMMARY | 2025-08-22 21:46 | XMS_ITS ---
Author Organization Unknown Address [address] [place] [address] [phone] Phone Care Team Providers Care Shot Fireman Name Role Phone MILES DAVIS Attending Unavailable PHOENIX MCCLAIN Primary Unavailable Immunization Immunization Date Status Additional Notes Code Code System influenza, unspecified formulation 07/04/2019 Completed 88 CVX Tdap 08/05/2021 Completed 115 CVX Influenza, MDCK, trivalent, PF 05/14/2024 Completed 153 CVX Pneumococcal conjugate PCV20 , polysaccharide VST646 conjugate, adjuvant, PF 05/14/2024 Completed 216 CVX Social History Type Status Start Date End Date Code Code Syst em Smoking History Current every day smoker 218324852 SNOMED CT Sex Female Vital Signs Vital Sign Value Unit Stateline Value Stateline Unit Date/Time Recent/Initial? Code Code System Body Mass Index 36.40 kg/m2 02/23/2025 11:00 Initial 48858 -5 [facility] Systolic Blood Pressure 150 mm[Hg] 02/23/2025 11:00 Initial 8480- 6 [facility] Diastolic Blood Pressure 65 mm[Hg] 02/23/2025 11:00 Initial 8462- 4 [facility] Body Surface Area 1.99 m2 02/23/2025 11:00 Initial 3140- 1 [facility] Height 157.480 0 cm 62.00 in 02/23/2025 11:00 Initial 8302- 2 [facility] O2 Saturation 97 % 2024 11:00 Initial 17159 -5 [facility] Pulse 80.0 /min 02/23/2025 11:00 Initial 8867- 4 [facility] Temperature 36.3 Gloria 97.3 F 02/24/20 11:00 Initial 8310- 5 [facility] Weight 90.26 kg 199.00 lbs 02/23/2025 11:00 Initial 46166 -7 [facility] Medications Medication Start Date End Date Route Frequency Dose Code Code System Medication Instructions Home Meds Cyclobenzaprine HCl 10MG Oral Tablet 08/11/2024 03/11/2025 BY MOUTH 1 TABLET 625886 RxNorm TAKE 1 TABLET BY MOUTH FOR FOR MUSCLE SPASM. Chlorthalidone 25MG Oral Tablet 09/22/2024 Unknown ORAL ONCE A DAY 25 MILLIGRAMS 443908 RxNorm TAKE 25 MILLIGRAM S ORAL ONCE A DAY Escitalopram 20MG Oral Tablet 09/22/2024 Unknown ORAL ONCE A DAY 20 MILLIGRAMS 633819 RxNorm TAKE 20 MILLIGRAM S ORAL ONCE A DAY Gabapentin 800MG Oral Tablet 09/22/2024 Unknown ORAL THRE E TIME S A DAY 800 MILLIGRAMS 331198 RxNorm TAKE 800 MILLIGRAM S ORAL THREE TIMES A DAY HumaLOG Mix 75/25 KwikPen 75U/1ML-25U/1ML Subcutaneous Suspension 09/22/2024 03/11/2025 SUBCUTANE OUS DIRE CTED 1 unit(s) 158662 RxNorm INJECT INTO 1 EACH SUBCUTANE OUS DIRECTED Lantus SoloStar 100U/1ML Subcutaneous Solution 09/22/2024 03/11/2025 SUBCUTANE OUS AT BEDT CARO 1 unit(s) 893575 RxNorm INJECT INTO 1 EACH SUBCUTANE OUS AT BEDTIME Levothyroxine Sodium 88MCG Oral Tablet 09/22/2024 Unknown ORAL ONCE A DAY 88 MCG 457105 RxNorm TAKE 88 MCG ORAL ONCE A DAY Lisinopril 40MG Oral Tablet 09/22/2024 Unknown ORAL ONCE A DAY 40 MILLIGRAMS 703315 RxNorm TAKE 40 MILLIGRAM S ORAL ONCE A DAY Metoprolol Tartrate 100MG Oral Tablet 09/22/2024 Unknown ORAL TWIC E A DAY 100 MILLIGRAMS 736062 RxNorm TAKE 100 MILLIGRAM S ORAL TWICE A DAY Nortriptyline 50MG Oral Capsule 09/22/2024 Unknown ORAL AT BEDT CARO 50 MILLIGRAMS RxNorm TAKE 50 MILLIGRAM S ORAL AT BEDTIME Pravastatin Sodium 80MG Oral Tablet 09/22/2024 Unknown ORAL AT BEDT CARO 80 MILLIGRAMS 534990 RxNorm TAKE 80 MILLIGRAM S ORAL AT BEDTIME QUEtiapine 100MG Oral Tablet 09/22/2024 Unknown ORAL AT BEDT CARO 100 MILLIGRAMS 655039 RxNorm TAKE 100 MILLIGRAM S ORAL AT BEDTIME Trulicity 0.75MG/0.5ML Subcutaneous Solution 09/22/2024 03/11/2025 SUBCUTANE OUS ONCE A WEEK 1 unit(s) 1054963 RxNorm INJECT INTO 1 EACH SUBCUTANE OUS ONCE A WEEK Venlafaxine HCl 75MG Oral Tablet 09/22/2024 Unknown ORAL ONCE A DAY 150 MILLIGRAMS 685263 RxNorm TAKE 150 MILLIGRAM S ORAL ONCE A DAY amLODIPine Besylate 10MG Oral Tablet 09/22/2024 Unknown ORAL ONCE A DAY 10 MILLIGRAMS 559266 RxNorm TAKE 10 MILLIGRAM S ORAL ONCE A DAY carBAMazepine 200MG Oral Capsule, Extended Release 09/22/2024 Unknown ORAL TWIC E A DAY 200 MILLIGRAMS 872910 RxNorm TAKE 200 MILLIGRAM S ORAL TWICE A DAY hydrOXYzine HCl 50MG Oral Tablet 09/22/2024 Unknown ORAL ONCE A DAY 50 MILLIGRAMS 659244 RxNorm TAKE 50 MILLIGRAM S ORAL ONCE A DAY metFORMIN HCl 1000MG Oral Tablet 09/22/2024 Unknown ORAL TWIC E A DAY 1000 MILLIGRAMS 026231 RxNorm TAKE 1000 MILLIGRAM S ORAL TWICE A DAY rOPINIRole HCl 0.25MG Oral Tablet 09/22/2024 Unknown ORAL AT BEDT CARO 0.25 MILLIGRAMS 783410 RxNorm TAKE 0.25 MILLIGRAM S ORAL AT BEDTIME traZODone hydrochloride 150MG Oral Tablet 09/22/2024 Unknown ORAL AT BEDT CARO 150 MILLIGRAMS 724852 RxNorm TAKE 150 MILLIGRAM S ORAL AT BEDTIME clonazePAM 1MG Oral Tablet 09/22/2024 03/11/2025 ORAL THRE E TIME S A DAY 1 MILLIGRAMS 843439 RxNorm TAKE 1 MILLIGRAM S ORAL THREE TIMES A DAY Multivitamin Oral Tablet 10/13/2024 Unknown ORAL ONCE A DAY 1 unit(s) RxNorm TAKE 1 EACH ORAL ONCE A DAY Diclofenac Sodium 75MG Oral Tablet, Enteric Coated 11/27/2024 07/02/2025 BY MOUTH NEED ED 3 TIME S A DAY 1 TABLET 979004 RxNorm TAKE 1 TABLET BY MOUTH NEEDED 3 TIMES A DAY Methocarbamol 500MG Oral Tablet 01/26/2025 02/23/2025 BY MOUTH NEED ED 3 TIME S A DAY 1 TABLET 556981 RxNorm TAKE 1 TABLET BY MOUTH THREE TIMES DAILY NEEDED oxyCODONE HCl-acetaminophe n 5MG-325MG Oral Tablet 01/26/2025 03/11/2025 BY MOUTH NEED ED TWIC E A DAY 1 TABLET [id number] RxNorm TAKE 1 TABLET BY MOUTH NEEDED TWICE A DAY Methocarbamol 500MG Oral Tablet 02/23/2025 03/26/2025 BY MOUTH NEED ED 3 TIME S A DAY 1 TABLET 023763 RxNorm TAKE 1 TABLET BY MOUTH NEEDED 3 TIMES A DAY Meloxicam 15MG Oral Tablet 02/23/2025 03/11/2025 BY MOUTH ONCE A DAY 1 TABLET 321245 RxNorm TAKE 1 TABLET BY MOUTH DAILY HumaLOG Mix 75/25 KwikPen 75U/1ML-25U/1ML Subcutaneous Suspension 03/16/2025 Unknown SUBCUTANE OUS THRE E TIME S A DAY 1 unit(s) 268752 RxNorm INJECT INTO 1 EACH SUBCUTANE OUS THREE TIMES A DAY Trulicity 1.5MG/0.5ML Subcutaneous Solution 03/16/2025 Unknown SUBCUTANE OUS ONCE A WEEK 1 unit(s) 7463392 RxNorm INJECT INTO 1 EACH SUBCUTANE OUS ONCE A WEEK clonazePAM 1MG Oral Tablet 03/16/2025 Unknown ORAL ONCE A DAY 1 MILLIGRAMS 19741101 RxNorm TAKE 1 MILLIGRAM S ORAL ONCE A DAY Meloxicam 15MG Oral Tablet 03/26/2025 06/29/2025 BY MOUTH ONCE A DAY 1 TABLET 397911 RxNorm TAKE 1 TABLET BY MOUTH ONCE A DAY Meloxicam 15MG Oral Tablet 06/29/2025 Unknown BY MOUTH ONCE A DAY 1 TABLET 240683 RxNorm TAKE 1 TABLET BY MOUTH DAILY [...] DISEASE WITHOUT ESOPHAGITISUNSPECIFIED INFLAMMATORY SPONDYLOPATHY, LUMBAR REGIONOTHER CUSTODIAL (CURRENT) DRUG THERAPY Hospital Discharge Instructions Should you have any questions prior to discharge, please contact a member of your healthcare team. If you have left the hospital and have any questions, please contact your primary care physician. Reason For Referral No Data Found Problems Problem Start Date Resolved Date Status Code Code System ENCOUNTER FOR SCREENING FOR OTHER VIRAL DISEASES active 729366819 SNOMED- CT ABDOMINAL PAIN active 69933919 SNOME D-CT PAIN IN BACK active 154268513 SNOMED- CT ANXIETY DISORDER, UNSPECIFIED active 192982148 SNOMED-CT DEPRESSION, UNSPECIFIED active 959736 07 SNOMED-CT SCHIZOPHRENIA, UNSPECIFIED active 582 42570 SNOMED-CT HYPERLIPIDEMIA, UNSPECIFIED active 55 721521 SNOMED-CT PERSONAL HISTORY OF OTHER MALIGNANT NEOPLASM OF SKIN active 857640158 S NOMED-CT BIPOLAR DISORDER, UNSPECIFIED active 32426043 SNOMED-CT ENCOUNTER FOR SCREENING EXAMINATION FOR OTHER MENTAL HEALTH AND BEHAVIORAL DISOR active 083062795 SNOMED-CT ENCOUNTER FOR SCREENING, UNSPECIFIED active 936334523 SNOMED-CT ENCOUNTER FOR GENERAL ADULT MEDICAL EXAMINATION WITHOUT ABNORMAL FINDINGS active 413254401 SNOMED-CT ENCOUNTER FOR OTHER SCREENIN G FOR MALIGNANT NEOPLASM OF BREAST active 295762837 SNOMED-CT TYPE 2 DIABETES MELLITUS WITHOUT COMPLICATIONS active 742815260 SNOMED -CT DORSALGIA, UNSPECIFIED active 3848639 05 SNOMED-CT ESSENTIAL (PRIMARY) HYPERTENSION active 82903953 SNOMED-CT THYROTOXICOSIS, 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 62282231 SNOMED-CT GASTRO-ESOPHAGEAL REFLUX DISEASE WITHOUT ESOPHAGITIS active 607668780 SNOMED-CT UNSPECIFIED INFLAMMATORY SPONDYLOPATHY, LUMBAR REGION active 877796176 SNOMED-CT 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 520984842 SNOMED-CT Allergies and Adverse Reactions Allergy Substance Reaction Severity Start Date Concern Status Code Code System SULFA (sulfonamide) Hives (SNOMED-CT: 076661315) Moderate Active 44614640 SNOMED-CT CEPHALOSPORIN Itching (SNOMED-CT: 919115873) Moderate Active 650640912 SNOMED-CT KETOROLAC NAUSEA (SNOMED-CT: null) Moderate Active 34592 RxNorm IODINE Hives (SNOMED-CT: 623791659) Moderate Active 5933 RxNorm ADHESIVE Rash (SNOMED-CT: 575524887) Moderate Active LATEX BLISTERS (SNOMED-CT: null) Moderate Active 6038489 RxNorm TEA TREE OIL BLISTERS (SNOMED-CT: null) Moderate Active 30288 RxNorm FLAGYL 375 TONGUE SWELLING (SNOMED-CT: null) Moderate Active 20280228 RxNorm MOTRIN NAUSEA (SNOMED-CT: null) Moderate Active 20240501 RxNorm PENICILLIN Hives (SNOMED-CT: 797382060) Moderate Active Plan of Treatment SI Joint [...] Sys tem Sacrococcygeal disorders, not elsewhere classified 10/2024 SNOMED-CT Personal Care Team Section Performer Name Performer Role Active Date Inactive Maxi Green PCP - Primary care physician 2024-07-11 Progress Notes [facility] 02/23/2025 11:26 All Demographics Patient Name Age Sex Visit Number Admission Date/Time Attending Physician Date of Service Room and Bed Emergency Contact RUSSELL GAYTAN 1965 59 years Female [id number] 02/23/2025 10:48 Shahab Romano 02/23/2025 03-OP TUCKER GOODRICH - [id number] Pain Management Follow Up Vital Signs: Today Date/Time BP (mm/Hg) BP Position/Site MAP (mm/Hg) Heart Rate Pulse Site Resp Temp (C) Temp (F) SPO2% O2 L/min FiO2 EtCO2 (mm/Hg) O2 Device Blood Sugar Pain Score Height (cm) Height (in) Weight (kg) Weight (lbs/ozs) Scale BMI BSA Head Cir (cm) 02/23/2025 11:00 150/65 Sitting/Left Arm 93 80 Pulse Ox 36.3 Tympanic 97.3 Tympanic 97 % Room Air 21% 6 157.5 cm 62 in 90.26 kg 199.0 Stated 36.4 1.99 Chief Complaint: Spondylosis without myelopathy or radiculopathy, lumbar region History of Present Illness: Patient here today, for pain management follow up for RFA Lumbar. Location: The pain is located in the lower back and bilateral knees. Patient had relief from the procedure, at 60%. The pain does radiate from lower back and into the bilateral knees. Quality: Patient rates the pain today, as 6/10 at this time, and at times the [...] had no recent falls. PHQ-9 Depression Screening Patient condition has declined since last screening X Patient condition has improved since last screening No previous Screening Patient Declined Screening Score has not changed significantly since last visit PHQ-9 Score Assessment: N/A: PHQ-9 not performed/Patient declined 0-4: Not an indicator of depression 5 5-9: Indicates mild depression 10-14: Indicates moderate depression 15-19: Indicates moderately severe depression 20-27: Indicates severe depression Depression Remission Indicated: X Yes, previous PHQ-9 score >9 in the past 12 months with current score <5 Previous PHQ-9 score or date is unknown Previous PHQ-9 score is 5 or higher SARBJIT-7 Score Assessment: X N/A: SARBJIT-7 not performed/Patient declined 0-4: Minimal Anxiety 5-9: Mild Anxiety 10-14: Moderate Anxiety 15-21: [...] medial branch blocks at L4-5, L5-S1 bilaterally. Patient has relief in treated area following RFA. Axial Low Back Pain Assessment Patient ambulates [...] spinal canal stenosis and lumbar facet arthropathy. Sacroiliac Joint Assessment Patient is positive for [...] at this time (10/23/24). Date of appointment: 02/23/25 Discussion: Patient received >80% relief following RFA of L4-5, L5-S1. Discussed 2-4 more weeks of pain improvement from RFA. The patient reports she continues to have SI Joint pain more on the right than left. We discussed risks and benefits of proceeding with SI joint injections. Patient wishes to proceed. We discussed risks benefits and expected outcomes of SI joint injections. Discussed using Methocarbamol as needed. Will follow up in office following SI joint injections. Radiology imaging reviewed at appointment: yes Radiology: Imaging reviewed with patient Pain Treatment History: Conservative Measures Tried and Failed: Heat/Ice, Home exercises, rest Medications Trialed: gabapentin, hydrocodone, muscle relaxers, anti inflammatories Previous Interventional Pain Procedures: SI - 50% relief (10/13/24), RFA L4-5, L5-S1 -no pain Plan Bilateral SI joint injections F/U 2 weeks after Methocarbamol 500mg TID PRN 30 days with 1 refill Meloxicam 15mg Qday for 30 days with 1 refill Problem List Encounter for screening for other [...] without esophagitis Unspecified inflammatory spondylopathy, lumbar region 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 Surgery List Release of trigger finger, section, Tonsillectomy, Release of trigger finger, Knee surgery, CARPAL TUNNEL SURGERY, Cholecystectomy, Tonsillectomy, Cholecystectomy, section, Smoking Status: Current every day smoker, Cessation Education: Allergy List SULFA (sulfonamide), Medication CEPHALOSPORIN, Medication KETOROLAC, Medication IODINE, Medication ADHESIVE, Environment LATEX, Environment TEA TREE OIL, Medication FLAGYL 375, Medication MOTRIN, Medication PENICILLIN, Medication Home Meds: Dose and Freq Medication Dosage Frequency hydrOXYzine HCl 50MG Oral Tablet 50 MILLIGRAMS ONCE A DAY metFORMIN HCl 1000MG Oral Tablet 1000 MILLIGRAMS TWICE A DAY rOPINIRole HCl 0.25MG Oral Tablet 0.25 MILLIGRAMS AT BEDTIME traZODone hydrochloride 150MG Oral Tablet 150 MILLIGRAMS AT BEDTIME Multivitamin Oral Tablet 1 EACH ONCE A DAY Diclofenac Sodium 75MG Oral Tablet, Enteric Coated 1 TABLET NEEDED 3 TIMES A DAY clonazePAM 1MG Oral Tablet 1 MILLIGRAMS THREE TIMES A DAY Methocarbamol 500MG Oral Tablet 1 TABLET NEEDED 3 TIMES A DAY oxyCODONE HCl-acetaminophen 5MG-325MG Oral Tablet 1 TABLET NEEDED TWICE A DAY Meloxicam 15MG Oral Tablet 1 TABLET ONCE A DAY carBAMazepine 200MG Oral Capsule, [...]
--- OUTSIDE RECORDS SUMMARY | 2025-08-22 21:47 | XMS_ITS | Clinical Summary ---
Author Organization [facility] Address [address] [place] [address] Care Team Providers Care [employer] Worker Name Role Phone Fritz Denis MD Primary Care Provider Allergies Active Allergy Reactions Criticality Noted Date Comments Ampicillin Rash Low 04/25/2018 Iodine Hives 04/22/2019 Cephalexin Itching 05/21/2019 Ketorolac Rash Low 04/25/2018 Latex Contact Dermatitis 04/25/2018 Levofloxacin Rash Low 06/16/2019 Metronidazole Rash Low 04/25/2018 Ibuprofen Nausea and Vomiting 04/25/2018 Penicillins Rash Low 04/22/2019 Sulfa Antibiotics Itching 05/21/2019 Tape Rash Low 06/16/2019 blisters Tea Tree Oil Redness 06/16/2019 Tetracycline Hcl Rash Low 04/25/2018 Tramadol Hcl Nausea Only 04/25/2018 Medications metFORMIN (GLUCOPHAGE) 1000 MG tablet Take 1 tablet (1,000 mg total) by mouth 2 (two) times daily with meals. 3 9 Active venlafaxine XR 75 MG 24 hr capsule Take 2 capsules (150 mg total) by mouth daily. 3 9 Active theophylline ER 400 MG 24 hr tablet Take 0.5 tablets (200 mg total) by mouth daily. 2 9 Active ropinirole 0.25 MG tablet Take 2 tablets (0.5 mg total) by mouth nightly. 2 9 Active traZODone 150 MG tablet Take 0.5 tablets (75 mg total) by mouth nightly at bedtime. 0 9 Active famotidine 40 MG tablet Take 20 mg by mouth 2 (two) times daily. 3 9 Active clonazePAM 1 MG tablet Take 1 tablet (1 mg total) by mouth 3 (three) times daily as needed. 0 9 Active carbamazepine 200 MG tablet Take 2 tablets (400 mg total) by mouth 2 (two) times daily. 2 9 Active gabapentin 800 MG tablet Take 1 tablet (800 mg total) by mouth 3 (three) times daily. 3 9 Active levothyroxine 50 MCG tablet Take 50 mcg by mouth every morning. 3 9 Active pravastatin 80 MG tablet Take 1 tablet (80 mg total) by mouth nightly at bedtime. 3 9 Active QUEtiapine (SEROQUEL) 100 MG tablet Take 1 tablet (100 mg total) by mouth nightly at bedtime. 3 9 Active albuterol (2.5 MG/3ML) 0.083% nebulizer solution Take 3 mLs (2.5 mg total) by nebulization every 6 (six) hours as needed for Wheezing. 360 mL 9 Active lisinopril (PRINIVIL) 40 MG tablet Take 1 tablet (40 mg total) by mouth daily. Active nortriptyline 50 MG capsule Take 1 capsule (50 mg total) by mouth nightly at bedtime. Active albuterol sulfate HFA 108 (90 Base) MCG/ACT inhaler Inhale 2 puffs into the lungs every 6 (six) hours as needed for Wheezing. 1 Inhaler 9 Active HYDROcodone-cassandra taminophen 10-325 MG tablet Take 1 tablet by mouth every 6 (six) hours as needed for Pain. Active DULoxetine (CYMBALTA) 30 MG capsule Take 1 capsule (30 mg total) by mouth daily. Active metoprolol tartrate (LOPRESSOR) 100 MG tablet Take 1 tablet (100 mg total) by mouth 2 (two) times daily. Active VICTOZA 18 MG/3ML injection INJECT 1.8 MG UNDER THE SKIN DAILY 2 Active insulin glargine (LANTUS) 100 UNIT/ML injection (VIAL) Inject 45 Units into the skin nightly at bedtime. Active amLODIPine (NORVASC) 5 MG tablet Take 1 tablet (5 mg total) by mouth nightly. Active escitalopram (LEXAPRO) 20 MG tablet Take 1 tablet (20 mg total) by mouth nightly. Active insulin lispro, 1 Unit Dial, (HUMALOG) 100 UNIT/ML injection (PEN) 3 Active pantoprazole EC (PROTONIX) 40 MG tablet Take 1 tablet (40 mg total) by mouth daily. 3 Active hydrOXYzine (ATARAX) 25 MG tablet Take 1 tablet (25 mg total) by mouth 2 (two) times daily. 3 Active Active Problems Problem Noted Date Diagnosed Date Seizures 08/03/2023 Seizure 08/03/2023 COPD exacerbation 08/01/2019 Incisional infection 06/16/2019 Aftercare following surgery 06/09/2019 Flexor tenosynovitis of finger 05/08/2019 Trigger middle finger of right hand 04/28/2019 Insulin dependent type 2 diabetes mellitus, unco ntrolled Schizophrenia Skin picking habit Smoker Hypertension CKD (chronic kidney disease) Immunizations Immunization Administration Dates Next Due Influenza Adult (Generic) 07/04/2019 Shingrix 10/08/2019,08/08/2019 Tdap (Generic) 08/05/2021 Family History Medical History Relation Comments Cancer Father Diabetes Father Prostate Cancer Father Pancreas Disease Maternal Aunt Heart Disease Maternal Grandfather Cancer Maternal Grandmother lymphoma Maternal Grandmother Heart Disease Mother Relation Status Comments Father Maternal Aunt Maternal Grandfather Maternal Grandmother Mother Alive Social History Tobacco Use Types Packs/Day Years Used Date Smoking Tobacco: Former Cigarettes 1 42 Smokeless Tobacco: Never Comments:quit 4 months ago Alcohol Use Standard Drinks/Week Comments No 0 (1 standard drink = 0.6 oz pur e alcohol) Humiliation, Afraid, Rape, and Kick questionnair e Answer Date Recorded Within the last year, have y ou been afraid of your partner or ex-partner? No 08/03/2023 Within the last year, have y ou been humiliated or emotionally abused in other ways by your partner or ex-partner? No Within the last year, have y ou been kicked, hit, slapped, or otherwise physically hurt by your partner or ex-partner? No 08/03/2023 Within the last year, have y ou been raped or forced to have any kind of sexual activity by your partner or ex-partner? No 08/03/2023 Social Connection and Isolation Panel Answer Date Recorded In a typical week, how many times do you talk on the phone with family, friends, or neighbors? More than three times a week 08/03/2023 How often do you get togethe r with friends or relatives? Once a week 08/03/2023 How often do you attend chur or mu-ism services? Never 08/03/2023 Do you belong to any clubs o r organizations such as nondenominational groups, unions, fraternal or athletic groups, or school groups? No 08/03/2023 How often do you attend meet ings of the clubs or organizations you belong to? Never 08/03/2023 Are you , , di vorced, , never , or living with a partner? 08/03/2023 AUDIT-C Answer Date Recorded Q1: How often do you have a drink containing alcohol? Never 08/03/2023 Q2: How many drinks containi ng alcohol do you have on a typical day when you are drinking? Patient does not drink Q3: How often do you have si x or more drinks on one occasion? Never 08/03/2023 Overall Financial Resource Strain (CARDIA) Answe r Date Recorded How hard is it for you to pa y for the very basics like food, housing, medical care, and heating? Not hard at all 08/03/2023 [facility] - Occupational Stress Questionnaire Answer Date Recorded Do you feel stress - tense, restless, nervous, or anxious, or unable to sleep at night because your mind is troubled all the time - these days? Only a little 08/03/2023 Exercise Vital Sign Answer Date Recorde d On average, how many days pe r week do you engage in moderate to strenuous exercise (like a brisk walk)? 0 days 08/03/2023 On average, how many minutes do you engage in exercise at this level? 0 min 08/03/2023 Hunger Vital Sign Answer Date Recorded Within the past 12 months, y ou worried that your food would run out before you got the money to buy more. Never true 08/03/20 23 Within the past 12 months, t he food you bought just didn't last and you didn't have money to get more. Never true 08/03/2023 PRAPARE - Transportation Answer Date Re corded In the past 12 months, has l ack of transportation kept you from medical appointments or from getting medications? No 07/25 In the past 12 months, has l ack of transportation kept you from meetings, work, or from getting things needed for daily living? No 08/03/2023 Housing Stability Vital Sign Answer Sree e Recorded In the last 12 months, was t here a time when you were not able to pay the mortgage or rent on time? No 08/03/2023 In the last 12 months, how many places have you lived? 1 08/03/2023 In the last 12 months, was t here a time when you did not have a steady place to sleep or slept in a half-way (including now)? No 08/03/2023 Comments No Sex and Gender Information Value Date Recorded Sex Assigned at Not on file Legal Sex Female 9:16 PM CDT Gender Identity Not on file Sexual Orientation Straight 08/01/2019 8: 18 PM [employer] Last Filed Vital Signs Vital Sign Reading Time Taken Comments Blood Pressure 122/73 08/05/2023 7:30 AM [employer] Pulse 68 08/05/2023 7:30 AM [employer] Temperature 36.9 C (98.4 F) 08/05/2023 7:30 AM [employer]GER Respiratory Rate 21 08/02/2023 11:3 0 PM [employer] Oxygen Saturation 98% 08/05/2023 7:30 AM [employer]GER Inhaled Oxygen Concentration - - Weight 108.9 kg (240 lb 1.3 oz) 08/03/2023 1:00 AM [employer] Height 157.5 cm (5' 2) 08/03/2023 1:00 AM [employer] Body Mass Index 43.91 08/03/2023 1:00 AM [employer] Plan of Treatment Health Maintenance Due Date Last Done Comments Colorectal Cancer Screening Colonoscopy (10 Years) 1963 Kidney Health Evaluation 1963 Lipid Panel 1963 Annual Physical 1966 Diabetes: Retinopathy Eye Exam 1981 Hepatitis C 1981 Pneumococcal Vaccine: 50+ Years (1 of 2 - PCV) 1982 Mammogram Screening 03/03/2022 03/03/2020, 09/02/2019, 03/12/2019 RSV Immunization or 60+ Years (1 - Risk 60-74 years 1-dose series) 2023 Hemoglobin A1C 02/01/2024 08/03/2023 COVID-19 Vaccine (1 - 2024-2 6 season) 2025 Influenza Adult (#1) 2025 07/04/2019 DTaP, Tdap and Td Vaccines ( 2 - Td or Tdap) 08/05/2031 08/05/2021 Zoster Vaccines Completed 10/08/2019, 08/08/2019 Hepatitis A Vaccines Aged Out No long er eligible based on patient's age to complete this topic Meningococcal B Vaccine Aged Out No l onger eligible based on patient's age to complete this topic Meningococcal Vaccine Aged Out No shital casey eligible based on patient's age to complete this topic RSV Immunizations Under 20 Months Aged Out No longer eligible b ased on patient's age to complete this topic Procedures Procedure Name Priority Date/Time Associated Diagnosis Comments HEMOGLOBIN, GLYCOSYLATED Routine 08/03/2023 3:09 AM [employer] MG DIAG W COY LT DIGI Routine 03/03/2020 9:55 AM CDT Abnormal breast finding from Last 3 Months or Most Recently Relevant to Health Maintenance Results * (ABNORMAL) HEMOGLOBIN, GLYCOSYLATED (08/03/2023 3:09 AM [employer]) HGB A1C 7.1(H) <5.7 % 08/03/2023 3:47 AM A[employer] MANAGER [facility] ESTIMATED AVG GLUCOSE 157(H) 74 - 114 MG/DL 08/03/2023 3:47 AM A[employer] MANAGER [facility] 08/03/2023 3:09 AM A[employer]GER us Leon Viveros MD LABORATORY Final Result [facility] [address] [place] [address], [id number] * MG DIAG W COY LT DIGI (03/03/2020 9:55 AM CDT) Anatomical Region Laterality Modality Breast Left Mammography, Rad iographic Imaging 03/08/2020 11:1 4 AM CDT Narrative 03/08/2020 11:29 AM CDT Examination: LEFT DIGITAL DIAGNOSTIC MAMMOGRAM [id number] Clinical Indication: RUSSELL GAYTAN Female 54 years of age approximate 6 month continued follow-up indeterminant left nodule. Follow-up ultrasound performed at a later date due to patient's insurance. Additional Pertinent History: Known history of cyst(s). Comparison: Diagnostic mammogram and ultrasound 09/11, 03/12, 09/10, new baseline screening mammogram 09/10 Technique: CC, MLO, and multiple spot images. Tomosynthesis imaging acquisition. Study supplemented with computer aided detection program. Static sonographic grayscale images obtained supplemented with Doppler. Tissue density: The breasts are composed of scattered glandular tissue with a nodular pattern, which decreases mammographic sensitivity. Findings: Some scattered calcifications. There are fluctuant waxing and waning nodules, several of these compatible with known history of cysts. These appear either stable, resolved, or smaller when compared to previous studies when accounting for differences in technique. This includes persistent partially obscured superior mid subcentimeter previously noted nodule concern. Sonographic reevaluation of this and additional structures performed. Examination: LEFT BREAST ULTRASOUND Findings: Targeted sonographic reevaluation previously noted 3:00 periareolar zone 1 nodule at anterior depth measuring currently 3 x 3 x 2 mm. The disc remains parallel in orientation with oval shape. This appears slightly smaller in the interval since 09/11 as well as compared to 09/10 ultrasound studies. The tiny nodule at 11:30 located at zone 2-3 junction currently measures 2 x 3 x 1 mm there is also smaller in the interval from 09/11 study. IMPRESSION 1. Interval sonographically smaller left 3:00 and 11:30 nodules x2, presumably cysts. 2. Additional stable and benign findings, detailed above. Overall constellation of findings considered of low malignant potential at this time. Therefore in the absence of clinical symptoms it would be reasonable to resume bilateral annual screening mammography now due August 2020. RECOMMENDATION: Routine Screening Mammogram Bilateral August 2020 ASSESSMENT: ACR BI-RADS CATEGORY 2 - BENIGN FINDING(S) This study was only presented for my interpretation on 03/08/2020. Interpreted By: Radha Aguilar MD, 03/08/2020 11:14 AM Fritz Denis MD MAMMO Final Resul t from Last 3 Months or Most Recently Relevant to Health Maintenance Insurance [place] [id number] [address] [place] [id number] [place] [id number] Advance Directives * Full Code (Latest Code Status on File) Date Activated Date Inactivated Comments 08/03/2023 1:22 AM 08/05/2023 5:27 PM * Full Code Date Activated Date Inactivated Comments 08/01/2019 8:12 PM 08/02/2019 1:37 PM Care Teams [employer] Worker Relationship Specialty Start Date End Date Fritz Denis MD [address] [address] PCP - General FAMILY PRACTICE 02/21/19
--- OUTSIDE RECORDS SUMMARY | 2025-08-22 21:47 | XMS_ITS ---
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 Name Role Phone MILES DAVIS Attending Unavailable PHOENIX MCCLAIN Primary Unavailable Immunization Immunization Date Status Additional Notes Code Code System influenza, unspecified formulation 07/04/2019 Completed 88 CVX Tdap 08/05/2021 Completed 115 CVX Influenza, MDCK, trivalent, PF 05/14/2024 Completed 153 CVX Pneumococcal conjugate PCV20 , polysaccharide QNC014 conjugate, adjuvant, PF 05/14/2024 Completed 216 CVX Social History Type Status Start Date End Date Code Code Syst em Smoking History Current every day smoker 390024477 SNOMED CT Sex Female Vital Signs Vital Sign Value Unit [place] Value [place] Unit Date/Time Recent/Initial? Code Code System Body Mass Index 36.40 kg/m2 09/22/2024 10:35 Initial 45811 -5 [facility] Systolic Blood Pressure 145 mm[Hg] 09/22/2024 10:35 Initial 8480- 6 [facility] Diastolic Blood Pressure 78 mm[Hg] 09/22/2024 10:35 Initial 8462- 4 [facility] Body Surface Area 1.99 m2 09/22/2024 10:35 Initial 3140- 1 [facility] Height 157.480 0 cm 62.00 in 09/22/2024 10:35 Initial 8302- 2 [facility] O2 Saturation 100 % 2023 10:35 Initial 67952 -5 [facility] Pulse 86.0 /min 09/22/2024 10:35 Initial 8867- 4 [facility] Temperature 36.8 Gloria 98.2 F 09/22/20 10:35 Initial 8310- 5 [facility] Weight 90.26 kg 199.00 lbs 09/22/2024 10:35 Initial 93677 -7 [facility] Medications Medication Start Date End Date Route Frequency Dose Code Code System Medication Instructions Home Meds Meloxicam 15MG Oral Tablet 08/11/2024 10/24/2024 BY MOUTH ONCE A DAY 1 TABLET 654637 RxNorm TAKE 1 TABLET BY MOUTH ONCE A DAY Cyclobenzapri ne HCl 10MG Oral Tablet 08/11/2024 03/11/2025 BY MOUTH 1 TABLET 999983 RxNorm TAKE 1 TABLET BY MOUTH FOR FOR MUSCLE SPASM. Escitalopram 20MG Oral Tablet 09/22/2024 Unknown ORAL ONCE A DAY 20 MILLIGRAM S 595759 RxNorm TAKE 20 MILLIGRAM S ORAL ONCE A DAY Gabapentin 800MG Oral Tablet 09/22/2024 Unknown ORAL THREE TIMES A DAY 800 MILLIGRAM S 400267 RxNorm TAKE 800 MILLIGRAM S ORAL THREE TIMES A DAY HumaLOG Mix 75/25 KwikPen 75U/1ML-25U/1 ML Subcutaneous Suspension 09/22/2024 03/11/2025 SUBCUTANE OUS DIRECTED 1 unit(s) 777789 RxNorm INJECT INTO 1 EACH SUBCUTANE OUS DIRECTED Lantus SoloStar 100U/1ML Subcutaneous Solution 09/22/2024 03/11/2025 SUBCUTANE OUS AT BEDTIME 1 unit(s) 317844 RxNorm INJECT INTO 1 EACH SUBCUTANE OUS AT BEDTIME Levothyroxine Sodium 88MCG Oral Tablet 09/22/2024 Unknown ORAL ONCE A DAY 88 MCG 967307 RxNorm TAKE 88 MCG ORAL ONCE A DAY Lisinopril 40MG Oral Tablet 09/22/2024 Unknown ORAL ONCE A DAY 40 MILLIGRAM S 195694 RxNorm TAKE 40 MILLIGRAM S ORAL ONCE A DAY Metoprolol Tartrate 100MG Oral Tablet 09/22/2024 Unknown ORAL TWICE A DAY 100 MILLIGRAM S 583269 RxNorm TAKE 100 MILLIGRAM S ORAL TWICE A DAY Nortriptyline 50MG Oral Capsule 09/22/2024 Unknown ORAL AT BEDTIME 50 MILLIGRAM S RxNorm TAKE 50 MILLIGRAM S ORAL AT BEDTIME Pravastatin Sodium 80MG Oral Tablet 09/22/2024 Unknown ORAL AT BEDTIME 80 MILLIGRAM S 309379 RxNorm TAKE 80 MILLIGRAM S ORAL AT BEDTIME QUEtiapine 100MG Oral Tablet 09/22/2024 Unknown ORAL AT BEDTIME 100 MILLIGRAM S 376148 RxNorm TAKE 100 MILLIGRAM S ORAL AT BEDTIME Trulicity 0.75MG/0.5ML Subcutaneous Solution 09/22/2024 03/11/2025 SUBCUTANE OUS ONCE A WEEK 1 unit(s) 2766321 RxNorm INJECT INTO 1 EACH SUBCUTANE OUS ONCE A WEEK Venlafaxine HCl 75MG Oral Tablet 09/22/2024 Unknown ORAL ONCE A DAY 150 MILLIGRAM S 179283 RxNorm TAKE 150 MILLIGRAM S ORAL ONCE A DAY Vitamin D3 10 MCG Oral Tablet 09/22/2024 12/29/2024 ORAL ONCE A DAY 10 MCG 238510 RxNorm TAKE 10 MCG ORAL ONCE A DAY amLODIPine Besylate 10MG Oral Tablet 09/22/2024 Unknown ORAL ONCE A DAY 10 MILLIGRAM S 175427 RxNorm TAKE 10 MILLIGRAM S ORAL ONCE A DAY carBAMazepine 200MG Oral Capsule, Extended Release 09/22/2024 Unknown ORAL TWICE A DAY 200 MILLIGRAM S 369045 RxNorm TAKE 200 MILLIGRAM S ORAL TWICE A DAY clonazePAM 1MG Oral Tablet 09/22/2024 03/11/2025 ORAL THREE TIMES A DAY 1 MILLIGRAM S 236919 RxNorm TAKE 1 MILLIGRAM S ORAL THREE TIMES A DAY metFORMIN HCl 1000MG Oral Tablet 09/22/2024 Unknown ORAL TWICE A DAY 1000 MILLIGRAM S 374753 RxNorm TAKE 1000 MILLIGRAM S ORAL TWICE A DAY rOPINIRole HCl 0.25MG Oral Tablet 09/22/2024 Unknown ORAL AT BEDTIME 0.25 MILLIGRAM S 251337 RxNorm TAKE 0.25 MILLIGRAM S ORAL AT BEDTIME traZODone hydrochloride 150MG Oral Tablet 09/22/2024 Unknown ORAL AT BEDTIME 150 MILLIGRAM S 004214 RxNorm TAKE 150 MILLIGRAM S ORAL AT BEDTIME hydrOXYzine HCl 50MG Oral Tablet 09/22/2024 Unknown ORAL ONCE A DAY 50 MILLIGRAM S 680347 RxNorm TAKE 50 MILLIGRAM S ORAL ONCE A DAY Chlorthalidon e 25MG Oral Tablet 09/22/2024 Unknown ORAL ONCE A DAY 25 MILLIGRAM S 382374 RxNorm TAKE 25 MILLIGRAM S ORAL ONCE A DAY Multivitamin Oral Tablet 10/13/2024 Unknown ORAL ONCE A DAY 1 unit(s) RxNorm TAKE 1 EACH ORAL ONCE A DAY Meloxicam 15MG Oral Tablet 10/24/2024 01/26/2025 BY MOUTH ONCE A DAY 1 TABLET 609971 RxNorm TAKE 1 TABLET BY MOUTH ONCE A DAY Methocarbamol 500MG Oral Tablet 11/27/2024 12/22/2024 BY MOUTH NEEDED 3 TIMES A DAY 1 TABLET 635437 RxNorm TAKE 1 TABLET BY MOUTH NEEDED 3 TIMES A DAY Diclofenac Sodium 75MG Oral Tablet, Enteric Coated 11/27/2024 07/02/2025 BY MOUTH NEEDED 3 TIMES A DAY 1 TABLET 893192 RxNorm TAKE 1 TABLET BY MOUTH NEEDED 3 TIMES A DAY Methocarbamol 500MG Oral Tablet 12/22/2024 01/26/2025 BY MOUTH NEEDED 3 TIMES A DAY 1 TABLET 711508 RxNorm TAKE 1 TABLET BY MOUTH THREE TIMES DAILY NEEDED oxyCODONE HCl-acetamino phen 5MG-325MG Oral Tablet 01/26/2025 03/11/2025 BY MOUTH NEEDED TWICE A DAY 1 TABLET 5206485 RxNorm TAKE 1 TABLET BY MOUTH NEEDED TWICE A DAY Meloxicam 15MG Oral Tablet 01/26/2025 02/23/2025 BY MOUTH ONCE A DAY 1 TABLET 978553 RxNorm TAKE 1 TABLET BY MOUTH DAILY Methocarbamol 500MG Oral Tablet 01/26/2025 02/23/2025 BY MOUTH NEEDED 3 TIMES A DAY 1 TABLET 237346 RxNorm TAKE 1 TABLET BY MOUTH THREE TIMES DAILY NEEDED Meloxicam 15MG Oral Tablet 02/23/2025 03/11/2025 BY MOUTH ONCE A DAY 1 TABLET 449714 RxNorm TAKE 1 TABLET BY MOUTH DAILY Methocarbamol 500MG Oral Tablet 02/23/2025 03/26/2025 BY MOUTH NEEDED 3 TIMES A DAY 1 TABLET 761242 RxNorm TAKE 1 TABLET BY MOUTH NEEDED 3 TIMES A DAY HumaLOG Mix 75/25 KwikPen 75U/1ML-25U/1 ML Subcutaneous Suspension 03/16/2025 Unknown SUBCUTANE OUS THREE TIMES A DAY 1 unit(s) 208127 RxNorm INJECT INTO 1 EACH SUBCUTANE OUS THREE TIMES A DAY Trulicity 1.5MG/0.5ML Subcutaneous Solution 03/16/2025 Unknown SUBCUTANE OUS ONCE A WEEK 1 unit(s) 1092002 RxNorm INJECT INTO 1 EACH SUBCUTANE OUS ONCE A WEEK clonazePAM 1MG Oral Tablet 03/16/2025 Unknown ORAL ONCE A DAY 1 MILLIGRAM S 969697 RxNorm TAKE 1 MILLIGRAM S ORAL ONCE A DAY Meloxicam 15MG Oral Tablet 03/26/2025 06/29/2025 BY MOUTH ONCE A DAY 1 TABLET 844326 RxNorm TAKE 1 TABLET BY MOUTH ONCE A DAY Meloxicam 15MG Oral Tablet 06/29/2025 Unknown BY MOUTH ONCE A DAY 1 TABLET 727381 RxNorm TAKE 1 TABLET BY MOUTH DAILY [...] DISEASE WITHOUT ESOPHAGITISUNSPECIFIED INFLAMMATORY SPONDYLOPATHY, LUMBAR REGION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 If you have left the hospital and have any questions, please contact your primary care physician. Reason For Referral No Data Found Problems Problem Start Date Resolved Date Status Code Code System ENCOUNTER FOR SCREENING FOR OTHER VIRAL DISEASES active 993959893 SNOMED- CT ABDOMINAL PAIN active 12537000 SNOME D-CT PAIN IN BACK active 868373317 SNOMED- CT ANXIETY DISORDER, UNSPECIFIED active 716800792 SNOMED-CT DEPRESSION, UNSPECIFIED active 307349 07 SNOMED-CT SCHIZOPHRENIA, UNSPECIFIED active 582 57155 SNOMED-CT HYPERLIPIDEMIA, UNSPECIFIED active 55 122150 SNOMED-CT PERSONAL HISTORY OF OTHER MALIGNANT NEOPLASM OF SKIN active 006606638 S NOMED-CT BIPOLAR DISORDER, UNSPECIFIED active 43285805 SNOMED-CT ENCOUNTER FOR SCREENING EXAMINATION FOR OTHER MENTAL HEALTH AND BEHAVIORAL DISOR active 226361122 SNOMED-CT ENCOUNTER FOR SCREENING, UNSPECIFIED active 335803256 SNOMED-CT ENCOUNTER FOR GENERAL ADULT MEDICAL EXAMINATION WITHOUT ABNORMAL FINDINGS active 245970621 SNOMED-CT ENCOUNTER FOR OTHER SCREENIN G FOR MALIGNANT NEOPLASM OF BREAST active 421258608 SNOMED-CT TYPE 2 DIABETES MELLITUS WITHOUT COMPLICATIONS active 586634646 SNOMED -CT DORSALGIA, UNSPECIFIED active 8779038 05 SNOMED-CT ESSENTIAL (PRIMARY) HYPERTENSION active 96882685 SNOMED-CT THYROTOXICOSIS, 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 66117788 SNOMED-CT GASTRO-ESOPHAGEAL REFLUX DISEASE WITHOUT ESOPHAGITIS active 941276610 SNOMED-CT UNSPECIFIED INFLAMMATORY SPONDYLOPATHY, LUMBAR REGION active 358723283 SNOMED-CT 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 [facility] THERAPY active 266119350 SNOMED-CT Allergies and Adverse Reactions Allergy Substance Reaction Severity Start Date Concern Status Code Code System SULFA (sulfonamide) Hives (SNOMED-CT: 884019503) Moderate Active 97444321 SNOMED-CT CEPHALOSPORIN Itching (SNOMED-CT: 727823522) Moderate Active 400248995 SNOMED-CT KETOROLAC NAUSEA (SNOMED-CT: null) Moderate Active 25153 RxNorm IODINE Hives (SNOMED-CT: 418483176) Moderate Active 5933 RxNorm ADHESIVE Rash (SNOMED-CT: 979520136) Moderate Active LATEX BLISTERS (SNOMED-CT: null) Moderate Active 1261676 RxNorm TEA TREE OIL BLISTERS (SNOMED-CT: null) Moderate Active 51270 RxNorm FLAGYL 375 TONGUE SWELLING (SNOMED-CT: null) Moderate Active 991551 RxNorm MOTRIN NAUSEA (SNOMED-CT: null) Moderate Active 169193 RxNorm PENICILLIN Hives (SNOMED-CT: 382537012) Moderate Active Plan of Treatment SI Joint Injection Bilateral 03/16/2025 OR SI Joint Injection 03/16/2025 SI Joint Injection Bilateral 03/16/2025 OR SI Joint Injection 03/16/2025 Diag Medial Branch Block Lumbar #2 /03/2025 OR Diagnostic Medial Branch Block 12/29 Radiofrequency Ablation Lumbar-Bilat OR Radiofrequency Ablation LumbThorCerv 01/26/2025 Radiofrequency Ablation Lumbar-Bilat OR Radiofrequency Ablation LumbThorCerv 01/26/2025 Follow Up 08/24/2025 Follow Up 06/01/2025 Office Injection 06/01/2025 Follow Up 06/01/2025 Office Injection 06/01/2025 Plan Bilateral SI joint injections F/U 2 weeks after -consider ALLYSSA/DMBB/RFA Encounters Encounter Diagnosis Start Date Code Code Sys tem Sacrococcygeal disorders, not elsewhere classified SNOMED-CT Personal Care Team Section Performer Name Performer Role Active Date Inactive Da nury Krishnamurthy PCP - Primary care physician 2024-07-11 Progress Notes [facility] 09/22/2024 10:52 All Demographics Patient Name Age Sex Visit Number Admission Date/Time Attending Physician Date of Service Room and Bed Emergency Contact RUSSELL GAYTAN 1965 59 years Female [id number] 09/22/2024 10:23 Shahab Romano 09/22/2024 02-OP ZOEY ZELAYA - [id number] PAIN MANAGEMENT HISTORY & PHYSICAL Vital Signs: Most Recent Today Date/Time BP (mm/Hg) BP Position/Site Heart Rate Resp Temp (F) SPO2% O2 Device Pain Score Height (in) Weight (lbs/ozs) BMI Systolic Diastolic Pulse Site O2 L/min 09/22/2024 10:35 145/78 Sitting/Left Arm 86 98.2 Tympanic 100 % Room Air 21% 8 62 in 199.0 36.4 145 78 Pulse Ox Chief Complaint: Other chronic pain History of Present Illness: Patient reports excessive back pain. Here to review MRI. Discuss performing bilateral SI joint injections. Location: Lower back, bilateral knees Quality: Per [...] balm Associated Symptoms: Pain into bilateral legs and into heel. Pain History: Ongoing for years. Patient fell as few days ago, about 4 days back, and ribs midsection are sore. PHQ-9 Depression Screening Patient condition has declined [...] fear of needles in her spine. We discussed moving forward with SI joint injections and readdressing this pain at further appointments. Sacroiliac Joint Assessment Patient is positive for [...] to try to help control her pain. We will start with SI joint injections as this area seems to be causing her the most pain currently. Radiology: Imaging reviewed with patient Pain Treatment History: Conservative Measures Tried and Failed: Heat/Ice, Home exercises, rest Medications Trialed: gabapentin, hydrocodone, muscle relaxers, anti inflammatories Previous Interventional Pain Procedures: none Plan Bilateral SI joint injections F/U 2 weeks after -consider ALLYSSA/DMBB/RFA Problem List Encounter for screening for other [...] 100MG Oral Tablet 100 MILLIGRAMS AT BEDTIME Escitalopram 20MG Oral Tablet 20 [...] Oral Tablet 40 MILLIGRAMS ONCE A DAY Nortriptyline 50MG Oral Capsule 50 MILLIGRAMS AT BEDTIME Pravastatin Sodium 80MG Oral Tablet 80 MILLIGRAMS AT BEDTIME Gabapentin 800MG Oral Tablet 800 MILLIGRAMS THREE TIMES A DAY clonazePAM 1MG Oral Tablet 1 MILLIGRAMS THREE TIMES A DAY traZODone hydrochloride 150MG Oral Tablet 150 MILLIGRAMS AT BEDTIME hydrOXYzine HCl 50MG Oral Tablet 50 MILLIGRAMS ONCE A DAY Cyclobenzaprine HCl 10MG Oral Tablet 1 TABLET Meloxicam 15MG Oral Tablet 1 TABLET ONCE A DAY Trulicity 0.75MG/0.5ML Subcutaneous Solution 1 EACH ONCE A WEEK Levothyroxine Sodium 88MCG Oral Tablet 88 MCG ONCE A DAY HumaLOG Mix 75/25 KwikPen 75U/1ML-25U/1ML Subcutaneous Suspension 1 EACH DIRECTED Vitamin D3 10 MCG Oral Tablet 10 MCG ONCE A DAY Lantus SoloStar 100U/1ML Subcutaneous Solution 1 EACH AT BEDTIME
--- OUTSIDE RECORDS SUMMARY | 2025-08-22 21:47 | XMS_ITS ---
Author Organization Unknown Address [address] [place] [address] [phone] Phone Care Team Providers Care Lead Designer Name Role Phone MILES DAVIS Attending Unavailable PHOENIX MCCLAIN Primary Unavailable Immunization Immunization Date Status Additional Notes Code Code System influenza, unspecified formulation 07/04/2019 Completed 88 CVX Tdap 08/05/2021 Completed 115 CVX Influenza, MDCK, trivalent, PF 05/14/2024 Completed 153 CVX Pneumococcal conjugate PCV20 , polysaccharide [id number] conjugate, adjuvant, PF 05/14/2024 Completed 216 CVX Social History Type Status Start Date End Date Code Code Syst em Smoking History Current every day smoker 860601566 SNOMED CT Sex Female Vital Signs Vital Sign Value Unit [place] Unit Date/Time Recent/Initial? Code Code System Body Mass Index 36.40 kg/m2 10/23/2024 10:17 Initial 73326 -5 [facility] Systolic Blood Pressure 153 mm[Hg] 10/23/2024 10:17 Initial 8480- 6 [facility] Diastolic Blood Pressure 79 mm[Hg] 10/23/2024 10:17 Initial 8462- 4 [facility] Body Surface Area 1.99 m2 10/23/2024 10:17 Initial 3140- 1 [facility] Height 157.480 0 cm 62.00 in 10/23/2024 10:17 Initial 8302- 2 [facility] O2 Saturation 99 % 2024 10:17 Initial 04180 -5 [facility] Pulse 78.0 /min 10/23/2024 10:17 Initial 8867- 4 [facility] Temperature 36.3 Gloria 97.3 F 10/23/19 10:17 Initial 8310- 5 [facility] Weight 90.26 kg 199.00 lbs 10/23/2024 10:17 Initial 68972 -7 [facility] Medications Medication Start Date End Date Route Frequency Dose Code Code System Medication Instructions Home Meds Meloxicam 15MG Oral Tablet 08/11/2024 10/24/2024 BY MOUTH ONCE A DAY 1 TABLET 069805 RxNorm TAKE 1 TABLET BY MOUTH ONCE A DAY Cyclobenzapri ne HCl 10MG Oral Tablet 08/11/2024 03/11/2025 BY MOUTH 1 TABLET 042740 RxNorm TAKE 1 TABLET BY MOUTH FOR FOR MUSCLE SPASM. Escitalopram 20MG Oral Tablet 09/22/2024 Unknown ORAL ONCE A DAY 20 MILLIGRAM S 896963 RxNorm TAKE 20 MILLIGRAM S ORAL ONCE A DAY Gabapentin 800MG Oral Tablet 09/22/2024 Unknown ORAL THREE TIMES A DAY 800 MILLIGRAM S 160427 RxNorm TAKE 800 MILLIGRAM S ORAL THREE TIMES A DAY HumaLOG Mix 75/25 KwikPen 75U/1ML-25U/1 ML Subcutaneous Suspension 09/22/2024 03/11/2025 SUBCUTANE OUS DIRECTED 1 unit(s) 548450 RxNorm INJECT INTO 1 EACH SUBCUTANE OUS DIRECTED Lantus SoloStar 100U/1ML Subcutaneous Solution 09/22/2024 03/11/2025 SUBCUTANE OUS AT BEDTIME 1 unit(s) 000876 RxNorm INJECT INTO 1 EACH SUBCUTANE OUS AT BEDTIME Levothyroxine Sodium 88MCG Oral Tablet 09/22/2024 Unknown ORAL ONCE A DAY 88 MCG 935582 RxNorm TAKE 88 MCG ORAL ONCE A DAY Lisinopril 40MG Oral Tablet 09/22/2024 Unknown ORAL ONCE A DAY 40 MILLIGRAM S 949471 RxNorm TAKE 40 MILLIGRAM S ORAL ONCE A DAY Metoprolol Tartrate 100MG Oral Tablet 09/22/2024 Unknown ORAL TWICE A DAY 100 MILLIGRAM S 067794 RxNorm TAKE 100 MILLIGRAM S ORAL TWICE A DAY Nortriptyline 50MG Oral Capsule 09/22/2024 Unknown ORAL AT BEDTIME 50 MILLIGRAM S RxNorm TAKE 50 MILLIGRAM S ORAL AT BEDTIME Pravastatin Sodium 80MG Oral Tablet 09/22/2024 Unknown ORAL AT BEDTIME 80 MILLIGRAM S 722117 RxNorm TAKE 80 MILLIGRAM S ORAL AT BEDTIME QUEtiapine 100MG Oral Tablet 09/22/2024 Unknown ORAL AT BEDTIME 100 MILLIGRAM S 819720 RxNorm TAKE 100 MILLIGRAM S ORAL AT BEDTIME Trulicity 0.75MG/0.5ML Subcutaneous Solution 09/22/2024 03/11/2025 SUBCUTANE OUS ONCE A WEEK 1 unit(s) 6009319 RxNorm INJECT INTO 1 EACH SUBCUTANE OUS ONCE A WEEK Venlafaxine HCl 75MG Oral Tablet 09/22/2024 Unknown ORAL ONCE A DAY 150 MILLIGRAM S 953125 RxNorm TAKE 150 MILLIGRAM S ORAL ONCE A DAY Vitamin D3 10 MCG Oral Tablet 09/22/2024 12/29/2024 ORAL ONCE A DAY 10 MCG 634254 RxNorm TAKE 10 MCG ORAL ONCE A DAY amLODIPine Besylate 10MG Oral Tablet 09/22/2024 Unknown ORAL ONCE A DAY 10 MILLIGRAM S 240146 RxNorm TAKE 10 MILLIGRAM S ORAL ONCE A DAY carBAMazepine 200MG Oral Capsule, Extended Release 09/22/2024 Unknown ORAL TWICE A DAY 200 MILLIGRAM S 618368 RxNorm TAKE 200 MILLIGRAM S ORAL TWICE A DAY clonazePAM 1MG Oral Tablet 09/22/2024 03/11/2025 ORAL THREE TIMES A DAY 1 MILLIGRAM S 999815 RxNorm TAKE 1 MILLIGRAM S ORAL THREE TIMES A DAY metFORMIN HCl 1000MG Oral Tablet 09/22/2024 Unknown ORAL TWICE A DAY 1000 MILLIGRAM S 504813 RxNorm TAKE 1000 MILLIGRAM S ORAL TWICE A DAY rOPINIRole HCl 0.25MG Oral Tablet 09/22/2024 Unknown ORAL AT BEDTIME 0.25 MILLIGRAM S 568063 RxNorm TAKE 0.25 MILLIGRAM S ORAL AT BEDTIME traZODone hydrochloride 150MG Oral Tablet 09/22/2024 Unknown ORAL AT BEDTIME 150 MILLIGRAM S 229235 RxNorm TAKE 150 MILLIGRAM S ORAL AT BEDTIME hydrOXYzine HCl 50MG Oral Tablet 09/22/2024 Unknown ORAL ONCE A DAY 50 MILLIGRAM S 572832 RxNorm TAKE 50 MILLIGRAM S ORAL ONCE A DAY Chlorthalidon e 25MG Oral Tablet 09/22/2024 Unknown ORAL ONCE A DAY 25 MILLIGRAM S 127683 RxNorm TAKE 25 MILLIGRAM S ORAL ONCE A DAY Multivitamin Oral Tablet 10/13/2024 Unknown ORAL ONCE A DAY 1 unit(s) RxNorm TAKE 1 EACH ORAL ONCE A DAY Meloxicam 15MG Oral Tablet 10/24/2024 01/26/2025 BY MOUTH ONCE A DAY 1 TABLET 596610 RxNorm TAKE 1 TABLET BY MOUTH ONCE A DAY Methocarbamol 500MG Oral Tablet 11/27/2024 12/22/2024 BY MOUTH NEEDED 3 TIMES A DAY 1 TABLET 255480 RxNorm TAKE 1 TABLET BY MOUTH NEEDED 3 TIMES A DAY Diclofenac Sodium 75MG Oral Tablet, Enteric Coated 11/27/2024 07/02/2025 BY MOUTH NEEDED 3 TIMES A DAY 1 TABLET 444298 RxNorm TAKE 1 TABLET BY MOUTH NEEDED 3 TIMES A DAY Methocarbamol 500MG Oral Tablet 12/22/2024 01/26/2025 BY MOUTH NEEDED 3 TIMES A DAY 1 TABLET 017365 RxNorm TAKE 1 TABLET BY MOUTH THREE TIMES DAILY NEEDED oxyCODONE HCl-acetamino phen 5MG-325MG Oral Tablet 01/26/2025 03/11/2025 BY MOUTH NEEDED TWICE A DAY 1 TABLET 4945640 RxNorm TAKE 1 TABLET BY MOUTH NEEDED TWICE A DAY Meloxicam 15MG Oral Tablet 01/26/2025 02/23/2025 BY MOUTH ONCE A DAY 1 TABLET 337757 RxNorm TAKE 1 TABLET BY MOUTH DAILY Methocarbamol 500MG Oral Tablet 01/26/2025 02/23/2025 BY MOUTH NEEDED 3 TIMES A DAY 1 TABLET 977113 RxNorm TAKE 1 TABLET BY MOUTH THREE TIMES DAILY NEEDED Meloxicam 15MG Oral Tablet 02/23/2025 03/11/2025 BY MOUTH ONCE A DAY 1 TABLET 349973 RxNorm TAKE 1 TABLET BY MOUTH DAILY Methocarbamol 500MG Oral Tablet 02/23/2025 03/26/2025 BY MOUTH NEEDED 3 TIMES A DAY 1 TABLET 805599 RxNorm TAKE 1 TABLET BY MOUTH NEEDED 3 TIMES A DAY HumaLOG Mix 75/25 KwikPen 75U/1ML-25U/1 ML Subcutaneous Suspension 03/16/2025 Unknown SUBCUTANE OUS THREE TIMES A DAY 1 unit(s) 797423 RxNorm INJECT INTO 1 EACH SUBCUTANE OUS THREE TIMES A DAY Trulicity 1.5MG/0.5ML Subcutaneous Solution 03/16/2025 Unknown SUBCUTANE OUS ONCE A WEEK 1 unit(s) 4382812 RxNorm INJECT INTO 1 EACH SUBCUTANE OUS ONCE A WEEK clonazePAM 1MG Oral Tablet 03/16/2025 Unknown ORAL ONCE A DAY 1 MILLIGRAM S 242814 RxNorm TAKE 1 MILLIGRAM S ORAL ONCE A DAY Meloxicam 15MG Oral Tablet 03/26/2025 06/29/2025 BY MOUTH ONCE A DAY 1 TABLET 410409 RxNorm TAKE 1 TABLET BY MOUTH ONCE A DAY Meloxicam 15MG Oral Tablet 06/29/2025 Unknown BY MOUTH ONCE A DAY 1 TABLET 656529 RxNorm TAKE 1 TABLET BY MOUTH DAILY [...] DISEASE WITHOUT ESOPHAGITISUNSPECIFIED INFLAMMATORY SPONDYLOPATHY, LUMBAR REGIONOTHER HALF-WAY (CURRENT) DRUG THERAPY Hospital Discharge Instructions Should you have any questions prior to discharge, please contact a member of your healthcare team. If you have left the hospital and have any questions, please contact your primary care physician. Reason For Referral No Data Found Problems Problem Start Date Resolved Date Status Code Code System ENCOUNTER FOR SCREENING FOR OTHER VIRAL DISEASES active 070159402 SNOMED- CT ABDOMINAL PAIN active 27135820 SNOME D-CT PAIN IN BACK active 166109062 SNOMED- CT ANXIETY DISORDER, UNSPECIFIED active 913224318 SNOMED-CT DEPRESSION, UNSPECIFIED active 959520 07 SNOMED-CT SCHIZOPHRENIA, UNSPECIFIED active 582 92219 SNOMED-CT HYPERLIPIDEMIA, UNSPECIFIED active 55 648126 SNOMED-CT PERSONAL HISTORY OF OTHER MALIGNANT NEOPLASM OF SKIN active 459007931 S NOMED-CT BIPOLAR DISORDER, UNSPECIFIED active 82517279 SNOMED-CT ENCOUNTER FOR SCREENING EXAMINATION FOR OTHER MENTAL HEALTH AND BEHAVIORAL DISOR active 043698323 SNOMED-CT ENCOUNTER FOR SCREENING, UNSPECIFIED active 358427209 SNOMED-CT ENCOUNTER FOR GENERAL ADULT MEDICAL EXAMINATION WITHOUT ABNORMAL FINDINGS active 876551240 SNOMED-CT ENCOUNTER FOR OTHER SCREENIN G FOR MALIGNANT NEOPLASM OF BREAST active 228165201 SNOMED-CT TYPE 2 DIABETES MELLITUS WITHOUT COMPLICATIONS active 499276606 SNOMED -CT DORSALGIA, UNSPECIFIED active 9674058 05 SNOMED-CT ESSENTIAL (PRIMARY) HYPERTENSION active 43232188 SNOMED-CT THYROTOXICOSIS, 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 48660472 SNOMED-CT GASTRO-ESOPHAGEAL REFLUX DISEASE WITHOUT ESOPHAGITIS active 864430320 SNOMED-CT UNSPECIFIED INFLAMMATORY SPONDYLOPATHY, LUMBAR REGION active 769406921 SNOMED-CT 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 [facility] 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 active 990693787 SNOMED-CT Allergies and Adverse Reactions Allergy Substance Reaction Severity Start Date Concern Status Code Code System SULFA (sulfonamide) Hives (SNOMED-CT: 035896457) Moderate Active 03729112 SNOMED-CT CEPHALOSPORIN Itching (SNOMED-CT: 640472706) Moderate Active 306681198 SNOMED-CT KETOROLAC NAUSEA (SNOMED-CT: null) Moderate Active 24899 RxNorm IODINE Hives (SNOMED-CT: 377202859) Moderate Active 5933 RxNorm ADHESIVE Rash (SNOMED-CT: 518728099) Moderate Active LATEX BLISTERS (SNOMED-CT: null) Moderate Active 6900422 RxNorm TEA TREE OIL BLISTERS (SNOMED-CT: null) Moderate Active 80186 RxNorm FLAGYL 375 TONGUE SWELLING (SNOMED-CT: null) Moderate Active 514823 RxNorm MOTRIN NAUSEA (SNOMED-CT: null) Moderate Active 556746 RxNorm PENICILLIN Hives (SNOMED-CT: 775155970) Moderate Active Plan of Treatment SI Joint [...] Follow Up 06/01/2025 Office Injection 06/01/2025 Plan DMBB #1 Bilateral L4-5, L5-S1 F/U from [facility] consider ALLYSSA Encounters Encounter Diagnosis Start Date Code Code Sys tem Other spondylosis with radiculopathy, lumbar region SNOMED-CT Personal Care Team Section Performer Name Performer Role Active Date Inactive Da nury Krishnamurthy PCP - Primary care physician 2024-07-11 Progress Notes [facility] 11/06/2024 10:09 All Demographics Patient Name Age Sex Visit Number Admission Date/Time Attending Physician Date of Service Room and Bed Emergency Contact RUSSELL GAYTAN 1965 59 years Female [id number] 10/23/2024 10:00 Shahab Romano 10/23/2024 05-OP ZOEY ZELAYA - [id number] PAIN MANAGEMENT HISTORY & PHYSICAL Vital Signs: Most Recent Today Date/Time BP (mm/Hg) BP Position/Site Heart Rate Resp Temp (F) SPO2% O2 Device Pain Score Height (in) Weight (lbs/ozs) BMI Systolic Diastolic Pulse Site O2 L/min 10/23/2024 10:17 153/79 Sitting/Left Arm 78 97.3 Tympanic 99 % Room Air 21% 5 62 in 199.0 36.4 153 79 Pulse Ox Chief Complaint: Other chronic pain History of Present Illness: Patient reports excessive back pain. Here today for follow up appt. from procedure: bilateral SI joint injections. Location: Lower back, down side. Mid back and Right foot. Quality: Per patient excruciating stabbing back pain Duration: Pt states this has been ongoing for years Timing: From the time she wakes until she goes to bed, she experiences pain in her lower back. Alleviating Factors: Pt states physical therapy and injections do not help. She states only hydrocodone will help with pain relief. Also uses THC balm. Patient reports a 50% increase in the pain since last procedure. Associated Symptoms: Pain into bilateral legs and into heel. Pain History: Ongoing for years. Patient fell as few days ago, about 4 days back, and ribs midsection are sore. PHQ-9 Depression Screening Patient condition has declined since last screening Patient condition has improved since last screening x No previous screening Patient declined screening PHQ-9 Score Assessment: X N/A: PHQ-9 not performed/Patient declined 0-4: Not [...] least 3 months at this time (10/23/24). Radiology: Imaging reviewed with patient Pain Treatment History: Conservative Measures Tried and Failed: Heat/Ice, Home exercises, rest Medications Trialed: gabapentin, hydrocodone, muscle relaxers, anti inflammatories Previous Interventional Pain Procedures: SI - 50% relief (10/13/24) Plan DMBB #1 Bilateral L4-5, L5-S1 F/U from RFA consider [...] Meds: Dose and Freq Medication Dosage Frequency Meloxicam 15MG Oral Tablet 1 TABLET ONCE A DAY rOPINIRole HCl 0.25MG Oral Tablet 0.25 MILLIGRAMS AT BEDTIME metFORMIN HCl 1000MG Oral Tablet 1000 MILLIGRAMS TWICE A DAY Multivitamin Oral Tablet 1 EACH ONCE A DAY traZODone hydrochloride 150MG Oral Tablet 150 MILLIGRAMS AT BEDTIME carBAMazepine 200MG Oral Capsule, Extended Release 200 MILLIGRAMS TWICE A DAY amLODIPine Besylate 10MG Oral Tablet 10 MILLIGRAMS ONCE A DAY hydrOXYzine HCl 50MG Oral Tablet 50 MILLIGRAMS ONCE A DAY clonazePAM 1MG Oral Tablet 1 MILLIGRAMS THREE TIMES A DAY Trulicity 0.75MG/0.5ML Subcutaneous Solution 1 EACH ONCE A WEEK QUEtiapine 100MG Oral Tablet 100 MILLIGRAMS AT BEDTIME Vitamin D3 10 MCG Oral Tablet 10 MCG ONCE A DAY Venlafaxine HCl 75MG Oral Tablet 150 MILLIGRAMS ONCE A DAY Metoprolol Tartrate 100MG Oral Tablet 100 MILLIGRAMS TWICE A DAY Lisinopril 40MG Oral Tablet 40 MILLIGRAMS ONCE A DAY Pravastatin Sodium 80MG Oral Tablet 80 MILLIGRAMS AT BEDTIME Nortriptyline 50MG Oral Capsule 50 MILLIGRAMS AT BEDTIME HumaLOG Mix 75/25 KwikPen 75U/1ML-25U/1ML Subcutaneous Suspension 1 EACH DIRECTED Gabapentin 800MG Oral Tablet 800 MILLIGRAMS THREE TIMES A DAY Levothyroxine Sodium 88MCG Oral Tablet 88 MCG ONCE A DAY Lantus SoloStar 100U/1ML Subcutaneous Solution 1 EACH AT BEDTIME Cyclobenzaprine HCl 10MG Oral Tablet 1 TABLET Escitalopram 20MG Oral Tablet 20 MILLIGRAMS ONCE A DAY Chlorthalidone 25MG Oral Tablet 25 MILLIGRAMS ONCE A DAY
--- OUTSIDE RECORDS SUMMARY | 2025-08-22 21:47 | XMS_ITS ---
Author Organization Unknown Address [address] [place] [phone] Phone Care Team Providers Care Weapons And Tactics Instructor Name Role Phone SHMUEL HAMM Attending Unavailable PHOENIX MCCLAIN Primary Unavailable Immunization Immunization Date Status Additional Notes Code Code System influenza, unspecified formulation 07/04/2019 Completed 88 CVX Tdap 08/05/2021 Completed 115 CVX Influenza, MDCK, trivalent, PF 05/14/2024 Completed 153 CVX Pneumococcal conjugate PCV20 , polysaccharide [id number] conjugate, adjuvant, PF 05/14/2024 Completed 216 CVX Results US ARTERIAL RENAL DUPLEX COM PLETE - Completed: 03/12/2025 09:46 LOINC: \TM00\\12PI\\DRAo\\BM09\ \MRHo\ [address] [address] ---------NAME--------- NUMBER SEX AGE ADMIT DISC. XRAY# F/C TYPE LUCILA GONSALEZ [id number] F 59 03/12/25 03/12/25 [id number] XB1 O/P DATE OF : 1965 M/R# [id number] PH#: [phone] RM \MRHx\ LOCATION: TRANSCRIBED: 03/12/25 12:05 US ARTERIAL RENAL DUPLEX [id number] COMPLETED:03/12/25 9:46 APC [id number] REASON FOR PROCEDURE(S): CHEST PAIN PHYSICIAN: SHMUEL HUTSON R A D I O L O G Y R E P O R T INDICATION: CHEST PAIN TECHNIQUE: Multiple real-time sonographic images of the kidneys and bladder were obtained. Duplex Doppler evaluation including color Doppler and spectral/pulsed waveform analysis of the bilateral renal arteries was performed. COMPARISON: None FINDINGS: The right kidney measures 11.1 cm in length. The right renal echogenicity, contour and cortical thickness are within normal limits. No hydronephrosis or large masses/calculi are seen. The left kidney measures 10.4 cm in length. The left renal echogenicity, contour, and cortical thickness are within normal limits. No hydronephrosis or large masses/calculi are seen. Aorta peak systolic velocity, 67 cm/s Right renal artery peak systolic velocity, 112 cm/s (< 180 cm/s = normal). Left renal artery peak systolic velocity 92 cm/s (< 180 cm/s = normal). Right RAR : 1.7 (< 3.5, normal) Left RAR 1.4 (< 3.5, normal) Right RI: 0.7-0.8 (< 0.75, normal) Left RI: 0.75-0.79 (< 0.75, normal) IMPRESSION: No findings to suggest renal artery stenosis. 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 \ITLo\ \UNDo\ \UNDx\ \ITLx\ Reviewed and Electronically Signed by: Nixon Tamayo MD Signed Date: 03/12/25 12:05 03/12/25.1220.APC.to [facility] ORANTES via modem US ECHO W/ COLOR - Completed : 03/12/2025 09:46 LOINC: See Scanned Image Attachment for Report Dictated By: Arianne Initials: Trans Date: 03/16/25 13:31 <<REPDIST>> Social History Type Status Start Date End Date Code Code Syst em Smoking History Current every day smoker [id number] SNOMED CT Sex Female Medications Medication Start Date End Date Route Frequency Dose Code Code System Medication Instructions Home Meds Chlorthalidone 25MG Oral Tablet 09/22/2024 Unknown ORAL ONCE A DAY 25 MILLIGRAMS 475186 RxNorm TAKE 25 MILLIGRAMS ORAL ONCE A DAY Escitalopram 20MG Oral Tablet 09/22/2024 Unknown ORAL ONCE A DAY 20 MILLIGRAMS 129991 RxNorm TAKE 20 MILLIGRAMS ORAL ONCE A DAY Gabapentin 800MG Oral Tablet 09/22/2024 Unknown ORAL THREE TIMES A DAY 800 MILLIGRAMS 357994 RxNorm TAKE 800 MILLIGRAMS ORAL THREE TIMES A DAY Levothyroxine Sodium 88MCG Oral Tablet 09/22/2024 Unknown ORAL ONCE A DAY 88 MCG 662804 RxNorm TAKE 88 MCG ORAL ONCE A DAY Lisinopril 40MG Oral Tablet 09/22/2024 Unknown ORAL ONCE A DAY 40 MILLIGRAMS 883878 RxNorm TAKE 40 MILLIGRAMS ORAL ONCE A DAY Metoprolol Tartrate 100MG Oral Tablet 09/22/2024 Unknown ORAL TWICE A DAY 100 MILLIGRAMS 666194 RxNorm TAKE 100 MILLIGRAMS ORAL TWICE A DAY Nortriptyline 50MG Oral Capsule 09/22/2024 Unknown ORAL AT BEDTIM E 50 MILLIGRAMS RxNorm TAKE 50 MILLIGRAMS ORAL AT BEDTIME Pravastatin Sodium 80MG Oral Tablet 09/22/2024 Unknown ORAL AT BEDTIM E 80 MILLIGRAMS 852519 RxNorm TAKE 80 MILLIGRAMS ORAL AT BEDTIME QUEtiapine 100MG Oral Tablet 09/22/2024 Unknown ORAL AT BEDTIM E 100 MILLIGRAMS 913217 RxNorm TAKE 100 MILLIGRAMS ORAL AT BEDTIME Venlafaxine HCl 75MG Oral Tablet 09/22/2024 Unknown ORAL ONCE A DAY 150 MILLIGRAMS 385800 RxNorm TAKE 150 MILLIGRAMS ORAL ONCE A DAY amLODIPine Besylate 10MG Oral Tablet 09/22/2024 Unknown ORAL ONCE A DAY 10 MILLIGRAMS 303634 RxNorm TAKE 10 MILLIGRAMS ORAL ONCE A DAY carBAMazepine 200MG Oral Capsule, Extended Release 09/22/2024 Unknown ORAL TWICE A DAY 200 MILLIGRAMS 907754 RxNorm TAKE 200 MILLIGRAMS ORAL TWICE A DAY hydrOXYzine HCl 50MG Oral Tablet 09/22/2024 Unknown ORAL ONCE A DAY 50 MILLIGRAMS 522521 RxNorm TAKE 50 MILLIGRAMS ORAL ONCE A DAY metFORMIN HCl 1000MG Oral Tablet 09/22/2024 Unknown ORAL TWICE A DAY 1000 MILLIGRAMS 462589 RxNorm TAKE 1000 MILLIGRAMS ORAL TWICE A DAY rOPINIRole HCl 0.25MG Oral Tablet 09/22/2024 Unknown ORAL AT BEDTIM E 0.25 MILLIGRAMS 489540 RxNorm TAKE 0.25 MILLIGRAMS ORAL AT BEDTIME traZODone hydrochloride 150MG Oral Tablet 09/22/2024 Unknown ORAL AT BEDTIM E 150 MILLIGRAMS 785742 RxNorm TAKE 150 MILLIGRAMS ORAL AT BEDTIME Multivitamin Oral Tablet 10/13/2024 Unknown ORAL ONCE A DAY 1 unit(s) RxNorm TAKE 1 EACH ORAL ONCE A DAY Diclofenac Sodium 75MG Oral Tablet, Enteric Coated 11/27/2024 07/02/20 25 BY MOUTH NEEDED 3 TIMES A DAY 1 TABLET 183724 RxNorm TAKE 1 TABLET BY MOUTH NEEDED 3 TIMES A DAY Methocarbamol 500MG Oral Tablet 02/23/2025 03/26/20 25 BY MOUTH NEEDED 3 TIMES A DAY 1 TABLET 224458 RxNorm TAKE 1 TABLET BY MOUTH NEEDED 3 TIMES A DAY HumaLOG Mix 75/25 KwikPen 75U/1ML-25U/1ML Subcutaneous Suspension 03/16/2025 Unknown SUBCUTA NEOUS THREE TIMES A DAY 1 unit(s) 811245 RxNorm INJECT INTO 1 EACH SUBCUTANEOUS THREE TIMES A DAY Trulicity 1.5MG/0.5ML Subcutaneous Solution 03/16/2025 Unknown SUBCUTA NEOUS ONCE A WEEK 1 unit(s) 7153069 RxNorm INJECT INTO 1 EACH SUBCUTANEOUS ONCE A WEEK clonazePAM 1MG Oral Tablet 03/16/2025 Unknown ORAL ONCE A DAY 1 MILLIGRAMS 179849 RxNorm TAKE 1 MILLIGRAMS ORAL ONCE A DAY Meloxicam 15MG Oral Tablet 03/26/2025 06/29/20 25 BY MOUTH ONCE A DAY 1 TABLET 359143 RxNorm TAKE 1 TABLET BY MOUTH ONCE A DAY Meloxicam 15MG Oral Tablet 06/29/2025 Unknown BY MOUTH ONCE A DAY 1 TABLET 303488 RxNorm TAKE 1 TABLET BY MOUTH DAILY [...] DISEASE WITHOUT ESOPHAGITISUNSPECIFIED 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 If you have left the hospital and have any questions, please contact your primary care physician. Reason For Referral No Data Found Problems Problem Start Date Resolved Date Status Code Code System ENCOUNTER FOR SCREENING FOR OTHER VIRAL DISEASES active [id number] SNOMED- CT ABDOMINAL PAIN active 59698496 SNOME D-CT PAIN IN BACK active 148090684 SNOMED- CT ANXIETY DISORDER, UNSPECIFIED active 543009534 SNOMED-CT DEPRESSION, UNSPECIFIED active 731817 07 SNOMED-CT SCHIZOPHRENIA, UNSPECIFIED active 582 32865 SNOMED-CT HYPERLIPIDEMIA, UNSPECIFIED active 55 671429 SNOMED-CT PERSONAL HISTORY OF OTHER MALIGNANT NEOPLASM OF SKIN active 657556550 S NOMED-CT BIPOLAR DISORDER, UNSPECIFIED active 89667238 SNOMED-CT ENCOUNTER FOR SCREENING EXAMINATION FOR OTHER MENTAL HEALTH AND BEHAVIORAL DISOR active 006312439 SNOMED-CT ENCOUNTER FOR SCREENING, UNSPECIFIED active 379175017 SNOMED-CT ENCOUNTER FOR GENERAL ADULT MEDICAL EXAMINATION WITHOUT ABNORMAL FINDINGS active 845231443 SNOMED-CT ENCOUNTER FOR OTHER SCREENIN G FOR MALIGNANT NEOPLASM OF BREAST active 888684860 SNOMED-CT TYPE 2 DIABETES MELLITUS WITHOUT COMPLICATIONS active 811899088 SNOMED -CT DORSALGIA, UNSPECIFIED active 8551313 05 SNOMED-CT ESSENTIAL (PRIMARY) HYPERTENSION active 39894394 SNOMED-CT THYROTOXICOSIS, 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 76155010 SNOMED-CT GASTRO-ESOPHAGEAL REFLUX DISEASE WITHOUT ESOPHAGITIS active 988834228 SNOMED-CT UNSPECIFIED INFLAMMATORY SPONDYLOPATHY, LUMBAR REGION active 443639000 SNOMED-CT OTHER RETIREMENT (CURRENT) DR UG THERAPY active 221889558 SNOMED-CT Allergies and Adverse Reactions Allergy Substance Reaction Severity Start Date Concern Status Code Code System SULFA (sulfonamide) Hives (SNOMED-CT: 747427905) Moderate Active 05895652 SNOMED-CT CEPHALOSPORIN Itching (SNOMED-CT: 808878879) Moderate Active 179960561 SNOMED-CT KETOROLAC NAUSEA (SNOMED-CT: null) Moderate Active 87976 RxNorm IODINE Hives (SNOMED-CT: 524272017) Moderate Active 5933 RxNorm ADHESIVE Rash (SNOMED-CT: 621702730) Moderate Active LATEX BLISTERS (SNOMED-CT: null) Moderate Active 2924973 RxNorm TEA TREE OIL BLISTERS (SNOMED-CT: null) Moderate Active 99891 RxNorm FLAGYL 375 TONGUE SWELLING (SNOMED-CT: null) Moderate Active 192397 RxNorm MOTRIN NAUSEA (SNOMED-CT: null) Moderate Active 20240501 RxNorm PENICILLIN Hives (SNOMED-CT: 016898807) Moderate Active Plan of Treatment SI Joint [...] Diagnosis Start Date Code Code Sys tem Chest pain, unspecified 03/12/2025 SNFree Flow Power ED-CT Personal Care Team Section Performer Name Performer Role Active Date Inactive Da nury Krishnamurthy PCP - Primary care physician 2024-07-11 Imaging Narrative Notes [facility] 03/16/2025 13:[address] [address] RADIOLOGY REPORT Patient Number: [id number] Patient Name: LUCILA GONSALEZ Type: O/P MR Number: [id number] : 1965 Age: 59 Sex: F Room #: Admit Date: 03/12/25 Discharge Date 03/12/25 Ordering Physician: SHMUEL HAMM Family Physician: PHOENIX Pena Physician: X-Ray Number : [id number] US ECHO W/ COLOR [id number] COMPLETE:03/12/25 09:46 APC [id number] (REASON-ECHO COMPLTE: CHEST PAIN See Scanned Image Attachment for Report Dictated By: Trans Initials: BG Trans Date: 03/16/25 13:31 <<REPDIST>> [facility] 03/12/2025 12:[address] [address] ---------NAME--------- NUMBER SEX AGE ADMIT DISC. XRAY# F/C TYPE LUCILA GONSALEZ [id number] F 59 03/12/25 03/12/25 80853 XB1 O/P DATE OF : 1965 M/R# [id number] #: [id number] LOCATION: TRANSCRIBED: 03/12/25 12:05 US ARTERIAL RENAL DUPLEX [id number] COMPLETED:03/12/25 9:46 APC [id number] REASON FOR PROCEDURE(S): CHEST PAIN PHYSICIAN: SHMUEL HUTSON RADIOLOGY REPORT INDICATION: CHEST PAIN TECHNIQUE: Multiple real-time sonographic images of the kidneys and bladder were obtained. Duplex Doppler evaluation including color Doppler and spectral/pulsed waveform analysis of the bilateral renal arteries was performed. COMPARISON: None FINDINGS: The right kidney measures 11.1 cm in length. The right renal echogenicity, contour and cortical thickness are within normal limits. No hydronephrosis or large masses/calculi are seen. The left kidney measures 10.4 cm in length. The left renal echogenicity, contour, and cortical thickness are within normal limits. No hydronephrosis or large masses/calculi are seen. Aorta peak systolic velocity, 67 cm/s Right renal artery peak systolic velocity, 112 cm/s (< 180 cm/s = normal). Left renal artery peak systolic velocity 92 cm/s (< 180 cm/s = normal). Right RAR : 1.7 (< 3.5, normal) Left RAR 1.4 (< 3.5, normal) Right RI: 0.7-0.8 (< 0.75, normal) Left RI: 0.75-0.79 (< 0.75, normal) IMPRESSION: No findings to suggest renal artery stenosis. 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
--- OUTSIDE RECORDS SUMMARY | 2025-08-22 21:47 | XMS_ITS ---
Author Organization Unknown Address [address] [place] [phone] Phone Care Team Providers Care Lithographed Plate Inspector Name Role Phone MI NORIS Attending Unavailable PHOENIX MCCLAIN Primary Unavailable Immunization Immunization Date Status Additional Notes Code Code System influenza, unspecified formulation 07/04/2019 Completed 88 CVX Tdap 08/05/2021 Completed 115 CVX Influenza, MDCK, trivalent, PF 05/14/2024 Completed 153 CVX Pneumococcal conjugate PCV20 , polysaccharide [id number] conjugate, adjuvant, PF 05/14/2024 Completed 216 CVX Social History Type Status Start Date End Date Code Code Syst em Smoking History Current every day smoker [id number] SNOMED CT Sex Female Medications Medication Start Date End Date Route Frequency Dose Code Code System Medication Instructions Home Meds Chlorthalidone 25MG Oral Tablet 09/22/2024 Unknown ORAL ONCE A DAY 25 MILLIGRAMS 642190 RxNorm TAKE 25 MILLIGRAMS ORAL ONCE A DAY Escitalopram 20MG Oral Tablet 09/22/2024 Unknown ORAL ONCE A DAY 20 MILLIGRAMS 785010 RxNorm TAKE 20 MILLIGRAMS ORAL ONCE A DAY Gabapentin 800MG Oral Tablet 09/22/2024 Unknown ORAL THREE TIMES A DAY 800 MILLIGRAMS 489106 RxNorm TAKE 800 MILLIGRAMS ORAL THREE TIMES A DAY Levothyroxine Sodium 88MCG Oral Tablet 09/22/2024 Unknown ORAL ONCE A DAY 88 MCG 095281 RxNorm TAKE 88 MCG ORAL ONCE A DAY Lisinopril 40MG Oral Tablet 09/22/2024 Unknown ORAL ONCE A DAY 40 MILLIGRAMS 286453 RxNorm TAKE 40 MILLIGRAMS ORAL ONCE A DAY Metoprolol Tartrate 100MG Oral Tablet 09/22/2024 Unknown ORAL TWICE A DAY 100 MILLIGRAMS 935148 RxNorm TAKE 100 MILLIGRAMS ORAL TWICE A DAY Nortriptyline 50MG Oral Capsule 09/22/2024 Unknown ORAL AT BEDTIM E 50 MILLIGRAMS RxNorm TAKE 50 MILLIGRAMS ORAL AT BEDTIME Pravastatin Sodium 80MG Oral Tablet 09/22/2024 Unknown ORAL AT BEDTIM E 80 MILLIGRAMS 653618 RxNorm TAKE 80 MILLIGRAMS ORAL AT BEDTIME QUEtiapine 100MG Oral Tablet 09/22/2024 Unknown ORAL AT BEDTIM E 100 MILLIGRAMS 307248 RxNorm TAKE 100 MILLIGRAMS ORAL AT BEDTIME Venlafaxine HCl 75MG Oral Tablet 09/22/2024 Unknown ORAL ONCE A DAY 150 MILLIGRAMS 029625 RxNorm TAKE 150 MILLIGRAMS ORAL ONCE A DAY amLODIPine Besylate 10MG Oral Tablet 09/22/2024 Unknown ORAL ONCE A DAY 10 MILLIGRAMS 392378 RxNorm TAKE 10 MILLIGRAMS ORAL ONCE A DAY carBAMazepine 200MG Oral Capsule, Extended Release 09/22/2024 Unknown ORAL TWICE A DAY 200 MILLIGRAMS 946112 RxNorm TAKE 200 MILLIGRAMS ORAL TWICE A DAY hydrOXYzine HCl 50MG Oral Tablet 09/22/2024 Unknown ORAL ONCE A DAY 50 MILLIGRAMS 670270 RxNorm TAKE 50 MILLIGRAMS ORAL ONCE A DAY metFORMIN HCl 1000MG Oral Tablet 09/22/2024 Unknown ORAL TWICE A DAY 1000 MILLIGRAMS 885257 RxNorm TAKE 1000 MILLIGRAMS ORAL TWICE A DAY rOPINIRole HCl 0.25MG Oral Tablet 09/22/2024 Unknown ORAL AT BEDTIM E 0.25 MILLIGRAMS 615748 RxNorm TAKE 0.25 MILLIGRAMS ORAL AT BEDTIME traZODone hydrochloride 150MG Oral Tablet 09/22/2024 Unknown ORAL AT BEDTIM E 150 MILLIGRAMS 421521 RxNorm TAKE 150 MILLIGRAMS ORAL AT BEDTIME Multivitamin Oral Tablet 10/13/2024 Unknown ORAL ONCE A DAY 1 unit(s) RxNorm TAKE 1 EACH ORAL ONCE A DAY Diclofenac Sodium 75MG Oral Tablet, Enteric Coated 11/27/2024 07/02/20 25 BY MOUTH NEEDED 3 TIMES A DAY 1 TABLET 396064 RxNorm TAKE 1 TABLET BY MOUTH NEEDED 3 TIMES A DAY Methocarbamol 500MG Oral Tablet 02/23/2025 03/26/20 25 BY MOUTH NEEDED 3 TIMES A DAY 1 TABLET 669601 RxNorm TAKE 1 TABLET BY MOUTH NEEDED 3 TIMES A DAY HumaLOG Mix 75/25 KwikPen 75U/1ML-25U/1ML Subcutaneous Suspension 03/16/2025 Unknown SUBCUTA NEOUS THREE TIMES A DAY 1 unit(s) 363958 RxNorm INJECT INTO 1 EACH SUBCUTANEOUS THREE TIMES A DAY Trulicity 1.5MG/0.5ML Subcutaneous Solution 03/16/2025 Unknown SUBCUTA NEOUS ONCE A WEEK 1 unit(s) 5643443 RxNorm INJECT INTO 1 EACH SUBCUTANEOUS ONCE A WEEK clonazePAM 1MG Oral Tablet 03/16/2025 Unknown ORAL ONCE A DAY 1 MILLIGRAMS 481343 RxNorm TAKE 1 MILLIGRAMS ORAL ONCE A DAY Meloxicam 15MG Oral Tablet 03/26/2025 06/29/20 25 BY MOUTH ONCE A DAY 1 TABLET 373610 RxNorm TAKE 1 TABLET BY MOUTH ONCE A DAY Meloxicam 15MG Oral Tablet 06/29/2025 Unknown BY MOUTH ONCE A DAY 1 TABLET 755220 RxNorm TAKE 1 TABLET BY MOUTH DAILY [...] FOR SCREENING FOR OTHER VIRAL DISEASES active 514756295 SNOMED- CT ABDOMINAL PAIN active 80498552 SNOME D-CT PAIN IN BACK active 802200462 SNOMED- CT ANXIETY DISORDER, UNSPECIFIED active 536323516 SNOMED-CT DEPRESSION, UNSPECIFIED active 875158 07 SNOMED-CT SCHIZOPHRENIA, UNSPECIFIED active 582 89329 SNOMED-CT HYPERLIPIDEMIA, UNSPECIFIED active 55 697752 SNOMED-CT PERSONAL HISTORY OF OTHER MALIGNANT NEOPLASM OF SKIN active 644634216 S NOMED-CT BIPOLAR DISORDER, UNSPECIFIED active 09112602 SNOMED-CT ENCOUNTER FOR SCREENING EXAMINATION FOR OTHER MENTAL HEALTH AND BEHAVIORAL DISOR active 822933104 SNOMED-CT ENCOUNTER FOR SCREENING, UNSPECIFIED active 912024991 SNOMED-CT ENCOUNTER FOR GENERAL ADULT MEDICAL EXAMINATION WITHOUT ABNORMAL FINDINGS active 821825883 SNOMED-CT ENCOUNTER FOR OTHER SCREENIN G FOR MALIGNANT NEOPLASM OF BREAST active 744847508 SNOMED-CT TYPE 2 DIABETES MELLITUS WITHOUT COMPLICATIONS active 615662116 SNOMED -CT DORSALGIA, UNSPECIFIED active 8580401 05 SNOMED-CT ESSENTIAL (PRIMARY) HYPERTENSION active 40397684 SNOMED-CT THYROTOXICOSIS, 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 50202735 SNOMED-CT GASTRO-ESOPHAGEAL REFLUX DISEASE WITHOUT ESOPHAGITIS active 666792696 SNOMED-CT UNSPECIFIED INFLAMMATORY SPONDYLOPATHY, LUMBAR REGION active 039355667 SNOMED-CT 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 388766304 SNOMED-CT Allergies and Adverse Reactions Allergy Substance Reaction Severity Start Date Concern Status Code Code System SULFA (sulfonamide) Hives (SNOMED-CT: 617103047) Moderate Active 53604860 SNOMED-CT CEPHALOSPORIN Itching (SNOMED-CT: 708362567) Moderate Active 098317613 SNOMED-CT KETOROLAC NAUSEA (SNOMED-CT: null) Moderate Active 17586 RxNorm IODINE Hives (SNOMED-CT: 996168410) Moderate Active 5933 RxNorm ADHESIVE Rash (SNOMED-CT: 158795447) Moderate Active LATEX BLISTERS (SNOMED-CT: null) Moderate Active 1488200 RxNorm TEA TREE OIL BLISTERS (SNOMED-CT: null) Moderate Active 81549 RxNorm FLAGYL 375 TONGUE SWELLING (SNOMED-CT: null) Moderate Active 734633 RxNorm MOTRIN NAUSEA (SNOMED-CT: null) Moderate Active 20240501 RxNorm PENICILLIN Hives (SNOMED-CT: 732585322) Moderate Active Plan of Treatment SI Joint [...] Diagnosis Start Date Code Code Sys tem Essential (primary) hypertension 03/18/2025 SNOMED-CT Personal Care Team Section Performer Name Performer Role Active Date Inactive Maxi Green PCP - Primary care physician 2024-07-11
--- OUTSIDE RECORDS SUMMARY | 2025-08-22 21:47 | XMS_ITS ---
Author Organization Unknown Address [address] [place] [address] [phone] Phone Care Team Providers Care Field Agronomist Name Role Phone MI NORIS Attending Unavailable PHOENIX MCCLAIN Primary Unavailable Immunization Immunization Date Status Additional Notes Code Code System influenza, unspecified formulation 07/04/2019 Completed 88 CVX Tdap 08/05/2021 Completed 115 CVX Influenza, MDCK, trivalent, PF 05/14/2024 Completed 153 CVX Pneumococcal conjugate PCV20 , polysaccharide [id number] conjugate, adjuvant, PF 05/14/2024 Completed 216 CVX Social History Type Status Start Date End Date Code Code Syst em Smoking History Current every day smoker [id number] SNOMED CT Sex Female Medications Medication Start Date End Date Route Frequency Dose Code Code System Medication Instructions Home Meds Cyclobenzaprine HCl 10MG Oral Tablet 08/11/2024 03/11/2025 BY MOUTH 1 TABLET 001348 RxNorm TAKE 1 TABLET BY MOUTH FOR FOR MUSCLE SPASM. Chlorthalidone 25MG Oral Tablet 09/22/2024 Unknown ORAL ONCE A DAY 25 MILLIGRAMS 111828 RxNorm TAKE 25 MILLIGRAM S ORAL ONCE A DAY Escitalopram 20MG Oral Tablet 09/22/2024 Unknown ORAL ONCE A DAY 20 MILLIGRAMS 686853 RxNorm TAKE 20 MILLIGRAM S ORAL ONCE A DAY Gabapentin 800MG Oral Tablet 09/22/2024 Unknown ORAL THRE E TIME S A DAY 800 MILLIGRAMS 853670 RxNorm TAKE 800 MILLIGRAM S ORAL THREE TIMES A DAY HumaLOG Mix 75/25 KwikPen 75U/1ML-25U/1ML Subcutaneous Suspension 09/22/2024 03/11/2025 SUBCUTANE OUS DIRE CTED 1 unit(s) 461948 RxNorm INJECT INTO 1 EACH SUBCUTANE OUS DIRECTED Lantus SoloStar 100U/1ML Subcutaneous Solution 09/22/2024 03/11/2025 SUBCUTANE OUS AT BEDT CARO 1 unit(s) 719300 RxNorm INJECT INTO 1 EACH SUBCUTANE OUS AT BEDTIME Levothyroxine Sodium 88MCG Oral Tablet 09/22/2024 Unknown ORAL ONCE A DAY 88 MCG 746881 RxNorm TAKE 88 MCG ORAL ONCE A DAY Lisinopril 40MG Oral Tablet 09/22/2024 Unknown ORAL ONCE A DAY 40 MILLIGRAMS 662299 RxNorm TAKE 40 MILLIGRAM S ORAL ONCE A DAY Metoprolol Tartrate 100MG Oral Tablet 09/22/2024 Unknown ORAL TWIC E A DAY 100 MILLIGRAMS 546066 RxNorm TAKE 100 MILLIGRAM S ORAL TWICE A DAY Nortriptyline 50MG Oral Capsule 09/22/2024 Unknown ORAL AT BEDT CARO 50 MILLIGRAMS RxNorm TAKE 50 MILLIGRAM S ORAL AT BEDTIME Pravastatin Sodium 80MG Oral Tablet 09/22/2024 Unknown ORAL AT BEDT CARO 80 MILLIGRAMS 931788 RxNorm TAKE 80 MILLIGRAM S ORAL AT BEDTIME QUEtiapine 100MG Oral Tablet 09/22/2024 Unknown ORAL AT BEDT CARO 100 MILLIGRAMS 481713 RxNorm TAKE 100 MILLIGRAM S ORAL AT BEDTIME Trulicity 0.75MG/0.5ML Subcutaneous Solution 09/22/2024 03/11/2025 SUBCUTANE OUS ONCE A WEEK 1 unit(s) 6039213 RxNorm INJECT INTO 1 EACH SUBCUTANE OUS ONCE A WEEK Venlafaxine HCl 75MG Oral Tablet 09/22/2024 Unknown ORAL ONCE A DAY 150 MILLIGRAMS 535192 RxNorm TAKE 150 MILLIGRAM S ORAL ONCE A DAY amLODIPine Besylate 10MG Oral Tablet 09/22/2024 Unknown ORAL ONCE A DAY 10 MILLIGRAMS 399042 RxNorm TAKE 10 MILLIGRAM S ORAL ONCE A DAY carBAMazepine 200MG Oral Capsule, Extended Release 09/22/2024 Unknown ORAL TWIC E A DAY 200 MILLIGRAMS 597279 RxNorm TAKE 200 MILLIGRAM S ORAL TWICE A DAY hydrOXYzine HCl 50MG Oral Tablet 09/22/2024 Unknown ORAL ONCE A DAY 50 MILLIGRAMS 732480 RxNorm TAKE 50 MILLIGRAM S ORAL ONCE A DAY metFORMIN HCl 1000MG Oral Tablet 09/22/2024 Unknown ORAL TWIC E A DAY 1000 MILLIGRAMS 076487 RxNorm TAKE 1000 MILLIGRAM S ORAL TWICE A DAY rOPINIRole HCl 0.25MG Oral Tablet 09/22/2024 Unknown ORAL AT BEDT CARO 0.25 MILLIGRAMS 269832 RxNorm TAKE 0.25 MILLIGRAM S ORAL AT BEDTIME traZODone hydrochloride 150MG Oral Tablet 09/22/2024 Unknown ORAL AT BEDT CARO 150 MILLIGRAMS 913053 RxNorm TAKE 150 MILLIGRAM S ORAL AT BEDTIME clonazePAM 1MG Oral Tablet 09/22/2024 03/11/2025 ORAL THRE E TIME S A DAY 1 MILLIGRAMS 028584 RxNorm TAKE 1 MILLIGRAM S ORAL THREE TIMES A DAY Multivitamin Oral Tablet 10/13/2024 Unknown ORAL ONCE A DAY 1 unit(s) RxNorm TAKE 1 EACH ORAL ONCE A DAY Diclofenac Sodium 75MG Oral Tablet, Enteric Coated 11/27/2024 07/02/2025 BY MOUTH NEED ED 3 TIME S A DAY 1 TABLET 594008 RxNorm TAKE 1 TABLET BY MOUTH NEEDED 3 TIMES A DAY Meloxicam 15MG Oral Tablet 01/26/2025 02/23/2025 BY MOUTH ONCE A DAY 1 TABLET 526198 RxNorm TAKE 1 TABLET BY MOUTH DAILY Methocarbamol 500MG Oral Tablet 01/26/2025 02/23/2025 BY MOUTH NEED ED 3 TIME S A DAY 1 TABLET 247305 RxNorm TAKE 1 TABLET BY MOUTH THREE TIMES DAILY NEEDED oxyCODONE HCl-acetaminophe n 5MG-325MG Oral Tablet 01/26/2025 03/11/2025 BY MOUTH NEED ED TWIC E A DAY 1 TABLET 1630990 RxNorm TAKE 1 TABLET BY MOUTH NEEDED TWICE A DAY Methocarbamol 500MG Oral Tablet 02/23/2025 03/26/2025 BY MOUTH NEED ED 3 TIME S A DAY 1 TABLET 023710 RxNorm TAKE 1 TABLET BY MOUTH NEEDED 3 TIMES A DAY Meloxicam 15MG Oral Tablet 02/23/2025 03/11/2025 BY MOUTH ONCE A DAY 1 TABLET 046169 RxNorm TAKE 1 TABLET BY MOUTH DAILY HumaLOG Mix 75/25 KwikPen 75U/1ML-25U/1ML Subcutaneous Suspension 03/16/2025 Unknown SUBCUTANE OUS THRE E TIME S A DAY 1 unit(s) 620615 RxNorm INJECT INTO 1 EACH SUBCUTANE OUS THREE TIMES A DAY Trulicity 1.5MG/0.5ML Subcutaneous Solution 03/16/2025 Unknown SUBCUTANE OUS ONCE A WEEK 1 unit(s) 1507045 RxNorm INJECT INTO 1 EACH SUBCUTANE OUS ONCE A WEEK clonazePAM 1MG Oral Tablet 03/16/2025 Unknown ORAL ONCE A DAY 1 MILLIGRAMS 649055 RxNorm TAKE 1 MILLIGRAM S ORAL ONCE A DAY Meloxicam 15MG Oral Tablet 03/26/2025 06/29/2025 BY MOUTH ONCE A DAY 1 TABLET 856315 RxNorm TAKE 1 TABLET BY MOUTH ONCE A DAY Meloxicam 15MG Oral Tablet 06/29/2025 Unknown BY MOUTH ONCE A DAY 1 TABLET 835519 RxNorm TAKE 1 TABLET BY MOUTH DAILY [...] DISEASE WITHOUT ESOPHAGITISUNSPECIFIED INFLAMMATORY SPONDYLOPATHY, LUMBAR REGIONOTHER SKILLED NURSING (CURRENT) DRUG THERAPY Hospital Discharge Instructions Should you have any questions prior to discharge, please contact a member of your healthcare team. If you have left the hospital and have any questions, please contact your primary care physician. Reason For Referral No Data Found Problems Problem Start Date Resolved Date Status Code Code System ENCOUNTER FOR SCREENING FOR OTHER VIRAL DISEASES active 288556014 SNOMED- CT ABDOMINAL PAIN active 00123379 SNOME D-CT PAIN IN BACK active 485006280 SNOMED- CT ANXIETY DISORDER, UNSPECIFIED active 254789547 SNOMED-CT DEPRESSION, UNSPECIFIED active 285333 07 SNOMED-CT SCHIZOPHRENIA, UNSPECIFIED active 582 31257 SNOMED-CT HYPERLIPIDEMIA, UNSPECIFIED active 55 956704 SNOMED-CT PERSONAL HISTORY OF OTHER MALIGNANT NEOPLASM OF SKIN active 048553848 S NOMED-CT BIPOLAR DISORDER, UNSPECIFIED active 42446990 SNOMED-CT ENCOUNTER FOR SCREENING EXAMINATION FOR OTHER MENTAL HEALTH AND BEHAVIORAL DISOR active 807359108 SNOMED-CT ENCOUNTER FOR SCREENING, UNSPECIFIED active 954425818 SNOMED-CT ENCOUNTER FOR GENERAL ADULT MEDICAL EXAMINATION WITHOUT ABNORMAL FINDINGS active 295866830 SNOMED-CT ENCOUNTER FOR OTHER SCREENIN G FOR MALIGNANT NEOPLASM OF BREAST active 145723932 SNOMED-CT TYPE 2 DIABETES MELLITUS WITHOUT COMPLICATIONS active 358616628 SNOMED -CT DORSALGIA, UNSPECIFIED active 2350644 05 SNOMED-CT ESSENTIAL (PRIMARY) HYPERTENSION active 49119416 SNOMED-CT THYROTOXICOSIS, 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 77086682 SNOMED-CT GASTRO-ESOPHAGEAL REFLUX DISEASE WITHOUT ESOPHAGITIS active 086875145 SNOMED-CT UNSPECIFIED INFLAMMATORY SPONDYLOPATHY, LUMBAR REGION active 481513674 SNOMED-CT OTHER SKILLED NURSING (CURRENT) DR UG THERAPY active 386431900 SNOMED-CT Allergies and Adverse Reactions Allergy Substance Reaction Severity Start Date Concern Status Code Code System SULFA (sulfonamide) Hives (SNOMED-CT: 418203150) Moderate Active 62453010 SNOMED-CT CEPHALOSPORIN Itching (SNOMED-CT: 107549967) Moderate Active 863584396 SNOMED-CT KETOROLAC NAUSEA (SNOMED-CT: null) Moderate Active 75625 RxNorm IODINE Hives (SNOMED-CT: 846182323) Moderate Active 5933 RxNorm ADHESIVE Rash (SNOMED-CT: 760470831) Moderate Active LATEX BLISTERS (SNOMED-CT: null) Moderate Active 0211955 RxNorm TEA TREE OIL BLISTERS (SNOMED-CT: null) Moderate Active 64874 RxNorm FLAGYL 375 TONGUE SWELLING (SNOMED-CT: null) Moderate Active 829392 RxNorm MOTRIN NAUSEA (SNOMED-CT: null) Moderate Active 20240501 RxNorm PENICILLIN Hives (SNOMED-CT: 735451511) Moderate Active Plan of Treatment SI Joint [...] Code Code Sys tem Chest pain, unspecified 02/03/2025 SNOM ED-CT Personal Care Team Section Performer Name Performer Role Active Date Inactive Maxi Green PCP - Primary care physician 2024-07-11
--- OUTSIDE RECORDS SUMMARY | 2025-08-22 21:48 | XMS_ITS ---
Author Organization Unknown Address [address] [place] [address] [phone] Phone Care Team Providers Care Radio Maintainer Name Role Phone MILES DAVIS Attending Unavailable PHOENIX MCCLAIN Primary Unavailable Immunization Immunization Date Status Additional Notes Code Code System influenza, unspecified formulation 07/04/2019 Completed 88 CVX Tdap 08/05/2021 Completed 115 CVX Influenza, MDCK, trivalent, PF 05/14/2024 Completed 153 CVX Pneumococcal conjugate PCV20 , polysaccharide [id number] conjugate, adjuvant, PF 05/14/2024 Completed 216 CVX Results MRI LUMBAR WO CONTRAST - Com pleted: 09/05/2024 11:14 LOINC: EXAM DESCRIPTION: MRI LUMBAR WO CONTRAST REASON FOR STUDY: Chronic low back pain with pzpn-pbuqmyk-jtdf-right unspecified levels radiculopathy. No provided history of lumbar spine or lower extremities trauma. History of diabetic neuropathy. 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 No provided history of spine surgeries. TECHNIQUE: Sagittal and axial imaging of the lumbar spine includes T1, T2, STIR sequences. Images saved to PACS. COMPARISON: Cervical, thoracic, and lumbar spine radiographs 07/11/2024; lumbar spine radiograph 02/05/2024; relevant portions of CT abdomen pelvis without contrast 08/22/2020. FINDINGS: SEGMENTATION: The lowest fully formed intervertebral disc level is labeled L5-S1. ALIGNMENT: Straightening of the lumbar lordosis and variable minimal stair step retrolisthesis L3 on L4 and L4 on L5. VERTEBRAE: No MR evidence of acute-subacute fracture. Vertebral body heights unchanged. Spondylosis. Scattered hemangiomas about the osseous architecture. DISC HEIGHT: Multilevel variable intervertebral disc desiccation and loss of intervertebral disc height of the lower thoracic through lumbar spine. HARDWARE: None in the lumbar spine. CORD/CAUDA: Normal in size and signal intensity with conus medullaris termination at the inferior aspect of L1. LOWER THORACIC: Incompletely imaged. No stenosis demonstrated. INDIVIDUAL DISC LEVELS: L1-2: Annular disc bulge. No spinal canal stenosis. No neural foraminal stenosis L2-3: No diffuse disc bulge or focal herniation. No spinal canal stenosis. No neural foraminal stenosis. L3-4: Posterior osteophytosis with annular disc bulge and shallow central disc protrusion. Bilateral hypertrophic facet arthropathy, noting fluid in the facet joints suggestive of facet synovitis. Mild ligamentum flavum thickening. Compromise of the bilateral lateral recesses, noting combination of disc and arthropathic facet variable slight contact with the descending bilateral L4 nerve roots. Mild- moderate spinal canal stenosis. Mild bilateral inferior neural foraminal stenosis, noting variable slight disc contact with exiting bilateral L3 nerve roots. L4-5: Annular disc bulge. Bilateral hypertrophic facet arthropathy, noting slight fluid in the dtpnx-otohouq-ztop-left facet joints suggestive of facet synovitis. Slight compromise of the left lateral recess. No spinal canal stenosis. Mild left neural foraminal stenosis, noting slight arthropathic facet contact with exiting left L4 nerve root. L5-S1: Minimal annular disc bulge with central disc protrusion with annular fissure. Bilateral hypertrophic facet arthropathy. No spinal canal stenosis. No significant neural foraminal stenosis. SACRUM: Visualized upper sacrum intact. VISUALIZED UPPER ABDOMEN: No significant abnormality. OTHER: Sarcopenia manifested as variably robust fatty atrophy of the visualized musculature. IMPRESSION: Constellation of spondylolisthesis with straightening of the lumbar lordosis, spondylosis, and degenerative disc disease of the lumbar spine as detailed level by level above. THIS IS AN ELECTRONICALLY VERIFIED FINAL REPORT 09/08/2024 8:51 AM - Electronically signed by Sadiq Corbett M.D. AGAPITO: AGAPITO Report ID: [id number] Reading Location: [id number] Social History Type Status Start Date End Date Code Code Syst em Smoking History Current every day smoker [id number] SNOMED CT Sex Female Medications Medication Start Date End Date Route Frequency Dose Code Code System Medication Instructions Home Meds Meloxicam 15MG Oral Tablet 08/11/2024 10/24/2024 BY MOUTH ONCE A DAY 1 TABLET 547639 RxNorm TAKE 1 TABLET BY MOUTH ONCE A DAY Cyclobenzapri ne HCl 10MG Oral Tablet 08/11/2024 03/11/2025 BY MOUTH 1 TABLET 366533 RxNorm TAKE 1 TABLET BY MOUTH FOR FOR MUSCLE SPASM. Escitalopram 20MG Oral Tablet 09/22/2024 Unknown ORAL ONCE A DAY 20 MILLIGRAM S 171047 RxNorm TAKE 20 MILLIGRAM S ORAL ONCE A DAY Gabapentin 800MG Oral Tablet 09/22/2024 Unknown ORAL THREE TIMES A DAY 800 MILLIGRAM S 879980 RxNorm TAKE 800 MILLIGRAM S ORAL THREE TIMES A DAY HumaLOG Mix 75/25 KwikPen 75U/1ML-25U/1 ML Subcutaneous Suspension 09/22/2024 03/11/2025 SUBCUTANE OUS DIRECTED 1 unit(s) 385448 RxNorm INJECT INTO 1 EACH SUBCUTANE OUS DIRECTED Lantus SoloStar 100U/1ML Subcutaneous Solution 09/22/2024 03/11/2025 SUBCUTANE OUS AT BEDTIME 1 unit(s) 845087 RxNorm INJECT INTO 1 EACH SUBCUTANE OUS AT BEDTIME Levothyroxine Sodium 88MCG Oral Tablet 09/22/2024 Unknown ORAL ONCE A DAY 88 MCG 011283 RxNorm TAKE 88 MCG ORAL ONCE A DAY Lisinopril 40MG Oral Tablet 09/22/2024 Unknown ORAL ONCE A DAY 40 MILLIGRAM S 187817 RxNorm TAKE 40 MILLIGRAM S ORAL ONCE A DAY Metoprolol Tartrate 100MG Oral Tablet 09/22/2024 Unknown ORAL TWICE A DAY 100 MILLIGRAM S 921580 RxNorm TAKE 100 MILLIGRAM S ORAL TWICE A DAY Nortriptyline 50MG Oral Capsule 09/22/2024 Unknown ORAL AT BEDTIME 50 MILLIGRAM S RxNorm TAKE 50 MILLIGRAM S ORAL AT BEDTIME Pravastatin Sodium 80MG Oral Tablet 09/22/2024 Unknown ORAL AT BEDTIME 80 MILLIGRAM S 865798 RxNorm TAKE 80 MILLIGRAM S ORAL AT BEDTIME QUEtiapine 100MG Oral Tablet 09/22/2024 Unknown ORAL AT BEDTIME 100 MILLIGRAM S 359099 RxNorm TAKE 100 MILLIGRAM S ORAL AT BEDTIME Trulicity 0.75MG/0.5ML Subcutaneous Solution 09/22/2024 03/11/2025 SUBCUTANE OUS ONCE A WEEK 1 unit(s) 9753170 RxNorm INJECT INTO 1 EACH SUBCUTANE OUS ONCE A WEEK Venlafaxine HCl 75MG Oral Tablet 09/22/2024 Unknown ORAL ONCE A DAY 150 MILLIGRAM S 764852 RxNorm TAKE 150 MILLIGRAM S ORAL ONCE A DAY Vitamin D3 10 MCG Oral Tablet 09/22/2024 12/29/2024 ORAL ONCE A DAY 10 MCG 116238 RxNorm TAKE 10 MCG ORAL ONCE A DAY amLODIPine Besylate 10MG Oral Tablet 09/22/2024 Unknown ORAL ONCE A DAY 10 MILLIGRAM S 870385 RxNorm TAKE 10 MILLIGRAM S ORAL ONCE A DAY carBAMazepine 200MG Oral Capsule, Extended Release 09/22/2024 Unknown ORAL TWICE A DAY 200 MILLIGRAM S 740053 RxNorm TAKE 200 MILLIGRAM S ORAL TWICE A DAY clonazePAM 1MG Oral Tablet 09/22/2024 03/11/2025 ORAL THREE TIMES A DAY 1 MILLIGRAM S 654546 RxNorm TAKE 1 MILLIGRAM S ORAL THREE TIMES A DAY metFORMIN HCl 1000MG Oral Tablet 09/22/2024 Unknown ORAL TWICE A DAY 1000 MILLIGRAM S 624353 RxNorm TAKE 1000 MILLIGRAM S ORAL TWICE A DAY rOPINIRole HCl 0.25MG Oral Tablet 09/22/2024 Unknown ORAL AT BEDTIME 0.25 MILLIGRAM S 157040 RxNorm TAKE 0.25 MILLIGRAM S ORAL AT BEDTIME traZODone hydrochloride 150MG Oral Tablet 09/22/2024 Unknown ORAL AT BEDTIME 150 MILLIGRAM S 893373 RxNorm TAKE 150 MILLIGRAM S ORAL AT BEDTIME hydrOXYzine HCl 50MG Oral Tablet 09/22/2024 Unknown ORAL ONCE A DAY 50 MILLIGRAM S 577214 RxNorm TAKE 50 MILLIGRAM S ORAL ONCE A DAY Chlorthalidon e 25MG Oral Tablet 09/22/2024 Unknown ORAL ONCE A DAY 25 MILLIGRAM S 811268 RxNorm TAKE 25 MILLIGRAM S ORAL ONCE A DAY Multivitamin Oral Tablet 10/13/2024 Unknown ORAL ONCE A DAY 1 unit(s) RxNorm TAKE 1 EACH ORAL ONCE A DAY Meloxicam 15MG Oral Tablet 10/24/2024 01/26/2025 BY MOUTH ONCE A DAY 1 TABLET 008684 RxNorm TAKE 1 TABLET BY MOUTH ONCE A DAY Methocarbamol 500MG Oral Tablet 11/27/2024 12/22/2024 BY MOUTH NEEDED 3 TIMES A DAY 1 TABLET 862031 RxNorm TAKE 1 TABLET BY MOUTH NEEDED 3 TIMES A DAY Diclofenac Sodium 75MG Oral Tablet, Enteric Coated 11/27/2024 07/02/2025 BY MOUTH NEEDED 3 TIMES A DAY 1 TABLET 838449 RxNorm TAKE 1 TABLET BY MOUTH NEEDED 3 TIMES A DAY Methocarbamol 500MG Oral Tablet 12/22/2024 01/26/2025 BY MOUTH NEEDED 3 TIMES A DAY 1 TABLET 512113 RxNorm TAKE 1 TABLET BY MOUTH THREE TIMES DAILY NEEDED oxyCODONE HCl-acetamino phen 5MG-325MG Oral Tablet 01/26/2025 03/11/2025 BY MOUTH NEEDED TWICE A DAY 1 TABLET 7932185 RxNorm TAKE 1 TABLET BY MOUTH NEEDED TWICE A DAY Meloxicam 15MG Oral Tablet 01/26/2025 02/23/2025 BY MOUTH ONCE A DAY 1 TABLET 833012 RxNorm TAKE 1 TABLET BY MOUTH DAILY Methocarbamol 500MG Oral Tablet 01/26/2025 02/23/2025 BY MOUTH NEEDED 3 TIMES A DAY 1 TABLET 798511 RxNorm TAKE 1 TABLET BY MOUTH THREE TIMES DAILY NEEDED Meloxicam 15MG Oral Tablet 02/23/2025 03/11/2025 BY MOUTH ONCE A DAY 1 TABLET 722062 RxNorm TAKE 1 TABLET BY MOUTH DAILY Methocarbamol 500MG Oral Tablet 02/23/2025 03/26/2025 BY MOUTH NEEDED 3 TIMES A DAY 1 TABLET 386372 RxNorm TAKE 1 TABLET BY MOUTH NEEDED 3 TIMES A DAY HumaLOG Mix 75/25 KwikPen 75U/1ML-25U/1 ML Subcutaneous Suspension 03/16/2025 Unknown SUBCUTANE OUS THREE TIMES A DAY 1 unit(s) 639159 RxNorm INJECT INTO 1 EACH SUBCUTANE OUS THREE TIMES A DAY Trulicity 1.5MG/0.5ML Subcutaneous Solution 03/16/2025 Unknown SUBCUTANE OUS ONCE A WEEK 1 unit(s) 2322879 RxNorm INJECT INTO 1 EACH SUBCUTANE OUS ONCE A WEEK clonazePAM 1MG Oral Tablet 03/16/2025 Unknown ORAL ONCE A DAY 1 MILLIGRAM S 806514 RxNorm TAKE 1 MILLIGRAM S ORAL ONCE A DAY Meloxicam 15MG Oral Tablet 03/26/2025 06/29/2025 BY MOUTH ONCE A DAY 1 TABLET 602585 RxNorm TAKE 1 TABLET BY MOUTH ONCE A DAY Meloxicam 15MG Oral Tablet 06/29/2025 Unknown BY MOUTH ONCE A DAY 1 TABLET 974946 RxNorm TAKE 1 TABLET BY MOUTH DAILY [...] DISEASE WITHOUT ESOPHAGITISUNSPECIFIED INFLAMMATORY SPONDYLOPATHY, 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 If you have left the hospital and have any questions, please contact your primary care physician. Reason For Referral No Data Found Problems Problem Start Date Resolved Date Status Code Code System ENCOUNTER FOR SCREENING FOR OTHER VIRAL DISEASES active 889865580 SNOMED- CT ABDOMINAL PAIN active 71039995 SNOME D-CT PAIN IN BACK active 367518252 SNOMED- CT ANXIETY DISORDER, UNSPECIFIED active 755639496 SNOMED-CT DEPRESSION, UNSPECIFIED active 757970 07 SNOMED-CT SCHIZOPHRENIA, UNSPECIFIED active 58 33177 SNOMED-CT HYPERLIPIDEMIA, UNSPECIFIED active 55 559022 SNOMED-CT PERSONAL HISTORY OF OTHER MALIGNANT NEOPLASM OF SKIN active 423948559 S NOMED-CT BIPOLAR DISORDER, UNSPECIFIED active 37785132 SNOMED-CT ENCOUNTER FOR SCREENING EXAMINATION FOR OTHER MENTAL HEALTH AND BEHAVIORAL DISOR active 202162278 SNOMED-CT ENCOUNTER FOR SCREENING, UNSPECIFIED active 568361996 SNOMED-CT ENCOUNTER FOR GENERAL ADULT MEDICAL EXAMINATION WITHOUT ABNORMAL FINDINGS active 077996108 SNOMED-CT ENCOUNTER FOR OTHER SCREENIN G FOR MALIGNANT NEOPLASM OF BREAST active 555808597 SNOMED-CT TYPE 2 DIABETES MELLITUS WITHOUT COMPLICATIONS active 532500301 SNOMED -CT DORSALGIA, UNSPECIFIED active 3367577 05 SNOMED-CT ESSENTIAL (PRIMARY) HYPERTENSION active 84705130 SNOMED-CT THYROTOXICOSIS, 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 42895522 SNOMED-CT GASTRO-ESOPHAGEAL REFLUX DISEASE WITHOUT ESOPHAGITIS active 879885482 SNOMED-CT UNSPECIFIED INFLAMMATORY SPONDYLOPATHY, LUMBAR REGION active 459869095 SNOMED-CT OTHER [facility] (CURRENT) DR UG THERAPY active 798408375 SNOMED-CT Allergies and Adverse Reactions Allergy Substance Reaction Severity Start Date Concern Status Code Code System SULFA (sulfonamide) Hives (SNOMED-CT: 429746597) Moderate Active 98503456 SNOMED-CT CEPHALOSPORIN Itching (SNOMED-CT: 041312747) Moderate Active 960142138 SNOMED-CT KETOROLAC NAUSEA (SNOMED-CT: null) Moderate Active 84630 RxNorm IODINE Hives (SNOMED-CT: 764965187) Moderate Active 5933 RxNorm ADHESIVE Rash (SNOMED-CT: 086896557) Moderate Active LATEX BLISTERS (SNOMED-CT: null) Moderate Active 7983009 RxNorm TEA TREE OIL BLISTERS (SNOMED-CT: null) Moderate Active 40076 RxNorm FLAGYL 375 TONGUE SWELLING (SNOMED-CT: null) Moderate Active 384637 RxNorm MOTRIN NAUSEA (SNOMED-CT: null) Moderate Active 748626 RxNorm PENICILLIN Hives (SNOMED-CT: 445943022) Moderate Active Plan of Treatment SI Joint [...] without myelopat hy or radiculopathy, lumbar region 09/05/2024 SNOMED-CT Personal Care Team Section Performer Name Performer Role Active Date Inactive Maxi Green PCP - Primary care physician 2024-07-11 Imaging Narrative Notes
--- NOTE | 2025-08-22 21:59 | PC.NURSE ---
DR DELANEY AT THE BEDSIDE. DAUGHTER IN LAW AT THE BEDSIDE
--- NOTE | 2025-08-22 22:30 | PC.NURSE ---
PATIENT WAS TAKEN DOWN TO CT AND RETURNED TO ROOM VIA STRETCHER. PATIENT IS RESPONSIVE TO VERBAL STIMULATION. DAUGHTER IN LAW AT THE BEDSIDE. CONTINUE WITH SECOND BAG OF IVF ON A PRESSURE BAG. IV SITE TO LEFT ARM WITHOUT REDNESS OR SWELLING. SECOND IV LINE PLACED TO RIGHT AC 20G. BINGHAM DRAINING JONAH, CLEAR URINE
--- NOTE | 2025-08-22 22:37 | PC.NURSE ---
CATE CURRENTLY AT THE BEDSIDE. MARII WITH LAB AT THE BEDSIDE
[2025-08-22] MEDS: MEROPENEM 1 GM in SODIUM CHLORIDE 0.9% IV 100 ML 200 ML IVPB (22:48)
--- NOTE | 2025-08-22 22:50 | PC.NURSE ---
DR DELANEY NOTIFIED THAT 3RD LITER OF NS WILL BE FINISHED MOMENTARILY. DR DELANEY REQUESTED SUPPLIES FOR CENTRAL LINE PLACEMENT
--- NOTE | 2025-08-22 23:02 | PC.NURSE ---
PATIENTS SON SIGNED CONSENT FOR CENTRAL LINE PLACEMENT. PATIENT IS UNABLE TO SIGN AT THIS TIME.
[2025-08-22 23:13] LABS: Hematocrit 27.8 % (35.0-49.0); Hemoglobin 9.3 g/dL (12.0-15.0); Immature Granulocyte Percent A 0.6 % (0.0-0.0); Immature Platelet Fraction Pct 3.0 % (1.0-7.0); Lymphocytes Absolute Auto 1.58 K/mm3 (1.10-4.50); Mean Corpuscular HGB Conc 33.5 g/dL (32-36); Mean Corpuscular Hemoglobin 30.8 pg (27.0-31.0); Mean Corpuscular Volume 92.1 fL (78.0-102.0); Nucleated Red Blood Cells Absolute Auto 0.00 K/mm3 (0.00-0.00); Nucleated Red Blood Cells Perc 0.0 % (0-0.0); Platelet Count Result 142 K/mm3 (150-420); Red Blood Count 3.02 M/mm3 (4.20-5.40); White Blood Count 12.5 K/mm3 (4.8-10.8)
--- NOTE | 2025-08-22 23:16 | PC.NURSE ---
DR DELANEY AT THE BEDSIDE FOR CENTRAL LINE PLACEMENT TO RIGHT GROIN.
[2025-08-22 23:25] LABS: Add Urine Microscopic? YES; Glucose Urine UA Negative (Negative); Leukocyte Esterase Ur Negative LEU/UL (Negative); Nitrate Urine Negative (Negative); Specific Grav Ur 1.020 (1.010-1.020)
[2025-08-22 23:25] LABS: INR 1.0; Partial Thromboplastin Time 25.9 Sec (23.9-30.70); Prothrombin Time 11.4 Seconds (9.50-12.1)
[2025-08-22 23:26] LABS: Alanine Aminotransferase 30 U/L (6-35); Albumin Level 3.3 g/dL (3.5-5.1); Alkaline Phosphatase 73 U/L (38-126); Anion Gap 14 mmol/L (4-12); Aspartate Amino Transferase 34 U/L (14-36); Bilirubin,Total 0.2 mg/dL (0.2-1.3); Blood Urea Nitrogen 25 mg/dL (7-17); CRP > 9.0 mg/dL (<1.0); Calcium 7.5 mg/dL (8.4-10.2); Carbon Dioxide 18 mmol/L (22-30); Chloride 100 mmol/L (98-107); Estimated CRCL calculation 21 ml/min; Estimated Glomerular Filt Rate 19; Glucose 112 mg/dL (65-110); Osmolality Calculated 279 mOsm/kg (285-295); Potassium 3.9 mmol/L (3.4-5.0); Sodium 132 mmol/L (137-145); Total Protein 5.7 g/dL (6.3-8.2)
--- NOTE | 2025-08-22 23:28 | PC.NURSE ---
SPOKE WITH PABLO AT [facility] TO VERIFY LEVOPHED ORDER THAT WAS PLACED
--- NOTE | 2025-08-22 23:33 | PC.NURSE ---
DAUGHTER IN LAW BACK AT THE BEDSIDE. UPDATED HER THAT PROCEDURE FOR CENTRAL LINE PLACEMENT WAS COMPLETED. PATIENT RESTING ON STRETCHER WITH HER EYES CLOSED. RESPONSIVE TO VERBAL STIMULI. PATIENT CONTINUES TO SAY SHE IS AT [facility].
--- NOTE | 2025-08-22 23:38 | PC.NURSE ---
SON AND DAUGHTER IN LAW TO GO HOME FOR NOW. PHONE NUMBERS WERE GIVEN FOR UPDATES
[2025-08-22 23:40] LABS: Lipase 690 U/L (23-300); Troponin I < 0.012 ng/mL (0.000-0.034)
[2025-08-22 23:41] LABS: Magnesium 1.3 mg/dL (1.6-2.3)
[2025-08-22 23:42] LABS: Cannabinoid Screen Urine Positive (Negative)
[2025-08-22 23:53] LABS: Appearance Urine Sl Cloudy (Clear)
[2025-08-23] VITALS (24 sets, daily range): BP systolic 76–145; BP diastolic 48–83; PULSE 80–93; RESP 13–20; TEMP 36.4; O2SAT 93–100
[2025-08-23] MEDS: NALOXONE HCL INJ 2 MG/2 ML AMP 4 MG IV PUSH ×2 (00:09→00:50)
--- NOTE | 2025-08-23 00:09 | PC.NURSE ---
PATIENT WAS GIVEN NARCAN. PATIENT SAT UP IN THE BED. STATES WHERE AM I? THEN LAID BACK DOWN ON THE STRETCHER AND WENT TO SLEEP
[2025-08-23] MEDS: MAGNESIUM SULF 2 GM/WATER 50ML 2 GM/50 ML BAG IVPB (00:18)
[2025-08-23] MEDS: NOREPINEPHRINE 8 MG/D5W 250 ML 8 MG/250 ML BAG 9.38 MG IV CONT (00:28)
[2025-08-23] MEDS: VANCOMYCIN 1,250 MG/NS 250 ML 1,250 MG/250 ML BAG 166.67 MG IVPB (00:39)
[2025-08-23 00:56] LABS: Magnesium 1.1 mg/dL (1.6-2.3)
--- NOTE | 2025-08-23 01:00 | PC.NURSE ---
SECOND DOSE OF NARCAN WAS GIVEN. AFTER APPROX 5 MINUTES, PATIENT OPENED HER EYES. LOOKED AT DR DELANEY, HELD A CONVERSATION WITH HIM FOR APPROX ANOTHER 5 MINUTES THEN WENT BACK TO SLEEP
--- NOTE | 2025-08-23 01:06 | PC.NURSE ---
DAUGHTER IN LAW CALLED FOR UPDATE. NOTIFIED HER THAT WE [facility]
--- NOTE | 2025-08-23 02:06 | PC.NURSE ---
IV PUMP STARTED TO BEEP. PATIENT WOKE UP AND SAID WHAT AM I DOING HERE? CAN I HAVE SOME ICE CHIPS? ICE CHIPS GIVEN TO PATIENT. PATIENT WANTS TO KNOW WHERE HER SON IS AND WAS HE THERE. INFORMED HER THAT HE WAS HERE FOR SEVERAL HOURS THEN WENT BACK HOME TO GET CHILDREN TO BED. CURRENTLY SITTING UP EATING THE ICE CHIPS AND WATCHING TV
--- NOTE | 2025-08-23 03:03 | PC.NURSE ---
DUGLAS JARAMILLO NOTIFIED OF DELAY ON TRANSPORT
--- NOTE | 2025-08-23 03:16 | PC.NURSE ---
PATIENT APPEARS TO BE SLEEPING. RESP EVEN AND UNLABORED. CALL LIGHT IN REACH. CURTAIN LEFT OPEN TO MONITOR PATIENT FROM DESK.
[2025-08-23 04:04] LABS: MRSA (PCR) NOT DETECTED (NOT DETECTE)
--- NOTE | 2025-08-23 04:06 | PC.NURSE ---
PATIENT APPEARS TO BE SLEEPING. RESP EVEN AND UNLABORED. CALL LIGHT IN REACH. DOOR CLOSED, CURTAIN REMAINS OPEN FOR ENHANCED MONITORING.
--- NOTE | 2025-08-26 12:14 | PC.NURSE ---
blood cultures x2 reviewed. no growth in 24 hours.
--- NOTE | 2025-08-27 13:13 | PC.NURSE ---
blood, preliminary, no growth
--- NOTE | 2025-08-30 15:04 | PC.NURSE ---
FINAL BLOOD CULTURE REPORT; NO GROWTH IN 5 DAYS.
== END 2025-08-23 05:10 | disposition short-term general hospital (02) ==
PROVIDERS: Emergency Provider Emergency Medicine
DX: L03.115 Cellulitis of right lower limb (principal); A41.9 Sepsis, unspecified organism; I95.89 Other hypotension; E83.42 Hypomagnesemia; N19 Unspecified kidney failure; D64.9 Anemia, unspecified; F12.10 Cannabis abuse, uncomplicated; F11.90 Opioid use, unspecified, uncomplicated; E11.9 Type 2 diabetes mellitus without complications; I10 Essential (primary) hypertension; E78.5 Hyperlipidemia, unspecified
CPT/HCPCS: 36415; 36556; 70450; 71045; 80053; 80307; 81001; 82077; 82948; 83605; 83690; 83735; 84484; 85025; 85055; 85610; 85730; 86140; 87040; 87641; 93005; 96361; 96365; 96367; 99285; C1751; J2185; J2312; J3373; J3475; J7030